=== PATIENT | female | born 1950 | race Two or more races ===

== ENCOUNTER 2021-01-12 11:07 | Inpatient (IN) | payer OTHER ==
[~2021-01-12] VITALS: Ht 152.4 cm; Wt 74.9 kg
[~2021-01-12 11:07] MED LIST: ASPI-630 PO; CARV3.1210 PO; CLOP75TA PO; FLUO10CA15 PO; HYDR-2145 PO; HYDR-2761 PO; ICOS1CAP PO; LISI-130 PO; LISI1TAB37 PO; LISI20TA18 PO; METF-658 PO; NIFE30TA95 PO; OMEG-206 PO; ONDA4TAB7 PO; PANT20TA2 PO; PENT400T7 PO; PRAV20TA2 PO; PRAV40TA2 PO; Pantoprazole PO; SITA100T PO; SUCR1TAB PO; VITA1TAB19 PO; [UNRECOGNIZED DRUG - OTHER] PO
[2021-01-12] MEDS ORDERED: IOHEXOL 300 MG/ML 100ML VIAL. IV ONE (14:15)
[2021-01-12] MEDS ORDERED: CONTRAST GIVEN. MC PRN (14:15)
--- NOTE | 2021-01-12 14:34 | PDOC1 ---
History and Physical Date of Admission Date of Admission DATE: 01/12/21 TIME: 14:34 Identification/Chief Complaint Chief Complaint ABDOMINAL AND EPIGASTRIC DISCOMFORT X 48 HRS, bradycardia History of Present Illness History of Present Illness 70 Yr old cuban speaking female seen in ER with grandson who speeks maltese well c/o epigastric pain x [address] chest ascending thoracic aorta appears enlarged measuring 4.5 cm // measurement is limited by motion artifact and noncontrast exam. moderate to severe compression fracture of T9 post vertebroplasty ABDOMINAL PAIN, possible gastritis vs PUD Bradycardia, hold calcium channel blockers plan ADMIT CVC BED Cardiology consult iv protonix 40 mg q 24 hrs GI CONSULT npo hold calcium channel blockers Past Medical History Cardiovascular: HTN, Hyperlipidemia, Other CENTRAL NERVOUS SYSTEM: Periperal neuropathy GI: GERD, Peptic Ulcer disease, Other Psych: Anxiety, Depression Musculoskeletal: Osteoarthritis Rheumatologic: Other Endocrine: Diabetes Past Surgical History Past Surgical History: Appendectomy Family History Family History: Hypertension Social History Smoke: No ALCOHOL: none Drugs: None Current Medications Current Medications Current Medications Iohexol (Omnipaque 300 Mg/ml) 75 ml 1X ONCE IV ; Start 01/12/21 at 14:15; Stop 01/12/21 at 14:16; Status DC Info (CONTRAST GIVEN -- Rx MONITORING) 1 each PRN DAILY PRN MC SEE COMMENTS; Start 01/12/21 at 14:15; Stop 01/14/21 at 14:14 Active Scripts Active Zofran (Ondansetron Hcl) 4 Mg Tablet 4 Mg PO PRN TID PRN nausea/vomiting Nifedipine Er (Nifedipine) 30 Mg Tab.er.24 30 Mg PO DAILY 30 Days [Pantoprazole] 40 MG Tablet.dr 40 Mg PO DAILYAC 30 Days Lisinopril 40 Mg Tablet 20 Mg PO BID 30 Days Reported Aspirin 81 Mg Tab.chew 81 Mg PO DAILY Fluoxetine Hcl 10 Mg Capsule 1 Cap PO DAILY Anderson-3 Acid Ethyl Esters 1 Gm Capsule 1 Gm PO DAILY B Complex (Vitamin B Complex) 1 Each Tablet 1 Each PO DAILY Januvia (Sitagliptin Phosphate) 100 Mg Tablet 100 Mg PO DAILY Metformin Hcl Er (Metformin Hcl) 500 Mg Tab.er.24h 500 Mg PO DAILY Pentoxifylline 400 Mg Tablet.er 400 Mg PO DAILY Hydrochlorothiazide Tablet (Hydrochlorothiazide) 25 Mg Tablet 25 Mg PO DAILY Pravastatin Sodium 20 Mg Tablet 20 Mg PO HS Clopidogrel (Clopidogrel Bisulfate) 75 Mg Tablet 75 Mg PO DAILY Vascepa (Icosapent Ethyl) 1 Gm Capsule 1 Gm PO DAILY Allergies Allergies: Coded Allergies: No Known Drug Allergies (Unverified , 12/28/17) ROS General: YES: Fatigue, Appetite PSYCHOLOGICAL ROS: No: Anxiety, Behavioral Disorder, Concentration difficultie, Decreased libido, Depression, Disorientation, Hallucinations, Hostility, Irritablity, Memory difficulties, Mood Swings, Obsessive thoughts, Physical abuse, Sexual abuse, Sleep disturbances, Suicidal ideation, Other Eyes: No Blurry vision, No Decreased vision, No Double vision, No Dry eyes, No Excessive tearing, No Eye Pain, No Itchy Eyes, No Loss of vision, No P hotophobia, No Scotomata, No Uses contacts, No Uses glasses, No Other HEENT: No: Heacaches, Visual Changes, Hearing change, Nasal congestion, Nasal discharge, Oral lesions, Sinus pain, Sore Throat, Epistaxis, Sneezing, Snoring, Tinnitus, Vertigo, Vocal changes, Other ALLERGY AND IMMUNOLOGY: No: Hives, Insect Bite Sensitivity, Itchy/Watery Eyes, Nasal Congestion, Post Nasal Drip, Seasonal Allergies, Other Hematological and Lymphatic: No: Bleeding Problems, Blood Clots, Blood Transfusions, Brusing, Night Sweats, Pallor, Swollen Lymph Nodes, Other ENDOCRINE: No: Breast Changes, Galactorrhea, Hair Pattern Changes, Hot Flashes, Malaise/lethargy, Mood Swings, Palpitations, Polydipsia/polyuria, Skin Changes, Temperature Intolerance, Unexpected Weight Changes, Other Breast: No New/Changing Breast Lumps, No Nipple changes, No Nipple discharge, No Other Respiratory: No: Cough, Hemoptysis, Orthopnea, Pleuritic Pain, Shortness of breath, SOB with excertion, Sputum Changes, Stridor, Tachypnea, Wheezing, Other Cardiovascular: No Chest Pain, No Palpitations, No Orthopnea, No Paroxysmal Noc. Dyspnea, No Edema, No Lt Headedness, No Other Gastrointestinal: Yes Nausea, Yes Abdominal Pain; No Vomiting, No Diarrhea, No Constipation, No Melena, No Hematochezia, No Other Genitourinary: No Dysuria, No Frequency, No Incontinence, No Hematuria, No Retention, No Discharge, No Urgency, No Pain, No Flank Pain, No Other, No , No , No , No , No , No , No Musculoskeletal: Yes Joint Stiffness; No Gait Disturbance, No Joint Pain, No Joint Swelling, No Muscle Pain, No Muscular Weakness, No Pain In:, No Swelling In:, No Other Neurological: No Behavorial Changes, No Bowel/Bladder ControlChng, No Confusion, No Dizziness, No Gait Disturbance, No Headaches, No Impaired Coord/balance, No Memory Loss, No Numbness/Tingling, No Seizures, No Speech Problems, No Tremors, No Visual Changes, No Weakness, No Other Skin: Yes Dry Skin; No Eczema, No Hair Changes, No Lumps, No Mole Changes, No Mottling, No Nail Changes, No Pruritus, No Rash, No Skin Lesion Changes, No Other, No Acne Physical Exam General: Alert, Oriented X3, Cooperative, No acute distress, mild distress HEENT: Atraumatic, PERRLA, EOMI, Mucous membr. moist/pink Lungs: Clear to auscultation, Normal air movement Heart: S1S2, RRR, no thrills, no rubs Breasts: Not examined Abdomen: Soft, Other (MILD TENDERNESS) Rectal Exam: not examined PELVIC: Examination not indicated Extremities: No cyanosis, No edema Skin: No rashes Neuro: Normal speech, Strength at 5/5 X4 ext, Cranial nerves 3-12 NL Psych/Mental Status: Mental status NL, Mood NL Images Images WHAT MUST I INCLUDE IN MY ADVANCE DIRECTIVE? The name and contact information of your healthcare agent/proxy. Answers to specific questions about your preferences for care if you become unable to speak for yourself. The forms and questions asked vary a bit from state to state. A sample question: Do you want to receive artificially provided nutrition or hydration when you are close to and/or permanently unconscious? Names and signatures of individuals who witness your signing your advance directive, if required. Not all states require witness signatures. The signature and seal of a director public, if required by your state. Not all states require advance directives to be notarized. [facility] has a list of all advance directive/living will requirements by state. WHAT ELSE WOULD BE GOOD TO INCLUDE IN MY ADVANCE DIRECTIVE? Detailed information about what procedures or types of care you would like to receive and what you wish to avoid at all costs that are not covered by the questions on the form. Would you want to take advantage of all life-support technologies if it would only postpone ? Would you want to use them if you were permanently unconscious? Would you want them if you were going through an advanced progressive illness? More general statements about your values regarding end-of-life care. What does a good mean and look like to you? For that matter, what defines a life worth living? Do you define life by the intake of breath and nutrients? Is it defined by consciousness? At what point do you want to prolong it and at what point do you want to preserve resources for other people? Personal desires for body disposition in essence, what you want to happen to your body when you and plans for any memorial service(s) A list of people who cannot make healthcare decisions for you. Leave no room for ambiguity, which could lead to tensions between loved ones about your care as you are dying. HOW SHOULD I GO ABOUT IDENTIFYING MY HEALTHCARE AGENT/PROXY? An ideal person for the job is someone who: Knows you well. A spouse/partner, a family member, a close friend: all are good candidates. Excels at making difficult decisions under pressure. Is diplomatic and empathetic critical traits for balancing the needs, wants, and unpredictable emotions of a patients loved ones. Isnt afraid to ask tough questions, which invariably arise when discussing a dying individuals end-of-life care. Is easily reachable by email, phone, and/or text. Is or can easily be within physical proximity of where youre likely to receive care. Once Court identified this person, how do I talk to them about what care I want and dont want at the end of life? Have multiple conversations with your healthcare agent about your wishes. Take them out to tea, have them over for dinner, go to a bar or library. Talk about what you want, and make sure you are heard and understood. WHAT IF MY HEALTHCARE AGENT/PROXY IS UNAVAILABLE TO EXECUTE THEIR DUTIES WHEN I AM DYING? It is important to appoint an alternative agent/proxy for exactly this reason. Identify and inform that person as you did your main agent/proxy, and list them as an alternate on your advance directive form. In most states, witnesses cannot be: Your healthcare agent or proxy; Any of your care providers; Related to you by blood, adoption, or marriage; Entitled to any portion of your estate upon your . dpoa 18 min to portal HISTORY The patient is a 67 year-old female with a history of : diabetes mellitus with treatment, peripheral vascular disease, hypertension. INDICATION The indication(s) include : non-STEMI . CASE TECHNIQUE The patient was brought electively into the cardiac catheterization lab. A timeout was performed confirming the patient's name, date of , procedure, and site of procedure. All necessary parties were wearing the appropriate personal protective equipment and radiation monitoring devices. After explaining the risks and benefits of the procedure, informed consent was obtained.(See nursing notes for medications administered). The right groin was sterilely prepped and draped. The right femoral groin was infiltrated with 2% Lidocaine subcutaneous anesthesia. During this case, Fluoroscopy and low osmolar contrast were used for imaging. A sheath was inserted into the right femoral artery without difficulty. Coronary angiography was performed using coronary diagnostic catheters. The left coronary system was accessed and visualized with a Diagnostic catheter. The right coronary system was accessed and visualized with a Diagnostic catheter. The left ventricle was accessed and visualized with a Diagnostic catheter. Left ventricular/Aortic Valve gradient assessed on pullback. Left ventriculogram was performed in MORAN projection. An aortogram of the ascending aorta was performed. Pre-demployment femoral angiogram was performed . Closure device was deployed with a Angioseal without any complications. The patient tolerated the procedure well and there were no complications associated with the procedure. Coronary Angiography The patient's coronary anatomy is left dominant. The left main coronary artery is a large size vessel free of disease. The left main bifurcates to the left anterior descending and circumflex. The left anterior descending artery is a medium size vessel free of disease. The first diagonal branch is a small size vessel free of disease. The second d iagonal branch is a small size vessel free of disease. The third diagonal branch is a small size vessel free of disease. The circumflex artery is a large size vessel free of disease. The first obtuse marginal branch is a mediummedium size vessel free of disease. The second obtuse marginal branch is a medium size vessel free of disease. The third obtuse marginal branch is a small size vessel free of disease. The left posterior descending artery is a medium size vessel free of disease. The right coronary artery is a small size vessel free of disease. Left Ventriculography The left ventricle is normal in size with normal contractility. The left ventricular ejection fraction is estimated to be 50%. The left ventricular end diastolic pressure is 14 mmHg. There was no gradient across the aortic valve upon pullback. Aorta The ascending aorta and the aortic arch are dilated. No evidence of a dissection was seen. Mild aortic insufficiency was noted. Conclusion This patient has normal coronaries, a low normal left ventricular ejection fraction of 50% and a dilated aorta with mild aortic insufficiency present. I would recommend medical treatment for this patient. There is no evidence of an apparent OR. The patient will need a CTA of the aorta to follow the size changes in the aorta. She was bradycardic throughout the procedure and we will need to follow this to make sure that she is not having significant bradycardia in the [employer] she was running in the 40s before the start of the heart catheter. Signed by : Luis Salazar MD Electronically Approved : 12/26/2017 17:56:23 DICTATED and SIGNED BY: LUIS SALAZAR MD DATE: 12/26/17 1756 PATIENT: SANTOSH PIPERACCOUNT: [id number] : 1950 LOCATION: ER AGE: 70 SEX: F EXAM STATUS: REG ER ORD. PHYSICIAN: ELIDA ESPINAL DO REASON: Epigastric pain/questionable aneurysm PROCEDURE: CT CHEST WO CONTRAST EXAM: CT CHEST WITHOUT CONTRAST HISTORY: Epigastric pain, questionable aneurysm COMPARISON: None TECHNIQUE: Helical CT of the chest performed without contrast. Coronal and sagittal reformats were obtained. One or more of the following individualized dose reduction techniques were util ized for this examination: 1. Automated exposure control 2. Adjustment of the mA and/or kV according to patient size 3. Use of iterative reconstruction technique. FINDINGS: Thyroid gland and thoracic inlet: There is a calcification in the left thyroid lobe. Thoracic inlet is normal. Heart and great vessels: The ascending thoracic aorta appears enlarged measuring 4.5 cm although the measurement is limited by motion artifact and noncontrast exam. The heart is normal in size. There are coronary calcifications. No pericardial effusion. Mild calcifications in the aortic arch and descending aorta. Mediastinum and lb: No lymphadenopathy. Lungs and pleura: There is a 1.3 cm linear nodule in the anterior left upper lobe. Calcified granuloma in the right middle lobe. Mild linear atelectasis in the lung bases. No pleural effusion. Chest wall and axillae: Normal. Upper abdomen: There are parapelvic cysts in the left kidney. Upper abdomen is otherwise unremarkable. Bones: There is a moderate to severe compression fracture of T9 post vertebroplasty. No acute osseous abnormality. There are multiple old right rib fractures. IMPRESSION: 1. The ascending thoracic aorta appears enlarged measuring approximately 4.5 cm. Measurements are limited by motion artifact and noncontrast exam. 2. 1.3 cm linear nodule in the left apex. Recommend 3 month follow-up CT to ensure stability. 3. T9 compression fracture post vertebroplasty. Electronically signed by: Flori Villafana MD (01/12/2021 4:26 PM) [id number] DICTATED and SIGNED BY: FLORI VILLAFANA MD DATE: 01/12/21 [id number] PATIENT: SANTOSH PIPERACCOUNT: [id number] : 1950 LOCATION: ER AGE: 70 SEX: F EXAM STATUS: REG ER ORD. PHYSICIAN: NON,STAFF REASON: ABDOMINAL PAIN PROCEDURE: CT ABD PELV W/ IV CONTRST ONLY EXAM: Abdomen and pelvis CT with intravenous contrast. HISTORY: Pain. TECHNIQUE: Computed tomographic images of the abdomen and pelvis were obtained following the administration of intravenous contrast. Multiplanar reformatting was performed. *One or more of the following individualized dose reduction techniques were utilized for this examination: 1. Automated exposure control. 2. Adjustment of the mA and/or kV according to patient size. 3. Use of iterative reconstruction technique. COMPARISON: None. FINDINGS: Evaluation of the lower thorax demonstrates bilateral mid and lower lung atelectasis and pleural-parenchymal scarring. There is no consolidation, pleural effusion or pneumothorax. There is cardiomegaly. There is a suspected ectatic or dilated ascending aorta, partially included on the [id number]. There is a tortuous descending thoracic aorta. There is no suspicious hepatic lesion. The gallbladder, pancreas, spleen, stomach and adrenal glands are unremarkable. There are multiple bilateral renal parapelvic cysts and small cortical cysts. There is scarring within the lateral mid zone of the right kidney. There is no hydronephrosis. The bladder is unremarkable. The appendix is absent. There is colonic diverticulosis. There is no diverticulitis. The uterus and adnexal regions are unremarkable. The abdominal aorta is normal in caliber. There is aortic and aortic branch vessel atherosclerosis. There is no lymphadenopathy. There is a tiny fat-containing left periumbilical hernia. There is degenerative change involving both hips and the lumbar spine. There is grade 1 anterolisthesis at the lower lumbar levels. There is a chronic severe compression fracture with vertebroplasty changes at T9. IMPRESSION: 1. Colonic diverticulosis. There is no evidence of diverticulitis. 2. 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 Follow-up is not routinely performed for simple cysts. 3. Ectatic or mildly aneurysmal ascending aorta, partially included on the [id number]. 4. Cardiomegaly. Electronically signed by: Minoo Brennan MD (01/12/2021 2:52 PM) [id number] VTE Prophylaxis Ordered VTE Prophylaxis Devices: Yes VTE Pharmacological Prophylaxi: Yes Assessment/Plan Assessment/Plan IMPRESSION ABDOMINAL PAIN, possible gastritis vs PUD Bradycardia, hold calcium channel blockers obesity ascending thoracic aorta appears enlarged measuring 4.5 cm // measurement is limited by motion artifact and noncontrast exam. moderate to severe compression fracture of T9 post vertebroplasty plan ADMIT CVC BED Cardiology consult iv protonix GI CONSULT npo hold calcium channel blockers iv fluid support SCD'S D/W ER DR Justifications for Admission Other Justification BARRY OROZCO MD January 12, 2021 14:34
--- NOTE | 2021-01-12 14:54 | RAD ---
EXAM: Abdomen and pelvis CT with intravenous contrast. HISTORY: Pain. TECHNIQUE: Computed tomographic images of the abdomen and pelvis were obtained following the administ ration of intravenous contrast. Multiplanar reformatting was performed. *One or more of the following individualized dose reduction techniques were utilized for this examina tion: 1. Automated exposure control. 2. Adjustment of the mA and/or kV according to patient size. 3. Use of iterative reconstruction technique. COMPARISON: None. FINDINGS: Evaluation of the lower thorax demonstrates bilateral mid and lower lung atelectasis and pl eural-parenchymal scarring. There is no consolidation, pleural effusion or pneumothorax. There is car diomegaly. There is a suspected ectatic or dilated ascending aorta, partially included on the field-o f-view. There is a tortuous descending thoracic aorta. There is no suspicious hepatic lesion. The gal lbladder, pancreas, spleen, stomach and adrenal glands are unremarkable. There are multiple bilateral renal parapelvic cysts and small cortical cysts. There is scarring withi n the lateral mid zone of the right kidney. There is no hydronephrosis. The bladder is unremarkable. The appendix is absent. There is colonic diverticulosis. There is no diverticulitis. The uterus and a dnexal regions are unremarkable. The abdominal aorta is normal in caliber. There is aortic and aortic branch vessel atherosclerosis. There is no lymphadenopathy. There is a tin y fat-containing left periumbilical hernia. There is degenerative change involving both hips and the lumbar spine. There is grade 1 anterolisthesis at the lower lumbar levels. There is a chronic severe compression fracture with vertebroplasty changes at T9. IMPRESSION: 1. Colonic diverticulosis. There is no evidence of diverticulitis. 2. 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 Follow-up is not routinely performed for simpl e cysts. 3. Ectatic or mildly aneurysmal ascending aorta, partially included on the [id number]. 4. Cardiomegaly. Electronically signed by: Minoo Brennan MD (01/12/2021 2:52 PM) [id number]
[2021-01-12 15:03] LABS: BASO % 0 % (0-3); EOS # 0.1 x10^3/uL (0.0-0.7); EOS % 2 % (0-3); HEMATOCRIT 37.8 % (36.0-47.0); HEMOGLOBIN 12.9 g/dL (12.0-15.5); LYMPH # 1.3 x10^3/uL (1.0-4.8); LYMPH % 16 % (24-48); MEAN CORPUSCULAR HEMOGLOBIN 33 pg (25-35); MEAN CORPUSCULAR HGB CONC 34 g/dL (31-37); MEAN CORPUSCULAR VOLUME 96 fL (79-100); MONO # 0.5 x10^3/uL (0.0-1.1); MONO % 6 % (0-9); NEUT % 76 % (31-73); PLATELET COUNT 151 x10^3/uL (140-400); RED BLOOD COUNT 3.95 x10^6/uL (3.50-5.40); WHITE BLOOD COUNT 7.9 x10^3/uL (4.0-11.0)
[2021-01-12 15:06] LABS: BILIRUBIN,URINE SMALL (NEG); CLARITY,URINE CLEAR; COLOR,URINE YELLOW; NITRITE,URINE NEGATIVE (NEG); PROTEIN,URINE 30 mg/dL (NEG-TRACE)
[2021-01-12 15:07] LABS: BACTERIA,URINE FEW /HPF (0-FEW); RBC,URINE OCC /HPF (0-2)
--- NOTE | 2021-01-12 15:09 | RAD ---
EXAM: CHEST ONE VIEW. HISTORY: Cystoscopy. COMPARISON: None. FINDINGS: A frontal view of the chest is obtained. There are no confluent infiltrates. There is mild atelectasis or scarring in the right base. There is no pneumothorax or pleural effusion. The heart is moderately enlarged. There are atherosclerotic ch[place] cifications of the aorta. There are chronic right rib fractures. IMPRESSION: 1. Moderate cardiomegaly. Electronically signed by: Sathya Fleming MD (01/12/2021 3:07 PM) [facility]
[2021-01-12] MEDS ORDERED: ONDANSETRON PF 4 MG/2 ML VIAL. IV PRN (15:45)
--- NOTE | 2021-01-12 16:28 | RAD ---
EXAM: CT CHEST WITHOUT CONTRAST HISTORY: Epigastric pain, questionable aneurysm COMPARISON: None TECHNIQUE: Helical CT of the chest performed without contrast. Coronal and sagittal reformats were o btained. One or more of the following individualized dose reduction techniques were utilized for this examinat ion: 1. Automated exposure control 2. Adjustment of the mA and/or kV according to patient size 3. Use of iterative reconstruction technique. FINDINGS: Thyroid gland and thoracic inlet: There is a calcification in the left thyroid lobe. Thoracic inlet i s normal. Heart and great vessels: The ascending thoracic aorta appears enlarged measuring 4.5 cm although the measurement is limited by motion artifact and noncontrast exam. The heart is normal in size. There ar e coronary calcifications. No pericardial effusion. Mild calcifications in the aortic arch and descen ding aorta. Mediastinum and lb: No lymphadenopathy. Lungs and pleura: There is a 1.3 cm linear nodule in the anterior left upper lobe. Calcified granulom a in the right middle lobe. Mild linear atelectasis in the lung bases. No pleural effusion. Chest wall and axillae: Normal. Upper abdomen: There are parapelvic cysts in the left kidney. Upper abdomen is otherwise unremarkable . Bones: There is a moderate to severe compression fracture of T9 post vertebroplasty. No acute osseous abnormality. There are multiple old right rib fractures. IMPRESSION: 1. The ascending thoracic aorta appears enlarged measuring approximately 4.5 cm. Measurements are li mited by motion artifact and noncontrast exam. 2. 1.3 cm linear nodule in the left apex. Recommend 3 month follow-up CT to ensure stability. 3. T9 compression fracture post vertebroplasty. Electronically signed by: Flori Villafana MD (01/12/2021 4:26 PM) [id number]
[2021-01-12 16:45] LABS: CREATININE 0.8 mg/dL (0.6-1.0); GFR 70.5
[2021-01-12 16:46] LABS: ALBUMIN 3.8 g/dL (3.4-5.0); ALBUMIN/GLOBULIN RATIO 1.2 (1.0-1.7); CALCIUM 8.7 mg/dL (8.5-10.1); POTASSIUM 3.7 mmol/L (3.5-5.1); TOTAL BILIRUBIN 0.8 mg/dL (0.2-1.0)
[2021-01-12] MEDS ORDERED: 0.9 % SODIUM CHLORIDE 10 ML DISP.SYRIN. IV PRN (17:00)
[2021-01-12] MEDS ORDERED: LORazepam 0.5 MG TABLET PO PRN (17:00)
[2021-01-12] MEDS ORDERED: DOCUSATE SODIUM 100 MG CAPSULE. PO PRN (17:00)
[2021-01-12] MEDS ORDERED: SODIUM PHOSPHATES 19/7GM 133 ML ENEMA. PR PRN (17:00)
[2021-01-12] MEDS ORDERED: MAG HYDROX/ALUMINUM HYD/SIMETH 30 ML ORAL.SUSP PO PRN (17:00)
[2021-01-12] MEDS ORDERED: PANTOPRAZOLE IV PUSH 40 MG VIAL. IVP ONE (17:00)
[2021-01-12] MEDS ORDERED: IV DEXTROSE 5 %-0.45 % NACL 1,000 ML IV SCH (17:00)
[2021-01-12] MEDS ORDERED: guaiFENesin ORAL 200 MG/10 ML LIQUID. PO PRN (17:00)
[2021-01-12] MEDS ORDERED: ALBUTEROL SULFATE 2.5 MG/3 ML NEBU. NEB PRN (17:00)
[2021-01-12] MEDS: IV NORMAL SALINE 1000ML BAG 1,000 ML IV SCH (17:39)
[2021-01-12] MEDS: ATORVASTATIN CALCIUM 10 MG TABLET. PO SCH (20:57)
[2021-01-12] MEDS: ENOXAPARIN 40 MG/0.4 ML SYRINGE. SQ SCH (20:57)
[2021-01-12] MEDS: hydrALAZINE 20 MG/ML VIAL. IVP PRN (20:58)
[2021-01-12 23:00] VITALS: BP 152/66
[2021-01-12] MEDS: ONDANSETRON PF 4 MG/2 ML VIAL. IV PRN (23:32)
[2021-01-13 03:00] VITALS: BP 140/60
[2021-01-13] MEDS: IV NORMAL SALINE 1000ML BAG 1,000 ML IV SCH ×3 (03:00→18:21)
[2021-01-13] MEDS ORDERED: LOSA1TAB22 PO (07:02)
[2021-01-13] MEDS ORDERED: LATA2.5D2 OU (07:02)
[2021-01-13 07:29] VITALS: BP 138/52
[2021-01-13] MEDS ORDERED: hydroCHLOROthiazide 25 MG TABLET PO SCH (09:00)
--- NOTE | 2021-01-13 09:09 | PDOC ---
PROGRESS NOTES Date of Service: DATE: 01/13/21 TIME: 09:08 Chief Complaint Chief Complaint VTE Prophylaxis Ordered VTE Prophylaxis Devices: Yes VTE Pharmacological Prophylaxi: Yes Assessment/Plan Assessment/Plan IMPRESSION ABDOMINAL PAIN, possible gastritis vs PUD Bradycardia, hold calcium channel blockers obesity ascending thoracic aorta appears enlarged measuring 4.5 cm // measurement is limited by motion artifact and noncontrast exam. moderate to severe compression fracture of T9 post vertebroplasty FEVER, POS blood cult, repeat plan ADMIT CVC BED Cardiology consult iv protonix GI CONSULT npo hold calcium channel blockers iv fluid support SCD'S ID CONSULT IV ZOSYN 3.75 GM Q 6 HRS IV DAPTOMYCIN ID CONSULT echo EGD w/ Dr. Estevez in 12/2017 for dyspepsia showed mild esophagitis, gastric atrophy, and normal duodenum. Gastric biopsy + H. pylori, was given treatment. No previous colonoscopy (per previous encounter - daughter helped w/ translation. D/W ER 40 min cc time Justifications for Admission Justifications for Admission Other Justification History of Present Illness History of Present Illness Identification/Chief Complaint Chief Complaint ABDOMINAL AND EPIGASTRIC DISCOMFORT X 48 HRS, bradycardia History of Present Illness History of Present Illness 70 Yr old [place] citizen speaking female seen in ER with grandson who speeks omani well c/o epigastric pain x [address] chest ascending thoracic aorta appears enlarged measuring 4.5 cm // measurement is limited by motion artifact and noncontrast exam. moderate to severe compression fracture of T9 post vertebroplasty ABDOMINAL PAIN, possible gastritis vs PUD Bradycardia, hold calcium channel blockers plan ADMIT CVC BED Cardiology consult iv protonix 40 mg q 24 hrs GI CONSULT npo hold calcium channel blockers now temp noted blood cult pos Past Medical History Cardiovascular: HTN, Hyperlipidemia, Other CENTRAL NERVOUS SYSTEM: Periperal neuropathy GI: GERD, Peptic Ulcer disease, Other Psych: Anxiety, Depression Musculoskeletal: Osteoarthritis Rheumatologic: Other Endocrine: Diabetes Past Surgical History Past Surgical History: Appendectomy Family History Family History: Hypertension Social History Smoke: No ALCOHOL: none Drugs: None Current Medications Current Medications Current Medications Iohexol (Omnipaque 300 Mg/ml) 75 ml 1X ONCE IV ; Start 01/12/21 at 14:15; Stop 01/12/21 at 14:16; Status DC Info (CONTRAST GIVEN -- Rx MONITORING) 1 each PRN DAILY PRN MC SEE COMMENTS; Start 01/12/21 at 14:15; Stop 01/14/21 at 14:14 Active Scripts Active Zofran (Ondansetron Hcl) 4 Mg Tablet 4 Mg PO PRN TID PRN nausea/vomiting Nifedipine Er (Nifedipine) 30 Mg Tab.er.24 30 Mg PO DAILY 30 Days [Pantoprazole] 40 MG Tablet.dr 40 Mg PO DAILYAC 30 Days Lisinopril 40 Mg Tablet 20 Mg PO BID 30 Days Reported Aspirin 81 Mg Tab.chew 81 Mg PO DAILY Fluoxetine Hcl 10 Mg Capsule 1 Cap PO DAILY [place]-3 Acid Ethyl Esters 1 Gm Capsule 1 Gm PO DAILY B Complex (Vitamin B Complex) 1 Each Tablet 1 Each PO DAILY Januvia (Sitagliptin Phosphate) 100 Mg Tablet 100 Mg PO DAILY Metformin Hcl Er (Metformin Hcl) 500 Mg Tab.er.24h 500 Mg PO DAILY Pentoxifylline 400 Mg Tablet.er 400 Mg PO DAILY Hydrochlorothiazide Tablet (Hydrochlorothiazide) 25 Mg Tablet 25 Mg PO DAILY Pravastatin Sodium 20 Mg Tablet 20 Mg PO HS Clopidogrel (Clopidogrel Bisulfate) 75 Mg Tablet 75 Mg PO DAILY Vascepa (Icosapent Ethyl) 1 Gm Capsule 1 Gm PO DAILY Allergies Allergies: Coded Allergies: No Known Drug Allergies (Unverified , 12/28/17) ROS General: YES: Fatigue, Appetite PSYCHOLOGICAL ROS: No: Anxiety, Behavioral Disorder, Concentration difficultie, Decreased libido, Depression, Disorientation, Hallucinations, Hostility, Irritablity, Memory difficulties, Mood Swings, Obsessive thoughts, Physical abuse, Sexual abuse, Sleep disturbances, Suicidal ideation, Other Eyes: No Blurry vision, No Decreased vision, No Double vision, No Dry eyes, No Excessive tearing, No Eye Pain, No Itchy Eyes, No Loss of vision, No Photophobia, No Scotomata, No Uses contacts, No Uses glasses, No Other HEENT: No: Heacaches, Visual Changes, Hearing change, Nasal congestion, Nasal discharge, Oral lesions, Sinus pain, Sore Throat, Epistaxis, Sneezing, Snoring, Tinnitus, Vertigo, Vocal changes, Other ALLERGY AND IMMUNOLOGY: No: Hives, Insect Bite Sensitivity, Itchy/Watery Eyes, Nasal Congestion, Post Nasal Drip, Seasonal Allergies, Other Hematological and Lymphatic: No: Bleeding Problems, Blood Clots, Blood Transfusions, Brusing, Night Sweats, Pallor, Swollen Lymph Nodes, Other ENDOCRINE: No: Breast Changes, Galactorrhea, Hair Pattern Changes, Hot Flashes, Malaise/lethargy, Mood Swings, Palpitations, Polydipsia/polyuria, Skin Changes, Temperature Intolerance, Unexpected Weight Changes, Other Breast: No New/Changing Breast Lumps, No Nipple changes, No Nipple discharge, No Other Respiratory: No: Cough, Hemoptysis, Orthopnea, Pleuritic Pain, Shortness of breath, SOB with excertion, Sputum Changes, Stridor, Tachypnea, Wheezing, Other Cardiovascular: No Chest Pain, No Palpitations, No Orthopnea, No Paroxysmal Noc. Dyspnea, No Edema, No Lt Headedness, No Other Gastrointestinal: Yes Nausea, Yes Abdominal Pain; No Vomiting, No Diarrhea, No Constipation, No Melena, No Hematochezia, No Other Genitourinary: No Dysuria, No Frequency, No Incontinence, No Hematuria, No Retention, No Discharge, No Urgency, No Pain, No Flank Pain, No Other, No , No , No , No , No , No , No Musculoskeletal: Yes Joint Stiffness; No Gait Disturbance, No Joint Pain, No Joint Swelling, No Muscle Pain, No Muscular Weakness, No Pain In:, No Swelling In:, No Other Neurological: No Behavorial Changes, No Bowel/Bladder ControlChng, No Confusion, No Dizziness, No Gait Disturbance, No Headaches, No Impaired Coord/balance, No Memory Loss, No Numbness/Tingling, No Seizures, No Speech Problems, No Tremors, No Visual Changes, No Weakness, No Other Skin: Yes Dry Skin; No Eczema, No Hair Changes, No Lumps, No Mole Changes, No Mottling, No Nail Changes, No Pruritus, No Rash, No Skin Lesion Changes, No Other, No Acne Vitals Vitals Vital Signs Date Time Temp Pulse Resp B/P (MAP) Pulse Ox O2 Delivery O2 Flow Rate FiO2 01/13/21 07:29 103.0 66 18 138/52 (80) 92 Room Air 103.0 Physical Exam Physical Exam Physical Exam General: Alert, Oriented X3, Cooperative, No acute distress, mild distress HEENT: Atraumatic, PERRLA, EOMI, Mucous membr. moist/pink Lungs: Clear to auscultation, Normal air movement Heart: S1S2, RRR, no thrills, no rubs Breasts: Not examined Abdomen: Soft, Other (MILD TENDERNESS) Rectal Exam: not examined PELVIC: Examination not indicated Extremities: No cyanosis, No edema Skin: No rashes Neuro: Normal speech, Strength at 5/5 X4 ext, Cranial nerves 3-12 NL Psych/Mental Status: Mental status NL, Mood NL General: Alert, Oriented X3, Cooperative, No acute distress, mild distress Lungs: Clear Abdomen: Normal bowel sounds, Soft, No tenderness, Other (MILD TENDERNESS) Extremities: No cyanosis, No edema Skin: No rashes Labs LABS JALEN JOLLEY MD,KATHARINE Bobo MD ORDERED: BCULT Procedure Result -------- ---- BLOOD CULTURE Final GRAM POSITIVE COCCI IN PAIRS AND SHORT CHAINS SEEN IN 1 OF 4 BOTTLES, 2 SETS COLLECTED. CALLED TO [facility]ARD AT 0852 01/13/21 BY DES. CULTURES SENT TO [facility] FOR FURTHER WORKUP. Laboratory Tests Test 01/12/21 12:15 01/13/21 08:21 White Blood Count 7.9 x10^3/uL (4.0-11.0) Red Blood Count 3.95 x10^6/uL (3.50-5.40) Hemoglobin 12.9 g/dL (12.0-15.5) Hematocrit 37.8 % (36.0-47.0) Mean Corpuscular Volume 96 fL (79-100) Mean Corpuscular Hemoglobin 33 pg (25-35) Mean Corpuscular Hemoglobin Concent 34 g/dL (31-37) Red Cell Distribution Width 13.0 % (11.5-14.5) Platelet Count 151 x10^3/uL (140-400) Neutrophils (%) (Auto) 76 % (31-73) Lymphocytes (%) (Auto) 16 % (24-48) Monocytes (%) (Auto) 6 % (0-9) Eosinophils (%) (Auto) 2 % (0-3) Basophils (%) (Auto) 0 % (0-3) Neutrophils # (Auto) 6.0 x10^3/uL (1.8-7.7) Lymphocytes # (Auto) 1.3 x10^3/uL (1.0-4.8) Monocytes # (Auto) 0.5 x10^3/uL (0.0-1.1) Eosinophils # (Auto) 0.1 x10^3/uL (0.0-0.7) Basophils # (Auto) 0.0 x10^3/uL (0.0-0.2) Urine Collection Type Unknown Urine Color Yellow Urine Clarity Clear Urine pH 6.0 (<5.0-8.0) Urine Specific [place] 1.025 (1.000-1.030) Urine Protein 30 mg/dL (NEG-TRACE) Urine Glucose (UA) Negative mg/dL (NEG) Urine Ketones (Stick) Negative mg/dL (NEG) Urine Blood Negative (NEG) Urine Nitrite Negative (NEG) Urine Bilirubin Small (NEG) Urine Urobilinogen Dipstick 1.0 mg/dL (0.2 mg/dL) Urine Leukocyte Esterase Negative (NEG) Urine RBC Occ /HPF (0-2) Urine WBC 1-4 /HPF (0-4) Urine Squamous Epithelial Cells Many /LPF Urine Bacteria Few /HPF (0-FEW) Urine Mucus Marked /LPF Sodium Level 143 mmol/L (136-145) Potassium Level 3.7 mmol/L (3.5-5.1) Chloride Level 105 mmol/L (98-107) Carbon Dioxide Level 31 mmol/L (21-32) Anion Gap 7 (6-14) Blood Urea Nitrogen 18 mg/dL (7-20) Creatinine 0.8 mg/dL (0.6-1.0) Estimated GFR (Cockcroft-Gault) 70.5 BUN/Creatinine Ratio 23 (6-20) Glucose Level 143 mg/dL (70-99) Calcium Level 8.7 mg/dL (8.5-10.1) Total Bilirubin 0.8 mg/dL (0.2-1.0) Aspartate Amino Transf (AST/SGOT) 34 U/L (15-37) Alanine Aminotransferase (ALT/SGPT) 32 U/L (14-59) Alkaline Phosphatase 79 U/L (46-116) Troponin I Quantitative 0.030 ng/mL (0.000-0.055) Total Protein 7.0 g/dL (6.4-8.2) Albumin 3.8 g/dL (3.4-5.0) Albumin/Globulin Ratio 1.2 (1.0-1.7) Amylase Level 112 U/L (25-115) Lipase 259 U/L (73-393) Glucose (Fingerstick) 109 mg/dL (70-99) Assessment and Plan Assessmemt and Plan Problems Medical Problems: (1) Bradycardia on ECG Status: Acute Comment Review of Relevant I have reviewed the following items homero (where applicable) has been applied. Labs Laboratory Tests Test 01/12/21 12:15 01/13/21 08:21 White Blood Count 7.9 x10^3/uL (4.0-11.0) Red Blood Count 3.95 x10^6/uL (3.50-5.40) Hemoglobin 12.9 g/dL (12.0-15.5) Hematocrit 37.8 % (36.0-47.0) Mean Corpuscular Volume 96 fL (79-100) Mean Corpuscular Hemoglobin 33 pg (25-35) Mean Corpuscular Hemoglobin Concent 34 g/dL (31-37) Red Cell Distribution Width 13.0 % (11.5-14.5) Platelet Count 151 x10^3/uL (140-400) Neutrophils (%) (Auto) 76 % (31-73) Lymphocytes (%) (Auto) 16 % (24-48) Monocytes (%) (Auto) 6 % (0-9) Eosinophils (%) (Auto) 2 % (0-3) Basophils (%) (Auto) 0 % (0-3) Neutrophils # (Auto) 6.0 x10^3/uL (1.8-7.7) Lymphocytes # (Auto) 1.3 x10^3/uL (1.0-4.8) Monocytes # (Auto) 0.5 x10^3/uL (0.0-1.1) Eosinophils # (Auto) 0.1 x10^3/uL (0.0-0.7) Basophils # (Auto) 0.0 x10^3/uL (0.0-0.2) Urine Collection Type Unknown Urine Color Yellow Urine Clarity Clear Urine pH 6.0 (<5.0-8.0) Urine Specific [place] 1.025 (1.000-1.030) Urine Protein 30 mg/dL (NEG-TRACE) Urine Glucose (UA) Negative mg/dL (NEG) Urine Ketones (Stick) Negative mg/dL (NEG) Urine Blood Negative (NEG) Urine Nitrite Negative (NEG) Urine Bilirubin Small (NEG) Urine Urobilinogen Dipstick 1.0 mg/dL (0.2 mg/dL) Urine Leukocyte Esterase Negative (NEG) Urine RBC Occ /HPF (0-2) Urine WBC 1-4 /HPF (0-4) Urine Squamous Epithelial Cells Many /LPF Urine Bacteria Few /HPF (0-FEW) Urine Mucus Marked /LPF Sodium Level 143 mmol/L (136-145) Potassium Level 3.7 mmol/L (3.5-5.1) Chloride Level 105 mmol/L (98-107) Carbon Dioxide Level 31 mmol/L (21-32) Anion Gap 7 (6-14) Blood Urea Nitrogen 18 mg/dL (7-20) Creatinine 0.8 mg/dL (0.6-1.0) Estimated GFR (Cockcroft-Gault) 70.5 BUN/Creatinine Ratio 23 (6-20) Glucose Level 143 mg/dL (70-99) Calcium Level 8.7 mg/dL (8.5-10.1) Total Bilirubin 0.8 mg/dL (0.2-1.0) Aspartate Amino Transf (AST/SGOT) 34 U/L (15-37) Alanine Aminotransferase (ALT/SGPT) 32 U/L (14-59) Alkaline Phosphatase 79 U/L (46-116) Troponin I Quantitative 0.030 ng/mL (0.000-0.055) Total Protein 7.0 g/dL (6.4-8.2) Albumin 3.8 g/dL (3.4-5.0) Albumin/Globulin Ratio 1.2 (1.0-1.7) Amylase Level 112 U/L (25-115) Lipase 259 U/L (73-393) Glucose (Fingerstick) 109 mg/dL (70-99) Laboratory Tests Test 01/12/21 12:15 01/13/21 08:21 White Blood Count 7.9 x10^3/uL (4.0-11.0) Red Blood Count 3.95 x10^6/uL (3.50-5.40) Hemoglobin 12.9 g/dL (12.0-15.5) Hematocrit 37.8 % (36.0-47.0) Mean Corpuscular Volume 96 fL (79-100) Mean Corpuscular Hemoglobin 33 pg (25-35) Mean Corpuscular Hemoglobin Concent 34 g/dL (31-37) Red Cell Distribution Width 13.0 % (11.5-14.5) Platelet Count 151 x10^3/uL (140-400) Neutrophils (%) (Auto) 76 % (31-73) Lymphocytes (%) (Auto) 16 % (24-48) Monocytes (%) (Auto) 6 % (0-9) Eosinophils (%) (Auto) 2 % (0-3) Basophils (%) (Auto) 0 % (0-3) Neutrophils # (Auto) 6.0 x10^3/uL (1.8-7.7) Lymphocytes # (Auto) 1.3 x10^3/uL (1.0-4.8) Monocytes # (Auto) 0.5 x10^3/uL (0.0-1.1) Eosinophils # (Auto) 0.1 x10^3/uL (0.0-0.7) Basophils # (Auto) 0.0 x10^3/uL (0.0-0.2) Urine Collection Type Unknown Urine Color Yellow Urine Clarity Clear Urine pH 6.0 (<5.0-8.0) Urine Specific [place] 1.025 (1.000-1.030) Urine Protein 30 mg/dL (NEG-TRACE) Urine Glucose (UA) Negative mg/dL (NEG) Urine Ketones (Stick) Negative mg/dL (NEG) Urine Blood Negative (NEG) Urine Nitrite Negative (NEG) Urine Bilirubin Small (NEG) Urine Urobilinogen Dipstick 1.0 mg/dL (0.2 mg/dL) Urine Leukocyte Esterase Negative (NEG) Urine RBC Occ /HPF (0-2) Urine WBC 1-4 /HPF (0-4) Urine Squamous Epithelial Cells Many /LPF Urine Bacteria Few /HPF (0-FEW) Urine Mucus Marked /LPF Sodium Level 143 mmol/L (136-145) Potassium Level 3.7 mmol/L (3.5-5.1) Chloride Level 105 mmol/L (98-107) Carbon Dioxide Level 31 mmol/L (21-32) Anion Gap 7 (6-14) Blood Urea Nitrogen 18 mg/dL (7-20) Creatinine 0.8 mg/dL (0.6-1.0) Estimated GFR (Cockcroft-Gault) 70.5 BUN/Creatinine Ratio 23 (6-20) Glucose Level 143 mg/dL (70-99) Calcium Level 8.7 mg/dL (8.5-10.1) Total Bilirubin 0.8 mg/dL (0.2-1.0) Aspartate Amino Transf (AST/SGOT) 34 U/L (15-37) Alanine Aminotransferase (ALT/SGPT) 32 U/L (14-59) Alkaline Phosphatase 79 U/L (46-116) Troponin I Quantitative 0.030 ng/mL (0.000-0.055) Total Protein 7.0 g/dL (6.4-8.2) Albumin 3.8 g/dL (3.4-5.0) Albumin/Globulin Ratio 1.2 (1.0-1.7) Amylase Level 112 U/L (25-115) Lipase 259 U/L (73-393) Glucose (Fingerstick) 109 mg/dL (70-99) Microbiology 01/12/21 Blood Culture - Final, Complete Medications Current Medications Iohexol (Omnipaque 300 Mg/ml) 75 ml 1X ONCE IV Last administered on 01/12/21at 14:38; Start 01/12/21 at 14:15; Stop 01/12/21 at 14:16; Status DC Info (CONTRAST GIVEN -- Rx MONITORING) 1 each PRN DAILY PRN MC SEE COMMENTS; Start 01/12/21 at 14:15; Stop 01/14/21 at 14:14 Ondansetron HCl (Zofran) 4 mg PRN Q8HRS PRN IV NAUSEA/VOMITING; Start 01/12/21 at 15:45; Stop 01/12/21 at 16:51; Status DC Pantoprazole Sodium (PROTONIX VIAL for IV PUSH) 40 mg DAILY08 ONCE IVP Last administered on 01/12/21at 17:40; Start 01/12/21 at 17:00; Stop 01/12/21 at 17 :01; Status DC Sodium Chloride (Normal Saline Flush) 3 ml QSHIFT PRN IV AFTER MEDS AND BLOOD DRAWS; Start 01/12/21 at 17:00 Sodium Chloride 1,000 ml @ 100 mls/hr Q10H IV Last administered on 01/13/21at 03:00; Start 01/12/21 at 17:00 Dextrose/Sodium Chloride 1,000 ml @ 80 mls/hr [id number] IV ; Start 01/12/21 at 17:00; Status UNV Ondansetron HCl (Zofran) 4 mg PRN Q4HRS PRN IV NAUSEA/VOMITING Last administered on 01/12/21at 23:32; Start 01/12/21 at 17:00 Acetaminophen (Tylenol) 650 mg PRN Q4HRS PRN PO TEMP OVER 100.4F OR MILD PAIN; Start 01/12/21 at 17:00 Al Hydroxide/Mg Hydroxide (Mylanta Plus Xs) 30 ml PRN DAILY PRN PO HEARTBURN / GAS; Start 01/12/21 at 17:00 Sodium Monofluorophosphate (Fleet Adult) 133 ml PRN DAILY PRN ME CONSTIPATION; Start 01/12/21 at 17:00 Docusate Sodium (Colace) 100 mg PRN BID PRN PO HARD STOOLS; Start 01/12/21 at 17:00 Albuterol Sulfate (Ventolin Neb Soln) 2.5 mg PRN Q4HRS PRN NEB SHORTNESS OF BREATH; Start 01/12/21 at 17:00 Guaifenesin (Robitussin) 200 mg PRN Q4HRS PRN PO COUGH; Start 01/12/21 at 17:00 Lorazepam (Ativan) 0.5 mg PRN Q4HRS PRN PO ANXIETY / AGITATION; Start 01/12/21 at 17:00 Enoxaparin Sodium (Lovenox 40mg Syringe) 40 mg Q24H SQ Last administered on 01/12/21at 20:57; Start 01/12/21 at 21:00 Aspirin (Aspirin Chewable) 81 mg DAILY PO ; Start 01/13/21 at 09:00 Clopidogrel Bisulfate (Plavix) 75 mg DAILY PO ; Start 01/13/21 at 09:00 Fluoxetine HCl (PROzac) 10 mg DAILY PO ; Start 01/13/21 at 09:00 Hydrochlorothiazide (Hydrodiuril) 25 mg DAILY PO ; Start 01/13/21 at 09:00 Pentoxifylline (TRENtal) 400 mg DAILY PO ; Start 01/13/21 at 09:00 Vitamin B Complex (Hang B) 1 tab DAILY PO ; Start 01/13/21 at 09:00 Fish Oil (Fish Oil) 1,000 mg DAILY PO ; Start 01/13/21 at 09:00 Ondansetron HCl (Zofran Odt) 4 mg PRN Q8HRS PRN PO NAUSEA/VOMITING; Start 01/12/21 at 17:00 Atorvastatin Calcium (Lipitor) 5 mg QHS PO Last administered on 01/12/21at 20:57; Start 01/12/21 at 21:00 Hydralazine HCl (Apresoline Inj) 10 mg PRN Q4HRS PRN IVP ELEVATED BP, SEE COMMENTS Last administered on 01/12/21at 20:58; Start 01/12/21 at 20:30 Active Scripts Active Nifedipine Er (Nifedipine) 30 Mg Tab.er.24 30 Mg PO DAILY 30 Days Reported Xalatan (Latanoprost) 2.5 Ml Drops 1 Drop OU QHS Losartan-Hctz 100-25 Mg Tab (Losartan/Hydrochlorothiazide) 1 Each Tablet 1 Each PO DAILY Januvia (Sitagliptin Phosphate) 100 Mg Tablet 100 Mg PO DAILY Pentoxifylline 400 Mg Tablet.er 400 Mg PO DAILY Pravastatin Sodium 20 Mg Tablet 20 Mg PO HS Vitals/I & O Vital Sign - Last 24 Hours 01/12/21 01/12/21 01/12/21 01/12/21 15:30 16:00 16:30 17:00 Pulse 54 54 56 55 Resp 27 16 17 22 B/P (MAP) 161/70 (100) 154/68 (96) 150/67 (94) 152/72 (98) Pulse Ox 95 94 95 96 O2 Delivery Room Air Room Air Room Air Room Air 01/12/21 01/12/21 01/12/21 01/12/21 17:30 18:08 20:30 20:58 Temp 98.7 98.7 Pulse 52 56 Resp 20 20 B/P (MAP) 148/75 (99) 145/74 (97) 202/75 Pulse Ox 96 96 O2 Delivery Room Air Room Air Room Air 01/12/21 01/13/21 01/13/21 23:00 03:00 07:29 Temp 99.1 97.9 103.0 99.1 97.9 103.0 Pulse 87 60 66 Resp 16 18 18 B/P (MAP) 152/66 (94) 140/60 (86) 138/52 (80) Pulse Ox 91 92 92 O2 Delivery Room Air Room Air Room Air Intake and Output 01/12/21 01/12/21 01/13/21 15:00 23:00 07:00 Intake Total 50 ml Balance 50 ml Justicifation of Admission Dx: Justifications for Admission: Justification of Admission Dx: Yes Sepsis: Bacteremia BARRY OROZCO MD January 13, 2021 09:09
[2021-01-13] MEDS ORDERED: PIPERACILLIN/TAZOBACTAM 2.25 GM in IV NORMAL SALINE 50ML 50 ML IV ONE (09:15)
[2021-01-13 09:21] LABS: PROTHROMBIN TIME PATIENT 14.1 SEC (11.7-14.0)
[2021-01-13 09:28] LABS: CALCIUM 8.4 mg/dL (8.5-10.1); CREATININE 0.7 mg/dL (0.6-1.0); GFR 82.3; MAGNESIUM 1.7 mg/dL (1.8-2.4); PHOSPHORUS 4.1 mg/dL (2.6-4.7); POTASSIUM 3.9 mmol/L (3.5-5.1)
--- NOTE | 2021-01-13 09:53 | PDOC2 ---
GI CONSULT Date of Service: DATE: 01/13/21 TIME: 09:53 Reason For Consult: abd pain HPI: HPI: 70 y/o female who we have seen in the past. 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 No current GI concerns per nurse. Cardiology consult pending for bradycardia. Had fever 103 and +blood culture, COVID swab collected. Indicates diffuse abdominal pain began yesterday w/ some nausea and bloating. Avoided eating. No diarrhea, constipation, or bleeding. Pain is better today. Very hungry now. EGD w/ Dr. Estevez in 12/2017 for dyspepsia showed mild esophagitis, gastric atrophy, and normal duodenum. Gastric biopsy + H. pylori, was given treatment. No previous colonoscopy (per previous encounter - daughter helped w/ translation then). Diverticulosis on past imaging. ?cholecystectomy vs appendectomy @ [facility] in 2017. No GI-type meds on summary list. Getting Plavix and ASA here. PMH: PMH: HTN, HLD, DM, DJD, peripheral neuropathy, ?cholecystectomy, ? FH: Family History: Cancer (no GI cancers as discussed in previous encounter) Social History: Smoke: No ALCOHOL: none Drugs: None ROS: GEN: +fever GI: Per HPI Vitals: Vitals: Vital Signs Date Time Temp Pulse Resp B/P (MAP) Pulse Ox O2 Delivery O2 Flow Rate FiO2 01/13/21 08:00 Room Air 01/13/21 07:29 103.0 66 18 138/52 (80) 92 103.0 Labs: Labs: Laboratory Tests Test 01/12/21 12:15 01/13/21 08:21 01/13/21 08:23 01/13/21 08:35 White Blood Count 7.9 x10^3/uL (4.0-11.0) Red Blood Count 3.95 x10^6/uL (3.50-5.40) Hemoglobin 12.9 g/dL (12.0-15.5) Hematocrit 37.8 % (36.0-47.0) Mean Corpuscular Volume 96 fL (79-100) Mean Corpuscular Hemoglobin 33 pg (25-35) Mean Corpuscular Hemoglobin Concent 34 g/dL (31-37) Red Cell Distribution Width 13.0 % (11.5-14.5) Platelet Count 151 x10^3/uL (140-400) Neutrophils (%) (Auto) 76 % (31-73) Lymphocytes (%) (Auto) 16 % (24-48) Monocytes (%) (Auto) 6 % (0-9) Eosinophils (%) (Auto) 2 % (0-3) Basophils (%) (Auto) 0 % (0-3) Neutrophils # (Auto) 6.0 x10^3/uL (1.8-7.7) Lymphocytes # (Auto) 1.3 x10^3/uL (1.0-4.8) Monocytes # (Auto) 0.5 x10^3/uL (0.0-1.1) Eosinophils # (Auto) 0.1 x10^3/uL (0.0-0.7) Basophils # (Auto) 0.0 x10^3/uL (0.0-0.2) Urine Collection Type Unknown Urine Color Yellow Urine Clarity Clear Urine pH 6.0 (<5.0-8.0) Urine Specific [place] 1.025 (1.000-1.030) Urine Protein 30 mg/dL (NEG-TRACE) Urine Glucose (UA) Negative mg/dL (NEG) Urine Ketones (Stick) Negative mg/dL (NEG) Urine Blood Negative (NEG) Urine Nitrite Negative (NEG) Urine Bilirubin Small (NEG) Urine Urobilinogen Dipstick 1.0 mg/dL (0.2 mg/dL) Urine Leukocyte Esterase Negative (NEG) Urine RBC Occ /HPF (0-2) Urine WBC 1-4 /HPF (0-4) Urine Squamous Epithelial Cells Many /LPF Urine Bacteria Few /HPF (0-FEW) Urine Mucus Marked /LPF Sodium Level 143 mmol/L (136-145) 143 mmol/L (136-145) Potassium Level 3.7 mmol/L (3.5-5.1) 3.9 mmol/L (3.5-5.1) Chloride Level 105 mmol/L (98-107) 103 mmol/L (98-107) Carbon Dioxide Level 31 mmol/L (21-32) 31 mmol/L (21-32) Anion Gap 7 (6-14) 9 (6-14) Blood Urea Nitrogen 18 mg/dL (7-20) 12 mg/dL (7-20) Creatinine 0.8 mg/dL (0.6-1.0) 0.7 mg/dL (0.6-1.0) Estimated GFR (Cockcroft-Gault) 70.5 82.3 BUN/Creatinine Ratio 23 (6-20) Glucose Level 143 mg/dL (70-99) 108 mg/dL (70-99) Calcium Level 8.7 mg/dL (8.5-10.1) 8.4 mg/dL (8.5-10.1) Total Bilirubin 0.8 mg/dL (0.2-1.0) Aspartate Amino Transf (AST/SGOT) 34 U/L (15-37) Alanine Aminotransferase (ALT/SGPT) 32 U/L (14-59) Alkaline Phosphatase 79 U/L (46-116) Troponin I Quantitative 0.030 ng/mL (0.000-0.055) 0.030 ng/mL (0.000-0.055) Total Protein 7.0 g/dL (6.4-8.2) Albumin 3.8 g/dL (3.4-5.0) Albumin/Globulin Ratio 1.2 (1.0-1.7) Amylase Level 112 U/L (25-115) Lipase 259 U/L (73-393) Glucose (Fingerstick) 109 mg/dL (70-99) SARS-CoV-2 Antigen (Rapid) Negative (NEGATIVE) Phosphorus Level 4.1 mg/dL (2.6-4.7) Magnesium Level 1.7 mg/dL (1.8-2.4) Test 01/13/21 08:40 Prothrombin Time 14.1 SEC (11.7-14.0) Prothromb Time International Ratio 1.1 (0.8-1.1) BLOOD CULTURE Final GRAM POSITIVE COCCI IN PAIRS AND SHORT CHAINS SEEN IN 1 OF 4 BOTTLES, 2 SETS COLLECTED. Allergies: Coded Allergies: No Known Drug Allergies (Unverified , 12/28/17) Medications: Current Medications Medications (Trade) Dose Ordered Sig/Jacklyn Route PRN Reason Start Time Stop Time Status Last Admin Dose Admin Iohexol (Omnipaque 300 Mg/ml) 75 ml 1X ONCE IV 01/12/21 14:15 01/12/21 14:16 DC 01/12/21 14:38 Pantoprazole Sodium (PROTONIX VIAL for IV PUSH) 40 mg DAILY08 ONCE IVP 01/12/21 17:00 01/12/21 17:01 DC 01/12/21 17:40 Sodium Chloride 1,000 ml @ 100 mls/hr Q10H IV 01/12/21 17:00 01/13/21 03:00 Ondansetron HCl (Zofran) 4 mg PRN Q4HRS PRN IV NAUSEA/VOMITING 01/12/21 17:00 01/12/21 23:32 Enoxaparin Sodium (Lovenox 40mg Syringe) 40 mg Q24H SQ 01/12/21 21:00 01/12/21 20:57 Atorvastatin Calcium (Lipitor) 5 mg QHS PO 01/12/21 21:00 01/12/21 20:57 Hydralazine HCl (Apresoline Inj) 10 mg PRN Q4HRS PRN IVP ELEVATED BP, SEE COMMENTS 01/12/21 20:30 01/12/21 20:58 Imaging: Imaging: CT A/P IMPRESSION: 1. Colonic diverticulosis. There is no evidence of diverticulitis. 2. 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 Follow-up is not routinely performed for simple cysts. 3. Ectatic or mildly aneurysmal ascending aorta, partially included on the [id number]. 4. Cardiomegaly. CXR IMPRESSION: 1. Moderate cardiomegaly. Chest CT IMPRESSION: 1. The ascending thoracic aorta appears enlarged measuring approximately 4.5 cm. Measurements are limited by motion artifact and noncontrast exam. 2. 1.3 cm linear nodule in the left apex. Recommend 3 month follow-up CT to ensure stability. 3. T9 compression fracture post vertebroplasty. PE: GEN: NAD HEENT: Atraumatic, PERRL LUNGS: CTAB HEART: RRR ABD: NABS, S/ND/NT EXTREMITY: No edema SKIN: No rashes, no jaundice NEURO/PSYCH: A & O 3 - Russian speaking A/P: A/P: Abd pain, nausea, bloating - improved Bradycardia, GPC bacteremia, fever H/o GERD, H. pylori CRC screen - none Diverticulosis ?s/p cholecystectomy - daughter reported in previous encounter - chart suggests appendectomy and CT report mentions normal GB COVID negative -- GI symptoms improved - exam benign. Okay to try clear liquid diet per GI - d/w nurse. Add PPI. Will review GB question w/ Dr. Estevez. HAMLET JASON January 13, 2021 09:53
[2021-01-13] MEDS: PIPERACILLIN/TAZOBACTAM 3.375 GM in IV NORMAL SALINE 50ML 50 ML IV SCH ×3 (10:09→23:30)
[2021-01-13 10:12] VITALS: BP 152/61
[2021-01-13] MEDS ORDERED: MAGNESIUM SULFATE 2GM 50 ML IV ONE (11:00)
--- NOTE | 2021-01-13 11:52 | PDOC2 ---
JARED NICKERSON [employer] DEVELOPMENT 01/13/21 1152: CARDIAC CONSULT DATE OF CONSULT Date of Consult DATE: 01/13/21 TIME: 11:38 REASON FOR CONSULT Reason for Consult: bradycardia REFERRING PHYSICIAN Referring Physician: Dr. Ruby SOURCE Source: Chart review, Patient HISTORY OF PRESENT ILLNESS HISTORY OF PRESENT ILLNESS This is a 70 yo female who initially presented to [facility] secondary to abdominal/epigastric pain. Patient reports bloated feeling for the last couple of years. Yesterday, developed pain in her abdomen and epigastric. Pain was very intense so she went to the ED for further evaluation and treatment. CT chest w/o contrast with ascending thoracic aortic aneurysm measuring 4.5 cm. Was noted to be mildly bradycardia, which prompted this consult. Recently, she reports felling more tired and c/o shortness of breath with exertion. No dizziness, diaphoresis, chest pain, or palpitation. Reports he has been getting cramps in her legs at night, but this seems to resolved when she gets up and moves. No LE wounds. Per review of records, patient has a known history of mild bradycardia. No significant bradycardia or pauses overnight. Mean HR 65. PAST MEDICAL HISTORY Cardiovascular: HTN, Hyperlipidemia, Other (PAD) CENTRAL NERVOUS SYSTEM: Periperal neuropathy Psych: Depression Musculoskeletal: Osteoarthritis Endocrine: Diabetes PAST SURGICAL HISTORY Past Surgical History: Appendectomy FAMILY HISTORY Family History: Diabetes, Heart Disease, Hypertension, Stroke SOCIAL HISTORY Smoke: No ALCOHOL: none Drugs: None Lives: with Family CURRENT MEDICATIONS CURRENT MEDICATIONS Current Medications Medications (Trade) Dose Ordered Sig/Jacklyn Route PRN Reason Start Time Stop Time Status Last Admin Dose Admin Iohexol (Omnipaque 300 Mg/ml) 75 ml 1X ONCE IV 01/12/21 14:15 01/12/21 14:16 DC 01/12/21 14:38 Pantoprazole Sodium (PROTONIX VIAL for IV PUSH) 40 mg DAILY08 ONCE IVP 01/12/21 17:00 01/12/21 17:01 DC 01/12/21 17:40 Sodium Chloride 1,000 ml @ 100 mls/hr Q10H IV 01/12/21 17:00 01/13/21 03:00 Ondansetron HCl (Zofran) 4 mg PRN Q4HRS PRN IV NAUSEA/VOMITING 01/12/21 17:00 01/12/21 23:32 Enoxaparin Sodium (Lovenox 40mg Syringe) 40 mg Q24H SQ 01/12/21 21:00 01/12/21 20:57 Atorvastatin Calcium (Lipitor) 5 mg QHS PO 01/12/21 21:00 01/12/21 20:57 Hydralazine HCl (Apresoline Inj) 10 mg PRN Q4HRS PRN IVP ELEVATED BP, SEE COMMENTS 01/12/21 20:30 01/12/21 20:58 Piperacillin Sod/ Tazobactam Sod 3.375 gm/Sodium Chloride 50 ml @ 100 mls/hr Q6HRS IV 01/13/21 10:00 01/13/21 10:09 Magnesium Sulfate 50 ml @ 25 mls/hr 1X ONCE IV 01/13/21 11:00 01/13/21 12:59 01/13/21 11:21 ALLERGIES ALLERGIES: Coded Allergies: No Known Drug Allergies (Unverified , 12/28/17) ROS Review of System 14 point ROS conducted with pertinent positives noted above in HPI PHYSICAL EXAM General: Alert, Oriented X3, Cooperative, No acute distress HEENT: Atraumatic Lungs: Clear to auscultation Heart: Regular rate Abdomen: Soft Extremities: No edema, Normal pulses Skin: No breakdown, No significant lesion Neuro: Normal speech, Sensation intact Psych/Mental Status: Mental status NL, Mood NL MUSCULOSKELETAL: Osteoarthritic changes both hands VITALS/I&O VITALS/I&O: Vital Signs Date Time Temp Pulse Resp B/P (MAP) Pulse Ox O2 Delivery O2 Flow Rate FiO2 01/13/21 10:12 99.0 60 20 152/61 (91) 95 Room Air 99.0 I & O 01/12/21 01/12/21 01/13/21 15:00 23:00 07:00 Intake Total 50 ml Balance 50 ml LABS Lab: Laboratory Tests Test 01/12/21 12:15 01/13/21 08:21 01/13/21 08:23 01/13/21 08:35 White Blood Count 7.9 x10^3/uL (4.0-11.0) Red Blood Count 3.95 x10^6/uL (3.50-5.40) Hemoglobin 12.9 g/dL (12.0-15.5) Hematocrit 37.8 % (36.0-47.0) Mean Corpuscular Volume 96 fL (79-100) Mean Corpuscular Hemoglobin 33 pg (25-35) Mean Corpuscular Hemoglobin Concent 34 g/dL (31-37) Red Cell Distribution Width 13.0 % (11.5-14.5) Platelet Count 151 x10^3/uL (140-400) Neutrophils (%) (Auto) 76 % (31-73) H Lymphocytes (%) (Auto) 16 % (24-48) L Monocytes (%) (Auto) 6 % (0-9) Eosinophils (%) (Auto) 2 % (0-3) Basophils (%) (Auto) 0 % (0-3) Neutrophils # (Auto) 6.0 x10^3/uL (1.8-7.7) Lymphocytes # (Auto) 1.3 x10^3/uL (1.0-4.8) Monocytes # (Auto) 0.5 x10^3/uL (0.0-1.1) Eosinophils # (Auto) 0.1 x10^3/uL (0.0-0.7) Basophils # (Auto) 0.0 x10^3/uL (0.0-0.2) Urine Collection Type Unknown Urine Color Yellow Urine Clarity Clear Urine pH 6.0 (<5.0-8.0) Urine Specific [place] 1.025 (1.000-1.030) Urine Protein 30 mg/dL (NEG-TRACE) Urine Glucose (UA) Negative mg/dL (NEG) Urine Ketones (Stick) Negative mg/dL (NEG) Urine Blood Negative (NEG) Urine Nitrite Negative (NEG) Urine Bilirubin Small (NEG) Urine Urobilinogen Dipstick 1.0 mg/dL (0.2 mg/dL) Urine Leukocyte Esterase Negative (NEG) Urine RBC Occ /HPF (0-2) Urine WBC 1-4 /HPF (0-4) Urine Squamous Epithelial Cells Many /LPF Urine Bacteria Few /HPF (0-FEW) Urine Mucus Marked /LPF Sodium Level 143 mmol/L (136-145) 143 mmol/L (136-145) Potassium Level 3.7 mmol/L (3.5-5.1) 3.9 mmol/L (3.5-5.1) Chloride Level 105 mmol/L (98-107) 103 mmol/L (98-107) Carbon Dioxide Level 31 mmol/L (21-32) 31 mmol/L (21-32) Anion Gap 7 (6-14) 9 (6-14) Blood Urea Nitrogen 18 mg/dL (7-20) 12 mg/dL (7-20) Creatinine 0.8 mg/dL (0.6-1.0) 0.7 mg/dL (0.6-1.0) Estimated GFR (Cockcroft-Gault) 70.5 82.3 BUN/Creatinine Ratio 23 (6-20) H Glucose Level 143 mg/dL (70-99) H 108 mg/dL (70-99) H Calcium Level 8.7 mg/dL (8.5-10.1) 8.4 mg/dL (8.5-10.1) L Total Bilirubin 0.8 mg/dL (0.2-1.0) Aspartate Amino Transferase (AST) 34 U/L (15-37) Alanine Aminotransferase (ALT) 32 U/L (14-59) Alkaline Phosphatase 79 U/L (46-116) Troponin I Quantitative 0.030 ng/mL (0.000-0.055) 0.030 ng/mL (0.000-0.055) Total Protein 7.0 g/dL (6.4-8.2) Albumin 3.8 g/dL (3.4-5.0) Albumin/Globulin Ratio 1.2 (1.0-1.7) Amylase Level 112 U/L (25-115) Lipase 259 U/L (73-393) Glucose (Fingerstick) 109 mg/dL (70-99) H SARS-CoV-2 Antigen (Rapid) Negative (NEGATIVE) Phosphorus Level 4.1 mg/dL (2.6-4.7) Magnesium Level 1.7 mg/dL (1.8-2.4) L Thyroid Stimulating Hormone (TSH) 1.051 uIU/mL (0.358-3.74) Test 01/13/21 08:40 Prothrombin Time 14.1 SEC (11.7-14.0) H Prothrombin Time INR 1.1 (0.8-1.1) C-Reactive Protein, Quantitative 30.4 mg/L (0-3.3) H Procalcitonin 0.33 ng/mL (0.00-0.10) H Laboratory Tests 01/12/21 12:15 Laboratory Tests 01/12/21 12:15 01/13/21 08:35 ECHOCARDIOGRAM ECHOCARDIOGRAM <Conclusion> The left ventricle is normal size. The left ventricular systolic function is normal. The ejection fraction is 55-60%. There is borderline concentric left ventricular hypertrophy. There is no significant aortic valvular stenosis. Doppler and Color Flow revealed mild aortic regurgitation. Doppler and Color-flow revealed trace mitral regurgitation. Doppler and Color Flow revealed trace tricuspid regurgitation. DATE: 12/25/17 1232 HEART CATH HEART CATH Coronary Angiography The patient's coronary anatomy is left dominant. The left main coronary artery is a large size vessel free of disease. The left main bifurcates to the left anterior descending and circumflex. The left anterior descending artery is a medium size vessel free of disease. The first diagonal branch is a small size vessel free of disease. The second diagonal branch is a small size vessel free of disease. The third diagonal branch is a small size vessel free of disease. The circumflex artery is a large size vessel free of disease. The first obtuse marginal branch is a mediummedium size vessel free of disease. The second obtuse marginal branch is a medium size vessel free of disease. The third obtuse marginal branch is a small size vessel free of disease. The left posterior descending artery is a medium size vessel free of disease. The right coronary artery is a small size vessel free of disease. Left Ventriculography The left ventricle is normal in size with normal contractility. The left ventricular ejection fraction is estimated to be 50%. The left ventricular end diastolic pressure is 14 mmHg. There was no gradient across the aortic valve upon pullback. Aorta The ascending aorta and the aortic arch are dilated. No evidence of a dissection was seen. Mild aortic insufficiency was noted. Conclusion This patient has normal coronaries, a low normal left ventricular ejection fraction of 50% and a dilated aorta with mild aortic insufficiency present. I would recommend medical treatment for this patient. There is no evidence of an apparent [place]. The patient will need a CTA of the aorta to follow the size changes in the aorta. She was bradycardic throughout the procedure and we will need to follow this to make sure that she is not having significant bradycardia in the Mixer And Scaler she was running in the 40s before the start of the heart catheter. DATE: 12/26/17 1756 ASSESSMENT/PLAN ASSESSMENT/PLAN 1 Abdominal, epigastric pain, bloating. As per GI 2. Hypertension; mildly elevated 3. Hyperlipidemia; statin 4. Diabetes, II 5. Bradycardia; sinus. baseline per review of records. No significant b radycardia or pauses overnight. Mean HR 65. CCB held 6. Thoracic aortic aneurysm; 4.5cm per CT w/o contrast 7. PAD; reports tingling in LE as HS. no wounds 8. Hypomagnesemia; replaced 9. Fevers, bacteremia; BC with GPC 2/4 bottles 10. S/p Pfizer vaccine 2 days ago Recommendations Echo ordered Avoid AV dianne blocking agents Resume losartan for BP control Monitor tele Obtain LE duplex given h/o PAD and rest symptoms Follow ID and GI recs. Supportive care JALEN JOLLEY MD 01/13/21 1807: CARDIAC CONSULT ASSESSMENT/PLAN ASSESSMENT/PLAN Patient seen and evaluated. I agree with our nurse practitioners assessment and plan. Abdominal, epigastric pain, bloating. As per GI Hypertension; mildly elevated Hyperlipidemia; statin Diabetes, II Bradycardia; sinus. baseline per review of records. No significant bradycardia or pauses overnight. Mean HR 65. CCB held. No beta-blockers. Thoracic aortic aneurysm; 4.5cm per CT w/o contrast PAD; reports tingling in LE as HS. no wounds. Checking lower extremity duplex exam. Fevers, bacteremia; BC with GPC 2/4 bottles S/p Pfizer vaccine 2 days ago. JARED NICKERSON APRN January 13, 2021 11:52 JALEN JOLLEY MD January 13, 2021 18:07
[2021-01-13] MEDS: VITAMIN B COMPLEX TABLET. PO SCH (11:56)
[2021-01-13] MEDS: FLUoxetine HCL 10 MG CAPSULE PO SCH (11:56)
[2021-01-13] MEDS: PENTOXIFYLLINE ER 400 MG TABLET.ER. PO SCH (11:57)
[2021-01-13] MEDS: ASPIRIN CHEWABLE 81 MG TABLET. PO SCH (11:57)
[2021-01-13] MEDS: OMEGA-3 FATTY ACIDS/FISH OIL 1,000 MG CAPSULE. PO SCH (11:57)
[2021-01-13] MEDS: ACETAMINOPHEN 325 MG TABLET. PO PRN ×2 (11:58→20:31)
[2021-01-13] MEDS: PANTOPRAZOLE 40 MG TABLET.DR. PO SCH (11:58)
[2021-01-13] MEDS: CLOPIDOGREL BISULFATE 75 MG TABLET PO SCH (11:58)
[2021-01-13] MEDS: ONDANSETRON PF 4 MG/2 ML VIAL. IV PRN ×2 (13:57→20:35)
[2021-01-13] MEDS: DAPTOmycin (GENERIC) IVPB 350 MG in IV NORMAL SALINE 50ML 50 ML IV SCH (13:58)
[2021-01-13 14:53] VITALS: BP 161/56
--- NOTE | 2021-01-13 15:36 | NUR ---
SS following for discharge planning. SS reviewed pt chart and discussed with pt RN. Pt is from home with family and is currently on room air. Pt on IV Daptomycin and IV Zosyn. PT/OT Ordered. Pt Chilean speaking only. SS will continue to follow for discharge planning.
--- NOTE | 2021-01-13 17:51 | CONS ---
DATE OF CONSULTATION: 01/13/2021 REFERRING PHYSICIAN: Dr. Jones. REASON FOR CONSULTATION: Bacteremia. HISTORY OF PRESENT ILLNESS: The patient is a 70-year-old Croatian-speaking female who presented to the ER on 01/12/2021 with complaints of abdominal pain, nausea, which started 2 days prior to admission. CT abdomen and pelvis showed colonic diverticulosis. There is no evidence of diverticulitis, multiple renal parapelvic cyst and cortical cyst, ectatic and mildly aneurysmal ascending aorta partially included on the current view. The patient had a chest x-ray which showed moderate cardiomegaly. CT chest showed ascending aorta of 4.5 cm, 1.3 cm linear nodule in the left apex, T9 compression fracture, status post vertebroplasty. The patient had bradycardia, was admitted to CVC bed on IV Protonix. GI and Cardiology has been consulted. The patient was febrile at 103 this morning. Blood culture on admission 08/23 bottles is positive for gram-positive cocci in pairs and short chains. ID consultation has been requested for antibiotic management. History is limited, history obtained from one of the caregivers. The patient still has some headache, nausea, abdominal pain continues mainly in the epigastric area, but then says it is all over. No blood in stool. She has undergone EGD recently, after which the above symptoms have started. She has some shortness of breath. No cough. Denies any symptoms. No rash. PAST MEDICAL HISTORY: Hypertension, hyperlipidemia, peripheral neuropathy, GERD, peptic ulcer disease, anxiety, depression, osteoarthritis, diabetes. PAST SURGICAL HISTORY: Appendectomy. FAMILY HISTORY: As per HPI. SOCIAL HISTORY: No smoking, alcohol or drug use. Lives at home with family. CURRENT MEDICATIONS: Zosyn. Other medications reviewed in medication list. ALLERGIES: No known drug allergies. REVIEW OF SYSTEMS: Feels tired, decreased appetite. Otherwise, as above, though limited. The patient also has chronic back pain. PHYSICAL EXAMINATION: VITAL SIGNS: Temperature 99, T-max 103, pulse 60, respiratory rate 20, blood pressure 152/61, oxygen saturation 95% on room air. GENERAL: Alert, awake, pleasant female, lying in bed comfortably, in no acute distress. HEENT: Normocephalic, atraumatic. Anicteric. Oral mucosa moist. No O2. NECK: Supple. No JVD. LUNGS: Clear bilaterally. No wheezing. HEART: S1, S2. ABDOMEN: Soft. Mild tenderness present diffusely, more over the epigastric area. No rebound or guarding. EXTREMITIES: No edema, no cyanosis. DERMATOLOGIC: Warm, dry, no generalized rash. NEUROLOGIC: Alert, oriented x 3, grossly nonfocal. PSYCHIATRIC: Calm and cooperative. LABORATORY DATA: WBC 7.9, hemoglobin 12.9, hematocrit 37.8, platelets 151. Sodium 143, potassium 3.9, chloride 103, bicarbonate 31, BUN 12, creatinine 0.7, glucose 108. C-reactive protein 13.4. Troponin normal. TSH normal. SARS COVID rapid negative. UA negative. MICROBIOLOGY: Blood culture 1/4 bottles on 01/12/2021, positive for gram-positive cocci in pairs and short chains. IMAGING: Abdominal and pelvic CT as above. Chest x-ray as above. CT chest as above. IMPRESSION: 1. Fever. 2. Sepsis from Gram-positive bacteremia. 3. Gram-positive bacteremia, 1/4 bottles present on admission, source appears GI. 4. Abdominal pain. 5. Nausea. 6. CT showing 4.5 cm ascending thoracic aortic aneurysm. 7. Chronic back pain with compression fracture on CT. 8. Colonic diverticulosis on CT. 9. 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 10. Cardiomegaly. 12. Diabetes. 13. Anxiety and depression. RECOMMENDATIONS: 1. Continue Zosyn. 2. Start daptomycin. 3. Repeat blood cultures in a.m. 4. Follow up GPC in blood cultures. 5. GI and Cardiology is consulted. 6. Continue supportive care. Thank you, Dr. Jones, for consulting Infectious Disease to participate in this patient's care. If you have any questions, do not hesitate to contact me. CCU TIME: 35 minutes. CLINT GARCIA: Fariba TID: [id number] [facility] HEALTHNatasha
[2021-01-13] MEDS: LOSARTAN POTASSIUM 50 MG TABLET. PO SCH (18:18)
--- NOTE | 2021-01-13 18:26 | RAD ---
MR#: [id number] Date of Study: 01/13/2021 Ordering Physician: JARED NICKERSON, Referring Physician: JARED NICKERSON, Tech: Courtney Herbert APPROVED REPORT Patient Location: IN-PATIENT Indications PAD VELOCITY AND DOPPLER WAVEFORM ANALYSIS RIGHT cm/secWaveformSeverity LEFT cm/secWaveform Severity pCFA 135.0TriphasicpCFA 119.0Biphasic Prof Fem Art. 60.0BiphasicProf Fem Art. 82.0Biphasic Fem Art Prox. 104.0BiphasicFem Art Prox. 128.0Triphasic Fem Art Mid. 85.0BiphasicFem Art Mid. 101.0Biphasic Fem Art Dist. 83.0TriphasicFem Art Dist. 57.0Triphasic Pop Art(Fossa) 81.0BiphasicPop Art([place]) 54.0Biphasic PATENT PROSECUTION PARALEGAL Prox. 59.0BiphasicPTA Prox. 45.0Biphasic PATENT PROSECUTION PARALEGAL Dist. 75.0BiphasicPTA Dist. 29.0Biphasic Per Art Dist.41.0BiphasicPer Art Dist.56.0Biphasic LEVI Prox. 128.0BiphasicATA Prox. 112.0Biphasic DPA 92TriphasicDPA 82Biphasic Findings Grayscale images of the bilateral lower extremity arterial vessels demonstrate mild diffuse irregular ities and intimal hyperplasia. Spectral waveforms and color Doppler are within normal limits with mostly triphasic and biphasic wave forms throughout the bilateral lower extremity arterial course with three-vessel runoff. Elevated le ft anterior tibial artery velocities suggestive of approximately 50% stenosis. Probable 50% stenosis in the left posterior tibial artery as well. Again there is elevated velocities in the right anteri or tibial artery suggestive of 50% stenosis. Critical Notification Critical Value: No <Conclusion> 1. No significant bilateral lower extremity arterial disease above the knee. 2. Bilateral three-vessel runoff with likely mild to moderate less than 50% stenosis involving the b ilateral anterior tibial arteries and left posterior tibial artery Signed by : Terry Landaverde, Electronically Approved : 01/13/2021 18:25:16
[2021-01-13 19:00] VITALS: BP 183/110
[2021-01-13] MEDS: LACTOBACILLUS RHAMNOSUS GG 1 CAPSULE. PO SCH (20:32)
[2021-01-13] MEDS: ENOXAPARIN 40 MG/0.4 ML SYRINGE. SQ SCH (20:32)
[2021-01-13] MEDS: ATORVASTATIN CALCIUM 10 MG TABLET. PO SCH (20:32)
[2021-01-13] MEDS: hydrALAZINE 20 MG/ML VIAL. IVP PRN (20:33)
[2021-01-13 22:06] VITALS: BP 175/74
[2021-01-14 02:08] VITALS: BP 182/74
[2021-01-14] MEDS: hydrALAZINE 20 MG/ML VIAL. IVP PRN (02:22)
[2021-01-14] MEDS: PIPERACILLIN/TAZOBACTAM 3.375 GM in IV NORMAL SALINE 50ML 50 ML IV SCH ×4 (05:40→23:36)
[2021-01-14 07:24] VITALS: BP 168/70
--- NOTE | 2021-01-14 07:34 | PDOC ---
[employer] PROGRESS NOTE Date of Service DOS: DATE: 01/14/21 TIME: 07:32 Chief Complaint Chief Complaint A/P: ABDOMINAL PAIN, possible gastritis vs PUD Bradycardia, hold calcium channel blockers obesity ascending thoracic aorta appears enlarged measuring 4.5 cm // measurement is limited by motion artifact and noncontrast exam. moderate to severe compression fracture of T9 post vertebroplasty Sepsis from Gram-positive bacteremia. Gram-positive bacteremia - ID consulted Nausea. Chronic back pain with compression fracture on CT. Colonic diverticulosis on CT. 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 Cardiomegaly. Diabetes. Anxiety and depression. plan ADMIT CVC BED Cardiology consult iv protonix GI CONSULT npo hold calcium channel blockers iv fluid support SCD'S ID CONSULT IV ZOSYN 3.75 GM Q 6 HRS IV DAPTOMYCIN ID CONSULT echo EGD w/ Dr. Estevez in 12/2017 for dyspepsia showed mild esophagitis, gastric atrophy, and normal duodenum. Gastric biopsy + H. pylori, was given treatment. No previous colonoscopy (per previous encounter - daughter helped w/ translation. History of Present Illness History of Present Illness Ms Luo is a 70 Yr old bulgarian speaking female w/ PMHx HTN, HLD, GERD, PUD, anxiety with depression, DM2 who comes to ED with grandson c/o epigastric pain x [address] chest ascending thoracic aorta appears enlarged measuring 4.5 cm // measurement is limited by motion artifact and noncontrast exam. moderate to severe compression fracture of T9 post vertebroplasty ABDOMINAL PAIN, possible gastritis vs PUD Bradycardia, hold calcium channel blockers plan ADMIT CVC BED Cardiology consult iv protonix 40 mg q 24 hrs GI CONSULT npo hold calcium channel blockers now temp noted blood cult pos - ID consulted Vomited x1 overnight. Febrile to 101.7 F overnight. Nasal congestion and right ear and bilateral maxillary sinus pain today. K 2.9. Still with abdominal cramping and nausea. Vitals/I&O Vitals/I&O: Vital Signs Date Time Temp Pulse Resp B/P (MAP) Pulse Ox O2 Delivery O2 Flow Rate FiO2 01/14/21 07:24 101.7 66 18 168/70 (102) 97 Room Air 101.7 I & O 01/13/21 01/13/21 01/14/21 15:00 23:00 07:00 Intake Total 240 ml 640 ml 150 ml Output Total 200 ml 900 ml 850 ml Balance 40 ml -260 ml -700 ml Physical Exam Physical Exam: Physical Exam General: Alert, Oriented X3, Cooperative, No acute distress, mild distress HEENT: Atraumatic, PERRLA, EOMI, Mucous membr. moist/pink Lungs: Clear to auscultation, Normal air movement Heart: S1S2, RRR, no thrills, no rubs Breasts: Not examined Abdomen: Soft, Other (MILD TENDERNESS) Rectal Exam: not examined PELVIC: Examination not indicated Extremities: No cyanosis, No edema Skin: No rashes Neuro: Normal speech, Strength at 5/5 X4 ext, Cranial nerves 3-12 NL Psych/Mental Status: Mental status NL, Mood NL General: Alert, Oriented X3, Cooperative, No acute distress Heart: Regular rate Lungs: Clear Abdomen: Soft Extremities: No edema, Normal pulses Skin: No breakdown, No significant lesion Labs Labs: Laboratory Tests Test 01/13/21 08:21 01/13/21 08:23 01/13/21 08:35 01/13/21 08:40 Glucose (Fingerstick) 109 mg/dL (70-99) Coronavirus (COVID-19)(PCR) Negative (NEGATIVE) SARS-CoV-2 Antigen (Rapid) Negative (NEGATIVE) Sodium Level 143 mmol/L (136-145) Potassium Level 3.9 mmol/L (3.5-5.1) Chloride Level 103 mmol/L (98-107) Carbon Dioxide Level 31 mmol/L (21-32) Anion Gap 9 (6-14) Blood Urea Nitrogen 12 mg/dL (7-20) Creatinine 0.7 mg/dL (0.6-1.0) Estimated GFR (Cockcroft-Gault) 82.3 Glucose Level 108 mg/dL (70-99) Calcium Level 8.4 mg/dL (8.5-10.1) Phosphorus Level 4.1 mg/dL (2.6-4.7) Magnesium Level 1.7 mg/dL (1.8-2.4) Troponin I Quantitative 0.030 ng/mL (0.000-0.055) Thyroid Stimulating Hormone (TSH) 1.051 uIU/mL (0.358-3.74) Prothrombin Time 14.1 SEC (11.7-14.0) Prothromb Time International Ratio 1.1 (0.8-1.1) Creatine Kinase 54 U/L (26-192) C-Reactive Protein, Quantitative 30.4 mg/L (0-3.3) Procalcitonin 0.33 ng/mL (0.00-0.10) Test 01/13/21 11:40 01/13/21 16:51 01/13/21 20:23 Glucose (Fingerstick) 116 mg/dL (70-99) 126 mg/dL (70-99) 119 mg/dL (70-99) Assessment and Plan Assessmemt and Plan Problems Medical Problems: (1) Bradycardia on ECG Status: Acute Comment Review of Relevant I have reviewed the following items homero (where applicable) has been applied. Medications: Current Medications Medications (Trade) Dose Ordered Sig/Jacklyn Route PRN Reason Start Time Stop Time Status Last Admin Dose Admin Aspirin (Aspirin Chewable) 81 mg DAILY PO 01/13/21 09:00 01/13/21 11:57 Clopidogrel Bisulfate (Plavix) 75 mg DAILY PO 01/13/21 09:00 01/13/21 11:58 Fluoxetine HCl (PROzac) 10 mg DAILY PO 01/13/21 09:00 01/13/21 11:56 Hydrochlorothiazide (Hydrodiuril) 25 mg DAILY PO 01/13/21 09:00 01/13/21 11:56 Pentoxifylline (TRENtal) 400 mg DAILY PO 01/13/21 09:00 01/13/21 11:57 Vitamin B Complex (Hang B) 1 tab DAILY PO 01/13/21 09:00 01/13/21 11:56 Fish Oil (Fish Oil) 1,000 mg DAILY PO 01/13/21 09:00 01/13/21 11:57 Piperacillin Sod/ Tazobactam Sod 3.375 gm/Sodium Chloride 50 ml @ 100 mls/hr Q6HRS IV 01/13/21 10:00 01/14/21 05:40 Magnesium Sulfate 50 ml @ 25 mls/hr 1X ONCE IV 01/13/21 11:00 01/13/21 12:59 DC 01/13/21 11:21 Pantoprazole Sodium (Protonix) 40 mg DAILYAC PO 01/13/21 12:30 01/13/21 11:58 Daptomycin 350 mg/ Sodium Chloride 50 ml @ 100 mls/hr Q24H IV 01/13/21 14:00 01/13/21 13:58 Lactobacillus Rhamnosus (Culturelle) 1 cap BID PO 01/13/21 21:00 01/13/21 20:32 Losartan Potassium (Cozaar) 100 mg DAILY PO 01/13/21 17:00 01/13/21 18:18 Justifications for Admission Other Justification ABDOMINAL PAIN XU MAHAJAN MD January 14, 2021 07:34
[2021-01-14 07:43] LABS: BASO % 0 % (0-3); EOS % 0 % (0-3); HEMOGLOBIN 12.4 g/dL (12.0-15.5); LYMPH # 0.5 x10^3/uL (1.0-4.8); LYMPH % 12 % (24-48); MEAN CORPUSCULAR HEMOGLOBIN 33 pg (25-35); MEAN CORPUSCULAR HGB CONC 34 g/dL (31-37); MEAN CORPUSCULAR VOLUME 96 fL (79-100); MONO # 0.2 x10^3/uL (0.0-1.1); MONO % 6 % (0-9); NEUT # 3.1 x10^3/uL (1.8-7.7); NEUT % 81 % (31-73); PLATELET COUNT 134 x10^3/uL (140-400); RED BLOOD COUNT 3.76 x10^6/uL (3.50-5.40); RED CELL DISTRIBUTION WIDTH 13.1 % (11.5-14.5); WHITE BLOOD COUNT 3.9 x10^3/uL (4.0-11.0)
[2021-01-14 08:00] LABS: ALBUMIN 3.3 g/dL (3.4-5.0); ALBUMIN/GLOBULIN RATIO 0.9 (1.0-1.7); CALCIUM 8.1 mg/dL (8.5-10.1); CREATININE 0.7 mg/dL (0.6-1.0); GFR 82.3; TOTAL BILIRUBIN 1.7 mg/dL (0.2-1.0)
[2021-01-14 08:06] LABS: POTASSIUM 2.9 mmol/L (3.5-5.1)
[2021-01-14] MEDS ORDERED: POTASSIUM BICARB 20 MEQ EFFERVESCENT TABLET. PO ONE (08:15)
[2021-01-14] MEDS ORDERED: MAGNESIUM SULFATE 2GM 50 ML IV ONE (08:15)
--- NOTE | 2021-01-14 08:45 | PDOC ---
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 Anicteric. Oral mucosa moist. No O2. NECK: Supple. No JVD. LUNGS: Clear bilaterally. No wheezing. HEART: S1, S2. ABDOMEN: Soft. Mild tenderness present diffusely, more over the epigastric area. No rebound or guarding. EXTREMITIES: No edema, no cyanosis. Left upper extremity injection site without evidence of fluctuance or erythema DERMATOLOGIC: Warm, dry, no generalized rash. NEUROLOGIC: Alert, oriented x 3, grossly nonfocal. PSYCHIATRIC: Calm and cooperative. Medications: Inpatient Meds: Medications reviewed. Labs: Lab Laboratory Tests Test 01/13/21 11:40 01/13/21 16:51 01/13/21 20:23 01/14/21 07:00 Glucose (Fingerstick) 116 mg/dL (70-99) 126 mg/dL (70-99) 119 mg/dL (70-99) White Blood Count 3.9 x10^3/uL (4.0-11.0) Red Blood Count 3.76 x10^6/uL (3.50-5.40) Hemoglobin 12.4 g/dL (12.0-15.5) Hematocrit 36.0 % (36.0-47.0) Mean Corpuscular Volume 96 fL (79-100) Mean Corpuscular Hemoglobin 33 pg (25-35) Mean Corpuscular Hemoglobin Concent 34 g/dL (31-37) Red Cell Distribution Width 13.1 % (11.5-14.5) Platelet Count 134 x10^3/uL (140-400) Neutrophils (%) (Auto) 81 % (31-73) Lymphocytes (%) (Auto) 12 % (24-48) Monocytes (%) (Auto) 6 % (0-9) Eosinophils (%) (Auto) 0 % (0-3) Basophils (%) (Auto) 0 % (0-3) Neutrophils # (Auto) 3.1 x10^3/uL (1.8-7.7) Lymphocytes # (Auto) 0.5 x10^3/uL (1.0-4.8) Monocytes # (Auto) 0.2 x10^3/uL (0.0-1.1) Eosinophils # (Auto) 0.0 x10^3/uL (0.0-0.7) Basophils # (Auto) 0.0 x10^3/uL (0.0-0.2) Sodium Level 139 mmol/L (136-145) Potassium Level 2.9 mmol/L (3.5-5.1) Chloride Level 101 mmol/L (98-107) Carbon Dioxide Level 28 mmol/L (21-32) Anion Gap 10 (6-14) Blood Urea Nitrogen 8 mg/dL (7-20) Creatinine 0.7 mg/dL (0.6-1.0) Estimated GFR (Cockcroft-Gault) 82.3 BUN/Creatinine Ratio 11 (6-20) Glucose Level 129 mg/dL (70-99) Calcium Level 8.1 mg/dL (8.5-10.1) Total Bilirubin 1.7 mg/dL (0.2-1.0) Aspartate Amino Transf (AST/SGOT) 116 U/L (15-37) Alanine Aminotransferase (ALT/SGPT) 244 U/L (14-59) Alkaline Phosphatase 115 U/L (46-116) Total Protein 7.0 g/dL (6.4-8.2) Albumin 3.3 g/dL (3.4-5.0) Albumin/Globulin Ratio 0.9 (1.0-1.7) Test 01/14/21 07:30 Glucose (Fingerstick) 141 mg/dL (70-99) Objective: Assessment: Headache 1. Fever. 2. Sepsis from Gram-positive bacteremia. 3. Gram-positive bacteremia,2/4 bottles present on admission, source appears GI. 4. Abdominal pain. 5. Nausea. 6. CT showing 4.5 cm ascending thoracic aortic aneurysm. 7. Chronic back pain with compression fracture on CT. 8. Colonic diverticulosis on CT. 9. 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 10. Cardiomegaly. 12. Diabetes. 13. Anxiety and depression. 14. Poorly controlled Hypertension 15. Hyperlipidemia; statin 16. Bradycardia 17. PAD; reports tingling in LE as HS. no wounds 18. S/P COVID Vaccine last Sunday Plan: Plan of Care Continue daptomycin and Zosyn Follow-up GPC in blood culture present on admission Headache management per primary Follow-up labs and cultures Continue aspiration precaution Continue supportive care PAULETTE MCGRAW MD January 14, 2021 08:45
--- NOTE | 2021-01-14 08:50 | NUR ---
Not feeling to great this am. C/o headache and has fever temp of 101.7. Gave Tylenol with morning am meds. Cont. monitor.
[2021-01-14] MEDS: PENTOXIFYLLINE ER 400 MG TABLET.ER. PO SCH (08:53)
[2021-01-14] MEDS: ASPIRIN CHEWABLE 81 MG TABLET. PO SCH (08:53)
[2021-01-14] MEDS: LACTOBACILLUS RHAMNOSUS GG 1 CAPSULE. PO SCH ×2 (08:53→20:39)
[2021-01-14] MEDS: CLOPIDOGREL BISULFATE 75 MG TABLET PO SCH (08:54)
[2021-01-14] MEDS: PANTOPRAZOLE 40 MG TABLET.DR. PO SCH (08:54)
[2021-01-14] MEDS: LOSARTAN POTASSIUM 50 MG TABLET. PO SCH (08:54)
[2021-01-14] MEDS: VITAMIN B COMPLEX TABLET. PO SCH (08:54)
[2021-01-14] MEDS: FLUoxetine HCL 10 MG CAPSULE PO SCH (08:55)
[2021-01-14] MEDS: OMEGA-3 FATTY ACIDS/FISH OIL 1,000 MG CAPSULE. PO SCH (08:55)
[2021-01-14] MEDS: ACETAMINOPHEN 325 MG TABLET. PO PRN (08:55)
[2021-01-14] MEDS ORDERED: POTASSIUM CL 40MEQ D5-0.45NACL 1,000 ML IV ONE (09:00)
--- NOTE | 2021-01-14 11:01 | PDOC ---
Date of Service: DATE: 01/14/21 TIME: 10:50 Subjective: Subjective: I saw her earlier this morning. Biggest complaint in headache (forehead and back of neck), right ear pain, and nasal congestion. Also report some lower and right-sided abd pain. Says vomited once. Objective: Objective: D/w nurse - fever, hypertensive, went for echo. Vital Signs: Vital Signs Date Time Temp Pulse Resp B/P (MAP) Pulse Ox O2 Delivery O2 Flow Rate FiO2 01/14/21 08:54 66 168/70 01/14/21 08:15 Room Air 01/14/21 07:24 101.7 18 97 101.7 Labs: Laboratory Tests Test 01/13/21 11:40 01/13/21 16:51 01/13/21 20:23 01/14/21 07:30 Glucose (Fingerstick) 116 mg/dL (70-99) 126 mg/dL (70-99) 119 mg/dL (70-99) 141 mg/dL (70-99) Imaging: Echo 01/14 pending PE: GEN: NAD - has emesis basin w/ paper towels and tea bag LUNGS: CTAB HEART: RRR ABD: quiet BS, soft, some vague right mid/lower abd discomfort toward RUQ/epigastrium NEURO/PSYCH: A & O 3 A/P: Headache, HTN, fever GPC bacteremia, hypokalemia, elevated LFTs (new) H/o GERD, H. pylori (?took treatment) COVID negative -- Will check GB US for completeness. If tolerating clears (not sure if still vomiting?), consider advancing diet. Continue PPI. Justicifation of Admission Dx: Justifications for Admission: Justification of Admission Dx: Yes HAMLET JASON January 14, 2021 11:01
--- NOTE | 2021-01-14 11:04 | NUR ---
Up in chair. Headache much better. Poor appetite. Discussed about family bringing in food. Cont. monitor.
[2021-01-14 11:30] VITALS: BP 147/65
[2021-01-14] MEDS ORDERED: SODIUM CHL/ALOE VERA NASAL GEL 14.1GM TUBE. NS PRN ×2 (12:00)
[2021-01-14] MEDS ORDERED: FLUTICASONE 50MCG/NASAL SPRAY 16GM BOTTLE. NS SCH (12:00)
--- NOTE | 2021-01-14 12:51 | CARD ---
MR#: [id number] Date of Study: 01/14/2021 Ordering Physician: JARED NICKERSON, Referring Physician: JARED NICKERSON, Tech: Susannah Sheppard [facility] APPROVED REPORT EXAM: Two-dimensional and M-mode echocardiogram with Doppler and color Doppler. Other Information Quality : Technically LimitedHR: 64bpm Rhythm : NSR INDICATION Arrhythmia RISK FACTORS Hypertension Obesity 2D DIMENSIONS RVDd2.9 (2.9-3.5cm)Left Atrium(2D)4.4 (1.6-4.0cm) IVSd1.3 (0.7-1.1cm)Aortic Root(2D)4.0 (2.0-3.7cm) LVDd3.9 (3.9-5.9cm)LVOT Diameter2.7 (1.8-2.4cm) PWd1.3 (0.7-1.1cm)LVDs2.3 (2.5-4.0cm) FS (%) 39.2 %SV45.0 ml LVEF(%)70.3 (>50%) Aortic Valve AoV Peak Silas.184.3cm/sAoV VTI39.9cm AO Peak GR.13.6mmHgLVOT Peak Silas.141.3cm/s AO Mean GR.7mmHgAVA (VMAX)4.53cm2 AI P 1/2 [id number] Mitral Valve MV E Xdgmyrci55.7cm/sMV DECEL [id number] MV A Bwfmebdc572.5cm/sE/A Ratio0.9 Tricuspid Valve TR P. [id number]/sTR Peak Gr.51mmHg LEFT VENTRICLE The left ventricle is normal size. There is borderline to mild concentric left ventricular hypertroph y. The left ventricular systolic function is normal and the ejection fraction is within normal range. Estimated ejection fraction 55%. There is normal LV segmental wall motion. Transmitral Doppler flow pattern is Grade I-abnormal relaxation pattern. RIGHT VENTRICLE The right ventricle is normal size. There is normal right ventricular wall thickness. The right ventr icular systolic function is normal. ATRIA The left atrium size is normal. The right atrium size is normal. The interatrial septum is intact wit h no evidence for an atrial septal defect or patent foramen ovale as noted on 2-D or Doppler imaging. AORTIC VALVE The aortic valve is normal in structure and function. Doppler and Color Flow revealed moderate aortic regurgitation. There is no significant aortic valvular stenosis. MITRAL VALVE The mitral valve is normal in structure and function. There is no evidence of mitral valve prolapse. There is no mitral valve stenosis. Doppler and Color Flow revealed no mitral valve regurgitation note d. TRICUSPID VALVE The tricuspid valve is normal in structure and function. Doppler and Color Flow revealed mild tricusp id regurgitation. Estimated PAP 55 mmHg. There is no tricuspid valve stenosis. PULMONIC VALVE The pulmonary valve is normal in structure and function. Doppler and Color Flow revealed no pulmonic valvular regurgitation. There is no pulmonic valvular stenosis. GREAT VESSELS The aortic root is mildly enlarged. The ascending aorta is mildly dilated at 3.8 cm. The IVC is berenice l in size and collapses >50% with inspiration. PERICARDIAL EFFUSION There is no evidence of significant pericardial effusion. Critical Notification Critical Value: No <Conclusion> The left ventricular systolic function is normal and the ejection fraction is within normal range. E stimated ejection fraction 55%. There is normal LV segmental wall motion. Doppler and Color Flow revealed moderate aortic regurgitation. Doppler and Color Flow revealed mild tricuspid regurgitation. Estimated PAP 55 mmHg. The ascending aorta is mildly dilated at 3.8 cm. Signed by : Terry Landaverde, Electronically Approved : 01/14/2021 12:50:44
--- NOTE | 2021-01-14 13:07 | NUR ---
SS following up with discharge planning. SS reviewed pt chart and discussed with pt RN. Pt is currently on room air. Pt on IV Zosyn and IV Daptomycin. PT/OT recommended home. SS will continue to follow for discharge planning.
[2021-01-14] MEDS: FLUTICASONE 50MCG/NASAL SPRAY 16GM BOTTLE. NS SCH (13:59)
[2021-01-14] MEDS: DAPTOmycin (GENERIC) IVPB 350 MG in IV NORMAL SALINE 50ML 50 ML IV SCH (14:09)
--- NOTE | 2021-01-14 16:17 | RAD ---
EXAM: Abdomen sonogram. HISTORY: Elevated liver function laboratory values. TECHNIQUE: Sonographic imaging of the abdomen was performed. COMPARISON: CT dated 01/12/2021. FINDINGS: The liver is normal in size. There is suspected hepatic steatosis. No focal hepatic lesion is seen. There is borderline gallbladder wall thickening, measuring 4 mm. The common bile duct is nor mal in caliber. The pancreas is obscured bowel gas. The inferior cava is patent. The right kidney is normal in size. There is no hydronephrosis. IMPRESSION: 1. Suspected hepatic steatosis. 2. Borderline gallbladder wall thickening. This may be due to intrinsic liver disease. There are no s econdary findings to suggest cholecystitis. 3. Obscured pancreas due to bowel gas. Electronically signed by: Minoo Brennan MD (01/14/2021 4:14 PM) [id number]
--- NOTE | 2021-01-14 16:44 | PDOC ---
PROGRESS NOTES Date of Service DATE: 01/14/21 TIME: 16:41 Subjective Subjective Patient seen and examined Objective Objective Vital Signs Date Time Temp Pulse Resp B/P (MAP) Pulse Ox O2 Delivery O2 Flow Rate FiO2 01/14/21 11:30 99.8 64 18 147/65 (92) 96 Room Air 99.8 Intake and Output 01/14/21 07:00 Intake Total 1030 ml Output Total 1950 ml Balance -920 ml Intake Oral 1030 ml Output Urine Total 1950 ml # Voids 2 Physical Exam Abdomen: Normal bowel sounds Heart: Regular rate General: mild distress Lungs: Clear to auscultation Assessment Assessment Problems Medical Problems: (1) Bradycardia on ECG Status: Acute ASSESSMENT/PLAN Abdominal, epigastric pain, bloating. Mildly improved. As per GI Hypertension; improved on losartan. Hyperlipidemia; statin Diabetes, II Bradycardia; sinus. baseline per review of records. No significant bradycardia or pauses overnight. Mean HR 65. CCB held. Echo with normal LV systolic function, moderate AI and mild TR with a PAP of 55 mmHg. Thoracic aortic aneurysm; 4.5cm per CT w/o contrast PAD; reports tingling in LE as HS. no wounds Fevers, bacteremia; BC with GPC 2/4 bottles S/p Pfizer vaccine 2 days ago Comment Review of Relevant I have reviewed the following items homero (where applicable) has been applied. Labs Laboratory Tests Test 01/13/21 08:21 01/13/21 08:23 01/13/21 08:35 01/13/21 08:40 Glucose (Fingerstick) 109 mg/dL (70-99) Coronavirus (COVID-19)(PCR) Negative (NEGATIVE) SARS-CoV-2 Antigen (Rapid) Negative (NEGATIVE) Sodium Level 143 mmol/L (136-145) Potassium Level 3.9 mmol/L (3.5-5.1) Chloride Level 103 mmol/L (98-107) Carbon Dioxide Level 31 mmol/L (21-32) Anion Gap 9 (6-14) Blood Urea Nitrogen 12 mg/dL (7-20) Creatinine 0.7 mg/dL (0.6-1.0) Estimated GFR (Cockcroft-Gault) 82.3 Glucose Level 108 mg/dL (70-99) Calcium Level 8.4 mg/dL (8.5-10.1) Phosphorus Level 4.1 mg/dL (2.6-4.7) Magnesium Level 1.7 mg/dL (1.8-2.4) Troponin I Quantitative 0.030 ng/mL (0.000-0.055) Thyroid Stimulating Hormone (TSH) 1.051 uIU/mL (0.358-3.74) Prothrombin Time 14.1 SEC (11.7-14.0) Prothromb Time International Ratio 1.1 (0.8-1.1) Creatine Kinase 54 U/L (26-192) C-Reactive Protein, Quantitative 30.4 mg/L (0-3.3) Procalcitonin 0.33 ng/mL (0.00-0.10) Test 01/13/21 11:40 01/13/21 16:51 01/13/21 20:23 01/14/21 07:00 Glucose (Fingerstick) 116 mg/dL (70-99) 126 mg/dL (70-99) 119 mg/dL (70-99) White Blood Count 3.9 x10^3/uL (4.0-11.0) Red Blood Count 3.76 x10^6/uL (3.50-5.40) Hemoglobin 12.4 g/dL (12.0-15.5) Hematocrit 36.0 % (36.0-47.0) Mean Corpuscular Volume 96 fL (79-100) Mean Corpuscular Hemoglobin 33 pg (25-35) Mean Corpuscular Hemoglobin Concent 34 g/dL (31-37) Red Cell Distribution Width 13.1 % (11.5-14.5) Platelet Count 134 x10^3/uL (140-400) Neutrophils (%) (Auto) 81 % (31-73) Lymphocytes (%) (Auto) 12 % (24-48) Monocytes (%) (Auto) 6 % (0-9) Eosinophils (%) (Auto) 0 % (0-3) Basophils (%) (Auto) 0 % (0-3) Neutrophils # (Auto) 3.1 x10^3/uL (1.8-7.7) Lymphocytes # (Auto) 0.5 x10^3/uL (1.0-4.8) Monocytes # (Auto) 0.2 x10^3/uL (0.0-1.1) Eosinophils # (Auto) 0.0 x10^3/uL (0.0-0.7) Basophils # (Auto) 0.0 x10^3/uL (0.0-0.2) Sodium Level 139 mmol/L (136-145) Potassium Level 2.9 mmol/L (3.5-5.1) Chloride Level 101 mmol/L (98-107) Carbon Dioxide Level 28 mmol/L (21-32) Anion Gap 10 (6-14) Blood Urea Nitrogen 8 mg/dL (7-20) Creatinine 0.7 mg/dL (0.6-1.0) Estimated GFR (Cockcroft-Gault) 82.3 BUN/Creatinine Ratio 11 (6-20) Glucose Level 129 mg/dL (70-99) Calcium Level 8.1 mg/dL (8.5-10.1) Total Bilirubin 1.7 mg/dL (0.2-1.0) Aspartate Amino Transf (AST/SGOT) 116 U/L (15-37) Alanine Aminotransferase (ALT/SGPT) 244 U/L (14-59) Alkaline Phosphatase 115 U/L (46-116) Total Protein 7.0 g/dL (6.4-8.2) Albumin 3.3 g/dL (3.4-5.0) Albumin/Globulin Ratio 0.9 (1.0-1.7) Test 01/14/21 07:30 01/14/21 11:34 01/14/21 16:32 Glucose (Fingerstick) 141 mg/dL (70-99) 139 mg/dL (70-99) 163 mg/dL (70-99) Laboratory Tests Test 01/13/21 16:51 01/13/21 20:23 01/14/21 07:00 01/14/21 07:30 Glucose (Fingerstick) 126 mg/dL (70-99) 119 mg/dL (70-99) 141 mg/dL (70-99) White Blood Count 3.9 x10^3/uL (4.0-11.0) Red Blood Count 3.76 x10^6/uL (3.50-5.40) Hemoglobin 12.4 g/dL (12.0-15.5) Hematocrit 36.0 % (36.0-47.0) Mean Corpuscular Volume 96 fL (79-100) Mean Corpuscular Hemoglobin 33 pg (25-35) Mean Corpuscular Hemoglobin Concent 34 g/dL (31-37) Red Cell Distribution Width 13.1 % (11.5-14.5) Platelet Count 134 x10^3/uL (140-400) Neutrophils (%) (Auto) 81 % (31-73) Lymphocytes (%) (Auto) 12 % (24-48) Monocytes (%) (Auto) 6 % (0-9) Eosinophils (%) (Auto) 0 % (0-3) Basophils (%) (Auto) 0 % (0-3) Neutrophils # (Auto) 3.1 x10^3/uL (1.8-7.7) Lymphocytes # (Auto) 0.5 x10^3/uL (1.0-4.8) Monocytes # (Auto) 0.2 x10^3/uL (0.0-1.1) Eosinophils # (Auto) 0.0 x10^3/uL (0.0-0.7) Basophils # (Auto) 0.0 x10^3/uL (0.0-0.2) Sodium Level 139 mmol/L (136-145) Potassium Level 2.9 mmol/L (3.5-5.1) Chloride Level 101 mmol/L (98-107) Carbon Dioxide Level 28 mmol/L (21-32) Anion Gap 10 (6-14) Blood Urea Nitrogen 8 mg/dL (7-20) Creatinine 0.7 mg/dL (0.6-1.0) Estimated GFR (Cockcroft-Gault) 82.3 BUN/Creatinine Ratio 11 (6-20) Glucose Level 129 mg/dL (70-99) Calcium Level 8.1 mg/dL (8.5-10.1) Total Bilirubin 1.7 mg/dL (0.2-1.0) Aspartate Amino Transf (AST/SGOT) 116 U/L (15-37) Alanine Aminotransferase (ALT/SGPT) 244 U/L (14-59) Alkaline Phosphatase 115 U/L (46-116) Total Protein 7.0 g/dL (6.4-8.2) Albumin 3.3 g/dL (3.4-5.0) Albumin/Globulin Ratio 0.9 (1.0-1.7) Test 01/14/21 11:34 01/14/21 16:32 Glucose (Fingerstick) 139 mg/dL (70-99) 163 mg/dL (70-99) Microbiology 01/13/21 Blood Culture - Preliminary, Resulted NO GROWTH AFTER 1 DAY Medications Current Medications Iohexol (Omnipaque 300 Mg/ml) 75 ml 1X ONCE IV Last administered on 01/12/21at 14:38; Start 01/12/21 at 14:15; Stop 01/12/21 at 14:16; Status DC Info (CONTRAST GIVEN -- Rx MONITORING) 1 each PRN DAILY PRN MC SEE COMMENTS; Start 01/12/21 at 14:15; Stop 01/14/21 at 14:14; Status DC Ondansetron HCl (Zofran) 4 mg PRN Q8HRS PRN IV NAUSEA/VOMITING; Start 01/12/21 at 15:45; Stop 01/12/21 at 16:51; Status DC Pantoprazole Sodium (PROTONIX VIAL for IV PUSH) 40 mg DAILY08 ONCE IVP Last administered on 01/12/21at 17:40; Start 01/12/21 at 17:00; Stop 01/12/21 at 17:01; Status DC Sodium Chloride (Normal Saline Flush) 3 ml QSHIFT PRN IV AFTER MEDS AND BLOOD DRAWS; Start 01/12/21 at 17:00 Sodium Chloride 1,000 ml @ 100 mls/hr Q10H IV Last administered on 01/13/21at 18:21; Start 01/12/21 at 17:00; Stop 01/14/21 at 08:20; Status DC Dextrose/Sodium Chloride 1,000 ml @ 80 mls/hr [id number] IV ; Start 01/12/21 at 17:00; Status UNV Ondansetron HCl (Zofran) 4 mg PRN Q4HRS PRN IV NAUSEA/VOMITING Last administered on 01/13/21at 20:35; Start 01/12/21 at 17:00 Acetaminophen (Tylenol) 650 mg PRN Q4HRS PRN PO TEMP OVER 100.4F OR MILD PAIN Last administered on 01/14/21at 08:55; Start 01/12/21 at 17:00 Al Hydroxide/Mg Hydroxide (Mylanta Plus Xs) 30 ml PRN DAILY PRN PO HEARTBURN / GAS; Start 01/12/21 at 17:00 Sodium Monofluorophosphate (Fleet Adult) 133 ml PRN DAILY PRN CO CONSTIPATION; Start 01/12/21 at 17:00 Docusate Sodium (Colace) 100 mg PRN BID PRN PO HARD STOOLS; Start 01/12/21 at 17:00 Albuterol Sulfate (Ventolin Neb Soln) 2.5 mg PRN Q4HRS PRN NEB SHORTNESS OF BREATH; Start 01/12/21 at 17:00 Guaifenesin (Robitussin) 200 mg PRN Q4HRS PRN PO COUGH; Start 01/12/21 at 17:00 Lorazepam (Ativan) 0.5 mg PRN Q4HRS PRN PO ANXIETY / AGITATION; Start 01/12/21 at 17:00 Enoxaparin Sodium (Lovenox 40mg Syringe) 40 mg Q24H SQ Last administered on 01/13/21at 20:32; Start 01/12/21 at 21:00 Aspirin (Aspirin Chewable) 81 mg DAILY PO Last administered on 01/14/21at 08:53; Start 01/13/21 at 09:00 Clopidogrel Bisulfate (Plavix) 75 mg DAILY PO Last administered on 01/14/21at 08:54; Start 01/13/21 at 09:00 Fluoxetine HCl (PROzac) 10 mg DAILY PO Last administered on 01/14/21at 08:55; Start 01/13/21 at 09:00 Hydrochlorothiazide (Hydrodiuril) 25 mg DAILY PO Last administered on 01/13/21at 11:56; Start 01/13/21 at 09:00; Stop 01/14/21 at 08:20; Status DC Pentoxifylline (TRENtal) 400 mg DAILY PO Last administered on 01/14/21at 08:53; Start 01/13/21 at 09:00 Vitamin B Complex (Hang B) 1 tab DAILY PO Last administered on 01/14/21at 08:54; Start 01/13/21 at 09:00 Fish Oil (Fish Oil) 1,000 mg DAILY PO Last administered on 01/14/21at 08:55; Start 01/13/21 at 09:00 Ondansetron HCl (Zofran Odt) 4 mg PRN Q8HRS PRN PO NAUSEA/VOMITING; Start 01/12/21 at 17:00 Atorvastatin Calcium (Lipitor) 5 mg QHS PO Last administered on 01/13/21at 20:32; Start 01/12/21 at 21:00 Hydralazine HCl (Apresoline Inj) 10 mg PRN Q4HRS PRN IVP ELEVATED BP, SEE COMMENTS Last administered on 01/14/21at 02:22; Start 01/12/21 at 20:30 Piperacillin Sod/ Tazobactam Sod 2.25 gm/Sodium Chloride 50 ml @ 100 mls/hr 1X ONCE IV ; Start 01/13/21 at 09:15; Stop 01/13/21 at 09:44; Status UNV Piperacillin Sod/ Tazobactam Sod 3.375 gm/Sodium Chloride 50 ml @ 100 mls/hr Q6HRS IV Last administered on 01/14/21at 11:56; Start 01/13/21 at 10:00 Magnesium Sulfate 50 ml @ 25 mls/hr 1X ONCE IV Last administered on 01/13/21at 11:21; Start 01/13/21 at 11:00; Stop 01/13/21 at 12:59; Status DC Pantoprazole Sodium (Protonix) 40 mg DAILYAC PO Last administered on 01/14/21at 08:54; Start 01/13/21 at 12:30 Daptomycin 350 mg/ Sodium Chloride 50 ml @ 100 mls/hr Q24H IV Last administered on 01/14/21at 14:09; Start 01/13/21 at 14:00 Lactobacillus Rhamnosus (Culturelle) 1 cap BID PO Last administered on 01/14/21at 08:53; Start 01/13/21 at 21:00 Losartan Potassium (Cozaar) 100 mg DAILY PO Last administered on 01/14/21 08:54; Start 01/13/21 at 17:00 Potassium Chloride/Dextrose/ Sod Cl 1,000 ml @ 80 mls/hr [id number] ONCE IV Last administered on 01/14/21at 09:58; Start 01/14/21 at 09:00; Stop 01/14/21 at 21:29 Potassium Bicarbonate (Potassium Effervescent Tablet) 40 meq 1X ONCE PO Last administered on 01/14/21at 09:04; Start 01/14/21 at 08:15; Stop 01/14/21 at 08:28; Status DC Magnesium Sulfate 50 ml @ 25 mls/hr 1X ONCE IV Last administered on 01/14/21at 09:57; Start 01/14/21 at 08:15; Stop 01/14/21 at 10:14; Status DC Sodium Chloride ([place] Saline Nasal) 1 wagner PRN DAILY PRN NS NASAL CONGESTION; Start 01/14/21 at 12:00 Fluticasone Propionate (Flonase) 2 spray DAILY NS Last administered on 01/14/21at 13:59; Start 01/14/21 at 13:00 Fluticasone Propionate (Flonase) 2 spray DAILY NS ; Start 01/14/21 at 12:00; Status UNV Sodium Chloride ([place] Saline Nasal) 1 wagner PRN DAILY PRN NS NASAL CONGESTION; Start 01/14/21 at 12:00; Status UNV Active Scripts Active Nifedipine Er (Nifedipine) 30 Mg Tab.er.24 30 Mg PO DAILY 30 Days Reported Xalatan (Latanoprost) 2.5 Ml Drops 1 Drop OU QHS Losartan-Hctz 100-25 Mg Tab (Losartan/Hydrochlorothiazide) 1 Each Tablet 1 Each PO DAILY Januvia (Sitagliptin Phosphate) 100 Mg Tablet 100 Mg PO DAILY Pentoxifylline 400 Mg Tablet.er 400 Mg PO DAILY Pravastatin Sodium 20 Mg Tablet 20 Mg PO HS Vitals/I & O Vital Sign - Last 24 Hours 01/13/21 01/13/21 01/13/21 01/13/21 18:18 19:00 19:45 20:33 Temp 98.7 98.7 Pulse 56 59 57 Resp 21 B/P (MAP) 161/56 183/110 (134) 183/110 Pulse Ox 95 O2 Delivery Room Air Room Air 01/13/21 01/14/21 01/14/21 01/14/21 22:06 02:08 02:22 07:24 Temp 98.5 98.5 101.7 98.5 98.5 101.7 Pulse 63 69 61 66 Resp 18 18 18 B/P (MAP) 175/74 (107) 182/74 (110) 181/74 168/70 (102) Pulse Ox 97 97 97 O2 Delivery Room Air Room Air Room Air 01/14/21 01/14/21 01/14/21 08:15 08:54 11:30 Temp 99.8 99.8 Pulse 66 64 Resp 18 B/P (MAP) 168/70 147/65 (92) Pulse Ox 96 O2 Delivery Room Air Room Air Intake and Output 01/13/21 01/13/21 01/14/21 15:00 23:00 07:00 Intake Total 240 ml 640 ml 150 ml Output Total 200 ml 900 ml 850 ml Balance 40 ml -260 ml -700 ml Justifications for Admission Other Justification ABDOMINAL PAIN JALEN JOLLEY MD January 14, 2021 16:44
[2021-01-14 19:25] VITALS: BP 174/74
[2021-01-14] MEDS: ENOXAPARIN 40 MG/0.4 ML SYRINGE. SQ SCH (20:38)
[2021-01-14] MEDS: ATORVASTATIN CALCIUM 10 MG TABLET. PO SCH (20:39)
[2021-01-14 22:40] VITALS: BP 161/70
[2021-01-15 02:45] VITALS: BP 158/67
[2021-01-15] MEDS: PIPERACILLIN/TAZOBACTAM 3.375 GM in IV NORMAL SALINE 50ML 50 ML IV SCH ×4 (06:04→23:47)
[2021-01-15 07:00] VITALS: BP 171/73
--- NOTE | 2021-01-15 08:03 | PDOC ---
Infectious Disease Note Subjective: Subjective Used Google translation Patient continues to have headache Complains of abdominal pain and bloating Fever pattern has improved On room air Denies fever, chills, vomiting symptoms, diarrhea Vital Signs: Vital Signs Vital Signs Date Time Temp Pulse Resp B/P (MAP) Pulse Ox O2 Delivery O2 Flow Rate FiO2 01/15/21 02:45 98.7 57 20 158/67 (97) 93 Room Air 98.7 Physical Exam: PHYSICAL EXAM GENERAL: Alert, awake, pleasant female, lying in bed comfortably, in no acute distress.on ra HEENT: Normocephalic, atraumatic. Anicteric. Oral mucosa moist. No O2. NECK: Supple. No JVD. LUNGS: Clear bilaterally. No wheezing. HEART: S1, S2. ABDOMEN: Soft. Mild tenderness present diffusely, more over the epigastric area. No rebound or guarding. EXTREMITIES: No edema, no cyanosis. Left upper extremity injection site without evidence of fluctuance or erythema DERMATOLOGIC: Warm, dry, no generalized rash. NEUROLOGIC: Alert, oriented x 3, grossly nonfocal. PSYCHIATRIC: Calm and cooperative. Medications: Inpatient Meds: Medications reviewed. Labs: Lab Laboratory Tests Test 01/14/21 11:34 01/14/21 16:32 01/14/21 20:58 01/15/21 07:13 Glucose (Fingerstick) 139 mg/dL (70-99) 163 mg/dL (70-99) 162 mg/dL (70-99) 114 mg/dL (70-99) Micro ECHO The left ventricular systolic function is normal and the ejection fraction is within normal range. Estimated ejection fraction 55%. There is normal LV segmental wall motion. Doppler and Color Flow revealed moderate aortic regurgitation. Doppler and Color Flow revealed mild tricuspid regurgitation. Estimated PAP 55 mmHg. The ascending aorta is mildly dilated at 3.[address] abdomen and pelvis IMPRESSION: 1. Colonic diverticulosis. There is no evidence of diverticulitis. 2. 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 Follow-up is not routinely performed for simple cysts. 3. Ectatic or mildly aneurysmal ascending aorta, partially included on the [id number]. 4. Cardiomegaly. BC POA 2/4 bottles streptococcal bovis Objective: Assessment: 1. Fever. 2. Sepsis from Gram-positive bacteremia. 3. Streptococcus bovis bacteremia,2/4 bottles present on admission, source GI. 4. Abdominal pain. 5. Nausea. 6. CT showing 4.5 cm ascending thoracic aortic aneurysm. 7. Chronic back pain with compression fracture on CT. 8. Colonic diverticulosis on CT. 9. 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 10. Cardiomegaly. 12. Diabetes. 13. Anxiety and depression. 14. Poorly controlled Hypertension 15. Hyperlipidemia; statin 16. Bradycardia 17. PAD; reports tingling in LE as HS. no wounds 18. S/P COVID Vaccine last Sunday 19. Leukopenia Plan: Plan of Care Continue Zosyn DC daptomycin Follow-up hepatobiliary scan Last CPK 54 on 01/13 Follow-up final blood culture Follow-up repeat blood culture results negative so far GI team is following Follow-up labs and cultures Continue aspiration precaution Continue supportive care PAULETTE MCGRAW MD January 15, 2021 08:03
[2021-01-15 08:15] LABS: DIRECT BILIRUBIN 0.3 mg/dL (0.0-0.2); TOTAL BILIRUBIN 0.8 mg/dL (0.2-1.0); TOTAL PROTEIN 6.5 g/dL (6.4-8.2)
[2021-01-15] MEDS: FLUoxetine HCL 10 MG CAPSULE PO SCH (08:22)
[2021-01-15] MEDS: LACTOBACILLUS RHAMNOSUS GG 1 CAPSULE. PO SCH ×2 (08:22→20:46)
[2021-01-15] MEDS: PANTOPRAZOLE 40 MG TABLET.DR. PO SCH (08:22)
[2021-01-15] MEDS: ASPIRIN CHEWABLE 81 MG TABLET. PO SCH (08:22)
[2021-01-15] MEDS: LOSARTAN POTASSIUM 50 MG TABLET. PO SCH (08:22)
[2021-01-15] MEDS: VITAMIN B COMPLEX TABLET. PO SCH (08:22)
[2021-01-15] MEDS: CLOPIDOGREL BISULFATE 75 MG TABLET PO SCH (08:23)
[2021-01-15] MEDS: OMEGA-3 FATTY ACIDS/FISH OIL 1,000 MG CAPSULE. PO SCH (08:23)
[2021-01-15] MEDS: PENTOXIFYLLINE ER 400 MG TABLET.ER. PO SCH (08:23)
[2021-01-15] MEDS: ACETAMINOPHEN 325 MG TABLET. PO PRN ×2 (08:25→20:46)
[2021-01-15 08:45] LABS: CALCIUM 8.1 mg/dL (8.5-10.1); CREATININE 0.7 mg/dL (0.6-1.0); GFR 82.3; POTASSIUM 3.8 mmol/L (3.5-5.1)
[2021-01-15] MEDS: FLUTICASONE 50MCG/NASAL SPRAY 16GM BOTTLE. NS SCH (09:00)
[2021-01-15] MEDS: ONDANSETRON ODT 4 MG TAB.RAPDIS. PO PRN (10:11)
--- NOTE | 2021-01-15 12:33 | RAD ---
HEPATOBILIARY SCAN Clinical indications: Abdominal pain. Acalculous cholecystitis? COMPARISON: January 14, 2021 abdomen ultrasound study. TECHNIQUE: After IV infusion of 5.5 mCi of technetium 99m Choletec, anterior planar images of the upp er abdomen were performed in sequential fashion. FINDINGS: Homogeneous uptake is seen throughout the liver. Radiotracer activity is seen within the ga llbladder by 15 minutes. Radiotracer activity is seen within the duodenum by 20 minutes. IMPRESSION: Normal hepatobiliary scan. Electronically signed by: Fausto Gaspar MD (01/15/2021 12:30 PM) [id number]
--- NOTE | 2021-01-15 14:47 | PDOC ---
[facility] PROGRESS NOTE Date of Service DOS: DATE: 01/15/21 TIME: 14:42 Chief Complaint Chief Complaint A/P: ABDOMINAL PAIN, possible gastritis vs PUD Bradycardia, hold calcium channel blockers obesity ascending thoracic aorta appears enlarged measuring 4.5 cm // measurement is limited by motion artifact and noncontrast exam. moderate to severe compression fracture of T9 post vertebroplasty Sepsis from Gram-positive bacteremia. Gram-positive bacteremia - ID consulted - Streptococcus bovis bacteremia,2/4 bottles present on admission, source likely GI. Nausea. Chronic back pain with compression fracture on CT. Colonic diverticulosis on CT. 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 Cardiomegaly. Diabetes. Anxiety and depression. plan ADMIT CVC BED Cardiology consult iv protonix GI CONSULT npo hold calcium channel blockers iv fluid support SCD'S ID CONSULT IV ZOSYN 3.75 GM Q 6 HRS IV DAPTOMYCIN ID CONSULT echo EGD w/ Dr. Estevez in 12/2017 for dyspepsia showed mild esophagitis, gastric atrophy, and normal duodenum. Gastric biopsy + H. pylori, was given treatment. No previous colonoscopy (per previous encounter - daughter helped w/ translation. History of Present Illness History of Present Illness Ms Luo is a 70 Yr old arabic speaking female w/ PMHx HTN, HLD, GERD, PUD, anxiety with depression, DM2 who comes to ED with grandson c/o epigastric pain x [address] chest ascending thoracic aorta appears enlarged measuring 4.5 cm // measurement is limited by motion artifact and noncontrast exam. moderate to severe compression fracture of T9 post vertebroplasty ABDOMINAL PAIN, possible gastritis vs PUD Bradycardia, hold calcium channel blockers plan ADMIT CVC BED Cardiology consult iv protonix 40 mg q 24 hrs GI CONSULT npo hold calcium channel blockers now temp noted blood cult pos - ID consulted Vomited x1 overnight. Febrile to 101.7 F overnight. Nasal congestion and right ear and bilateral maxillary sinus pain today. K 2.9. Still with abdominal cramping and nausea. Afebrile overnight. Strep bovis on blood cultures. Daptomycin DC'd and changed to Zosyn per ID. Still complaining of some sinus pressure today but ear pain improved. Abdominal pain improved and she is tolerating p.o. well. Asking when she can be discharged. No chest pain or shortness of breath. Awaiting final sensitivities. HIDA scan negative source is unlikely to be gallbladder possibly per perforated diverticulitis Vitals/I&O Vitals/I&O: Vital Signs Date Time Temp Pulse Resp B/P (MAP) Pulse Ox O2 Delivery O2 Flow Rate FiO2 01/15/21 08:22 56 171/73 01/15/21 08:00 Room Air 01/15/21 07:00 98.5 20 91 98.5 I & O 01/14/21 01/14/21 01/15/21 15:00 23:00 07:00 Intake Total 300 ml Output Total 100 ml Balance 300 ml -100 ml Physical Exam Physical Exam: GENERAL: Alert, awake, pleasant female, lying in bed comfortably, in no acute distress.on ra HEENT: Normocephalic, atraumatic. Anicteric. Oral mucosa moist. No O2. NECK: Supple. No JVD. LUNGS: Clear bilaterally. No wheezing. HEART: S1, S2. ABDOMEN: Soft. Mild tenderness present diffusely, more over the epigastric area. No rebound or guarding. EXTREMITIES: No edema, no cyanosis. Left upper extremity injection site without evidence of fluctuance or erythema DERMATOLOGIC: Warm, dry, no generalized rash. NEUROLOGIC: Alert, oriented x 3, grossly nonfocal. PSYCHIATRIC: Calm and cooperative. General: mild distress Heart: Regular rate Lungs: Clear Abdomen: Normal bowel sounds Extremities: No edema, Normal pulses Skin: No breakdown, No significant lesion Labs Labs: Laboratory Tests Test 01/14/21 16:32 01/14/21 20:58 01/15/21 07:00 01/15/21 07:13 Glucose (Fingerstick) 163 mg/dL (70-99) 162 mg/dL (70-99) 114 mg/dL (70-99) Sodium Level 142 mmol/L (136-145) Potassium Level 3.8 mmol/L (3.5-5.1) Chloride Level 105 mmol/L (98-107) Carbon Dioxide Level 32 mmol/L (21-32) Anion Gap 5 (6-14) Blood Urea Nitrogen 9 mg/dL (7-20) Creatinine 0.7 mg/dL (0.6-1.0) Estimated GFR (Cockcroft-Gault) 82.3 Glucose Level 107 mg/dL (70-99) Calcium Level 8.1 mg/dL (8.5-10.1) Total Bilirubin 0.8 mg/dL (0.2-1.0) Direct Bilirubin 0.3 mg/dL (0.0-0.2) Aspartate Amino Transf (AST/SGOT) 69 U/L (15-37) Alanine Aminotransferase (ALT/SGPT) 177 U/L (14-59) Alkaline Phosphatase 115 U/L (46-116) Total Protein 6.5 g/dL (6.4-8.2) Albumin 3.0 g/dL (3.4-5.0) Test 01/15/21 12:03 Glucose (Fingerstick) 128 mg/dL (70-99) Assessment and Plan Assessmemt and Plan Problems Medical Problems: (1) Bradycardia on ECG Status: Acute Comment Review of Relevant I have reviewed the following items homero (where applicable) has been applied. Justifications for Admission Other Justification ABDOMINAL PAIN XU MAHAJAN MD January 15, 2021 14:47
[2021-01-15 15:00] VITALS: BP 171/74
[2021-01-15 19:37] VITALS: BP 195/86
[2021-01-15] MEDS: hydrALAZINE 20 MG/ML VIAL. IVP PRN (20:06)
[2021-01-15] MEDS: ATORVASTATIN CALCIUM 10 MG TABLET. PO SCH (20:46)
[2021-01-15] MEDS: ENOXAPARIN 40 MG/0.4 ML SYRINGE. SQ SCH (20:47)
[2021-01-15 23:03] VITALS: BP 179/79
[2021-01-16] MEDS: hydrALAZINE 20 MG/ML VIAL. IVP PRN (02:28)
[2021-01-16 03:25] VITALS: BP 194/85
[2021-01-16] MEDS: ONDANSETRON ODT 4 MG TAB.RAPDIS. PO PRN (04:16)
[2021-01-16] MEDS: PIPERACILLIN/TAZOBACTAM 3.375 GM in IV NORMAL SALINE 50ML 50 ML IV SCH (05:52)
[2021-01-16 07:00] VITALS: BP 164/75
[2021-01-16] MEDS: PENTOXIFYLLINE ER 400 MG TABLET.ER. PO SCH (08:08)
[2021-01-16] MEDS: ASPIRIN CHEWABLE 81 MG TABLET. PO SCH (08:08)
[2021-01-16] MEDS: LINAGLIPTIN 5 MG TABLET PO SCH (08:08)
[2021-01-16] MEDS: OMEGA-3 FATTY ACIDS/FISH OIL 1,000 MG CAPSULE. PO SCH (08:08)
[2021-01-16] MEDS: LACTOBACILLUS RHAMNOSUS GG 1 CAPSULE. PO SCH ×2 (08:09→20:31)
[2021-01-16] MEDS: LOSARTAN POTASSIUM 50 MG TABLET. PO SCH (08:09)
[2021-01-16] MEDS: CLOPIDOGREL BISULFATE 75 MG TABLET PO SCH (08:09)
[2021-01-16] MEDS: VITAMIN B COMPLEX TABLET. PO SCH (08:09)
[2021-01-16] MEDS: PANTOPRAZOLE 40 MG TABLET.DR. PO SCH (08:09)
[2021-01-16] MEDS: FLUoxetine HCL 10 MG CAPSULE PO SCH (08:09)
[2021-01-16] MEDS: FLUTICASONE 50MCG/NASAL SPRAY 16GM BOTTLE. NS SCH (08:10)
--- NOTE | 2021-01-16 08:23 | PDOC ---
Infectious Disease Note Subjective: Subjective Patient alert awake lying comfortably in bed trying to eat breakfast Discussed with nursing staff Patient continues to have headache though somewhat improved Complains of nausea and vomiting Has loose bowel movements x3 Continues to have abdominal pain and bloating Denies fever, cough or shortness of breath On room air Vital Signs: Vital Signs Vital Signs Date Time Temp Pulse Resp B/P (MAP) Pulse Ox O2 Delivery O2 Flow Rate FiO2 01/16/21 08:09 66 164/75 01/16/21 07:00 98.2 20 94 Room Air 98.2 Physical Exam: PHYSICAL EXAM GENERAL: Alert, awake, pleasant female, lying in bed comfortably, in no acute distress.on ra HEENT: Normocephalic, atraumatic. Anicteric. Oral mucosa moist. No O2. NECK: Supple. No JVD. LUNGS: Clear bilaterally. No wheezing. HEART: S1, S2. ABDOMEN: Soft. Mild tenderness present diffusely, more over the epigastric area. No rebound or guarding. EXTREMITIES: No edema, no cyanosis. Left upper extremity injection site without evidence of fluctuance or erythema DERMATOLOGIC: Warm, dry, no generalized rash. NEUROLOGIC: Alert, oriented x 3, grossly nonfocal. PSYCHIATRIC: Calm and cooperative. Medications: Inpatient Meds: Medications reviewed. Labs: Lab Laboratory Tests Test 01/15/21 12:03 01/15/21 16:43 01/15/21 20:58 01/16/21 06:58 Glucose (Fingerstick) 128 mg/dL (70-99) 119 mg/dL (70-99) 137 mg/dL (70-99) 132 mg/dL (70-99) Micro ECHO The left ventricular systolic function is normal and the ejection fraction is within normal range. Estimated ejection fraction 55%. There is normal LV segmental wall motion. Doppler and Color Flow revealed moderate aortic regurgitation. Doppler and Color Flow revealed mild tricuspid regurgitation. Estimated PAP 55 mmHg. The ascending aorta is mildly dilated at 3.[address] abdomen and pelvis IMPRESSION: 1. Colonic diverticulosis. There is no evidence of diverticulitis. 2. 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 Follow-up is not routinely performed for simple cysts. 3. Ectatic or mildly aneurysmal ascending aorta, partially included on the [id number]. 4. Cardiomegaly. BC POA 09/23 bottles streptococcal bovis RUN DATE: 01/14/21 [facility] LAB *LIVE* PAGE 1 RUN TIME: 1429 Specimen Inquiry PATIENT: SANTOSH PIPER ACCT: [id number] LOC: [address] [place] [address] U: [id number] AGE/SX: 70/F ROOM: 246 RE01/12/[address]: BARRY OROZCO MD : 1950 BED: 1 DIS: STATUS: ADM IN TLOC: SPEC #: [id number] JOSE: 01/12/21 STATUS: COMP REQ #: [id number] RECD: 01/12/[address]: BARRY OROZCO MD SOURCE: BLOOD ENTR: 01/13/21-[address] [facility] [address]: ELIDA ESPINAL DO SPDESC: FÁTIMA GALEANO MD, DONALD J MD THOMPSON,KATHARINE Bobo MD ORDERED: TRAMAINED CULT - LC Procedure Result BLOOD CULTURE LC Final Final GRAM POSITIVE COCCI FINAL ID= [STREP (BOVIS) GALLOLYTICUS] Growth of organism in only one of multiple sets; isolation does not necessarily indicate infection. Contact Microbiology Lab if further testing is clinically warranted. STREP (BOVIS) GALLOLYTICUS Unless otherwise specified, Testing Performed by: [address] [address] For Inquires, the Physician may contact the Microbiology department at [phone] Objective: Assessment: 1. Fever. pattern improved 2. Sepsis from Gram-positive bacteremia. January 12, January 14 3. Streptococcus gallolyticus bacteremia,2/4 bottles present on admission, source GI. 4. Abdominal pain. 5. Nausea and vomiting. Diarrhea 6. CT showing 4.5 cm ascending thoracic aortic aneurysm. 7. Chronic back pain with compression fracture on CT. 8. Colonic diverticulosis on CT. 9. 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 10. Cardiomegaly. 12. Diabetes. 13. Anxiety and depression. 14. Poorly controlled Hypertension 15. Hyperlipidemia; statin 16. Bradycardia 17. PAD; reports tingling in LE as HS. no wounds 18. S/P COVID Vaccine last Sunday 19. Leukopenia Plan: Plan of Care DC Zosyn Restart Daptomycin Start Ceftriaxone Enteric panel and C. difficile PCR Last CPK 54 on 01/13 Repeat BC on 01/14 positive again Repeat BC on 01/18 Will obtain CLEMENTE GI team is following.Pt will need endoscopy if not done recently, Headache management per primary Follow-up labs and cultures Continue aspiration precaution Continue supportive care Discussed with nursing staff PAULETTE MCGRAW MD January 16, 2021 08:23
[2021-01-16] MEDS: DAPTOmycin (GENERIC) IVPB 350 MG in IV NORMAL SALINE 50ML 50 ML IV SCH (09:03)
[2021-01-16] MEDS: cefTRIAXone IV Push 2 GM VIAL. IVP SCH (09:03)
[2021-01-16] MEDS ORDERED: PROCHLORPERAZINE 10 MG/2 ML VIAL. IV PRN (10:45)
--- NOTE | 2021-01-16 10:54 | PDOC ---
[facility] PROGRESS NOTE Date of Service DOS: DATE: 01/16/21 TIME: 10:53 Chief Complaint Chief Complaint A/P: ABDOMINAL PAIN, possible gastritis vs PUD Bradycardia, held calcium channel blockers , however, did not improve with this given she is on dihydropyridine, will attempt restarting given her HTN obesity ascending thoracic aorta appears enlarged measuring 4.5 cm // measurement is limited by motion artifact and noncontrast exam. moderate to severe compression fracture of T9 post vertebroplasty Sepsis from Gram-positive bacteremia. Gram-positive bacteremia - ID consulted - Streptococcus bovis bacteremia,2/4 bottles present on admission, source likely GI. Nausea. Chronic back pain with compression fracture on CT. Colonic diverticulosis on CT. 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 Cardiomegaly. Diabetes. Anxiety and depression. FEN - Cardiac diet PPX - iv protonix CODE - FULL Dispo - inpatient History of Present Illness History of Present Illness Ms Luo is a 70 Yr old salvadorean speaking female w/ PMHx HTN, HLD, GERD, PUD, anxiety with depression, DM2 who comes to ED with grandson c/o epigastric pain x [address] chest ascending thoracic aorta appears enlarged measuring 4.5 cm // measurement is limited by motion artifact and noncontrast exam. moderate to severe compression fracture of T9 post vertebroplasty ABDOMINAL PAIN, possible gastritis vs PUD Bradycardia, hold calcium channel blockers plan ADMIT CVC BED Cardiology consult iv protonix 40 mg q 24 hrs GI CONSULT npo hold calcium channel blockers now temp noted blood cult pos - ID consulted 01/14: Vomited x1 overnight. Febrile to 101.7 F overnight. Nasal congestion and right ear and bilateral maxillary sinus pain today. K 2.9. Still with abdominal cramping and nausea. 01/15: Afebrile overnight. Strep bovis on blood cultures. Daptomycin DC'd and changed to Zosyn per ID. Still complaining of some sinus pressure today but ear pain improved. Abdominal pain improved and she is tolerating p.o. well. Asking when she can be discharged. No chest pain or shortness of breath. Awaiting final sensitivities. HIDA scan negative source is unlikely to be gallbladder possibly per perforated diverticulitis Afebrile overnight. Repeat blood cultures from 01/14/2021 + for gram-positive cocci. Still with headache today. Discussed with ID given persisting gram- positive bacteremia CLEMENTE is indicated in the near future to r/o vegetation. Vitals/I&O Vitals/I&O: Vital Signs Date Time Temp Pulse Resp B/P (MAP) Pulse Ox O2 Delivery O2 Flow Rate FiO2 01/16/21 08:09 66 164/75 01/16/21 08:00 Room Air 01/16/21 07:00 98.2 20 94 98.2 I & O 01/15/21 01/15/21 01/16/21 14:52 22:52 06:52 Intake Total 50 ml 200 ml 200 ml Output Total 100 ml 150 ml 10 ml Balance -50 ml 50 ml 190 ml Physical Exam Physical Exam: GENERAL: Alert, awake, pleasant female, lying in bed comfortably, in no acute distress.on ra HEENT: Normocephalic, atraumatic. Anicteric. Oral mucosa moist. No O2. NECK: Supple. No JVD. LUNGS: Clear bilaterally. No wheezing. HEART: S1, S2. ABDOMEN: Soft. Mild tenderness present diffusely, more over the epigastric area. No rebound or guarding. EXTREMITIES: No edema, no cyanosis. Left upper extremity injection site without evidence of fluctuance or erythema DERMATOLOGIC: Warm, dry, no generalized rash. NEUROLOGIC: Alert, oriented x 3, grossly nonfocal. PSYCHIATRIC: Calm and cooperative. General: mild distress Heart: Regular rate Lungs: Clear Abdomen: Normal bowel sounds Extremities: No edema, Normal pulses Skin: No breakdown, No significant lesion Labs Labs: Laboratory Tests Test 01/15/21 12:03 01/15/21 16:43 01/15/21 20:58 01/16/21 06:58 Glucose (Fingerstick) 128 mg/dL (70-99) 119 mg/dL (70-99) 137 mg/dL (70-99) 132 mg/dL (70-99) Assessment and Plan Assessmemt and Plan Problems Medical Problems: (1) Bradycardia on ECG Status: Acute Comment Review of Relevant I have reviewed the following items homero (where applicable) has been applied. Medications: Current Medications Medications (Trade) Dose Ordered Sig/Jacklyn Route PRN Reason Start Time Stop Time Status Last Admin Dose Admin Linagliptin (Tradjenta) 5 mg DAILY PO 01/16/21 09:00 01/16/21 08:08 Amlodipine Besylate (Norvasc) 5 mg DAILY PO 01/16/21 09:00 01/16/21 08:08 Ceftriaxone Sodium (Rocephin) 2 gm Q24H IVP 01/16/21 09:00 01/16/21 09:03 Daptomycin 350 mg/ Sodium Chloride 50 ml @ 100 mls/hr Q24H IV 01/16/21 10:00 01/16/21 09:03 Justifications for Admission Other Justification ABDOMINAL PAIN XU MAHAJAN MD January 16, 2021 10:54
[2021-01-16 11:00] VITALS: BP 171/73
[2021-01-16] MEDS: ACETAMINOPHEN 325 MG TABLET. PO PRN (11:22)
[2021-01-16 12:33] LABS: BASO % 0 % (0-3); EOS % 0 % (0-3); HEMATOCRIT 35.6 % (36.0-47.0); HEMOGLOBIN 12.2 g/dL (12.0-15.5); LYMPH # 0.8 x10^3/uL (1.0-4.8); LYMPH % 17 % (24-48); MEAN CORPUSCULAR HEMOGLOBIN 33 pg (25-35); MEAN CORPUSCULAR HGB CONC 34 g/dL (31-37); MEAN CORPUSCULAR VOLUME 96 fL (79-100); MONO # 0.4 x10^3/uL (0.0-1.1); MONO % 8 % (0-9); NEUT # 3.3 x10^3/uL (1.8-7.7); NEUT % 74 % (31-73); PLATELET COUNT 172 x10^3/uL (140-400); RED BLOOD COUNT 3.72 x10^6/uL (3.50-5.40); WHITE BLOOD COUNT 4.4 x10^3/uL (4.0-11.0)
[2021-01-16 12:41] LABS: ALBUMIN 3.2 g/dL (3.4-5.0); ALBUMIN/GLOBULIN RATIO 0.8 (1.0-1.7); CREATININE 0.7 mg/dL (0.6-1.0); GFR 82.3; POTASSIUM 3.4 mmol/L (3.5-5.1); TOTAL BILIRUBIN 0.6 mg/dL (0.2-1.0); TOTAL PROTEIN 7.2 g/dL (6.4-8.2)
[2021-01-16 15:00] VITALS: BP 178/81
[2021-01-16 19:17] VITALS: BP 152/70
[2021-01-16] MEDS: LATANOPROST 0.005% OPHTH SOLUTION 2.5ML BOTTLE. OU SCH (20:30)
[2021-01-16] MEDS: ATORVASTATIN CALCIUM 10 MG TABLET. PO SCH (20:31)
[2021-01-16] MEDS: ENOXAPARIN 40 MG/0.4 ML SYRINGE. SQ SCH (20:31)
[2021-01-16 22:42] VITALS: BP 162/74
[2021-01-17] MEDS: hydrALAZINE 20 MG/ML VIAL. IVP PRN ×3 (03:31→20:43)
[2021-01-17 03:51] VITALS: BP 165/76
[2021-01-17 07:00] VITALS: BP 189/83
--- NOTE | 2021-01-17 08:28 | PDOC ---
Infectious Disease Note Subjective: Subjective Patient alert awake lying comfortably in bed Says feels better Headache nausea vomiting diarrhea improving Denies fever, cough or shortness of breath On room air Vital Signs: Vital Signs Vital Signs Date Time Temp Pulse Resp B/P (MAP) Pulse Ox O2 Delivery O2 Flow Rate FiO2 01/17/21 07:00 98.8 78 18 189/83 (118) 93 Room Air 98.8 Physical Exam: PHYSICAL EXAM GENERAL: Alert, awake, pleasant female, lying in bed comfortably, in no acute distress.on ra HEENT: Normocephalic, atraumatic. Anicteric. Oral mucosa moist. No O2. NECK: Supple. No JVD. LUNGS: Clear bilaterally. No wheezing. HEART: S1, S2. ABDOMEN: Soft. Mild tenderness present diffusely, more over the epigastric area. No rebound or guarding. EXTREMITIES: No edema, no cyanosis. Left upper extremity injection site without evidence of fluctuance or erythema DERMATOLOGIC: Warm, dry, no generalized rash. NEUROLOGIC: Alert, oriented x 3, grossly nonfocal. PSYCHIATRIC: Calm and cooperative. Medications: Inpatient Meds: Medications reviewed. Labs: Lab Laboratory Tests Test 01/16/21 11:55 01/16/21 11:59 01/16/21 17:04 01/16/21 20:28 White Blood Count 4.4 x10^3/uL (4.0-11.0) Red Blood Count 3.72 x10^6/uL (3.50-5.40) Hemoglobin 12.2 g/dL (12.0-15.5) Hematocrit 35.6 % (36.0-47.0) Mean Corpuscular Volume 96 fL (79-100) Mean Corpuscular Hemoglobin 33 pg (25-35) Mean Corpuscular Hemoglobin Concent 34 g/dL (31-37) Red Cell Distribution Width 13.0 % (11.5-14.5) Platelet Count 172 x10^3/uL (140-400) Neutrophils (%) (Auto) 74 % (31-73) Lymphocytes (%) (Auto) 17 % (24-48) Monocytes (%) (Auto) 8 % (0-9) Eosinophils (%) (Auto) 0 % (0-3) Basophils (%) (Auto) 0 % (0-3) Neutrophils # (Auto) 3.3 x10^3/uL (1.8-7.7) Lymphocytes # (Auto) 0.8 x10^3/uL (1.0-4.8) Monocytes # (Auto) 0.4 x10^3/uL (0.0-1.1) Eosinophils # (Auto) 0.0 x10^3/uL (0.0-0.7) Basophils # (Auto) 0.0 x10^3/uL (0.0-0.2) Sodium Level 138 mmol/L (136-145) Potassium Level 3.4 mmol/L (3.5-5.1) Chloride Level 100 mmol/L (98-107) Carbon Dioxide Level 29 mmol/L (21-32) Anion Gap 9 (6-14) Blood Urea Nitrogen 9 mg/dL (7-20) Creatinine 0.7 mg/dL (0.6-1.0) Estimated GFR (Cockcroft-Gault) 82.3 BUN/Creatinine Ratio 13 (6-20) Glucose Level 127 mg/dL (70-99) Calcium Level 9.0 mg/dL (8.5-10.1) Total Bilirubin 0.6 mg/dL (0.2-1.0) Aspartate Amino Transf (AST/SGOT) 38 U/L (15-37) Alanine Aminotransferase (ALT/SGPT) 133 U/L (14-59) Alkaline Phosphatase 114 U/L (46-116) Total Protein 7.2 g/dL (6.4-8.2) Albumin 3.2 g/dL (3.4-5.0) Albumin/Globulin Ratio 0.8 (1.0-1.7) Glucose (Fingerstick) 136 mg/dL (70-99) 129 mg/dL (70-99) 149 mg/dL (70-99) Test 01/17/21 07:12 Glucose (Fingerstick) 126 mg/dL (70-99) Micro ECHO The left ventricular systolic function is normal and the ejection fraction is within normal range. Estimated ejection fraction 55%. There is normal LV segmental wall motion. Doppler and Color Flow revealed moderate aortic regurgitation. Doppler and Color Flow revealed mild tricuspid regurgitation. Estimated PAP 55 mmHg. The ascending aorta is mildly dilated at 3.[address] abdomen and pelvis IMPRESSION: 1. Colonic diverticulosis. There is no evidence of diverticulitis. 2. 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 Follow-up is not routinely performed for simple cysts. 3. Ectatic or mildly aneurysmal ascending aorta, partially included on the [id number]. 4. Cardiomegaly. POA 09/23 bottles streptococcal bovis RUN DATE: 01/14/21 [facility] [employer] [facility] *LIVE* PAGE 1 RUN TIME: 1426 Specimen Inquiry PATIENT: SANTOSH PIPER ACCT: [id number] LOC: [address] [place] [address] U: [id number] AGE/SX: 70/F ROOM: 246 RE01/12/[address]: BARRY OROZCO MD : 1950 BED: 1 DIS: STATUS: ADM IN TLOC: - SPEC #: [id number] JOSE: 01/12/21 STATUS: COMP REQ #: [id number] RECD: 01/12/[address]: BARRY OROZCO MD SOURCE: BLOOD ENTR: 01/13/[address] [facility] [address]: ELIDA ESPINAL DO [facility]: FÁTIMA GALEANO MD,JALEN SCHAEFER,KATHARINE Bobo MD ORDERED: BLD CULT - LC Procedure Result -- BLOOD CULTURE LC Final Final GRAM POSITIVE COCCI FINAL ID= [STREP (BOVIS) GALLOLYTICUS] Growth of organism in only one of multiple sets; isolation does not necessarily indicate infection. Contact Microbiology Lab if further testing is clinically warranted. STREP (BOVIS) GALLOLYTICUS Unless otherwise specified, Testing Performed by: [address] [address] For Inquires, the Physician may contact the Microbiology department at [phone] Objective: Assessment: 1. Fever. pattern improved 2. Sepsis from Gram-positive bacteremia. January 12, 3. Streptococcus gallolyticus bacteremia January 12,2/4 bottles present on admission, source GI. Micrococcus luteus bacteremia January 14 3 out of 4 bottles 4. Abdominal pain. 5. Nausea and vomiting. Diarrhea 6. CT showing 4.5 cm ascending thoracic aortic aneurysm. 7. Chronic back pain with compression fracture on CT. 8. Colonic diverticulosis on CT. 9. 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 10. Cardiomegaly. 12. Diabetes. 13. Anxiety and depression. 14. Poorly controlled Hypertension 15. Hyperlipidemia; statin 16. Bradycardia 17. PAD; reports tingling in LE as HS. no wounds 18. S/P COVID Vaccine last Sunday 19. Leukopenia Plan: Plan of Care Continue daptomycin and ceftriaxone Enteric panel and C. difficile PCR Last CPK 54 on 01/13 Repeat BC on 01/14 positive Repeat BC on 01/18 CLEMENTE, cardiology following GI team is following.Pt will need endoscopy if not done recently, CT chest and abdomen reviewed Follow-up labs and cultures Continue aspiration precaution Continue supportive care Discussed with nursing staff PAULETTE MCGRAW MD January 17, 2021 08:28
[2021-01-17] MEDS: LOSARTAN POTASSIUM 50 MG TABLET. PO SCH (08:51)
[2021-01-17] MEDS: CLOPIDOGREL BISULFATE 75 MG TABLET PO SCH (08:51)
[2021-01-17] MEDS: ASPIRIN CHEWABLE 81 MG TABLET. PO SCH (08:51)
[2021-01-17] MEDS: PENTOXIFYLLINE ER 400 MG TABLET.ER. PO SCH (08:51)
[2021-01-17] MEDS: OMEGA-3 FATTY ACIDS/FISH OIL 1,000 MG CAPSULE. PO SCH (08:51)
[2021-01-17] MEDS: LINAGLIPTIN 5 MG TABLET PO SCH (08:51)
[2021-01-17] MEDS: LACTOBACILLUS RHAMNOSUS GG 1 CAPSULE. PO SCH ×2 (08:51→20:42)
[2021-01-17] MEDS: PANTOPRAZOLE 40 MG TABLET.DR. PO SCH (08:51)
[2021-01-17] MEDS: VITAMIN B COMPLEX TABLET. PO SCH (08:51)
[2021-01-17] MEDS: FLUTICASONE 50MCG/NASAL SPRAY 16GM BOTTLE. NS SCH (08:52)
[2021-01-17] MEDS: FLUoxetine HCL 10 MG CAPSULE PO SCH (08:52)
[2021-01-17] MEDS: cefTRIAXone IV Push 2 GM VIAL. IVP SCH (08:52)
--- NOTE | 2021-01-17 09:31 | PDOC ---
PROGRESS NOTES Date of Service: DATE: 01/17/21 TIME: 09:29 Chief Complaint Chief Complaint A/P: ABDOMINAL PAIN, possible gastritis vs PUD Bradycardia, held calcium channel blockers , however, did not improve with this given she is on dihydropyridine, will attempt restarting given her HTN obesity ascending thoracic aorta appears enlarged measuring 4.5 cm // measurement is limited by motion artifact and noncontrast exam. moderate to severe compression fracture of T9 post vertebroplasty Sepsis from Gram-positive bacteremia. Gram-positive bacteremia - ID consulted - Streptococcus bovis bacteremia,2/4 bottles present on admission, source likely GI. Nausea. Chronic back pain with compression fracture on CT. Colonic diverticulosis on CT. 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 Cardiomegaly. Diabetes. Anxiety and depression. FEN - Cardiac diet PPX - iv protonix CODE - FULL Dispo - inpatient History of Present Illness History of Present Illness Ms Luo is a 70 Yr old kyrgyz speaking female w/ PMHx HTN, HLD, GERD, PUD, anxiety with depression, DM2 who comes to ED with grandson c/o epigastric pain x [address] chest ascending thoracic aorta appears enlarged measuring 4.5 cm // measurement is limited by motion artifact and noncontrast exam. moderate to severe compression fracture of T9 post vertebroplasty ABDOMINAL PAIN, possible gastritis vs PUD Bradycardia, hold calcium channel blockers plan ADMIT CVC BED Cardiology consult iv protonix 40 mg q 24 hrs GI CONSULT npo hold calcium channel blockers now temp noted blood cult pos - ID consulted 01/14: Vomited x1 overnight. Febrile to 101.7 F overnight. Nasal congestion and right ear and bilateral maxillary sinus pain today. K 2.9. Still with abdominal cramping and nausea. 01/17 : Afebrile overnight. Strep bovis on blood cultures. iv Zosyn per ID., IV DAPTOMYCIN ear pain improved. Abdominal pain improved and she is tolerating p.o. well. No chest pain or shortness of breath. Awaiting final sensitivities. HIDA scan negative source is unlikely to be gallbladder possibly per perforated diverticulitis Repeat blood cultures from 01/14/2021 + for gram-positive cocci given persisting gram-positive bacteremia CLEMENTE is indicated in the near future to r/o vegetation. Sepsis from Gram-positive bacteremia. January 12, Streptococcus gallolyticus bacteremia January 12,2/4 bottles present on admission, source GI. Micrococcus luteus bacteremia January 14 3 out of 4 bottles Procedure Result BLOOD CULTURE LC Preliminary Preliminary FINAL ID= [MICROCOCCUS LUTEUS] MICROCOCCUS LUTEUS Unless otherwise specified, Testing Performed by: [address] [address] For Inquires, the Physician may contact the Microbiology department at [phone] 37 MIN pt exam, chart review, > 50% of time spent with exam, chart review, pt c are coordination Vitals Vitals Vital Signs Date Time Temp Pulse Resp B/P (MAP) Pulse Ox O2 Delivery O2 Flow Rate FiO2 01/17/21 08:52 78 189/83 01/17/21 07:00 98.8 18 93 Room Air 98.8 Physical Exam Physical Exam GENERAL: Alert, awake, pleasant female, lying in bed comfortably, in no acute distress.on ra HEENT: Normocephalic, atraumatic. Anicteric. Oral mucosa moist. No O2. NECK: Supple. No JVD. LUNGS: Clear bilaterally. No wheezing. HEART: S1, S2. ABDOMEN: Soft. Mild tenderness present diffusely, more over the epigastric area. No rebound or guarding. EXTREMITIES: No edema, no cyanosis. Left upper extremity injection site withou t evidence of fluctuance or erythema DERMATOLOGIC: Warm, dry, no generalized rash. NEUROLOGIC: Alert, oriented x 3, grossly nonfocal. PSYCHIATRIC: Calm and cooperative. General: mild distress Heart: Regular rate Lungs: Clear Abdomen: Normal bowel sounds Extremities: No edema, Normal pulses Skin: No breakdown, No significant lesion Labs LABS RECD: 01/13/[address]: BARRY OROZCO MD SOURCE: BLOOD ENTR: 01/13/[address]: PAULETTE MCGRAW MD [facility]: FÁTIMA GALEANO MD,JALEN SCHAEFER,KATHARINE Bobo MD ORDERED: BLD CULT - LC Procedure Result BLOOD CULTURE LC Final Final GRAM POSITIVE COCCI FINAL ID= [STREP (BOVIS) GALLOLYTICUS] Growth of organism in only one of multiple sets; isolation does not necessarily indicate infection. Contact Microbiology Lab if further testing is clinically warranted. STREP (BOVIS) GALLOLYTICUS Unless otherwise specified, Testing Performed by: [address] [address] For Inquires, the Physician may contact the Microbiology department at [phone] KATHARINE SCHAEFER MD ORDERED: BCULT Procedure Result BLOOD CULTURE Final AMENDED REPORT: GRAM POSITIVE COCCI IN CLUSTERS NOW IN 3 OF 4 BOTTLES. CALLED TO MACKENZIE OWENS ON 2S 01/16/21 AT 1149 BY [facility]. GRAM POSITIVE COCCI IN CLUSTERS IN 2 OF 4 BOTTLES OF 2 SETS COLLECTED ON 01/14/21. CALLED TO BASSAM MORRELL 2S 01/16/21 AT 0725 BY [facility]. SPECIMENS HAVE BEEN SENT TO [facility] FOR FURTHER IDENTIFICATION. * This is an amended report * A prior result that was reported as final has been changed. [facility]: FÁTIMA GALEANO MD,JALEN SCHAEFER,KATHARINE Bobo MD ORDERED: BCULT Procedure Result BLOOD CULTURE Final GRAM POSITIVE COCCI IN CLUSTERS IN 2 OF 4 BOTTLES OF 2 SETS COLLECTED ON 01/14/21. CALLED TO BASSMA MORRELL 2S 01/16/21 AT 0725 BY [facility]. SPECIMENS HAVE BEEN SENT TO [facility] FOR FURTHER IDENTIFICATION. PATIENT: SANTOSH PIPERACCOUNT: [id number] : 1950 LOCATION: ER AGE: 70 SEX: F EXAM STATUS: REG ER ORD. PHYSICIAN: ESPINAL,ELIDA J DO REASON: Epigastric pain/questionable aneurysm PROCEDURE: CT CHEST WO CONTRAST EXAM: CT CHEST WITHOUT CONTRAST HISTORY: Epigastric pain, questionable aneurysm COMPARISON: None TECHNIQUE: Helical CT of the chest performed without contrast. Coronal and sagittal reformats were obtained. One or more of the following individualized dose reduction techniques were utilized for this examination: 1. Automated exposure control 2. Adjustment of the mA and/or kV according to patient size 3. Use of iterative reconstruction technique. FINDINGS: Thyroid gland and thoracic inlet: There is a calcification in the left thyroid lobe. Thoracic inlet is normal. Heart and great vessels: The ascending thoracic aorta appears enlarged measuring 4.5 cm although the measurement is limited by motion artifact and noncontrast exam. The heart is normal in size. There are coronary calcifications. No p ericardial effusion. Mild calcifications in the aortic arch and descending aorta. Mediastinum and lb: No lymphadenopathy. Lungs and pleura: There is a 1.3 cm linear nodule in the anterior left upper lobe. Calcified granuloma in the right middle lobe. Mild linear atelectasis in the lung bases. No pleural effusion. Chest wall and axillae: Normal. Upper abdomen: There are parapelvic cysts in the left kidney. Upper abdomen is otherwise unremarkable. Bones: There is a moderate to severe compression fracture of T9 post vertebroplasty. No acute osseous abnormality. There are multiple old right rib fractures. IMPRESSION: 1. The ascending thoracic aorta appears enlarged measuring approximately 4.5 cm. Measurements are limited by motion artifact and noncontrast exam. 2. 1.3 cm linear nodule in the left apex. Recommend 3 month follow-up CT to ensure stability. 3. T9 compression fracture post vertebroplasty. Electronically signed by: Flori Villafana MD (01/12/2021 4:26 PM) [id number] PATIENT: SANTOSH PIPERACCOUNT: [id number] : 1950 LOCATION: ER AGE: 70 SEX: F EXAM STATUS: REG ER ORD. PHYSICIAN: NON,STAFF REASON: ABDOMINAL PAIN PROCEDURE: CT ABD PELV W/ IV CONTRST ONLY EXAM: Abdomen and pelvis CT with intravenous contrast. HISTORY: Pain. TECHNIQUE: Computed tomographic images of the abdomen and pelvis were obtained following the administration of intravenous contrast. Multiplanar reformatting was performed. *One or more of the following individualized dose reduction techniques were utilized for this examination: 1. Automated exposure control. 2. Adjustment of the mA and/or kV according to patient size. 3. Use of iterative reconstruction technique. COMPARISON: None. FINDINGS: Evaluation of the lower thorax demonstrates bilateral mid and lower lung atelectasis and pleural-parenchymal scarring. There is no consolidation, pleural effusion or pneumothorax. There is cardiomegaly. There is a suspected ectatic or dilated ascending aorta, partially included on the [id number]. There is a tortuous descending thoracic aorta. There is no suspicious hepatic lesion. The gallbladder, pancreas, spleen, stomach and adrenal glands are unremarkable. There are multiple bilateral renal parapelvic cysts and small cortical cysts. There is scarring within the lateral mid zone of the right kidney. There is no hydronephrosis. The bladder is unremarkable. The appendix is absent. There is colonic diverticulosis. There is no diverticulitis. The uterus and adnexal regions are unremarkable. The abdominal aorta is normal in caliber. There is aortic and aortic branch vessel atherosclerosis. There is no lymphadenopathy. There is a tiny fat-containing left periumbilical hernia. There is degenerative change involving both hips and the lumbar spine. There is grade 1 anterolisthesis at the lower lumbar levels. There is a chronic severe compression fracture with vertebroplasty changes at T9. IMPRESSION: 1. Colonic diverticulosis. There is no evidence of diverticulitis. 2. 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 Follow-up is not routinely performed for simple cysts. 3. Ectatic or mildly aneurysmal ascending aorta, partially included on the [id number]. 4. Cardiomegaly. Electronically signed by: Minoo Lombardo MD (01/12/2021 2:52 PM) [id number] DICTATED and SIGNED BY: MINOO LOMBARDO MD,JALEN SCHAEFER,KATHARINE Bobo MD ORDERED: MICHELINE DOE - Procedure Result BLOOD CULTURE LC Preliminary Preliminary FINAL ID= [MICROCOCCUS LUTEUS] MICROCOCCUS LUTEUS Unless otherwise specified, Testing Performed by: [address] [address] For Inquires, the Physician may contact the Microbiology department at [phone] Laboratory Tests Test 01/16/21 11:55 01/16/21 11:59 01/16/21 17:04 01/16/21 20:28 White Blood Count 4.4 x10^3/uL (4.0-11.0) Red Blood Count 3.72 x10^6/uL (3.50-5.40) Hemoglobin 12.2 g/dL (12.0-15.5) Hematocrit 35.6 % (36.0-47.0) Mean Corpuscular Volume 96 fL (79-100) Mean Corpuscular Hemoglobin 33 pg (25-35) Mean Corpuscular Hemoglobin Concent 34 g/dL (31-37) Red Cell Distribution Width 13.0 % (11.5-14.5) Platelet Count 172 x10^3/uL (140-400) Neutrophils (%) (Auto) 74 % (31-73) Lymphocytes (%) (Auto) 17 % (24-48) Monocytes (%) (Auto) 8 % (0-9) Eosinophils (%) (Auto) 0 % (0-3) Basophils (%) (Auto) 0 % (0-3) Neutrophils # (Auto) 3.3 x10^3/uL (1.8-7.7) Lymphocytes # (Auto) 0.8 x10^3/uL (1.0-4.8) Monocytes # (Auto) 0.4 x10^3/uL (0.0-1.1) Eosinophils # (Auto) 0.0 x10^3/uL (0.0-0.7) Basophils # (Auto) 0.0 x10^3/uL (0.0-0.2) Sodium Level 138 mmol/L (136-145) Potassium Level 3.4 mmol/L (3.5-5.1) Chloride Level 100 mmol/L (98-107) Carbon Dioxide Level 29 mmol/L (21-32) Anion Gap 9 (6-14) Blood Urea Nitrogen 9 mg/dL (7-20) Creatinine 0.7 mg/dL (0.6-1.0) Estimated GFR (Cockcroft-Gault) 82.3 BUN/Creatinine Ratio 13 (6-20) Glucose Level 127 mg/dL (70-99) Calcium Level 9.0 mg/dL (8.5-10.1) Total Bilirubin 0.6 mg/dL (0.2-1.0) Aspartate Amino Transf (AST/SGOT) 38 U/L (15-37) Alanine Aminotransferase (ALT/SGPT) 133 U/L (14-59) Alkaline Phosphatase 114 U/L (46-116) Total Protein 7.2 g/dL (6.4-8.2) Albumin 3.2 g/dL (3.4-5.0) Albumin/Globulin Ratio 0.8 (1.0-1.7) Glucose (Fingerstick) 136 mg/dL (70-99) 129 mg/dL (70-99) 149 mg/dL (70-99) Test 01/17/21 07:12 Glucose (Fingerstick) 126 mg/dL (70-99) Assessment and Plan Assessmemt and Plan Problems Medical Problems: (1) Bradycardia on ECG Status: Acute Comment Review of Relevant I have reviewed the following items homero (where applicable) has been applied. Labs Laboratory Tests Test 01/15/21 12:03 01/15/21 16:43 01/15/21 20:58 01/16/21 06:58 Glucose (Fingerstick) 128 mg/dL (70-99) 119 mg/dL (70-99) 137 mg/dL (70-99) 132 mg/dL (70-99) Test 01/16/21 11:55 01/16/21 11:59 01/16/21 17:04 01/16/21 20:28 White Blood Count 4.4 x10^3/uL (4.0-11.0) Red Blood Count 3.72 x10^6/uL (3.50-5.40) Hemoglobin 12.2 g/dL (12.0-15.5) Hematocrit 35.6 % (36.0-47.0) Mean Corpuscular Volume 96 fL (79-100) Mean Corpuscular Hemoglobin 33 pg (25-35) Mean Corpuscular Hemoglobin Concent 34 g/dL (31-37) Red Cell Distribution Width 13.0 % (11.5-14.5) Platelet Count 172 x10^3/uL (140-400) Neutrophils (%) (Auto) 74 % (31-73) Lymphocytes (%) (Auto) 17 % (24-48) Monocytes (%) (Auto) 8 % (0-9) Eosinophils (%) (Auto) 0 % (0-3) Basophils (%) (Auto) 0 % (0-3) Neutrophils # (Auto) 3.3 x10^3/uL (1.8-7.7) Lymphocytes # (Auto) 0.8 x10^3/uL (1.0-4.8) Monocytes # (Auto) 0.4 x10^3/uL (0.0-1.1) Eosinophils # (Auto) 0.0 x10^3/uL (0.0-0.7) Basophils # (Auto) 0.0 x10^3/uL (0.0-0.2) Sodium Level 138 mmol/L (136-145) Potassium Level 3.4 mmol/L (3.5-5.1) Chloride Level 100 mmol/L (98-107) Carbon Dioxide Level 29 mmol/L (21-32) Anion Gap 9 (6-14) Blood Urea Nitrogen 9 mg/dL (7-20) Creatinine 0.7 mg/dL (0.6-1.0) Estimated GFR (Cockcroft-Gault) 82.3 BUN/Creatinine Ratio 13 (6-20) Glucose Level 127 mg/dL (70-99) Calcium Level 9.0 mg/dL (8.5-10.1) Total Bilirubin 0.6 mg/dL (0.2-1.0) Aspartate Amino Transf (AST/SGOT) 38 U/L (15-37) Alanine Aminotransferase (ALT/SGPT) 133 U/L (14-59) Alkaline Phosphatase 114 U/L (46-116) Total Protein 7.2 g/dL (6.4-8.2) Albumin 3.2 g/dL (3.4-5.0) Albumin/Globulin Ratio 0.8 (1.0-1.7) Glucose (Fingerstick) 136 mg/dL (70-99) 129 mg/dL (70-99) 149 mg/dL (70-99) Test 01/17/21 07:12 Glucose (Fingerstick) 126 mg/dL (70-99) Laboratory Tests Test 01/16/21 11:55 01/16/21 11:59 01/16/21 17:04 01/16/21 20:28 White Blood Count 4.4 x10^3/uL (4.0-11.0) Red Blood Count 3.72 x10^6/uL (3.50-5.40) Hemoglobin 12.2 g/dL (12.0-15.5) Hematocrit 35.6 % (36.0-47.0) Mean Corpuscular Volume 96 fL (79-100) Mean Corpuscular Hemoglobin 33 pg (25-35) Mean Corpuscular Hemoglobin Concent 34 g/dL (31-37) Red Cell Distribution Width 13.0 % (11.5-14.5) Platelet Count 172 x10^3/uL (140-400) Neutrophils (%) (Auto) 74 % (31-73) Lymphocytes (%) (Auto) 17 % (24-48) Monocytes (%) (Auto) 8 % (0-9) Eosinophils (%) (Auto) 0 % (0-3) Basophils (%) (Auto) 0 % (0-3) Neutrophils # (Auto) 3.3 x10^3/uL (1.8-7.7) Lymphocytes # (Auto) 0.8 x10^3/uL (1.0-4.8) Monocytes # (Auto) 0.4 x10^3/uL (0.0-1.1) Eosinophils # (Auto) 0.0 x10^3/uL (0.0-0.7) Basophils # (Auto) 0.0 x10^3/uL (0.0-0.2) Sodium Level 138 mmol/L (136-145) Potassium Level 3.4 mmol/L (3.5-5.1) Chloride Level 100 mmol/L (98-107) Carbon Dioxide Level 29 mmol/L (21-32) Anion Gap 9 (6-14) Blood Urea Nitrogen 9 mg/dL (7-20) Creatinine 0.7 mg/dL (0.6-1.0) Estimated GFR (Cockcroft-Gault) 82.3 BUN/Creatinine Ratio 13 (6-20) Glucose Level 127 mg/dL (70-99) Calcium Level 9.0 mg/dL (8.5-10.1) Total Bilirubin 0.6 mg/dL (0.2-1.0) Aspartate Amino Transf (AST/SGOT) 38 U/L (15-37) Alanine Aminotransferase (ALT/SGPT) 133 U/L (14-59) Alkaline Phosphatase 114 U/L (46-116) Total Protein 7.2 g/dL (6.4-8.2) Albumin 3.2 g/dL (3.4-5.0) Albumin/Globulin Ratio 0.8 (1.0-1.7) Glucose (Fingerstick) 136 mg/dL (70-99) 129 mg/dL (70-99) 149 mg/dL (70-99) Test 01/17/21 07:12 Glucose (Fingerstick) 126 mg/dL (70-99) Microbiology 01/14/21 Blood Culture - Preliminary, Resulted Medications Current Medications Iohexol (Omnipaque 300 Mg/ml) 75 ml 1X ONCE IV Last administered on 01/12/21at 14:38; Start 01/12/21 at 14:15; Stop 01/12/21 at 14:16; Status DC Info (CONTRAST GIVEN -- Rx MONITORING) 1 each PRN DAILY PRN MC SEE COMMENTS; Start 01/12/21 at 14:15; Stop 01/14/21 at 14:14; Status DC Ondansetron HCl (Zofran) 4 mg PRN Q8HRS PRN IV NAUSEA/VOMITING; Start 01/12/21 at 15:45; Stop 01/12/21 at 16:51; Status DC Pantoprazole Sodium (PROTONIX VIAL for IV PUSH) 40 mg DAILY08 ONCE IVP Last administered on 01/12/21at 17:40; Start 01/12/21 at 17:00; Stop 01/12/21 at 17:01; Status DC Sodium Chloride (Normal Saline Flush) 3 ml QSHIFT PRN IV AFTER MEDS AND BLOOD DRAWS; Start 01/12/21 at 17:00 Sodium Chloride 1,000 ml @ 100 mls/hr Q10H IV Last administered on 01/13/21at 18:21; Start 01/12/21 at 17:00; Stop 01/14/21 at 08:20; Status DC Dextrose/Sodium Chloride 1,000 ml @ 80 mls/hr [id number] IV ; Start 01/12/21 at 17:00; Status UNV Ondansetron HCl (Zofran) 4 mg PRN Q4HRS PRN IV NAUSEA/VOMITING Last administered on 01/13/21at 20:35; Start 01/12/21 at 17:00 Acetaminophen (Tylenol) 650 mg PRN Q4HRS PRN PO TEMP OVER 100.4F OR MILD PAIN Last administered on 01/16/21at 11:22; Start 01/12/21 at 17:00 Al Hydroxide/Mg Hydroxide (Mylanta Plus Xs) 30 ml PRN DAILY PRN PO HEARTBURN / GAS; Start 01/12/21 at 17:00 Sodium Monofluorophosphate (Fleet Adult) 133 ml PRN DAILY PRN HI CONSTIPATION; Start 01/12/21 at 17:00; Stop 01/15/21 at 14:48; Status DC Docusate Sodium (Colace) 100 mg PRN BID PRN PO HARD STOOLS; Start 01/12/21 at 17:00 Albuterol Sulfate (Ventolin Neb Soln) 2.5 mg PRN Q4HRS PRN NEB SHORTNESS OF BREATH; Start 01/12/21 at 17:00 Guaifenesin (Robitussin) 200 mg PRN Q4HRS PRN PO COUGH; Start 01/12/21 at 17:00 Lorazepam (Ativan) 0.5 mg PRN Q4HRS PRN PO ANXIETY / AGITATION; Start 01/12/21 at 17:00 Enoxaparin Sodium (Lovenox 40mg Syringe) 40 mg Q24H SQ Last administered on 01/16/21 20:31; Start 01/12/21 at 21:00 Aspirin (Aspirin Chewable) 81 mg DAILY PO Last administered on 01/17/21 08:51; Start 01/13/21 at 09:00 Clopidogrel Bisulfate (Plavix) 75 mg DAILY PO Last administered on 01/17/21 08:51; Start 01/13/21 at 09:00 Fluoxetine HCl (PROzac) 10 mg DAILY PO Last administered on 01/17/21 08:52; S tart 01/13/21 at 09:00 Hydrochlorothiazide (Hydrodiuril) 25 mg DAILY PO Last administered on 01/13/21 11:56; Start 01/13/21 at 09:00; Stop 01/14/21 at 08:20; Status DC Pentoxifylline (TRENtal) 400 mg DAILY PO Last administered on 01/17/21 08:51; Start 01/13/21 at 09:00 Vitamin B Complex (Hang B) 1 tab DAILY PO Last administered on 01/17/21 08:51; Start 01/13/21 at 09:00 Fish Oil (Fish Oil) 1,000 mg DAILY PO Last administered on 01/17/21 08:51; Start 01/13/21 at 09:00 Ondansetron HCl (Zofran Odt) 4 mg PRN Q8HRS PRN PO NAUSEA/VOMITING Last administered on 01/16/21 04:16; Start 01/12/21 at 17:00 Atorvastatin Calcium (Lipitor) 5 mg QHS PO Last administered on 01/16/21 20:31; Start 01/12/21 at 21:00 Hydralazine HCl (Apresoline Inj) 10 mg PRN Q4HRS PRN IVP ELEVATED BP, SEE COMMENTS Last administered on 01/17/21 03:31; Start 01/12/21 at 20:30 Piperacillin Sod/ Tazobactam Sod 2.25 gm/Sodium Chloride 50 ml @ 100 mls/hr 1X ONCE IV ; Start 01/13/21 at 09:15; Stop 01/13/21 at 09:44; Status UNV Piperacillin Sod/ Tazobactam Sod 3.375 gm/Sodium Chloride 50 ml @ 100 mls/hr Q6HRS IV Last administered on 01/16/21at 05:52; Start 01/13/21 at 10:00; Stop 01/16/21 at 08:21; Status DC Magnesium Sulfate 50 ml @ 25 mls/hr 1X ONCE IV Last administered on 01/13/21at 11:21; Start 01/13/21 at 11:00; Stop 01/13/21 at 12:59; Status DC Pantoprazole Sodium (Protonix) 40 mg DAILYAC PO Last administered on 01/17/21at 08:51; Start 01/13/21 at 12:30 Daptomycin 350 mg/ Sodium Chloride 50 ml @ 100 mls/hr Q24H IV Last administe red on 01/14/21at 14:09; Start 01/13/21 at 14:00; Stop 01/15/21 at 09:31; Status DC Lactobacillus Rhamnosus (Culturelle) 1 cap BID PO Last administered on 01/17/21at 08:51; Start 01/13/21 at 21:00 Losartan Potassium (Cozaar) 100 mg DAILY PO Last administered on 01/17/21at 08:51; Start 01/13/21 at 17:00 Potassium Chloride/Dextrose/ Sod Cl 1,000 ml @ 80 mls/hr [id number] ONCE IV Last administered on 01/14/21at 09:58; Start 01/14/21 at 09:00; Stop 01/14/21 at 21:29; Status DC Potassium Bicarbonate (Potassium Effervescent Tablet) 40 meq 1X ONCE PO Last administered on 01/14/21at 09:04; Start 01/14/21 at 08:15; Stop 01/14/21 at 08:28; Status DC Magnesium Sulfate 50 ml @ 25 mls/hr 1X ONCE IV Last administered on 01/14/21at 09:57; Start 01/14/21 at 08:15; Stop 01/14/21 at 10:14; Status DC Sodium Chloride ([place] Saline Nasal) 1 wagner PRN DAILY PRN NS NASAL CONGESTION; Start 01/14/21 at 12:00 Fluticasone Propionate (Flonase) 2 spray DAILY NS Last administered on 01/17/21at 08:52; Start 01/14/21 at 13:00 Fluticasone Propionate (Flonase) 2 spray DAILY NS ; Start 01/14/21 at 12:00; Status UNV Sodium Chloride ([place] Saline Nasal) 1 wagner PRN DAILY PRN NS NASAL CONGESTION; Start 01/14/21 at 12:00; Status UNV Latanoprost (Xalatan) 1 drop QHS OU Last administered on 01/16/21at 20:30; Start 01/16/21 at 21:00 Linagliptin (Tradjenta) 5 mg DAILY PO Last administered on 01/17/21 08:51; Start 01/16/21 at 09:00 Amlodipine Besylate (Norvasc) 5 mg DAILY PO Last administered on 01/16/21at 08:08; Start 01/16/21 at 09:00; Stop 01/16/21 at 10:51; Status DC Ceftriaxone Sodium (Rocephin) 2 gm Q24H IVP Last administered on 01/17/21at 08:52; Start 01/16/21 at 09:00 Daptomycin 350 mg/ Sodium Chloride 50 ml @ 100 mls/hr Q24H IV Last administered on 01/16/21at 09:03; Start 01/16/21 at 10:00 Prochlorperazine Edisylate (Compazine) 10 mg PRN Q6HRS PRN IV Headache/NAUSEA/VOMITING Last administered on 01/16/21at 11:22; Start 01/16/21 at 10:45 Nifedipine (Procardia Xl) 30 mg DAILY PO Last administered on 01/17/21at 08:52; Start 01/17/21 at 09:00 Active Scripts Active Nifedipine Er (Nifedipine) 30 Mg Tab.er.24 30 Mg PO DAILY 30 Days Reported Xalatan (Latanoprost) 2.5 Ml Drops 1 Drop OU QHS Losartan-Hctz 100-25 Mg Tab (Losartan/Hydrochlorothiazide) 1 Each Tablet 1 Each PO DAILY Januvia (Sitagliptin Phosphate) 100 Mg Tablet 100 Mg PO DAILY Pentoxifylline 400 Mg Tablet.er 400 Mg PO DAILY Pravastatin Sodium 20 Mg Tablet 20 Mg PO HS Vitals/I & O Vital Sign - Last 24 Hours 01/16/21 01/16/21 01/16/21 01/16/21 11:00 15:00 19:17 19:31 Temp 98.3 98.2 99.4 98.3 98.2 99.4 Pulse 63 70 68 Resp 20 20 16 B/P (MAP) 171/73 (105) 178/81 (113) 152/70 (97) Pulse Ox 93 94 92 O2 Delivery Room Air Room Air Room Air Room Air 01/16/21 01/17/21 01/17/21 01/17/21 22:42 03:15 03:31 03:51 Temp 99.9 99.4 99.9 99.4 Pulse 63 68 70 76 Resp 18 18 B/P (MAP) 162/74 (103) 195/85 165/76 (105) Pulse Ox 91 92 O2 Delivery Room Air Room Air 01/17/21 01/17/21 01/17/21 07:00 08:51 08:52 Temp 98.8 98.8 Pulse 78 78 78 Resp 18 B/P (MAP) 189/83 (118) 189/83 189/83 Pulse Ox 93 O2 Delivery Room Air Intake and Output 01/16/21 01/16/21 01/17/21 15:00 23:00 07:00 Intake Total 50 ml 200 ml Output Total 300 ml Balance -300 ml 50 ml 200 ml Justicifation of Admission Dx: Justifications for Admission: Justification of Admission Dx: Yes Sepsis: Bacteremia BARRY OROZCO MD January 17, 2021 09:31
[2021-01-17 10:13] LABS: BASO % 1 % (0-3); EOS % 0 % (0-3); HEMATOCRIT 36.9 % (36.0-47.0); HEMOGLOBIN 12.6 g/dL (12.0-15.5); LYMPH % 18 % (24-48); MEAN CORPUSCULAR HEMOGLOBIN 33 pg (25-35); MEAN CORPUSCULAR HGB CONC 34 g/dL (31-37); MEAN CORPUSCULAR VOLUME 96 fL (79-100); MONO # 0.6 x10^3/uL (0.0-1.1); MONO % 11 % (0-9); NEUT # 3.9 x10^3/uL (1.8-7.7); NEUT % 71 % (31-73); PLATELET COUNT 200 x10^3/uL (140-400); RED BLOOD COUNT 3.85 x10^6/uL (3.50-5.40); RED CELL DISTRIBUTION WIDTH 13.2 % (11.5-14.5); WHITE BLOOD COUNT 5.5 x10^3/uL (4.0-11.0)
[2021-01-17 10:41] LABS: ALBUMIN 3.5 g/dL (3.4-5.0); ALBUMIN/GLOBULIN RATIO 0.9 (1.0-1.7); CALCIUM 9.1 mg/dL (8.5-10.1); CREATININE 0.6 mg/dL (0.6-1.0); GFR 98.3; POTASSIUM 3.1 mmol/L (3.5-5.1); TOTAL BILIRUBIN 0.8 mg/dL (0.2-1.0); TOTAL PROTEIN 7.4 g/dL (6.4-8.2)
[2021-01-17 11:00] VITALS: BP 196/88
[2021-01-17] MEDS: DAPTOmycin (GENERIC) IVPB 350 MG in IV NORMAL SALINE 50ML 50 ML IV SCH (11:02)
[2021-01-17] MEDS ORDERED: POTASSIUM CHLORIDE 20 MEQ TABLET.ER. PO ONE (14:30)
[2021-01-17 15:00] VITALS: BP 155/74
[2021-01-17 19:42] VITALS: BP 181/87
[2021-01-17] MEDS: LATANOPROST 0.005% OPHTH SOLUTION 2.5ML BOTTLE. OU SCH (20:42)
[2021-01-17] MEDS: ENOXAPARIN 40 MG/0.4 ML SYRINGE. SQ SCH (20:43)
[2021-01-17] MEDS: ACETAMINOPHEN 325 MG TABLET. PO PRN (20:43)
[2021-01-17] MEDS: ATORVASTATIN CALCIUM 10 MG TABLET. PO SCH (21:00)
[2021-01-17 22:52] VITALS: BP 178/78
[2021-01-18] MEDS: hydrALAZINE 20 MG/ML VIAL. IVP PRN (02:19)
[2021-01-18 03:21] VITALS: BP 182/79
[2021-01-18 07:34] LABS: CREATININE 0.7 mg/dL (0.6-1.0); GFR 82.3; POTASSIUM 3.7 mmol/L (3.5-5.1)
[2021-01-18 07:55] VITALS: BP 152/70
[2021-01-18] MEDS: LACTOBACILLUS RHAMNOSUS GG 1 CAPSULE. PO SCH ×2 (09:00→21:44)
[2021-01-18] MEDS: OMEGA-3 FATTY ACIDS/FISH OIL 1,000 MG CAPSULE. PO SCH (09:00)
[2021-01-18] MEDS: VITAMIN B COMPLEX TABLET. PO SCH (09:00)
--- NOTE | 2021-01-18 09:15 | PDOC ---
Infectious Disease Note Subjective: Subjective Patient alert awake sitting upright in chair Says feels a little better Headache nausea vomiting diarrhea improving Has upset stomach and abdominal bloating Denies fever, cough or shortness of breath On room air Vital Signs: Vital Signs Vital Signs Date Time Temp Pulse Resp B/P (MAP) Pulse Ox O2 Delivery O2 Flow Rate FiO2 01/18/21 07:55 98.2 70 18 152/70 (97) 95 Room Air 98.2 Physical Exam: PHYSICAL EXAM GENERAL: Alert, awake, pleasant female, lying in bed comfortably, in no acute distress.on ra HEENT: Normocephalic, atraumatic. Anicteric. Oral mucosa moist. No O2. NECK: Supple. No JVD. LUNGS: Clear bilaterally. No wheezing. HEART: S1, S2. ABDOMEN: Soft. Mild tenderness present diffusely, more over the epigastric area. No rebound or guarding. EXTREMITIES: No edema, no cyanosis. Left upper extremity injection site without evidence of fluctuance or erythema DERMATOLOGIC: Warm, dry, no generalized rash. NEUROLOGIC: Alert, oriented x 3, grossly nonfocal. PSYCHIATRIC: Calm and cooperative. Medications: Inpatient Meds: Medications reviewed. Labs: Lab Laboratory Tests Test 01/17/21 11:44 01/17/21 16:38 01/17/21 20:58 01/18/21 06:25 Glucose (Fingerstick) 118 mg/dL (70-99) 166 mg/dL (70-99) 117 mg/dL (70-99) Sodium Level 141 mmol/L (136-145) Potassium Level 3.7 mmol/L (3.5-5.1) Chloride Level 104 mmol/L (98-107) Carbon Dioxide Level 29 mmol/L (21-32) Anion Gap 8 (6-14) Blood Urea Nitrogen 10 mg/dL (7-20) Creatinine 0.7 mg/dL (0.6-1.0) Estimated GFR (Cockcroft-Gault) 82.3 Glucose Level 119 mg/dL (70-99) Calcium Level 9.0 mg/dL (8.5-10.1) Procalcitonin < 0.10 ng/mL (0.00-0.10) Test 01/18/21 08:10 Glucose (Fingerstick) 133 mg/dL (70-99) Micro ECHO The left ventricular systolic function is normal and the ejection fraction is within normal range. Estimated ejection fraction 55%. There is normal LV segmental wall motion. Doppler and Color Flow revealed moderate aortic regurgitation. Doppler and Color Flow revealed mild tricuspid regurgitation. Estimated PAP 55 mmHg. The ascending aorta is mildly dilated at 3.[address] abdomen and pelvis IMPRESSION: 1. Colonic diverticulosis. There is no evidence of diverticulitis. 2. 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 Follow-up is not routinely performed for simple cysts. 3. Ectatic or mildly aneurysmal ascending aorta, partially included on the [id number]. 4. Cardiomegaly. [facility] 09/23 bottles streptococcal bovis RUN DATE: 01/14/21 Topic LAB *LIVE* PAGE 1 RUN TIME: 1427 Specimen Inquiry PATIENT: SANTOSH PIPER ACCT: [id number] LOC: [address] [place] [address] U: [id number] AGE/SX: 70/F ROOM: 246 RE01/12/[address]: BARRY OROZCO MD : 1950 BED: 1 DIS: STATUS: ADM IN TLOC: SPEC #: [id number] JOSE: 01/12/21 STATUS: MONE RAMOS #: [id number] RECD: 01/12/[address] [facility] [address]: BARRY OROZCO MD SOURCE: BLOOD ENTR: 01/13/21-[address] [facility] [address]: ELIDA ESPINAL DO [facility]: FÁTIMA GALEANO MD,JALEN SCHAEFER,KATHARINE Bobo MD ORDERED: BLD CULT - LC Procedure Result BLOOD CULTURE LC Final Final GRAM POSITIVE COCCI FINAL ID= [STREP (BOVIS) GALLOLYTICUS] Growth of organism in only one of multiple sets; isolation does not necessarily indicate infection. Contact Microbiology Lab if further testing is clinically warranted. STREP (BOVIS) GALLOLYTICUS Unless otherwise specified, Testing Performed by: [address] [address] For Inquires, the Physician may contact the Microbiology department at [phone] Objective: Assessment: Patient with polymicrobial bacteremia, source appears GI, portal of entry could be from esophagus 1. Fever. pattern improved 2. Sepsis from Gram-positive bacteremia. January 12, 3. Streptococcus gallolyticus bacteremia January 12,2/4 bottles present on admission, source GI. Micrococcus luteus bacteremia January 14 3 out of 4 bottles 4. Abdominal pain. 5. Nausea and vomiting. Diarrhea 6. CT showing 4.5 cm ascending thoracic aortic aneurysm. 7. Chronic back pain with compression fracture on CT. 8. Colonic diverticulosis on CT. 9. 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 10. Cardiomegaly. 12. Diabetes. 13. Anxiety and depression. 14. Poorly controlled Hypertension 15. Hyperlipidemia; statin 16. Bradycardia 17. PAD; reports tingling in LE as HS. no wounds 18. S/P COVID Vaccine last Sunday 19. Leukopenia improved Plan: Plan of Care Patient may need further esophageal evaluation? Esophagogram to rule out intermittent esophageal leak Patient has polymicrobial bacteremia GI team following Continue daptomycin and ceftriaxone Discussed with micro to send susceptibilities for Streptococcus and micrococcus f/u Enteric panel and C. difficile PCR Last CPK 54 on 01/13 Repeat BC on 01/14 positive Repeat BC on 01/18 CLEMENTE today, cardiology following GI team is following.Pt will need endoscopy if not done recently, CT chest and abdomen reviewed Follow-up labs and cultures Continue aspiration precaution Continue supportive care Discussed with nursing staff PAULETTE MCGRAW MD Jan 18, 2021 09:15
[2021-01-18] MEDS: FLUTICASONE 50MCG/NASAL SPRAY 16GM BOTTLE. NS SCH (09:43)
[2021-01-18] MEDS: cefTRIAXone IV Push 2 GM VIAL. IVP SCH (09:43)
[2021-01-18] MEDS: DAPTOmycin (GENERIC) IVPB 350 MG in IV NORMAL SALINE 50ML 50 ML IV SCH (10:13)
[2021-01-18] MEDS: ASPIRIN CHEWABLE 81 MG TABLET. PO SCH (10:20)
[2021-01-18] MEDS: LOSARTAN POTASSIUM 50 MG TABLET. PO SCH (10:21)
--- NOTE | 2021-01-18 10:53 | PDOC ---
PROGRESS NOTES Date of Service: DATE: 01/18/21 TIME: 10:53 Chief Complaint Chief Complaint A/P: ABDOMINAL PAIN, possible gastritis vs PUD Bradycardia, held calcium channel blockers , however, did not improve with this given she is on dihydropyridine, will attempt restarting given her HTN obesity ascending thoracic aorta appears enlarged measuring 4.5 cm // measurement is limited by motion artifact and noncontrast exam. moderate to severe compression fracture of T9 post vertebroplasty Sepsis from Gram-positive bacteremia. Gram-positive bacteremia - ID consulted - Streptococcus bovis bacteremia,2/4 bottles present on admission, source likely GI. Nausea. Chronic back pain with compression fracture on CT. Colonic diverticulosis on CT. 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 Cardiomegaly. Diabetes. Anxiety and depression. FEN - Cardiac diet PPX - iv protonix CODE - FULL Dispo - inpatient History of Present Illness History of Present Illness Ms Luo is a 70 Yr old kosovan speaking female w/ PMHx HTN, HLD, GERD, PUD, anxiety with depression, DM2 who comes to ED with grandson c/o epigastric pain x [address] chest ascending thoracic aorta appears enlarged measuring 4.5 cm // measurement is limited by motion artifact and noncontrast exam. moderate to severe compression fracture of T9 post vertebroplasty ABDOMINAL PAIN, possible gastritis vs PUD Bradycardia, hold calcium channel blockers plan ADMIT CVC BED Cardiology consult iv protonix 40 mg q 24 hrs GI CONSULT npo hold calcium channel blockers now temp noted blood cult pos - ID consulted 01/14: Vomited x1 overnight. Febrile to 101.7 F overnight. Nasal congestion and right ear and bilateral maxillary sinus pain today. K 2.9. Still with abdominal cramping and nausea. 01/17 : Afebrile overnight. Strep bovis on blood cultures. iv Zosyn per ID., IV DAPTOMYCIN ear pain improved. Abdominal pain improved and she is tolerating p.o. well. No chest pain or shortness of breath. Awaiting final sensitivities. HIDA scan negative source is unlikely to be gallbladder possibly per perforated diverticulitis Repeat blood cultures from 01/14/2021 + for gram-positive cocci given persisting gram-positive bacteremia CLEMENTE is indicated in the near future to r/o vegetation. Sepsis from Gram-positive bacteremia. January 12, Streptococcus gallolyticus bacteremia January 12,2/4 bottles present on admission, source GI. Micrococcus luteus bacteremia January 14 3 out of 4 bottles Procedure Result BLOOD CULTURE LC Preliminary Preliminary FINAL ID= [MICROCOCCUS LUTEUS] MICROCOCCUS LUTEUS Unless otherwise specified, Testing Performed by: [address] [address] For Inquires, the Physician may contact the Microbiology department at [phone] 37 MIN pt exam, chart review, > 50% of time spent with exam, chart review, pt ca re coordination 01-18 : CLEMENTE - Afebrile overnight. Strep bovis on blood cultures. iv Zosyn per ID., IV DAPTOMYCIN ear pain improved. Abdominal pain improved and she is tolerating p.o. well. No chest pain or shortness of breath. Awaiting final sensitivities. HIDA scan negative source is unlikely to be gallbladder possibly per perforated diverticulitis Repeat blood cultures from 01/14/2021 + for gram-positive cocci given persisting gram-positive bacteremia CLEMENTE is indicated in the near future to r/o vegetation. Sepsis from Gram-positive bacteremia. January 12, Streptococcus gallolyticus bacteremia January 12,2/4 bottles present on admission, source GI. Micrococcus luteus bacteremia January 14 3 out of 4 bottles Procedure Result BLOOD CULTURE LC Preliminary Preliminary FINAL ID= [MICROCOCCUS LUTEUS] MICROCOCCUS LUTEUS Unless otherwise specified, Testing Performed by: [address] [address] For Inquires, the Physician may contact the Microbiology department at [phone] 36 MIN pt exam, chart review, > 50% of time spent with exam, chart review, pt care coordination Vitals Vitals Vital Signs Date Time Temp Pulse Resp B/P (MAP) Pulse Ox O2 Delivery O2 Flow Rate FiO2 01/18/21 10:21 70 152/70 01/18/21 07:55 98.2 18 95 Room Air 98.2 Physical Exam Physical Exam GENERAL: Alert, awake, pleasant female, lying in bed comfortably, in no acute distress.on ra HEENT: Normocephalic, atraumatic. Anicteric. Oral mucosa moist. No O2. NECK: Supple. No JVD. LUNGS: Clear bilaterally. No wheezing. HEART: S1, S2. ABDOMEN: Soft. Mild tenderness present diffusely, more over the epigastric area. No rebound or guarding. EXTREMITIES: No edema, no cyanosis. Left upper extremity injection site without evidence of fluctuance or erythema DERMATOLOGIC: Warm, dry, no generalized rash. NEUROLOGIC: Alert, oriented x 3, grossly nonfocal. PSYCHIATRIC: Calm and cooperative. General: Alert, Oriented X3, Cooperative, mild distress Heart: Regular rate Lungs: Clear Abdomen: Normal bowel sounds Extremities: No edema, Normal pulses Skin: No breakdown, No significant lesion Labs LABS Mitral Valve MV E Velocity 93.7cm/s MV DECEL TIME 287ms MV A Velocity 106.5cm/s E/A Ratio 0.9 Tricuspid Valve TR P. Velocity 357cm/s TR Peak Gr. 51mmHg LEFT VENTRICLE The left ventricle is normal size. There is borderline to mild concentric left ventricular hypertrophy. The left ventricular systolic function is normal and the ejection fraction is within normal range. Estimated ejection fraction 55%. There is normal LV segmental wall motion. Transmitral Doppler flow pattern is Grade I-abnormal relaxation pattern. RIGHT VENTRICLE The right ventricle is normal size. There is normal right ventricular wall thickness. The right ventricular systolic function is normal. ATRIA The left atrium size is normal. The right atrium size is normal. The interatrial septum is intact with no evidence for an atrial septal defect or patent foramen ovale as noted on 2-D or Doppler imaging. AORTIC VALVE The aortic valve is normal in structure and function. Doppler and Color Flow revealed moderate aortic regurgitation. There is no significant aortic valvular stenosis. MITRAL VALVE The mitral valve is normal in structure and function. There is no evidence of mitral valve prolapse. There is no mitral valve stenosis. Doppler and Color Flow revealed no mitral valve regurgitation noted. TRICUSPID VALVE The tricuspid valve is normal in structure and function. Doppler and Color Flow revealed mild tricuspid regurgitation. Estimated PAP 55 mmHg. There is no tricuspid valve stenosis. PULMONIC VALVE The pulmonary valve is normal in structure and function. Doppler and Color Flow revealed no pulmonic valvular regurgitation. There is no pulmonic valvular stenosis. GREAT VESSELS The aortic root is mildly enlarged. The ascending aorta is mildly dilated at 3.8 cm. The IVC is normal in size and collapses >50% with inspiration. PERICARDIAL EFFUSION There is no evidence of significant pericardial effusion. Critical Notification Critical Value: No <Conclusion> The left ventricular systolic function is normal and the ejection fraction is within normal range. Estimated ejection fraction 55%. There is normal LV segmental wall motion. Doppler and Color Flow revealed moderate aortic regurgitation. Doppler and Color Flow revealed mild tricuspid regurgitation. Estimated PAP 55 mmHg. The ascending aorta is mildly dilated at 3.8 cm. Signed by : Terry Landaverde, Electronically Approved : 01/14/2021 12:50:44 WHAT MUST I INCLUDE IN MY ADVANCE DIRECTIVE? The name and contact information of your healthcare agent/proxy. Answers to specific questions about your preferences for care if you become unable to speak for yourself. The forms and questions asked vary a bit from state to state. A sample question: Do you want to receive artificially provided nutrition or hydration when you are close to and/or permanently unconscious? Names and signatures of individuals who witness your signing your advance directive, if required. Not all states require witness signatures. The signature and seal of a public accountant, if required by your state. Not all states require advance directives to be notarized. [facility] has a list of all advance directive/living will requirements by state. WHAT ELSE WOULD BE GOOD TO INCLUDE IN MY ADVANCE DIRECTIVE? Detailed information about what procedures or types of care you would like to receive and what you wish to avoid at all costs that are not covered by the questions on the form. Would you want to take advantage of all life-support technologies if it would only postpone ? Would you want to use them if you were permanently unconscious? Would you want them if you were going through an advanced progressive illness? More general statements about your values regarding end-of-life care. What does a good mean and look like to you? For that matter, what defines a life worth living? Do you define life by the intake of breath and nutrients? Is it defined by consciousness? At what point do you want to prolong it and at what point do you want to preserve resources for other people? Personal desires for body disposition in essence, what you want to happen to your body when you and plans for any memorial service(s) A list of people who cannot make healthcare decisions for you. Leave no room for ambiguity, which could lead to tensions between loved ones about your care as you are dying. HOW SHOULD I GO ABOUT IDENTIFYING MY HEALTHCARE AGENT/PROXY? An ideal person for the job is someone who: Knows you well. A spouse/partner, a family member, a close friend: all are good candidates. Excels at making difficult decisions under pressure. Is diplomatic and empathetic critical traits for balancing the needs, wants, and unpredictable emotions of a patients loved ones. Isnt afraid to ask tough questions, which invariably arise when discussing a dying individuals end-of-life care. Is easily reachable by email, phone, and/or text. Is or can easily be within physical proximity of where youre likely to receive care. Once Court identified this person, how do I talk to them about what care I want and dont want at the end of life? Have multiple conversations with your healthcare agent about your wishes. Take them out to tea, have them over for dinner, go to a bar or library. Talk about what you want, and make sure you are heard and understood. WHAT IF MY HEALTHCARE AGENT/PROXY IS UNAVAILABLE TO EXECUTE THEIR DUTIES WHEN I AM DYING? It is important to appoint an alternative agent/proxy for exactly this reason. Identify and inform that person as you did your main agent/proxy, and list them as an alternate on your advance directive form. In most states, witnesses cannot be: Your healthcare agent or proxy; Any of your care providers; Related to you by blood, adoption, or marriage; Entitled to any portion of your estate upon your . dpoa 19 min to portal / discussion and topics, chart review Laboratory Tests Test 01/17/21 11:44 01/17/21 16:38 01/17/21 20:58 01/18/21 06:25 Glucose (Fingerstick) 118 mg/dL (70-99) 166 mg/dL (70-99) 117 mg/dL (70-99) Sodium Level 141 mmol/L (136-145) Potassium Level 3.7 mmol/L (3.5-5.1) Chloride Level 104 mmol/L (98-107) Carbon Dioxide Level 29 mmol/L (21-32) Anion Gap 8 (6-14) Blood Urea Nitrogen 10 mg/dL (7-20) Creatinine 0.7 mg/dL (0.6-1.0) Estimated GFR (Cockcroft-Gault) 82.3 Glucose Level 119 mg/dL (70-99) Calcium Level 9.0 mg/dL (8.5-10.1) Procalcitonin < 0.10 ng/mL (0.00-0.10) Test 01/18/21 08:10 Glucose (Fingerstick) 133 mg/dL (70-99) Assessment and Plan Assessmemt and Plan Problems Medical Problems: (1) Bradycardia on ECG Status: Acute Comment Review of Relevant I have reviewed the following items homero (where applicable) has been applied. Labs Laboratory Tests Test 01/16/21 11:55 01/16/21 11:59 01/16/21 17:04 01/16/21 20:28 White Blood Count 4.4 x10^3/uL (4.0-11.0) Red Blood Count 3.72 x10^6/uL (3.50-5.40) Hemoglobin 12.2 g/dL (12.0-15.5) Hematocrit 35.6 % (36.0-47.0) Mean Corpuscular Volume 96 fL (79-100) Mean Corpuscular Hemoglobin 33 pg (25-35) Mean Corpuscular Hemoglobin Concent 34 g/dL (31-37) Red Cell Distribution Width 13.0 % (11.5-14.5) Platelet Count 172 x10^3/uL (140-400) Neutrophils (%) (Auto) 74 % (31-73) Lymphocytes (%) (Auto) 17 % (24-48) Monocytes (%) (Auto) 8 % (0-9) Eosinophils (%) (Auto) 0 % (0-3) Basophils (%) (Auto) 0 % (0-3) Neutrophils # (Auto) 3.3 x10^3/uL (1.8-7.7) Lymphocytes # (Auto) 0.8 x10^3/uL (1.0-4.8) Monocytes # (Auto) 0.4 x10^3/uL (0.0-1.1) Eosinophils # (Auto) 0.0 x10^3/uL (0.0-0.7) Basophils # (Auto) 0.0 x10^3/uL (0.0-0.2) Sodium Level 138 mmol/L (136-145) Potassium Level 3.4 mmol/L (3.5-5.1) Chloride Level 100 mmol/L (98-107) Carbon Dioxide Level 29 mmol/L (21-32) Anion Gap 9 (6-14) Blood Urea Nitrogen 9 mg/dL (7-20) Creatinine 0.7 mg/dL (0.6-1.0) Estimated GFR (Cockcroft-Gault) 82.3 BUN/Creatinine Ratio 13 (6-20) Glucose Level 127 mg/dL (70-99) Calcium Level 9.0 mg/dL (8.5-10.1) Total Bilirubin 0.6 mg/dL (0.2-1.0) Aspartate Amino Transf (AST/SGOT) 38 U/L (15-37) Alanine Aminotransferase (ALT/SGPT) 133 U/L (14-59) Alkaline Phosphatase 114 U/L (46-116) Total Protein 7.2 g/dL (6.4-8.2) Albumin 3.2 g/dL (3.4-5.0) Albumin/Globulin Ratio 0.8 (1.0-1.7) Glucose (Fingerstick) 136 mg/dL (70-99) 129 mg/dL (70-99) 149 mg/dL (70-99) Test 01/17/21 07:12 01/17/21 07:15 01/17/21 11:44 01/17/21 16:38 Glucose (Fingerstick) 126 mg/dL (70-99) 118 mg/dL (70-99) 166 mg/dL (70-99) White Blood Count 5.5 x10^3/uL (4.0-11.0) Red Blood Count 3.85 x10^6/uL (3.50-5.40) Hemoglobin 12.6 g/dL (12.0-15.5) Hematocrit 36.9 % (36.0-47.0) Mean Corpuscular Volume 96 fL (79-100) Mean Corpuscular Hemoglobin 33 pg (25-35) Mean Corpuscular Hemoglobin Concent 34 g/dL (31-37) Red Cell Distribution Width 13.2 % (11.5-14.5) Platelet Count 200 x10^3/uL (140-400) Neutrophils (%) (Auto) 71 % (31-73) Lymphocytes (%) (Auto) 18 % (24-48) Monocytes (%) (Auto) 11 % (0-9) Eosinophils (%) (Auto) 0 % (0-3) Basophils (%) (Auto) 1 % (0-3) Neutrophils # (Auto) 3.9 x10^3/uL (1.8-7.7) Lymphocytes # (Auto) 1.0 x10^3/uL (1.0-4.8) Monocytes # (Auto) 0.6 x10^3/uL (0.0-1.1) Eosinophils # (Auto) 0.0 x10^3/uL (0.0-0.7) Basophils # (Auto) 0.0 x10^3/uL (0.0-0.2) Sodium Level 140 mmol/L (136-145) Potassium Level 3.1 mmol/L (3.5-5.1) Chloride Level 101 mmol/L (98-107) Carbon Dioxide Level 28 mmol/L (21-32) Anion Gap 11 (6-14) Blood Urea Nitrogen 8 mg/dL (7-20) Creatinine 0.6 mg/dL (0.6-1.0) Estimated GFR (Cockcroft-Gault) 98.3 BUN/Creatinine Ratio 13 (6-20) Glucose Level 124 mg/dL (70-99) Calcium Level 9.1 mg/dL (8.5-10.1) Total Bilirubin 0.8 mg/dL (0.2-1.0) Aspartate Amino Transf (AST/SGOT) 52 U/L (15-37) Alanine Aminotransferase (ALT/SGPT) 133 U/L (14-59) Alkaline Phosphatase 116 U/L (46-116) Total Protein 7.4 g/dL (6.4-8.2) Albumin 3.5 g/dL (3.4-5.0) Albumin/Globulin Ratio 0.9 (1.0-1.7) Test 01/17/21 20:58 01/18/21 06:25 01/18/21 08:10 Glucose (Fingerstick) 117 mg/dL (70-99) 133 mg/dL (70-99) Sodium Level 141 mmol/L (136-145) Potassium Level 3.7 mmol/L (3.5-5.1) Chloride Level 104 mmol/L (98-107) Carbon Dioxide Level 29 mmol/L (21-32) Anion Gap 8 (6-14) Blood Urea Nitrogen 10 mg/dL (7-20) Creatinine 0.7 mg/dL (0.6-1.0) Estimated GFR (Cockcroft-Gault) 82.3 Glucose Level 119 mg/dL (70-99) Calcium Level 9.0 mg/dL (8.5-10.1) Procalcitonin < 0.10 ng/mL (0.00-0.10) Laboratory Tests Test 01/17/21 11:44 01/17/21 16:38 01/17/21 20:58 01/18/21 06:25 Glucose (Fingerstick) 118 mg/dL (70-99) 166 mg/dL (70-99) 117 mg/dL (70-99) Sodium Level 141 mmol/L (136-145) Potassium Level 3.7 mmol/L (3.5-5.1) Chloride Level 104 mmol/L (98-107) Carbon Dioxide Level 29 mmol/L (21-32) Anion Gap 8 (6-14) Blood Urea Nitrogen 10 mg/dL (7-20) Creatinine 0.7 mg/dL (0.6-1.0) Estimated GFR (Cockcroft-Gault) 82.3 Glucose Level 119 mg/dL (70-99) Calcium Level 9.0 mg/dL (8.5-10.1) Procalcitonin < 0.10 ng/mL (0.00-0.10) Test 01/18/21 08:10 Glucose (Fingerstick) 133 mg/dL (70-99) Microbiology 01/17/21 Blood Culture - Preliminary, Resulted NO GROWTH AFTER 1 DAY Medications Current Medications Iohexol (Omnipaque 300 Mg/ml) 75 ml 1X ONCE IV Last administered on 01/12/21at 14:38; Start 01/12/21 at 14:15; Stop 01/12/21 at 14:16; Status DC Info (CONTRAST GIVEN -- Rx MONITORING) 1 each PRN DAILY PRN MC SEE COMMENTS; Start 01/12/21 at 14:15; Stop 01/14/21 at 14:14; Status DC Ondansetron HCl (Zofran) 4 mg PRN Q8HRS PRN IV NAUSEA/VOMITING; Start 01/12/21 at 15:45; Stop 01/12/21 at 16:51; Status DC Pantoprazole Sodium (PROTONIX VIAL for IV PUSH) 40 mg DAILY08 ONCE IVP Last administered on 01/12/21at 17:40; Start 01/12/21 at 17:00; Stop 01/12/21 at 17:01; Status DC Sodium Chloride (Normal Saline Flush) 3 ml QSHIFT PRN IV AFTER MEDS AND BLOOD DRAWS; Start 01/12/21 at 17:00 Sodium Chloride 1,000 ml @ 100 mls/hr Q10H IV Last administered on 01/13/21at 18:21; Start 01/12/21 at 17:00; Stop 01/14/21 at 08:20; Status DC Dextrose/Sodium Chloride 1,000 ml @ 80 mls/hr [id number] IV ; Start 01/12/21 at 17:00; Status UNV Ondansetron HCl (Zofran) 4 mg PRN Q4HRS PRN IV NAUSEA/VOMITING Last administered on 01/13/21at 20:35; Start 01/12/21 at 17:00 Acetaminophen (Tylenol) 650 mg PRN Q4HRS PRN PO TEMP OVER 100.4F OR MILD PAIN Last administered on 01/17/21at 20:43; Start 01/12/21 at 17:00 Al Hydroxide/Mg Hydroxide (Mylanta Plus Xs) 30 ml PRN DAILY PRN PO HEARTBURN / GAS; Start 01/12/21 at 17:00 Sodium Monofluorophosphate (Fleet Adult) 133 ml PRN DAILY PRN OK CONSTIPATION; Start 01/12/21 at 17:00; Stop 01/15/21 at 14:48; Status DC Docusate Sodium (Colace) 100 mg PRN BID PRN PO HARD STOOLS; Start 01/12/21 at 17:00 Albuterol Sulfate (Ventolin Neb Soln) 2.5 mg PRN Q4HRS PRN NEB SHORTNESS OF BREATH; Start 01/12/21 at 17:00 Guaifenesin (Robitussin) 200 mg PRN Q4HRS PRN PO COUGH; Start 01/12/21 at 17:00 Lorazepam (Ativan) 0.5 mg PRN Q4HRS PRN PO ANXIETY / AGITATION; Start 01/12/21 at 17:00 Enoxaparin Sodium (Lovenox 40mg Syringe) 40 mg Q24H SQ Last administered on 01/17/21 20:43; Start 01/12/21 at 21:00 Aspirin (Aspirin Chewable) 81 mg DAILY PO Last administered on 01/18/21at 10:20; Start 01/13/21 at 09:00 Clopidogrel Bisulfate (Plavix) 75 mg DAILY PO Last administered on 01/17/21 08:51; Start 01/13/21 at 09:00 Fluoxetine HCl (PROzac) 10 mg DAILY PO Last administered on 01/17/21 08:52; Start 01/13/21 at 09:00 Hydrochlorothiazide (Hydrodiuril) 25 mg DAILY PO Last administered on 01/13/21 11:56; Start 01/13/21 at 09:00; Stop 01/14/21 at 08:20; Status DC Pentoxifylline (TRENtal) 400 mg DAILY PO Last administered on 01/17/21 08:51; Start 01/13/21 at 09:00 Vitamin B Complex (Hang B) 1 tab DAILY PO Last administered on 01/17/21 08:51; Start 01/13/21 at 09:00 Fish Oil (Fish Oil) 1,000 mg DAILY PO Last administered on 01/17/21 08:51; Start 01/13/21 at 09:00 Ondansetron HCl (Zofran Odt) 4 mg PRN Q8HRS PRN PO NAUSEA/VOMITING Last administered on 01/16/21 04:16; Start 01/12/21 at 17:00 Atorvastatin Calcium (Lipitor) 5 mg QHS PO Last administered on 01/17/21at 21:00; Start 01/12/21 at 21:00 Hydralazine HCl (Apresoline Inj) 10 mg PRN Q4HRS PRN IVP ELEVATED BP, SEE COMMENTS Last administered on 01/18/21at 02:19; Start 01/12/21 at 20:30 Piperacillin Sod/ Tazobactam Sod 2.25 gm/Sodium Chloride 50 ml @ 100 mls/hr 1X ONCE IV ; Start 01/13/21 at 09:15; Stop 01/13/21 at 09:44; Status UNV Piperacillin Sod/ Tazobactam Sod 3.375 gm/Sodium Chloride 50 ml @ 100 mls/hr Q6HRS IV Last administered on 01/16/21at 05:52; Start 01/13/21 at 10:00; Stop 01/16/21 at 08:21; Status DC Magnesium Sulfate 50 ml @ 25 mls/hr 1X ONCE IV Last administered on 01/13/21at 11:21; Start 01/13/21 at 11:00; Stop 01/13/21 at 12:59; Status DC Pantoprazole Sodium (Protonix) 40 mg DAILYAC PO Last administered on 01/17/21at 08:51; Start 01/13/21 at 12:30 Daptomycin 350 mg/ Sodium Chloride 50 ml @ 100 mls/hr Q24H IV Last administered on 01/14/21at 14:09; Start 01/13/21 at 14:00; Stop 01/15/21 at 09:31; Status DC Lactobacillus Rhamnosus (Culturelle) 1 cap BID PO Last administered on 01/17/21at 20:42; Start 01/13/21 at 21:00 Losartan Potassium (Cozaar) 100 mg DAILY PO Last administered on 01/18/21at 10:21; Start 01/13/21 at 17:00 Potassium Chloride/Dextrose/ Sod Cl 1,000 ml @ 80 mls/hr [id number] ONCE IV Last administered on 01/14/21at 09:58; Start 01/14/21 at 09:00; Stop 01/14/21 at 21:29; Status DC Potassium Bicarbonate (Potassium Effervescent Tablet) 40 meq 1X ONCE PO Last administered on 01/14/21at 09:04; Start 01/14/21 at 08:15; Stop 01/14/21 at 08:28; Status DC Magnesium Sulfate 50 ml @ 25 mls/hr 1X ONCE IV Last administered on 01/14/21at 09:57; Start 01/14/21 at 08:15; Stop 01/14/21 at 10:14; Status DC Sodium Chloride ([place] Saline Nasal) 1 wagner PRN DAILY PRN NS NASAL CONGESTION; Start 01/14/21 at 12:00 Fluticasone Propionate (Flonase) 2 spray DAILY NS Last administered on 01/18/21at 09:43; Start 01/14/21 at 13:00 Fluticasone Propionate (Flonase) 2 spray DAILY NS ; Start 01/14/21 at 12:00; Status UNV Sodium Chloride ([place] Saline Nasal) 1 wagner PRN DAILY PRN NS NASAL CONGESTION; Start 01/14/21 at 12:00; Status UNV Latanoprost (Xalatan) 1 drop QHS OU Last administered on 01/17/21at 20:42; Start 01/16/21 at 21:00 Linagliptin (Tradjenta) 5 mg DAILY PO Last administered on 01/17/21at 08:51; Start 01/16/21 at 09:00 Amlodipine Besylate (Norvasc) 5 mg DAILY PO Last administered on 01/16/21at 08:08; Start 01/16/21 at 09:00; Stop 01/16/21 at 10:51; Status DC Ceftriaxone Sodium (Rocephin) 2 gm Q24H IVP Last administered on 01/18/21at 09:43; Start 01/16/21 at 09:00 Daptomycin 350 mg/ Sodium Chloride 50 ml @ 100 mls/hr Q24H IV Last administered on 01/18/21at 10:13; Start 01/16/21 at 10:00 Prochlorperazine Edisylate (Compazine) 10 mg PRN Q6HRS PRN IV Headache/NAUSEA/VOMITING Last administered on 01/16/21at 11:22; Start 01/16/21 at 10:45 Nifedipine (Procardia Xl) 30 mg DAILY PO Last administered on 01/18/21at 10:21; Start 01/17/21 at 09:00 Potassium Chloride (Klor-Con) 40 meq 1X ONCE PO Last administered on 01/17/21at 14:21; Start 01/17/21 at 14:30; Stop 01/17/21 at 14:31; Status DC Potassium Chloride (Klor-Con) 20 meq DAILYWBKFT PO ; Start 01/18/21 at 08:00 Active Scripts Active Nifedipine Er (Nifedipine) 30 Mg Tab.er.24 30 Mg PO DAILY 30 Days Reported Xalatan (Latanoprost) 2.5 Ml Drops 1 Drop OU QHS Losartan-Hctz 100-25 Mg Tab (Losartan/Hydrochlorothiazide) 1 Each Tablet 1 Each PO DAILY Januvia (Sitagliptin Phosphate) 100 Mg Tablet 100 Mg PO DAILY Pentoxifylline 400 Mg Tablet.er 400 Mg PO DAILY Pravastatin Sodium 20 Mg Tablet 20 Mg PO HS Vitals/I & O Vital Sign - Last 24 Hours 01/17/21 01/17/21 01/17/21 01/17/21 11:00 12:03 15:00 19:23 Temp 98.5 99.2 98.5 99.2 Pulse 71 71 76 Resp 18 18 B/P (MAP) 196/88 (124) 196/88 155/74 (101) Pulse Ox 93 94 O2 Delivery Room Air Room Air Room Air 01/17/21 01/17/21 01/17/21 01/18/21 19:42 20:43 22:52 02:19 Temp 98.5 98.9 98.5 98.9 Pulse 76 76 87 68 Resp 20 18 B/P (MAP) 181/87 (118) 181/87 178/78 (111) 182/74 Pulse Ox 93 94 O2 Delivery Room Air Room Air 01/18/21 01/18/21 01/18/21 01/18/21 03:21 07:42 07:55 10:21 Temp 98.4 98.2 98.4 98.2 Pulse 74 70 70 Resp 18 18 B/P (MAP) 182/79 (113) 152/70 (97) 152/70 Pulse Ox 96 95 O2 Delivery Room Air Room Air Room Air 01/18/21 10:21 Pulse 70 B/P (MAP) 152/70 Intake and Output 01/17/21 01/17/21 01/18/21 15:00 23:00 07:00 Intake Total 500 ml 60 ml Output Total 400 ml 100 ml Balance 100 ml -40 ml Justicifation of Admission Dx: Justifications for Admission: Justification of Admission Dx: Yes Sepsis: Bacteremia BARRY OROZCO MD Jan 18, 2021 10:53
[2021-01-18 10:56] VITALS: BP 173/78
--- NOTE | 2021-01-18 12:30 | PDOC ---
Date of Service: DATE: 01/18/21 TIME: 12:24 Subjective: Subjective: Headache - really no other complaints for me. Says she's hungry. Denies diarrhea. Objective: Objective: D/w nurse - spits/coughs a lot, has loose stools, no dysphagia, eats okay. D/w ID - concern for esophageal leak? w/ bacteremia (below). Vital Signs: Vital Signs Date Time Temp Pulse Resp B/P (MAP) Pulse Ox O2 Delivery O2 Flow Rate FiO2 01/18/21 10:56 98.5 74 18 173/78 (109) 95 Room Air 98.5 Labs: Laboratory Tests Test 01/17/21 16:38 01/17/21 20:58 01/18/21 06:25 01/18/21 08:10 Glucose (Fingerstick) 166 mg/dL 117 mg/dL 133 mg/dL Sodium Level 141 mmol/L Potassium Level 3.7 mmol/L Chloride Level 104 mmol/L Carbon Dioxide Level 29 mmol/L Anion Gap 8 Blood Urea Nitrogen 10 mg/dL Creatinine 0.7 mg/dL Estimated GFR (Cockcroft-Gault) 82.3 Glucose Level 119 mg/dL Calcium Level 9.0 mg/dL Procalcitonin < 0.10 ng/mL Test 01/18/21 11:47 Glucose (Fingerstick) 120 mg/dL BLOOD CULTURE LC Final FINAL ID= [MICROCOCCUS LUTEUS] FINAL ID= [STAPHYLOCOCCUS WARNERI] FINAL ID= [STREP (BOVIS) GALLOLYTICUS] Imaging: Abd US IMPRESSION: 1. Suspected hepatic steatosis. 2. Borderline gallbladder wall thickening. This may be due to intrinsic liver disease. There are no secondary findings to suggest cholecystitis. 3. Obscured pancreas due to bowel gas. HIDA IMPRESSION: Normal hepatobiliary scan. Echocardiogram <Conclusion> The left ventricular systolic function is normal and the ejection fraction is within normal range. Estimated ejection fraction 55%. There is normal LV segmental wall motion. Doppler and Color Flow revealed moderate aortic regurgitation. Doppler and Color Flow revealed mild tricuspid regurgitation. Estimated PAP 55 mmHg. The ascending aorta is mildly dilated at 3.8 cm. PE: GEN: NAD - walking to chair from restroom w/ therapy, using walker ABD: non-tender NEURO/PSYCH: A & O, speaks Yi A/P: Bacteremia - as above Elevated AST and ALT (better/stable) -- D/w ID - will review w/ Dr. Estevez. Justicifation of Admission Dx: Justifications for Admission: Justification of Admission Dx: Yes Sepsis: Bacteremia HAMLET JASON Jan 18, 2021 12:30
--- NOTE | 2021-01-18 13:09 | NUR ---
SS following up with discharge planning. SS reviewed pt chart and discussed with pt RN. Pt is currently on room air. Pt on IV Daptomycin and IV Rocephin. CLEMENTE today. PT/OT recommended home. SS will continue to follow for discharge planning.
[2021-01-18 14:29] VITALS: BP 147/70
[2021-01-18] MEDS: PANTOPRAZOLE 40 MG TABLET.DR. PO SCH (14:29)
[2021-01-18] MEDS: LINAGLIPTIN 5 MG TABLET PO SCH (14:30)
[2021-01-18] MEDS: POTASSIUM CHLORIDE 20 MEQ TABLET.ER. PO SCH (14:30)
[2021-01-18] MEDS: FLUoxetine HCL 10 MG CAPSULE PO SCH (14:30)
[2021-01-18] MEDS: PENTOXIFYLLINE ER 400 MG TABLET.ER. PO SCH (14:30)
[2021-01-18] MEDS: CLOPIDOGREL BISULFATE 75 MG TABLET PO SCH (14:30)
--- NOTE | 2021-01-18 17:09 | PDOC ---
CARDIO Progress Notes Date and Time Date of Service 01/18/21 Time of Evaluation 1245 Subjective Subjective: No Chest Pain, No shortness of breath Vitals Vitals Vital Signs Date Time Temp Pulse Resp B/P (MAP) Pulse Ox O2 Delivery O2 Flow Rate FiO2 01/18/21 14:29 98.5 90 18 147/70 (95) 96 Room Air 98.5 Weight Weight [ ] Input and Output Intake and Output Intake and Output 01/18/21 07:00 Intake Total 560 ml Output Total 500 ml Balance 60 ml Intake Oral 560 ml Output Urine Total 500 ml # Voids 2 # Bowel Movements 1 Laboratory Labs Laboratory Tests Test 01/17/21 20:58 01/18/21 06:25 01/18/21 08:10 01/18/21 11:47 Glucose (Fingerstick) 117 mg/dL (70-99) 133 mg/dL (70-99) 120 mg/dL (70-99) Sodium Level 141 mmol/L (136-145) Potassium Level 3.7 mmol/L (3.5-5.1) Chloride Level 104 mmol/L (98-107) Carbon Dioxide Level 29 mmol/L (21-32) Anion Gap 8 (6-14) Blood Urea Nitrogen 10 mg/dL (7-20) Creatinine 0.7 mg/dL (0.6-1.0) Estimated GFR (Cockcroft-Gault) 82.3 Glucose Level 119 mg/dL (70-99) Calcium Level 9.0 mg/dL (8.5-10.1) Procalcitonin < 0.10 ng/mL (0.00-0.10) Test 01/18/21 16:58 Glucose (Fingerstick) 140 mg/dL (70-99) Microbiology Micro Microbiology 01/17/21 Blood Culture - Preliminary, Resulted NO GROWTH AFTER 1 DAY Physical Exam HEENT: Neck Supple W Full Motion Chest: Symmetric LUNGS: Clear to Auscultation Heart: S1S2, RRR Abdomen: Soft N/T Extremities: No Edema Neurology: alert, oriented, follow commands Assessment Assessment 1 Abdominal, epigastric pain, bloating. As per GI 2. Hypertension; mildly elevated 3. Hyperlipidemia; statin 4. Diabetes, II 5. Bradycardia; sinus. baseline per review of records. No significant bradycardia or pauses overnight. Mean HR 65. CCB held 6. Ascending aortic aneurysm; 3.8 cm per echo 7. PAD; arterial duplex without evidence of significant LE disease bilaterally 8. Hypomagnesemia; replaced 9. Fevers, bacteremia; BC 01/12 with Streptococcus gallolyticus and BC 01/14 wiht Micrococcus luteus Recommendations CLEMENTE to r/o endocarditis. R/b/a discussed with patient and granddaughter and they are agreeable proceed. Avoid AV dianne blocking agents Ongoing antibiotic therapy as per ID Supportive care NPO P MN Will plan for CLEMENTE tomorrow. Justicifation of Admission Dx: Justifications for Admission: Justification of Admission Dx: Yes Sepsis: Bacteremia JARED NICKERSON APRN Jan 18, 2021 17:09
[2021-01-18] MEDS ORDERED: 0.9 % SODIUM CHLORIDE 10 ML DISP.SYRIN. IV PRN (17:15)
[2021-01-18] MEDS ORDERED: LIDOCAINE 2% TOPICAL JELLY 5GM TUBE. TP ONE (17:15)
[2021-01-18] MEDS ORDERED: BENZOCAINE ONE 20% MUCOSAL SPRAY. MM (17:15)
[2021-01-18] MEDS ORDERED: LIDOCAINE 2% VISCOUS 15 ML SOLUTION. MM ONE (17:15)
[2021-01-18 19:00] VITALS: BP 151/68
[2021-01-18] MEDS: ATORVASTATIN CALCIUM 10 MG TABLET. PO SCH (21:43)
[2021-01-18] MEDS: ENOXAPARIN 40 MG/0.4 ML SYRINGE. SQ SCH (21:44)
[2021-01-18] MEDS: LATANOPROST 0.005% OPHTH SOLUTION 2.5ML BOTTLE. OU SCH (21:44)
[2021-01-18 22:45] VITALS: BP 169/89
[2021-01-18] MEDS: ACETAMINOPHEN 325 MG TABLET. PO PRN (22:49)
[2021-01-19] VITALS (13 sets, daily range): BP systolic 133–182; BP diastolic 63–84
[2021-01-19] MEDS ORDERED: IV RINGERS,LACTATED 1000ML 1,000 ML IV SCH (07:00)
[2021-01-19 07:12] LABS: BASO % 1 % (0-3); EOS # 0.1 x10^3/uL (0.0-0.7); EOS % 2 % (0-3); HEMATOCRIT 36.8 % (36.0-47.0); HEMOGLOBIN 12.4 g/dL (12.0-15.5); LYMPH # 1.1 x10^3/uL (1.0-4.8); LYMPH % 26 % (24-48); MEAN CORPUSCULAR HEMOGLOBIN 33 pg (25-35); MEAN CORPUSCULAR HGB CONC 34 g/dL (31-37); MEAN CORPUSCULAR VOLUME 97 fL (79-100); MONO # 0.5 x10^3/uL (0.0-1.1); MONO % 11 % (0-9); NEUT # 2.7 x10^3/uL (1.8-7.7); NEUT % 61 % (31-73); PLATELET COUNT 222 x10^3/uL (140-400); RED CELL DISTRIBUTION WIDTH 13.6 % (11.5-14.5); WHITE BLOOD COUNT 4.4 x10^3/uL (4.0-11.0)
[2021-01-19 07:57] LABS: ALBUMIN 3.4 g/dL (3.4-5.0); ALBUMIN/GLOBULIN RATIO 0.9 (1.0-1.7); CALCIUM 8.9 mg/dL (8.5-10.1); CREATININE 0.8 mg/dL (0.6-1.0); GFR 70.5; POTASSIUM 3.6 mmol/L (3.5-5.1); TOTAL PROTEIN 7.1 g/dL (6.4-8.2)
[2021-01-19] MEDS: POTASSIUM CHLORIDE 20 MEQ TABLET.ER. PO SCH ×2 (08:00→08:57)
[2021-01-19] MEDS ORDERED: BENZOCAINE ONE 20% MUCOSAL SPRAY. MM (08:30)
[2021-01-19] MEDS ORDERED: LIDOCAINE 2% TOPICAL JELLY 30GM TUBE. TP ONE ×2 (08:30→10:54)
[2021-01-19] MEDS ORDERED: LIDOCAINE 2% VISCOUS 15 ML SOLUTION. SWSW ONE (08:30)
--- NOTE | 2021-01-19 08:31 | PDOC ---
Infectious Disease Note Subjective: Subjective Patient states continues to feel the same Awaiting CLEMENTE On room air Vital Signs: Vital Signs Vital Signs Date Time Temp Pulse Resp B/P (MAP) Pulse Ox O2 Delivery O2 Flow Rate FiO2 01/19/21 02:14 98.7 60 18 136/63 (87) 96 Room Air 98.7 Physical Exam: PHYSICAL EXAM GENERAL: Alert, awake, pleasant female, lying in bed comfortably, in no acute distress.on ra HEENT: Normocephalic, atraumatic. Anicteric. Oral mucosa moist. No O2. NECK: Supple. No JVD. LUNGS: Clear bilaterally. No wheezing. HEART: S1, S2. ABDOMEN: Soft. Mild tenderness present diffusely, more over the epigastric area. No rebound or guarding. EXTREMITIES: No edema, no cyanosis. Left upper extremity injection site without evidence of fluctuance or erythema DERMATOLOGIC: Warm, dry, no generalized rash. NEUROLOGIC: Alert, oriented x 3, grossly nonfocal. PSYCHIATRIC: Calm and cooperative. Medications: Inpatient Meds: Medications reviewed. Labs: Lab Laboratory Tests Test 01/18/21 11:47 01/18/21 16:58 01/18/21 20:33 01/19/21 06:55 Glucose (Fingerstick) 120 mg/dL (70-99) 140 mg/dL (70-99) 132 mg/dL (70-99) White Blood Count 4.4 x10^3/uL (4.0-11.0) Red Blood Count 3.80 x10^6/uL (3.50-5.40) Hemoglobin 12.4 g/dL (12.0-15.5) Hematocrit 36.8 % (36.0-47.0) Mean Corpuscular Volume 97 fL (79-100) Mean Corpuscular Hemoglobin 33 pg (25-35) Mean Corpuscular Hemoglobin Concent 34 g/dL (31-37) Red Cell Distribution Width 13.6 % (11.5-14.5) Platelet Count 222 x10^3/uL (140-400) Neutrophils (%) (Auto) 61 % (31-73) Lymphocytes (%) (Auto) 26 % (24-48) Monocytes (%) (Auto) 11 % (0-9) Eosinophils (%) (Auto) 2 % (0-3) Basophils (%) (Auto) 1 % (0-3) Neutrophils # (Auto) 2.7 x10^3/uL (1.8-7.7) Lymphocytes # (Auto) 1.1 x10^3/uL (1.0-4.8) Monocytes # (Auto) 0.5 x10^3/uL (0.0-1.1) Eosinophils # (Auto) 0.1 x10^3/uL (0.0-0.7) Basophils # (Auto) 0.0 x10^3/uL (0.0-0.2) Sodium Level 141 mmol/L (136-145) Potassium Level 3.6 mmol/L (3.5-5.1) Chloride Level 103 mmol/L (98-107) Carbon Dioxide Level 27 mmol/L (21-32) Anion Gap 11 (6-14) Blood Urea Nitrogen 13 mg/dL (7-20) Creatinine 0.8 mg/dL (0.6-1.0) Estimated GFR (Cockcroft-Gault) 70.5 BUN/Creatinine Ratio 16 (6-20) Glucose Level 117 mg/dL (70-99) Calcium Level 8.9 mg/dL (8.5-10.1) Total Bilirubin 1.0 mg/dL (0.2-1.0) Aspartate Amino Transf (AST/SGOT) 25 U/L (15-37) Alanine Aminotransferase (ALT/SGPT) 84 U/L (14-59) Alkaline Phosphatase 95 U/L (46-116) C-Reactive Protein, Quantitative 4.0 mg/L (0-3.3) Total Protein 7.1 g/dL (6.4-8.2) Albumin 3.4 g/dL (3.4-5.0) Albumin/Globulin Ratio 0.9 (1.0-1.7) Test 01/19/21 07:21 Glucose (Fingerstick) 127 mg/dL (70-99) Micro ECHO The left ventricular systolic function is normal and the ejection fraction is within normal range. Estimated ejection fraction 55%. There is normal LV segmental wall motion. Doppler and Color Flow revealed moderate aortic regurgitation. Doppler and Color Flow revealed mild tricuspid regurgitation. Estimated PAP 55 mmHg. The ascending aorta is mildly dilated at 3.[address] abdomen and pelvis IMPRESSION: 1. Colonic diverticulosis. There is no evidence of diverticulitis. 2. 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 Follow-up is not routinely performed for simple cysts. 3. Ectatic or mildly aneurysmal ascending aorta, partially included on the [id number]. 4. Cardiomegaly. POA 09/23 bottles streptococcal bovis RUN DATE: 01/14/21 [facility] *LIVE* PAGE 1 RUN TIME: 1426 Specimen Inquiry PATIENT: SANTOSH PIPRE ACCT: [id number] LOC: [address] [place] [address] U: [id number] AGE/SX: 70/F ROOM: 246 RE01/12/[address]: BARRY OROZCO MD : 1950 BED: 1 DIS: STATUS: ADM IN TLOC: SPEC #: [id number] JOSE: 01/12/21 STATUS: COMP REQ #: [id number] RECD: 01/12/[address]: BARRY OROZCO MD SOURCE: BLOOD ENTR: 01/13/21 [facility] [address]: ELIDA ESPINAL DO [facility]: FÁTIMA GALEANO MD,JALEN SCHAEFER,KATHARINE Bobo MD ORDERED: MICHELINE CULT - LC Procedure Result BLOOD CULTURE LC Final Final GRAM POSITIVE COCCI FINAL ID= [STREP (BOVIS) GALLOLYTICUS] Growth of organism in only one of multiple sets; isolation does not necessarily indicate infection. Contact Microbiology Lab if further testing is clinically warranted. STREP (BOVIS) GALLOLYTICUS Unless otherwise specified, Testing Performed by: [address] [address] For Inquires, the Physician may contact the Microbiology department at [phone] RUN DATE: 01/18/21 [facility] *LIVE* PAGE 1 RUN TIME: 0825 Specimen Inquiry PATIENT: SANTOSH PIPER ACCT: [id number] LOC: [address] [place] [address] U: [id number] AGE/SX: 70/F ROOM: 246 RE01/12/[address]: BARRY OROZCO MD : 1950 BED: 1 DIS: STATUS: ADM IN TLOC: SPEC #: [id number] JOSE: 01/14/21-99 STATUS: COMP REQ #: [id number] RECD: 01/14/[address] [facility] [address]: PAULETTE MCGRAW MD SOURCE: BLOOD ENTR: 01/16/21 [facility] [address]: BARRY OROZCO MD [facility]ES[facility]: FÁTIMA GALEANO MD,JALEN SCHAEFER,KATHARINE Bobo MD ORDERED: MICHELINE CULT - LC Procedure Result BLOOD CULTURE LC Final Final GRAM POSITIVE COCCI FINAL ID= [MICROCOCCUS LUTEUS] NO FURTHER WORKUP MICROCOCCUS LUTEUS Unless otherwise specified, Testing Performed by: [address] [address] For Inquires, the Physician may contact the Microbiology department at [phone] RUN DATE: 01/18/21 [facility] *LIVE* PAGE 1 RUN TIME: 1130 Specimen Inquiry PATIENT: SANTOSH PIPER ACCT: [id number] LOC: [facility] U: [id number] AGE/SX: 70/F ROOM: 246 RE01/12/[address]: BARRY OROZCO MD : 1950 BED: 1 DIS: STATUS: ADM IN TLOC: SPEC #: [id number] JOSE: 01/14/21 STATUS: RES REQ #: [id number] RECD: 01/16/[address] [facility] [address]: BARRY OROZCO MD SOURCE: BLOOD ENTR: 01/16/[address] [facility] [address]: PAULETTE MCGRAW MD [facility]: FÁTIMA GALEANO MD, DONALD J MD THOMPSON,KATHARINE Bobo MD ORDERED: MICHELINE DOE - LC COMMENTS: SECOND OF SET Procedure Result BLOOD CULTURE LC Preliminary Preliminary GRAM POSITIVE COCCI FINAL ID= [STAPHYLOCOCCUS WARNERI] STAPHYLOCOCCUS WARNERI Unless otherwise specified, Testing Performed by: [address] [address] For Inquires, the Physician may contact the Microbiology department at [phone] Objective: Assessment: Patient with polymicrobial bacteremia, source appears GI, 1. Fever. pattern improved 2. Sepsis from Gram-positive bacteremia. January 12, 3. Streptococcus gallolyticus bacteremia January 12,2/4 bottles present on admission, source GI. Micrococcus luteus bacteremia and now staph warneri bacteremia reported January 14 total bc positive 3 out of 4 bottles 4. Abdominal pain. 5. Nausea and vomiting. Diarrhea 6. CT showing 4.5 cm ascending thoracic aortic aneurysm. 7. Chronic back pain with compression fracture on CT. 8. Colonic diverticulosis on CT. 9. 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 10. Cardiomegaly. 12. Diabetes. 13. Anxiety and depression. 14. Poorly controlled Hypertension 15. Hyperlipidemia; statin 16. Bradycardia 17. PAD; reports tingling in LE as HS. no wounds 18. S/P COVID Vaccine last Sunday 19. Leukopenia improved Plan: Plan of Care Continue Dapto and ceftriaxone CLEMENTE later today Will need colonoscopy CT chest and abdomen and pelvis reviewed GI input noted, no further evaluation planned, Plans noted for colonoscopy as strep gallolyticus bacteremia source could be GI malignancy Discussed with micro to send susceptibilities for Streptococcus bovis and micrococcus and staph warneri F/U Enteric panel and C. difficile PCR Last CPK 54 on 01/13 F/U Repeat BC on 01/18 Monitor Labs Discussed with nursing staff PAULETTE MCGRAW MD Jan 19, 2021 08:31
[2021-01-19] MEDS: FLUTICASONE 50MCG/NASAL SPRAY 16GM BOTTLE. NS SCH (08:56)
[2021-01-19] MEDS: cefTRIAXone IV Push 2 GM VIAL. IVP SCH (08:56)
[2021-01-19] MEDS: FLUoxetine HCL 10 MG CAPSULE PO SCH (08:57)
[2021-01-19] MEDS: PENTOXIFYLLINE ER 400 MG TABLET.ER. PO SCH (08:57)
[2021-01-19] MEDS: PANTOPRAZOLE 40 MG TABLET.DR. PO SCH (08:57)
[2021-01-19] MEDS: CLOPIDOGREL BISULFATE 75 MG TABLET PO SCH (08:57)
[2021-01-19] MEDS: LACTOBACILLUS RHAMNOSUS GG 1 CAPSULE. PO SCH ×2 (08:58→20:42)
[2021-01-19] MEDS: VITAMIN B COMPLEX TABLET. PO SCH (08:58)
[2021-01-19] MEDS: LINAGLIPTIN 5 MG TABLET PO SCH (08:59)
[2021-01-19] MEDS: LOSARTAN POTASSIUM 50 MG TABLET. PO SCH (08:59)
[2021-01-19] MEDS: OMEGA-3 FATTY ACIDS/FISH OIL 1,000 MG CAPSULE. PO SCH ×2 (08:59→09:00)
[2021-01-19] MEDS: ASPIRIN CHEWABLE 81 MG TABLET. PO SCH (08:59)
--- NOTE | 2021-01-19 10:14 | PDOC ---
Date of Service: DATE: 01/19/21 TIME: 10:10 Subjective: Subjective: "A little" abd pain, "a little" diarrhea, "a little" headache, and also feels "a little" better. Objective: Objective: D/w nurse - c/o abd pain overnight. D/w Yulisa/cardiology - okay for CLEMENTE per GI. Vital Signs: Vital Signs Date Time Temp Pulse Resp B/P (MAP) Pulse Ox O2 Delivery O2 Flow Rate FiO2 01/19/21 08:59 64 182/78 01/19/21 08:00 Room Air 01/19/21 07:00 98.1 18 93 98.1 Labs: Laboratory Tests Test 01/18/21 11:47 01/18/21 16:58 01/18/21 20:33 01/19/21 06:55 Glucose (Fingerstick) 120 mg/dL 140 mg/dL 132 mg/dL White Blood Count 4.4 x10^3/uL Red Blood Count 3.80 x10^6/uL Hemoglobin 12.4 g/dL Hematocrit 36.8 % Mean Corpuscular Volume 97 fL Mean Corpuscular Hemoglobin 33 pg Mean Corpuscular Hemoglobin Concent 34 g/dL Red Cell Distribution Width 13.6 % Platelet Count 222 x10^3/uL Neutrophils (%) (Auto) 61 % Lymphocytes (%) (Auto) 26 % Monocytes (%) (Auto) 11 % Eosinophils (%) (Auto) 2 % Basophils (%) (Auto) 1 % Neutrophils # (Auto) 2.7 x10^3/uL Lymphocytes # (Auto) 1.1 x10^3/uL Monocytes # (Auto) 0.5 x10^3/uL Eosinophils # (Auto) 0.1 x10^3/uL Basophils # (Auto) 0.0 x10^3/uL Sodium Level 141 mmol/L Potassium Level 3.6 mmol/L Chloride Level 103 mmol/L Carbon Dioxide Level 27 mmol/L Anion Gap 11 Blood Urea Nitrogen 13 mg/dL Creatinine 0.8 mg/dL Estimated GFR (Cockcroft-Gault) 70.5 BUN/Creatinine Ratio 16 Glucose Level 117 mg/dL Calcium Level 8.9 mg/dL Total Bilirubin 1.0 mg/dL Aspartate Amino Transf (AST/SGOT) 25 U/L Alanine Aminotransferase (ALT/SGPT) 84 U/L Alkaline Phosphatase 95 U/L C-Reactive Protein, Quantitative 4.0 mg/L Total Protein 7.1 g/dL Albumin 3.4 g/dL Albumin/Globulin Ratio 0.9 Test 01/19/21 07:21 Glucose (Fingerstick) 127 mg/dL BLOOD CULTURE Preliminary NO GROWTH AFTER 2 DAYS PE: GEN: NAD LUNGS: CTAB HEART: RRR ABD: soft, non-tender NEURO/PSYCH: A & O, speaks Mongolian A/P: Bacteremia Elevated AST and ALT - improving CRC screen - none -- CLEMENTE today. Needs colonoscopy at some point - discussion re: timing ongoing. Justicifation of Admission Dx: Justifications for Admission: Justification of Admission Dx: Yes Sepsis: Bacteremia HAMLET JASON Jan 19, 2021 10:14
[2021-01-19] MEDS: DAPTOmycin (GENERIC) IVPB 350 MG in IV NORMAL SALINE 50ML 50 ML IV SCH (10:50)
[2021-01-19] MEDS: hydrALAZINE 20 MG/ML VIAL. IVP PRN (10:59)
--- NOTE | 2021-01-19 10:59 | PDOC ---
[employer] PROGRESS NOTE Date of Service DOS: DATE: 01/19/21 TIME: 10:58 Chief Complaint Chief Complaint A/P: ABDOMINAL PAIN, possible gastritis vs PUD Bradycardia, held calcium channel blockers , however, did not improve with this given she is on dihydropyridine, will attempt restarting given her HTN obesity ascending thoracic aorta appears enlarged measuring 4.5 cm // measurement is limited by motion artifact and noncontrast exam. moderate to severe compression fracture of T9 post vertebroplasty Sepsis from Gram-positive bacteremia. Gram-positive bacteremia - ID consulted - Streptococcus bovis bacteremia,2/4 bottles present on admission, source likely GI. Nausea. Chronic back pain with compression fracture on CT. Colonic diverticulosis on CT. 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 Cardiomegaly. Diabetes. Anxiety and depression. FEN - Cardiac diet PPX - iv protonix CODE - FULL Dispo - inpatient History of Present Illness History of Present Illness Ms Luo is a 70 Yr old telugu speaking female w/ PMHx HTN, HLD, GERD, PUD, anxiety with depression, DM2 who comes to ED with grandson c/o epigastric pain x [address] chest ascending thoracic aorta appears enlarged measuring 4.5 cm // measurement is limited by motion artifact and noncontrast exam. moderate to severe compression fracture of T9 post vertebroplasty ABDOMINAL PAIN, possible gastritis vs PUD Bradycardia, hold calcium channel blockers plan ADMIT CVC BED Cardiology consult iv protonix 40 mg q 24 hrs GI CONSULT npo hold calcium channel blockers now temp noted blood cult pos - ID consulted 01/14: Vomited x1 overnight. Febrile to 101.7 F overnight. Nasal congestion and right ear and bilateral maxillary sinus pain today. K 2.9. Still with abdominal cramping and nausea. 01/17 : Afebrile overnight. Strep bovis on blood cultures. iv Zosyn per ID., IV DAPTOMYCIN ear pain improved. Abdominal pain improved and she is tolerating p.o. well. No chest pain or shortness of breath. Awaiting final sensitivities. HIDA scan negative source is unlikely to be gallbladder possibly per perforated diverticulitis Repeat blood cultures from 01/14/2021 + for gram-positive cocci given persisting gram-positive bacteremia CLEMENTE is indicated in the near future to r/o vegetation. Sepsis from Gram-positive bacteremia. January 12, Streptococcus gallolyticus bacteremia January 12,2/4 bottles present on admission, source GI. Micrococcus luteus bacteremia January 14 3 out of 4 bottles Procedure Result BLOOD CULTURE LC Preliminary Preliminary FINAL ID= [MICROCOCCUS LUTEUS] MICROCOCCUS LUTEUS Unless otherwise specified, Testing Performed by: [address] [address] For Inquires, the Physician may contact the Microbiology department at [phone] 37 MIN pt exam, chart review, > 50% of time spent with exam, chart review, pt care coordination 01-18 : CLEMENTE 6- Afebrile overnight. Strep bovis on blood cultures. iv Zosyn per ID., IV DAPTOMYCIN ear pain improved. Abdominal pain improved and she is tolerating p.o. well. No chest pain or shortness of breath. Awaiting final sensitivities. HIDA scan negative source is unlikely to be gallbladder possibly per perforated diverticulitis Repeat blood cultures from 01/14/2021 + for gram-positive cocci given persisting gram-positive bacteremia CLEMENTE is indicated in the near future to r/o vegetation. Sepsis from Gram-positive bacteremia. January 12, Streptococcus gallolyticus bacteremia January 12,2/4 bottles present on admission, source GI. Micrococcus luteus bacteremia January 14 3 out of 4 bottles Procedure Result BLOOD CULTURE LC Preliminary Preliminary FINAL ID= [MICROCOCCUS LUTEUS] MICROCOCCUS LUTEUS Unless otherwise specified, Testing Performed by: [address] [address] For Inquires, the Physician may contact the Microbiology department at [phone] 01/19/2021 No acute events overnight. Patient seen and examined next recliner. Complains of reflux symptoms some headaches. Currently n.p.o. for CLEMENTE today. Patient's chart, labs, images were reviewed and discussed with JERRY Vitals/I&O Vitals/I&O: Vital Signs Date Time Temp Pulse Resp B/P (MAP) Pulse Ox O2 Delivery O2 Flow Rate FiO2 01/19/21 08:59 64 182/78 01/19/21 08:00 Room Air 01/19/21 07:00 98.1 18 93 98.1 I & O 01/18/21 01/18/21 01/19/21 15:00 23:00 07:00 Intake Total 700 ml 200 ml Output Total 500 ml Balance 700 ml -300 ml Physical Exam Physical Exam: GENERAL: Alert, awake, pleasant female, lying in bed comfortably, in no acute distress.on ra HEENT: Normocephalic, atraumatic. Anicteric. Oral mucosa moist. No O2. NECK: Supple. No JVD. LUNGS: Clear bilaterally. No wheezing. HEART: S1, S2. ABDOMEN: Soft. Mild tenderness present diffusely, more over the epigastric area. No rebound or guarding. EXTREMITIES: No edema, no cyanosis. Left upper extremity injection site without evidence of fluctuance or erythema DERMATOLOGIC: Warm, dry, no generalized rash. NEUROLOGIC: Alert, oriented x 3, grossly nonfocal. PSYCHIATRIC: Calm and cooperative. General: Alert, Oriented X3, Cooperative, mild distress Heart: Regular rate Lungs: Clear Abdomen: Normal bowel sounds Extremities: No edema, Normal pulses Skin: No breakdown, No significant lesion Labs Labs: Laboratory Tests Test 01/18/21 11:47 01/18/21 16:58 01/18/21 20:33 01/19/21 06:55 Glucose (Fingerstick) 120 mg/dL (70-99) 140 mg/dL (70-99) 132 mg/dL (70-99) White Blood Count 4.4 x10^3/uL (4.0-11.0) Red Blood Count 3.80 x10^6/uL (3.50-5.40) Hemoglobin 12.4 g/dL (12.0-15.5) Hematocrit 36.8 % (36.0-47.0) Mean Corpuscular Volume 97 fL (79-100) Mean Corpuscular Hemoglobin 33 pg (25-35) Mean Corpuscular Hemoglobin Concent 34 g/dL (31-37) Red Cell Distribution Width 13.6 % (11.5-14.5) Platelet Count 222 x10^3/uL (140-400) Neutrophils (%) (Auto) 61 % (31-73) Lymphocytes (%) (Auto) 26 % (24-48) Monocytes (%) (Auto) 11 % (0-9) Eosinophils (%) (Auto) 2 % (0-3) Basophils (%) (Auto) 1 % (0-3) Neutrophils # (Auto) 2.7 x10^3/uL (1.8-7.7) Lymphocytes # (Auto) 1.1 x10^3/uL (1.0-4.8) Monocytes # (Auto) 0.5 x10^3/uL (0.0-1.1) Eosinophils # (Auto) 0.1 x10^3/uL (0.0-0.7) Basophils # (Auto) 0.0 x10^3/uL (0.0-0.2) Sodium Level 141 mmol/L (136-145) Potassium Level 3.6 mmol/L (3.5-5.1) Chloride Level 103 mmol/L (98-107) Carbon Dioxide Level 27 mmol/L (21-32) Anion Gap 11 (6-14) Blood Urea Nitrogen 13 mg/dL (7-20) Creatinine 0.8 mg/dL (0.6-1.0) Estimated GFR (Cockcroft-Gault) 70.5 BUN/Creatinine Ratio 16 (6-20) Glucose Level 117 mg/dL (70-99) Calcium Level 8.9 mg/dL (8.5-10.1) Total Bilirubin 1.0 mg/dL (0.2-1.0) Aspartate Amino Transf (AST/SGOT) 25 U/L (15-37) Alanine Aminotransferase (ALT/SGPT) 84 U/L (14-59) Alkaline Phosphatase 95 U/L (46-116) C-Reactive Protein, Quantitative 4.0 mg/L (0-3.3) Total Protein 7.1 g/dL (6.4-8.2) Albumin 3.4 g/dL (3.4-5.0) Albumin/Globulin Ratio 0.9 (1.0-1.7) Test 01/19/21 07:21 Glucose (Fingerstick) 127 mg/dL (70-99) Assessment and Plan Assessmemt and Plan Problems Medical Problems: (1) Bradycardia on ECG Status: Acute Comment Review of Relevant I have reviewed the following items homero (where applicable) has been applied. Justifications for Admission Other Justification ABDOMINAL PAIN SANDEEP CALLAWAY MD Jan 19, 2021 10:59
[2021-01-19] MEDS ORDERED: KETAMINE HCL IN NACL, ISO-OSM 50 MG/5 ML SYRINGE ONE (11:14)
[2021-01-19] MEDS ORDERED: PROPOFOL 10 MG/ML (20ML) VIAL. IV ONE (11:14)
[2021-01-19] MEDS ORDERED: LIDOCAINE 2% PF 5 ML VIAL. ONE (11:14)
[2021-01-19] MEDS ORDERED: IV NORMAL SALINE 1000ML BAG 1,000 ML IV SCH (12:00)
--- NOTE | 2021-01-19 12:38 | NUR ---
SS following up with discharge planning. SS reviewed pt chart and discussed with pt RN. Pt is currently on room air. COVID19 negative. Pt on IV Daptomycin and IV Rocephin. PT/OT recommended home. SS will continue to follow for discharge planning.
--- NOTE | 2021-01-19 18:34 | NUR ---
Patient stated to INTERACTIVE MEDIA MARKETING DIRECTOR to she had concerns about her cares this shift. Patient stated that public relations writer did not update patients daughter about cares. Welfare Visitor spoke with patients daughter at nurse station, updated patients daughter in regards to the results of her CLEMENTE. Upon using the relief master phone, patient did not voice any concerns with me in regards to her cares. Patient was upset that she did not speak Hungarian and has as hard time understanding what's going on with her health. Patient stated that the doctors are not using the relief master phone to communicate with her. Welfare Visitor will update refinery operator helper crude unit in regards. Upon finishing conversation with patient on relief master phone, patient did not voice any concerns or any other needs.
[2021-01-19] MEDS: ACETAMINOPHEN 325 MG TABLET. PO PRN (19:21)
[2021-01-19] MEDS: LATANOPROST 0.005% OPHTH SOLUTION 2.5ML BOTTLE. OU SCH (20:41)
[2021-01-19] MEDS: ATORVASTATIN CALCIUM 10 MG TABLET. PO SCH (20:43)
[2021-01-19] MEDS: ENOXAPARIN 40 MG/0.4 ML SYRINGE. SQ SCH (20:44)
--- NOTE | 2021-01-19 23:03 | NUR ---
Patient has been pleasant and cooperative. c/o headache earlier and Tylenol given. Denies diarrhea today. Denies pain currently.
[2021-01-20] MEDS: ACETAMINOPHEN 325 MG TABLET. PO PRN (00:50)
[2021-01-20 02:05] VITALS: BP 165/83
[2021-01-20 07:00] VITALS: BP 164/77
--- NOTE | 2021-01-20 08:33 | PDOC ---
Infectious Disease Note Subjective: Subjective Patient seen with nurse as asl interpreter Continues to have heartburn whenever she takes pills Continues to have abdominal discomfort, bloating, constipation off and on Headache has improved On room air No fever, vomiting or diarrhea, shortness of breath or chest pain Vital Signs: Vital Signs Vital Signs Date Time Temp Pulse Resp B/P (MAP) Pulse Ox O2 Delivery O2 Flow Rate FiO2 01/20/21 07:00 98.2 61 18 164/77 (106) 96 Room Air 98.2 01/19/21 12:45 2 Physical Exam: PHYSICAL EXAM GENERAL: Alert, awake, pleasant female, lying in bed comfortably, in no acute distress.on ra HEENT: Normocephalic, atraumatic. Anicteric. Oral mucosa moist. No O2. NECK: Supple. No JVD. LUNGS: Clear bilaterally. No wheezing. HEART: S1, S2. ABDOMEN: Soft. Mild tenderness present diffusely, more over the epigastric area. No rebound or guarding. EXTREMITIES: No edema, no cyanosis. Left upper extremity injection site without evidence of fluctuance or erythema DERMATOLOGIC: Warm, dry, no generalized rash. NEUROLOGIC: Alert, oriented x 3, grossly nonfocal. PSYCHIATRIC: Calm and cooperative. Medications: Inpatient Meds: Medications reviewed. Labs: Lab Laboratory Tests Test 01/19/21 11:25 01/19/21 17:24 01/19/21 20:11 01/20/21 07:21 Glucose (Fingerstick) 120 mg/dL (70-99) 142 mg/dL (70-99) 135 mg/dL (70-99) 106 mg/dL (70-99) Micro ECHO The left ventricular systolic function is normal and the ejection fraction is within normal range. Estimated ejection fraction 55%. There is normal LV segmental wall motion. Doppler and Color Flow revealed moderate aortic regurgitation. Doppler and Color Flow revealed mild tricuspid regurgitation. Estimated PAP 55 mmHg. The ascending aorta is mildly dilated at 3.[address] abdomen and pelvis IMPRESSION: 1. Colonic diverticulosis. There is no evidence of diverticulitis. 2. 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 Follow-up is not routinely performed for simple cysts. 3. Ectatic or mildly aneurysmal ascending aorta, partially included on the [id number]. 4. Cardiomegaly. POA 09/23 bottles streptococcal bovis RUN DATE: 01/14/21 [facility] LAB *LIVE* PAGE 1 RUN TIME: 1427 Specimen Inquiry PATIENT: SANTOSH PIPER ACCT: [id number] LOC: [address] [place] [address] U: [id number] AGE/SX: 70/F ROOM: 246 RE01/12/[address]: BARRY OROZCO MD : 1950 BED: 1 DIS: STATUS: ADM IN TLOC: SPEC #: [id number] JOSE: 01/12/21 STATUS: COMP REQ #: [id number] RECD: 01/12/[address]: BARRY OROZCO MD SOURCE: BLOOD ENTR: 01/13/21-0853 [facility] [address]: ELIDA ESPINAL DO [facility]: FÁTIMA GALEANO MD, DONALD J MD THOMPSON,KATHARINE Bobo MD ORDERED: MICHELINE DOE - LC Procedure Result BLOOD CULTURE LC Final Final GRAM POSITIVE COCCI FINAL ID= [STREP (BOVIS) GALLOLYTICUS] Growth of organism in only one of multiple sets; isolation does not necessarily indicate infection. Contact Microbiology Lab if further testing is clinically warranted. STREP (BOVIS) GALLOLYTICUS Unless otherwise specified, Testing Performed by: [address] [id number] For Inquires, the Physician may contact the Microbiology department at [phone] RUN DATE: 01/18/21 [facility] LAB *LIVE* PAGE 1 RUN TIME: 824 Specimen Inquiry PATIENT: SANTOSH PIPER ACCT: [id number] LOC: [address] [place] [address] U: [id number] AGE/SX: 70/F ROOM: 246 RE01/12/[address]: BARRY OROZCO MD : 1950 BED: 1 DIS: STATUS: ADM IN TLOC: SPEC #: [id number] JOSE: 01/14/21 STATUS: COMP REQ #: [id number] RECD: 01/14/[address] [facility] [address]: PAULETTE MCGRAW MD SOURCE: BLOOD ENTR: 01/16/21 [facility] DR: BARRY OROZCO MD SPDESC: FÁTIMA GALEANO MD,JALEN SCHAEFER,KATHARINE Bboo MD ORDERED: BLD CULT - LC Procedure Result BLOOD CULTURE LC Final Final GRAM POSITIVE COCCI FINAL ID= [MICROCOCCUS LUTEUS] NO FURTHER WORKUP MICROCOCCUS LUTEUS Unless otherwise specified, Testing Performed by: [address] [id number] For Inquires, the Physician may contact the Microbiology department at [phone] RUN DATE: 01/18/21 [facility] LAB *LIVE* PAGE 1 RUN TIME: 1130 Specimen Inquiry PATIENT: SANTOSH PIPER ACCT: [id number] LOC: [address] [place] [address] U: [id number] AGE/SX: 70/F ROOM: 246 RE01/12/[address]: BARRY OROZCO MD : 1950 BED: 1 DIS: STATUS: ADM IN TLOC: SPEC #: [id number] JOSE: 01/14/21 STATUS: RES REQ #: [id number] RECD: 01/16/[address] [facility] [address]: BARRY OROZCO MD SOURCE: BLOOD ENTR: 01/16/21 [facility] [address]: PAULETTE MCGRAW [facility] F[facility]TIMA GALEANO MD,JALEN SCHAEFER,KATHARINE Bobo MD ORDERED: MICHELINE CULT - LC COMMENTS: SECOND OF SET Procedure Result BLOOD CULTURE LC Preliminary Preliminary GRAM POSITIVE COCCI FINAL ID= [STAPHYLOCOCCUS WARNERI] STAPHYLOCOCCUS WARNERI Unless otherwise specified, Testing Performed by: [address] [address] For Inquires, the Physician may contact the Microbiology department at [phone] Objective: Assessment: Patient with polymicrobial bacteremia, source appears GI, 1. Fever. pattern improved 2. Sepsis from Gram-positive bacteremia. January 12, 3. Streptococcus gallolyticus bacteremia January 12,2/4 bottles present on admission, source GI. Micrococcus luteus bacteremia and now staph warneri bacteremia reported January 14 total bc positive 3 out of 4 bottles Source unclear CLEMENTE January 19, 2021 4. Abdominal pain. 5. Nausea and vomiting. Diarrhea 6. CT showing 4.5 cm ascending thoracic aortic aneurysm. 7. Chronic back pain with compression fracture on CT. 8. Colonic diverticulosis on CT. 9. 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 10. Cardiomegaly. 12. Diabetes. 13. Anxiety and depression. 14. Poorly controlled Hypertension 15. Hyperlipidemia; statin 16. Bradycardia 17. PAD; reports tingling in LE as HS. no wounds 18. S/P COVID Vaccine last Sunday 19. Leukopenia improved Plan: Plan of Care Continue Dapto and ceftriaxone Follow-up CLEMENTE results from 01/19/2021 will need colonoscopy as strep gallolyticus bacteremia source could be GI malignancy,can be done as outpt Discussed with micro to send susceptibilities for Streptococcus bovis ,micrococcus luteus and staph warneri. Latter could be contaminant Enteric panel and C. difficile PCR reported negative Last CPK 54 on 01/13 F/U Repeat BC on 01/17 negative so far Monitor Labs will need PICC line Discussed with nursing staff PAULETTE MCGRAW MD Jan 20, 2021 08:33
[2021-01-20] MEDS: FLUTICASONE 50MCG/NASAL SPRAY 16GM BOTTLE. NS SCH (09:06)
[2021-01-20] MEDS: POTASSIUM CHLORIDE 20 MEQ TABLET.ER. PO SCH (09:07)
[2021-01-20] MEDS: PANTOPRAZOLE 40 MG TABLET.DR. PO SCH (09:07)
[2021-01-20] MEDS: cefTRIAXone IV Push 2 GM VIAL. IVP SCH (09:07)
[2021-01-20] MEDS: FLUoxetine HCL 10 MG CAPSULE PO SCH (09:07)
[2021-01-20] MEDS: LINAGLIPTIN 5 MG TABLET PO SCH (09:08)
[2021-01-20] MEDS: PENTOXIFYLLINE ER 400 MG TABLET.ER. PO SCH (09:08)
[2021-01-20] MEDS: ASPIRIN CHEWABLE 81 MG TABLET. PO SCH (09:08)
[2021-01-20] MEDS: OMEGA-3 FATTY ACIDS/FISH OIL 1,000 MG CAPSULE. PO SCH (09:17)
[2021-01-20] MEDS: LACTOBACILLUS RHAMNOSUS GG 1 CAPSULE. PO SCH ×2 (09:18→20:19)
[2021-01-20] MEDS: CLOPIDOGREL BISULFATE 75 MG TABLET PO SCH (09:18)
[2021-01-20] MEDS: LOSARTAN POTASSIUM 50 MG TABLET. PO SCH (09:19)
[2021-01-20] MEDS: VITAMIN B COMPLEX TABLET. PO SCH (09:19)
[2021-01-20] MEDS: DAPTOmycin (GENERIC) IVPB 350 MG in IV NORMAL SALINE 50ML 50 ML IV SCH (10:00)
--- NOTE | 2021-01-20 10:44 | PDOC ---
PROGRESS NOTES Date of Service: DATE: 01/20/21 TIME: 10:44 Chief Complaint Chief Complaint A/P: ABDOMINAL PAIN, possible gastritis vs PUD Bradycardia, held calcium channel blockers , however, did not improve with this given she is on dihydropyridine, will attempt restarting given her HTN obesity ascending thoracic aorta appears enlarged measuring 4.5 cm // measurement is limited by motion artifact and noncontrast exam. moderate to severe compression fracture of T9 post vertebroplasty Sepsis from Gram-positive bacteremia. Gram-positive bacteremia - ID consulted - Streptococcus bovis bacteremia,2/4 bottles present on admission, source likely GI. Nausea. Chronic back pain with compression fracture on CT. Colonic diverticulosis on CT. 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 Cardiomegaly. Diabetes. Anxiety and depression. FEN - Cardiac diet PPX - iv protonix CODE - FULL Dispo - inpatient History of Present Illness History of Present Illness Ms Luo is a 70 Yr old [place] islander speaking female w/ PMHx HTN, HLD, GERD, PUD, anxiety with depression, DM2 who comes to ED with grandson c/o epigastric pain x [address] chest ascending thoracic aorta appears enlarged measuring 4.5 cm // measurement is limited by motion artifact and noncontrast exam. moderate to severe compression fracture of T9 post vertebroplasty ABDOMINAL PAIN, possible gastritis vs PUD Bradycardia, hold calcium channel blockers plan ADMIT CVC BED Cardiology consult iv protonix 40 mg q 24 hrs GI CONSULT npo hold calcium channel blockers now temp noted blood cult pos - ID consulted 01/14: Vomited x1 overnight. Febrile to 101.7 F overnight. Nasal congestion and right ear and bilateral maxillary sinus pain today. K 2.9. Still with abdominal cramping and nausea. 01/17 : Afebrile overnight. Strep bovis on blood cultures. iv Zosyn per ID., IV DAPTOMYCIN ear pain improved. Abdominal pain improved and she is tolerating p.o. well. No chest pain or shortness of breath. Awaiting final sensitivities. HIDA scan negative source is unlikely to be gallbladder possibly per perforated diverticulitis Repeat blood cultures from 01/14/2021 + for gram-positive cocci given persisting gram-positive bacteremia CLEMENTE is indicated in the near future to r/o vegetation. Sepsis from Gram-positive bacteremia. January 12, Streptococcus gallolyticus bacteremia January 12,2/4 bottles present on admission, source GI. Micrococcus luteus bacteremia January 14 3 out of 4 bottles Procedure Result BLOOD CULTURE LC Preliminary Preliminary FINAL ID= [MICROCOCCUS LUTEUS] MICROCOCCUS LUTEUS Unless otherwise specified, Testing Performed by: [address] [id number] For Inquires, the Physician may contact the Microbiology department at [phone] 37 MIN pt exam, chart review, > 50% of time spent with exam, chart review, pt ca re coordination 01-18 : CLEMENTE - Afebrile overnight. Strep bovis on blood cultures. iv Zosyn per ID., IV DAPTOMYCIN ear pain improved. Abdominal pain improved and she is tolerating p.o. well. No chest pain or shortness of breath. Awaiting final sensitivities. HIDA scan negative source is unlikely to be gallbladder possibly per perforated diverticulitis Repeat blood cultures from 01/14/2021 + for gram-positive cocci given persisting gram-positive bacteremia CLEMENTE is indicated in the near future to r/o vegetation. Sepsis from Gram-positive bacteremia. January 12, Streptococcus gallolyticus bacteremia January 12,2/4 bottles present on admission, source GI. Micrococcus luteus bacteremia January 14 3 out of 4 bottles Procedure Result BLOOD CULTURE LC Preliminary Preliminary FINAL ID= [MICROCOCCUS LUTEUS] MICROCOCCUS LUTEUS Unless otherwise specified, Testing Performed by: [address] [id number] For Inquires, the Physician may contact the Microbiology department at [phone] 01/19/2021 No acute events overnight. Patient seen and examined next recliner. Complains of reflux symptoms some headaches. Currently n.p.o. for CLEMENTE today. Patient's chart, labs, images were reviewed and discussed with RN 6 PICC placed for antibiotics at home. Afebrile overnight. Strep bovis on blood cultures. iv Zosyn per ID., IV DAPTOMYCIN ear pain improved. Abdominal pain improved and she is tolerating p.o. well. No chest pain or shortness of breath. Awaiting final sensitivities. HIDA scan negative source is unlikely to be gallbladder possibly per perforated diverticulitis Repeat blood cultures from 01/14/2021 + for gram-positive cocci given persisting gram-positive bacteremia CLEMENTE is indicated in the near future to r/o vegetation. Sepsis from Gram-positive bacteremia. January 12, Streptococcus gallolyticus bacteremia January 12,2/4 bottles present on admission, source GI. Micrococcus luteus bacteremia January 14 3 out of 4 bottles Procedure Result BLOOD CULTURE LC Preliminary Preliminary FINAL ID= [MICROCOCCUS LUTEUS] MICROCOCCUS LUTEUS Unless otherwise specified, Testing Performed by: [address] [address] For Inquires, the Physician may contact the Microbiology department at [phone] JALEN JOLLEY MD,KATHARINE Bobo MD ORDERED: MICHELINE DOE - LC - Procedure Result BLOOD CULTURE LC Final Final GRAM POSITIVE COCCI FINAL ID= [MICROCOCCUS LUTEUS] NO FURTHER WORKUP MICROCOCCUS LUTEUS Unless otherwise specified, Testing Performed by: [address] [id number] For Inquires, the Physician may contact the Microbiology department at [phone] colonoscopy as strep gallolyticus bacteremia source could be GI malignancy,can be done as outpt 38 min pt exam, chart review, > 50% of time spent with exam, chart review, pt care coordination Vitals Vitals Vital Signs Date Time Temp Pulse Resp B/P (MAP) Pulse Ox O2 Delivery O2 Flow Rate FiO2 01/20/21 09:19 61 164/77 01/20/21 07:00 98.2 18 96 Room Air 98.2 01/19/21 12:45 2 Physical Exam Physical Exam GENERAL: Alert, awake, pleasant female, lying in bed comfortably, in no acute distress.on ra HEENT: Normocephalic, atraumatic. Anicteric. Oral mucosa moist. No O2. NECK: Supple. No JVD. LUNGS: Clear bilaterally. No wheezing. HEART: S1, S2. ABDOMEN: Soft. Mild tenderness present diffusely, more over the epigastric area. No rebound or guarding. EXTREMITIES: No edema, no cyanosis. Left upper extremity injection site without evidence of fluctuance or erythema DERMATOLOGIC: Warm, dry, no generalized rash. NEUROLOGIC: Alert, oriented x 3, grossly nonfocal. PSYCHIATRIC: Calm and cooperative. General: Alert, Oriented X3, Cooperative, mild distress Heart: Regular rate Lungs: Clear Abdomen: Normal bowel sounds Extremities: No edema, Normal pulses Skin: No breakdown, No significant lesion Labs LABS JALEN JOLLEY MD,KATHARINE Bobo MD ORDERED: BLD CULT - LC Procedure Result BLOOD CULTURE LC Final Final GRAM POSITIVE COCCI FINAL ID= [MICROCOCCUS LUTEUS] NO FURTHER WORKUP MICROCOCCUS LUTEUS Unless otherwise specified, Testing Performed by: [address] [id number] For Inquires, the Physician may contact the Microbiology department at [phone] Laboratory Tests Test 01/19/21 11:25 01/19/21 17:24 01/19/21 20:11 01/20/21 07:21 Glucose (Fingerstick) 120 mg/dL (70-99) 142 mg/dL (70-99) 135 mg/dL (70-99) 106 mg/dL (70-99) Assessment and Plan Assessmemt and Plan Problems Medical Problems: (1) Bradycardia on ECG Status: Acute Comment Review of Relevant I have reviewed the following items homero (where applicable) has been applied. Labs Laboratory Tests Test 01/18/21 11:47 01/18/21 16:58 01/18/21 20:33 01/19/21 06:55 Glucose (Fingerstick) 120 mg/dL (70-99) 140 mg/dL (70-99) 132 mg/dL (70-99) White Blood Count 4.4 x10^3/uL (4.0-11.0) Red Blood Count 3.80 x10^6/uL (3.50-5.40) Hemoglobin 12.4 g/dL (12.0-15.5) Hematocrit 36.8 % (36.0-47.0) Mean Corpuscular Volume 97 fL (79-100) Mean Corpuscular Hemoglobin 33 pg (25-35) Mean Corpuscular Hemoglobin Concent 34 g/dL (31-37) Red Cell Distribution Width 13.6 % (11.5-14.5) Platelet Count 222 x10^3/uL (140-400) Neutrophils (%) (Auto) 61 % (31-73) Lymphocytes (%) (Auto) 26 % (24-48) Monocytes (%) (Auto) 11 % (0-9) Eosinophils (%) (Auto) 2 % (0-3) Basophils (%) (Auto) 1 % (0-3) Neutrophils # (Auto) 2.7 x10^3/uL (1.8-7.7) Lymphocytes # (Auto) 1.1 x10^3/uL (1.0-4.8) Monocytes # (Auto) 0.5 x10^3/uL (0.0-1.1) Eosinophils # (Auto) 0.1 x10^3/uL (0.0-0.7) Basophils # (Auto) 0.0 x10^3/uL (0.0-0.2) Sodium Level 141 mmol/L (136-145) Potassium Level 3.6 mmol/L (3.5-5.1) Chloride Level 103 mmol/L (98-107) Carbon Dioxide Level 27 mmol/L (21-32) Anion Gap 11 (6-14) Blood Urea Nitrogen 13 mg/dL (7-20) Creatinine 0.8 mg/dL (0.6-1.0) Estimated GFR (Cockcroft-Gault) 70.5 BUN/Creatinine Ratio 16 (6-20) Glucose Level 117 mg/dL (70-99) Calcium Level 8.9 mg/dL (8.5-10.1) Total Bilirubin 1.0 mg/dL (0.2-1.0) Aspartate Amino Transf (AST/SGOT) 25 U/L (15-37) Alanine Aminotransferase (ALT/SGPT) 84 U/L (14-59) Alkaline Phosphatase 95 U/L (46-116) C-Reactive Protein, Quantitative 4.0 mg/L (0-3.3) Total Protein 7.1 g/dL (6.4-8.2) Albumin 3.4 g/dL (3.4-5.0) Albumin/Globulin Ratio 0.9 (1.0-1.7) Test 01/19/21 07:21 01/19/21 11:25 01/19/21 17:24 01/19/21 20:11 Glucose (Fingerstick) 127 mg/dL (70-99) 120 mg/dL (70-99) 142 mg/dL (70-99) 135 mg/dL (70-99) Test 01/20/21 07:21 Glucose (Fingerstick) 106 mg/dL (70-99) Laboratory Tests Test 01/19/21 11:25 01/19/21 17:24 01/19/21 20:11 01/20/21 07:21 Glucose (Fingerstick) 120 mg/dL (70-99) 142 mg/dL (70-99) 135 mg/dL (70-99) 106 mg/dL (70-99) Microbiology 01/17/21 Blood Culture - Preliminary, Resulted NO GROWTH AFTER 3 DAYS Medications Current Medications Iohexol (Omnipaque 300 Mg/ml) 75 ml 1X ONCE IV Last administered on 01/12/21at 14:38; Start 01/12/21 at 14:15; Stop 01/12/21 at 14:16; Status DC Info (CONTRAST GIVEN -- Rx MONITORING) 1 each PRN DAILY PRN MC SEE COMMENTS; Start 01/12/21 at 14:15; Stop 01/14/21 at 14:14; Status DC Ondansetron HCl (Zofran) 4 mg PRN Q8HRS PRN IV NAUSEA/VOMITING; Start 01/12/21 at 15:45; Stop 01/12/21 at 16:51; Status DC Pantoprazole Sodium (PROTONIX VIAL for IV PUSH) 40 mg DAILY08 ONCE IVP Last administered on 01/12/21at 17:40; Start 01/12/21 at 17:00; Stop 01/12/21 at 17:01; Status DC Sodium Chloride (Normal Saline Flush) 3 ml QSHIFT PRN IV AFTER MEDS AND BLOOD DRAWS; Start 01/12/21 at 17:00 Sodium Chloride 1,000 ml @ 100 mls/hr Q10H IV Last administered on 01/13/21at 18:21; Start 01/12/21 at 17:00; Stop 01/14/21 at 08:20; Status DC Dextrose/Sodium Chloride 1,000 ml @ 80 mls/hr [id number] IV ; Start 01/12/21 at 17:00; Status UNV Ondansetron HCl (Zofran) 4 mg PRN Q4HRS PRN IV NAUSEA/VOMITING 1ST CHOICE Last administered on 01/13/21at 20:35; Start 01/12/21 at 17:00 Acetaminophen (Tylenol) 650 mg PRN Q4HRS PRN PO TEMP OVER 100.4F OR MILD PAIN Last administered on 01/20/21at 00:50; Start 01/12/21 at 17:00 Al Hydroxide/Mg Hydroxide (Mylanta Plus Xs) 30 ml PRN DAILY PRN PO HEARTBURN / GAS; Start 01/12/21 at 17:00 Sodium Monofluorophosphate (Fleet Adult) 133 ml PRN DAILY PRN MS CONSTIPATION; Start 01/12/21 at 17:00; Stop 01/15/21 at 14:48; Status DC Docusate Sodium (Colace) 100 mg PRN BID PRN PO HARD STOOLS; Start 01/12/21 at 17:00 Albuterol Sulfate (Ventolin Neb Soln) 2.5 mg PRN Q4HRS PRN NEB SHORTNESS OF BREATH; Start 01/12/21 at 17:00 Guaifenesin (Robitussin) 200 mg PRN Q4HRS PRN PO COUGH; Start 01/12/21 at 17:00 Lorazepam (Ativan) 0.5 mg PRN Q4HRS PRN PO ANXIETY / AGITATION; Start 01/12/21 at 17:00 Enoxaparin Sodium (Lovenox 40mg Syringe) 40 mg Q24H SQ Last administered on 01/19/21 20:44; Start 01/12/21 at 21:00 Aspirin (Aspirin Chewable) 81 mg DAILY PO Last administered on 01/20/21 09:08; Start 01/13/21 at 09:00 Clopidogrel Bisulfate (Plavix) 75 mg DAILY PO Last administered on 01/20/21 09:18; Start 01/13/21 at 09:00 Fluoxetine HCl (PROzac) 10 mg DAILY PO Last administered on 01/20/21 09:07; Start 01/13/21 at 09:00 Hydrochlorothiazide (Hydrodiuril) 25 mg DAILY PO Last administered on 01/13/21 11:56; Start 01/13/21 at 09:00; Stop 01/14/21 at 08:20; Status DC Pentoxifylline (TRENtal) 400 mg DAILY PO Last administered on 01/20/21 09:08; Start 01/13/21 at 09:00 Vitamin B Complex (Hang B) 1 tab DAILY PO Last administered on 01/20/21 09:19; Start 01/13/21 at 09:00 Fish Oil (Fish Oil) 1,000 mg DAILY PO Last administered on 01/20/21 09:17; Start 01/13/21 at 09:00 Ondansetron HCl (Zofran Odt) 4 mg PRN Q8HRS PRN PO NAUSEA/VOMITING Last administered on 01/16/21 04:16; Start 01/12/21 at 17:00 Atorvastatin Calcium (Lipitor) 5 mg QHS PO Last administered on 01/19/21 20:43; Start 01/12/21 at 21:00 Hydralazine HCl (Apresoline Inj) 10 mg PRN Q4HRS PRN IVP ELEVATED BP, SEE COMMENTS Last administered on 01/19/21at 10:59; Start 01/12/21 at 20:30 Piperacillin Sod/ Tazobactam Sod 2.25 gm/Sodium Chloride 50 ml @ 100 mls/hr 1X ONCE IV ; Start 01/13/21 at 09:15; Stop 01/13/21 at 09:44; Status UNV Piperacillin Sod/ Tazobactam Sod 3.375 gm/Sodium Chloride 50 ml @ 100 mls/hr Q6HRS IV Last administered on 01/16/21at 05:52; Start 01/13/21 at 10:00; Stop 01/16/21 at 08:21; Status DC Magnesium Sulfate 50 ml @ 25 mls/hr 1X ONCE IV Last administered on 01/13/21at 11:21; Start 01/13/21 at 11:00; Stop 01/13/21 at 12:59; Status DC Pantoprazole Sodium (Protonix) 40 mg DAILYAC PO Last administered on 01/20/21at 09:07; Start 01/13/21 at 12:30 Daptomycin 350 mg/ Sodium Chloride 50 ml @ 100 mls/hr Q24H IV Last administered on 01/14/21at 14:09; Start 01/13/21 at 14:00; Stop 01/15/21 at 09: 31; Status DC Lactobacillus Rhamnosus (Culturelle) 1 cap BID PO Last administered on 01/20/21at 09:18; Start 01/13/21 at 21:00 Losartan Potassium (Cozaar) 100 mg DAILY PO Last administered on 01/20/21at 09:19; Start 01/13/21 at 17:00 Potassium Chloride/Dextrose/ Sod Cl 1,000 ml @ 80 mls/hr [id number] ONCE IV Last administered on 01/14/21at 09:58; Start 01/14/21 at 09:00; Stop 01/14/21 at 21:29; Status DC Potassium Bicarbonate (Potassium Effervescent Tablet) 40 meq 1X ONCE PO Last administered on 01/14/21at 09:04; Start 01/14/21 at 08:15; Stop 01/14/21 at 08:28; Status DC Magnesium Sulfate 50 ml @ 25 mls/hr 1X ONCE IV Last administered on 01/14/21at 09:57; Start 01/14/21 at 08:15; Stop 01/14/21 at 10:14; Status DC Sodium Chloride ([place] Saline Nasal) 1 wagner PRN DAILY PRN NS NASAL CONGESTION; Start 01/14/21 at 12:00 Fluticasone Propionate (Flonase) 2 spray DAILY NS Last administered on 01/20/21at 09:06; Start 01/14/21 at 13:00 Fluticasone Propionate (Flonase) 2 spray DAILY NS ; Start 01/14/21 at 12:00; Status UNV Sodium Chloride ([place] Saline Nasal) 1 wagner PRN DAILY PRN NS NASAL CONGESTION; Start 01/14/21 at 12:00; Status UNV Latanoprost (Xalatan) 1 drop QHS OU Last administered on 01/19/21at 20:41; Start 01/16/21 at 21:00 Linagliptin (Tradjenta) 5 mg DAILY PO Last administered on 01/20/21at 09:08; Start 01/16/21 at 09:00 Amlodipine Besylate (Norvasc) 5 mg DAILY PO Last administered on 01/16/21at 08:08; Start 01/16/21 at 09:00; Stop 01/16/21 at 10:51; Status DC Ceftriaxone Sodium (Rocephin) 2 gm Q24H IVP Last administered on 01/20/21at 09:07; Start 01/16/21 at 09:00 Daptomycin 350 mg/ Sodium Chloride 50 ml @ 100 mls/hr Q24H IV Last adminis tered on 01/20/21at 10:00; Start 01/16/21 at 10:00 Prochlorperazine Edisylate (Compazine) 10 mg PRN Q6HRS PRN IV Headache/NAUSEA/ VOMITING-2nd Last administered on 01/16/21at 11:22; Start 01/16/21 at 10:45 Nifedipine (Procardia Xl) 30 mg DAILY PO Last administered on 01/20/21at 09:19; Start 01/17/21 at 09:00 Potassium Chloride (Klor-Con) 40 meq 1X ONCE PO Last administered on 01/17/21at 14:21; Start 01/17/21 at 14:30; Stop 01/17/21 at 14:31; Status DC Potassium Chloride (Klor-Con) 20 meq DAILYWBKFT PO Last administered on 01/20/21at 09:07; Start 01/18/21 at 08:00 Ringer's Solution 1,000 ml @ 50 mls/hr Q20H IV ; Start 01/19/21 at 07:00; Stop 01/19/21 at 18:59; Status DC Sodium Chloride (Normal Saline Flush) 10 ml QSHIFT PRN IV AFTER MEDS AND BLOOD DRAWS; Start 01/18/21 at 17:15 Lidocaine HCl (Xylocaine 2% Topical 5gm Tube) 1 wagner 1X ONCE TP ; Start 01/18/21 at 17:15; Stop 01/18/21 at 17:19; Status DC Lidocaine HCl (Viscous Lidocaine) 15 ml 1X ONCE MM ; Start 01/18/21 at 17:15; Stop 01/18/21 at 17:19; Status DC Benzocaine (Hurricaine One) 2 spray 1X ONCE MM ; Start 01/18/21 at 17:15; Stop 01/18/21 at 17:19; Status DC Lidocaine HCl (Viscous Lidocaine) 15 ml 1X ONCE SWSW Last administered on 01/19/21at 11:54; Start 01/19/21 at 08:30; Stop 01/19/21 at 08:47; Status DC Lidocaine HCl (Xylocaine 2% Topical 30gm Tube) 1 wagner 1X ONCE TP Last administered on 01/19/21at 11:53; Start 01/19/21 at 08:30; Stop 01/19/21 at 08:47; Status DC Benzocaine (Hurricaine One) 2 spray 1X ONCE MM Last administered on 01/19/21at 11:54; Start 01/19/21 at 08:30; Stop 01/19/21 at 08:47; Status DC Lidocaine HCl (Xylocaine 2% Topical 30gm Tube) 30 wagner STK-MED ONCE TP ; Start 01/19/21 at 10:54; Stop 01/19/21 at 10:54; Status DC Propofol (Diprivan) 200 mg STK-MED ONCE IV ; Start 01/19/21 at 11:14; Stop at 11:15; Status DC Lidocaine HCl (Lidocaine Pf 2% Vial) 5 ml STK-MED ONCE .ROUTE ; Start 01/19/21 at 11:14; Stop 01/19/21 at 11:15; Status DC Ketamine HCl (Ketamine) 50 mg STK-MED ONCE .ROUTE ; Start 01/19/21 at 11:14; Stop 01/19/21 at 11:15; Status DC Sodium Chloride 1,000 ml @ 0 mls/hr Q0M IV ; Start 01/19/21 at 12:00 Active Scripts Active Nifedipine Er (Nifedipine) 30 Mg Tab.er.24 30 Mg PO DAILY 30 Days Reported Xalatan (Latanoprost) 2.5 Ml Drops 1 Drop OU QHS Losartan-Hctz 100-25 Mg Tab (Losartan/Hydrochlorothiazide) 1 Each Tablet 1 Each PO DAILY Januvia (Sitagliptin Phosphate) 100 Mg Tablet 100 Mg PO DAILY Pentoxifylline 400 Mg Tablet.er 400 Mg PO DAILY Pravastatin Sodium 20 Mg Tablet 20 Mg PO HS Vitals/I & O Vital Sign - Last 24 Hours 01/19/21 01/19/21 01/19/21 01/19/21 10:59 11:00 11:32 12:09 Temp 97.9 98.9 97.9 98.9 Pulse 100 66 91 Resp 18 20 B/P (MAP) 175/80 175/80 (111) 148/72 Pulse Ox 94 98 O2 Delivery Room Air Nasal Cannula O2 Flow Rate 4 01/19/21 01/19/21 01/19/21 01/19/21 12:09 12:17 12:30 12:45 Temp 98.3 98.3 98.3 98.3 Pulse 76 72 72 Resp 22 20 20 B/P (MAP) 113/54 132/57 149/52 Pulse Ox 96 97 98 O2 Delivery Nasal Cannula Nasal Cannula Nasal Cannula Nasal Cannula O2 Flow Rate 4 4 2 2 01/19/21 01/19/21 01/19/21 01/19/21 12:50 13:06 13:21 13:36 Pulse 76 86 82 78 B/P (MAP) 159/79 (105) 168/84 (112) 167/84 (111) 144/72 (96) 01/19/21 01/19/21 01/19/21 01/19/21 14:06 14:36 15:00 15:06 Temp 98.2 98.2 Pulse 84 80 81 78 Resp 18 B/P (MAP) 135/66 (89) 133/67 (89) 135/73 (93) 133/66 (88) Pulse Ox 94 O2 Delivery Room Air 01/19/21 01/19/21 01/19/21 01/20/21 19:07 20:00 22:09 02:05 Temp 98.1 98.1 98.0 98.1 98.1 98.0 Pulse 79 65 65 Resp 18 18 18 B/P (MAP) 150/70 (96) 168/74 (105) 165/83 (110) Pulse Ox 95 95 96 O2 Delivery Room Air Room Air Room Air Room Air 01/20/21 01/20/21 01/20/21 07:00 09:19 09:19 Temp 98.2 98.2 Pulse 61 61 61 Resp 18 B/P (MAP) 164/77 (106) 164/77 164/77 Pulse Ox 96 O2 Delivery Room Air Intake and Output 01/19/21 01/19/21 01/20/21 15:00 23:00 07:00 Intake Total 550 ml 215 ml 100 ml Output Total 125 ml Balance 550 ml 90 ml 100 ml Justicifation of Admission Dx: Justifications for Admission: Justification of Admission Dx: Yes Sepsis: Bacteremia BARRY OROZCO MD Jan 20, 2021 10:44
[2021-01-20 11:07] LABS: ALBUMIN 3.4 g/dL (3.4-5.0); ALBUMIN/GLOBULIN RATIO 0.9 (1.0-1.7); CREATININE 0.8 mg/dL (0.6-1.0); GFR 70.5; POTASSIUM 3.7 mmol/L (3.5-5.1); TOTAL BILIRUBIN 0.5 mg/dL (0.2-1.0); TOTAL PROTEIN 7.4 g/dL (6.4-8.2)
[2021-01-20 11:15] VITALS: BP 141/64
--- NOTE | 2021-01-20 13:09 | CARD ---
MR#: [id number] Date of Study: 01/19/2021 Ordering Physician: PAULETTE MCGRAW, Referring Physician: PAULETTE MCGRAW, Tech: Aury Rodriguez, [facility] APPROVED REPORT EXAM: Transesophageal echocardiogram with color flow Doppler. INDICATION Bacteremia Reason For Test : Rule out Intracardiac Thrombus. PROCEDURE After obtaining informed consent, patient underwent transesophageal echo in the PACU. Type of Sedation : General Anesthesia Sedation was administered by Letty Lieberman CRNA. Sedation was achieved with Propofol 150mg intravenously. Sedation was achieved with Ketamine 10mg intravenously. Sedation was achieved with Lidocaine 100mg intravenously. Transesophageal probe was inserted and advanced into esophagus by Jonathan Silveira MD. The CLEMENTE was performed without complications. Throughout the procedure, the blood pressure, pulse oximetry, cardiac rhythm, and rate were monitored . The patient tolerated the procedure without adverse effects. Recovery from general anesthesia was une ventful and vital signs were stable. LEFT VENTRICLE The left ventricle is normal size. There is borderline concentric left ventricular hypertrophy. The l eft ventricular systolic function is normal and the ejection fraction is within normal range. The Eje ction Fraction is 50-55%. There is normal LV segmental wall motion. No left ventricle thrombus noted on this study. RIGHT VENTRICLE The right ventricle is normal size. There is normal right ventricular wall thickness. The right ventr icular systolic function is normal. ATRIA The left atrium size is normal. The right atrium size is normal. The interatrial septum is intact wit h no evidence for an atrial septal defect or patent foramen ovale as noted on 2-D or Doppler imaging. There is no thrombus noted in the left atrial appendage. AORTIC VALVE The aortic valve is normal in structure and function. Doppler and Color Flow revealed mild to moderat e aortic regurgitation. There is no aortic valvular stenosis. There is no aortic valvular vegetation. MITRAL VALVE The mitral valve is normal in structure and function. There is no evidence of mitral valve prolapse. There is no mitral valve stenosis. There is mild mitral valve regurgitation noted. TRICUSPID VALVE The tricuspid valve is normal in structure and function. Doppler and Color Flow revealed mild tricusp id regurgitation. PULMONIC VALVE The pulmonary valve is normal in structure and function. Doppler and Color Flow revealed no pulmonic valvular regurgitation. GREAT VESSELS The aortic root is mildly enlarged measuring 3.8 cm. PERICARDIAL EFFUSION There is no pleural effusion. Critical Notification Critical Value: No <Conclusion> The left ventricle is normal size. The left ventricular systolic function is normal and the ejection fraction is within normal range. The Ejection Fraction is 50-55%. There is borderline concentric left ventricular hypertrophy. Doppler and Color Flow revealed mild to moderate aortic regurgitation. There is no aortic valvular stenosis. There is no aortic valvular vegetation. The mitral valve is normal in structure and function. There is mild mitral valve regurgitation noted. Doppler and Color Flow revealed mild tricuspid regurgitation. The pulmonary valve is normal in structure and function. There is no evidence of vegetations on this study. Signed by : Jonathan Silveira MD Electronically Approved : 01/20/2021 13:08:59
--- NOTE | 2021-01-20 14:23 | NUR ---
SS following up with discharge planning. SS reviewed pt chart and discussed with pt RN. Pt is currently on room air. COVID19 negative. Pt on IV Daptomycin and IV Rocephin. PT/OT recommended home. Probable need for outpatient antibiotics. PICC line ordered. Currently awaiting further communication from ID. SS will continue to follow for discharge planning.
--- NOTE | 2021-01-20 14:38 | PDOC ---
G I PROGRESS NOTE Subjective Seems to indicate some abdominal issues. Can't specify. Objective Having PICC placed for antibiotics at home. Physical Exam Lungs clear. RRR Abdomen soft, not distended. Review of Relevant I have reviewed the following items homero (where applicable) has been applied. Labs Laboratory Tests Test 01/18/21 16:58 01/18/21 20:33 01/19/21 06:55 01/19/21 07:21 Glucose (Fingerstick) 140 mg/dL (70-99) 132 mg/dL (70-99) 127 mg/dL (70-99) White Blood Count 4.4 x10^3/uL (4.0-11.0) Red Blood Count 3.80 x10^6/uL (3.50-5.40) Hemoglobin 12.4 g/dL (12.0-15.5) Hematocrit 36.8 % (36.0-47.0) Mean Corpuscular Volume 97 fL (79-100) Mean Corpuscular Hemoglobin 33 pg (25-35) Mean Corpuscular Hemoglobin Concent 34 g/dL (31-37) Red Cell Distribution Width 13.6 % (11.5-14.5) Platelet Count 222 x10^3/uL (140-400) Neutrophils (%) (Auto) 61 % (31-73) Lymphocytes (%) (Auto) 26 % (24-48) Monocytes (%) (Auto) 11 % (0-9) Eosinophils (%) (Auto) 2 % (0-3) Basophils (%) (Auto) 1 % (0-3) Neutrophils # (Auto) 2.7 x10^3/uL (1.8-7.7) Lymphocytes # (Auto) 1.1 x10^3/uL (1.0-4.8) Monocytes # (Auto) 0.5 x10^3/uL (0.0-1.1) Eosinophils # (Auto) 0.1 x10^3/uL (0.0-0.7) Basophils # (Auto) 0.0 x10^3/uL (0.0-0.2) Sodium Level 141 mmol/L (136-145) Potassium Level 3.6 mmol/L (3.5-5.1) Chloride Level 103 mmol/L (98-107) Carbon Dioxide Level 27 mmol/L (21-32) Anion Gap 11 (6-14) Blood Urea Nitrogen 13 mg/dL (7-20) Creatinine 0.8 mg/dL (0.6-1.0) Estimated GFR (Cockcroft-Gault) 70.5 BUN/Creatinine Ratio 16 (6-20) Glucose Level 117 mg/dL (70-99) Calcium Level 8.9 mg/dL (8.5-10.1) Total Bilirubin 1.0 mg/dL (0.2-1.0) Aspartate Amino Transf (AST/SGOT) 25 U/L (15-37) Alanine Aminotransferase (ALT/SGPT) 84 U/L (14-59) Alkaline Phosphatase 95 U/L (46-116) C-Reactive Protein, Quantitative 4.0 mg/L (0-3.3) Total Protein 7.1 g/dL (6.4-8.2) Albumin 3.4 g/dL (3.4-5.0) Albumin/Globulin Ratio 0.9 (1.0-1.7) Test 01/19/21 11:25 01/19/21 17:24 01/19/21 20:11 01/20/21 07:21 Glucose (Fingerstick) 120 mg/dL (70-99) 142 mg/dL (70-99) 135 mg/dL (70-99) 106 mg/dL (70-99) Test 01/20/21 10:25 01/20/21 11:41 Sodium Level 142 mmol/L (136-145) Potassium Level 3.7 mmol/L (3.5-5.1) Chloride Level 104 mmol/L (98-107) Carbon Dioxide Level 28 mmol/L (21-32) Anion Gap 10 (6-14) Blood Urea Nitrogen 14 mg/dL (7-20) Creatinine 0.8 mg/dL (0.6-1.0) Estimated GFR (Cockcroft-Gault) 70.5 BUN/Creatinine Ratio 18 (6-20) Glucose Level 149 mg/dL (70-99) Calcium Level 9.0 mg/dL (8.5-10.1) Total Bilirubin 0.5 mg/dL (0.2-1.0) Aspartate Amino Transf (AST/SGOT) 18 U/L (15-37) Alanine Aminotransferase (ALT/SGPT) 63 U/L (14-59) Alkaline Phosphatase 92 U/L (46-116) Creatine Kinase 45 U/L (26-192) Total Protein 7.4 g/dL (6.4-8.2) Albumin 3.4 g/dL (3.4-5.0) Albumin/Globulin Ratio 0.9 (1.0-1.7) Glucose (Fingerstick) 123 mg/dL (70-99) Laboratory Tests Test 01/19/21 17:24 01/19/21 20:11 01/20/21 07:21 01/20/21 10:25 Glucose (Fingerstick) 142 mg/dL (70-99) 135 mg/dL (70-99) 106 mg/dL (70-99) Sodium Level 142 mmol/L (136-145) Potassium Level 3.7 mmol/L (3.5-5.1) Chloride Level 104 mmol/L (98-107) Carbon Dioxide Level 28 mmol/L (21-32) Anion Gap 10 (6-14) Blood Urea Nitrogen 14 mg/dL (7-20) Creatinine 0.8 mg/dL (0.6-1.0) Estimated GFR (Cockcroft-Gault) 70.5 BUN/Creatinine Ratio 18 (6-20) Glucose Level 149 mg/dL (70-99) Calcium Level 9.0 mg/dL (8.5-10.1) Total Bilirubin 0.5 mg/dL (0.2-1.0) Aspartate Amino Transf (AST/SGOT) 18 U/L (15-37) Alanine Aminotransferase (ALT/SGPT) 63 U/L (14-59) Alkaline Phosphatase 92 U/L (46-116) Creatine Kinase 45 U/L (26-192) Total Protein 7.4 g/dL (6.4-8.2) Albumin 3.4 g/dL (3.4-5.0) Albumin/Globulin Ratio 0.9 (1.0-1.7) Test 01/20/21 11:41 Glucose (Fingerstick) 123 mg/dL (70-99) Microbiology 01/17/21 Blood Culture - Preliminary, Resulted NO GROWTH AFTER 3 DAYS Vitals/I & O Vital Sign - Last 24 Hours 6/2/21 6/2/21 6/2/21 6/2/21 14:36 15:00 15:06 19:07 Temp 98.2 98.1 98.2 98.1 Pulse 80 81 78 79 Resp 18 18 B/P (MAP) 133/67 (89) 135/73 (93) 133/66 (88) 150/70 (96) Pulse Ox 94 95 O2 Delivery Room Air Room Air 01/19/21 01/19/21 01/20/21 01/20/21 20:00 22:09 02:05 07:00 Temp 98.1 98.0 98.2 98.1 98.0 98.2 Pulse 65 65 61 Resp 18 18 18 B/P (MAP) 168/74 (105) 165/83 (110) 164/77 (106) Pulse Ox 95 96 96 O2 Delivery Room Air Room Air Room Air Room Air 01/20/21 01/20/21 01/20/21 01/20/21 07:45 09:19 09:19 11:15 Temp 97.2 97.2 Pulse 61 61 61 Resp 18 B/P (MAP) 164/77 164/77 141/64 (89) Pulse Ox 95 O2 Delivery Room Air Room Air Intake and Output 01/19/21 01/19/21 01/20/21 15:00 23:00 07:00 Intake Total 550 ml 215 ml 100 ml Output Total 125 ml Balance 550 ml 90 ml 100 ml Problem List Problems Medical Problems: (1) Bradycardia on ECG Status: Acute Assessment S.bovis/micrococcus bacteremia--possibility of GI lesion. GERD Prior H.pylori--treated? Plan of Care Note Continue antibiotics. Merits colonoscopy, maybe repeat EGD; probably best done as outpatient. Justicifation of Admission Dx: Justifications for Admission: Justification of Admission Dx: Yes Sepsis: Bacteremia KATHARINE SCHAEFER MD Jan 20, 2021 14:38
[2021-01-20 15:00] VITALS: BP 142/80
--- NOTE | 2021-01-20 15:52 | NUR ---
Allergies: NKDA INR 1.1 BUN Cr 0.8 Platelets 222 Blood culture done Yes, negative as of 01/17/21 blood culture results Order Verified Yes Consent signed Yes Previous PICC placement Past Medical/Surgical history and current diagnosis reviewed Y Patient Medical /Surgical History Related to PICC line placement None Infectious Disease consult Septicemia/Bacteremia Special considerations for PICC line placement None Anticoagulation therapy PICC placement indication custodial antibiotic usage Chanell Cai RN name of PICC Nurse
--- NOTE | 2021-01-20 15:58 | NUR ---
Procedure: Following complete explanation of the PICC procedure including the indications, risks, and potential complications, informed consent was obtained. The possibility for infection was discussed along with signs, symptoms, and prevention. All the questions were answered. Written and verbal patient education was provided. Hand hygiene performed. Standardized central line checklist was utilized. The patient was placed in the supine position, the arm was prepped with chlorhexidine and patient draped with maximum sterile barrier. 4 mL 1% lidocaine was infiltrated into the skin to provide local anesthesia. A thorough assessment of upper extremity completed. Using real-time ultrasound guidance and standardized micro puncture set, the basilic vein was punctured and a peel away sheath was placed using the modified Seldinger technique. A tip location device was used to ensure adequate catheter placement. The catheter was secured using a securement device and an antimicrobial patch was applied directly on the insertion site followed by a transparent dressing. All ports withdraw blood and flush without resistance. Patient tolerated the procedure without apparent complication(s). Single Lumen Power PICC placement successful and uncomplicated. Placement verified by EKG tip confirmation system and/or chest x-ray. Tip located in the CAJ. Complications: None
[2021-01-20 19:00] VITALS: BP 152/72
[2021-01-20] MEDS: LATANOPROST 0.005% OPHTH SOLUTION 2.5ML BOTTLE. OU SCH (20:19)
[2021-01-20] MEDS: ATORVASTATIN CALCIUM 10 MG TABLET. PO SCH (20:19)
[2021-01-20] MEDS: ENOXAPARIN 40 MG/0.4 ML SYRINGE. SQ SCH (20:20)
[2021-01-20 23:04] VITALS: BP 159/73
[2021-01-21 03:00] VITALS: BP 154/74
[2021-01-21 07:00] VITALS: BP 155/80
--- NOTE | 2021-01-21 08:41 | PDOC ---
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 Anicteric. Oral mucosa moist. No O2. NECK: Supple. No JVD. LUNGS: Clear bilaterally. No wheezing. HEART: S1, S2. ABDOMEN: Soft. Mild tenderness present diffusely, more over the epigastric area. No rebound or guarding. EXTREMITIES: No edema, no cyanosis. Left upper extremity injection site without evidence of fluctuance or erythema DERMATOLOGIC: Warm, dry, no generalized rash. NEUROLOGIC: Alert, oriented x 3, grossly nonfocal. PSYCHIATRIC: Calm and cooperative. Medications: Inpatient Meds: Medications reviewed. Labs: Lab Laboratory Tests Test 01/20/21 10:25 01/20/21 11:41 01/20/21 17:23 01/20/21 20:30 Sodium Level 142 mmol/L (136-145) Potassium Level 3.7 mmol/L (3.5-5.1) Chloride Level 104 mmol/L (98-107) Carbon Dioxide Level 28 mmol/L (21-32) Anion Gap 10 (6-14) Blood Urea Nitrogen 14 mg/dL (7-20) Creatinine 0.8 mg/dL (0.6-1.0) Estimated GFR (Cockcroft-Gault) 70.5 BUN/Creatinine Ratio 18 (6-20) Glucose Level 149 mg/dL (70-99) Calcium Level 9.0 mg/dL (8.5-10.1) Total Bilirubin 0.5 mg/dL (0.2-1.0) Aspartate Amino Transf (AST/SGOT) 18 U/L (15-37) Alanine Aminotransferase (ALT/SGPT) 63 U/L (14-59) Alkaline Phosphatase 92 U/L (46-116) Creatine Kinase 45 U/L (26-192) Total Protein 7.4 g/dL (6.4-8.2) Albumin 3.4 g/dL (3.4-5.0) Albumin/Globulin Ratio 0.9 (1.0-1.7) Glucose (Fingerstick) 123 mg/dL (70-99) 144 mg/dL (70-99) 129 mg/dL (70-99) Test 01/21/21 07:39 Glucose (Fingerstick) 115 mg/dL (70-99) Micro ECHO The left ventricular systolic function is normal and the ejection fraction is within normal range. Estimated ejection fraction 55%. There is normal LV segmental wall motion. Doppler and Color Flow revealed moderate aortic regurgitation. Doppler and Color Flow revealed mild tricuspid regurgitation. Estimated PAP 55 mmHg. The ascending aorta is mildly dilated at 3.[address] abdomen and pelvis IMPRESSION: 1. Colonic diverticulosis. There is no evidence of diverticulitis. 2. 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 Follow-up is not routinely performed for simple cysts. 3. Ectatic or mildly aneurysmal ascending aorta, partially included on the [id number]. 4. Cardiomegaly. CLEMENTE 01/19 <Conclusion> The left ventricle is normal size. The left ventricular systolic function is normal and the ejection fraction is within normal range. The Ejection Fraction is 50-55%. There is borderline concentric left ventricular hypertrophy. Doppler and Color Flow revealed mild to moderate aortic regurgitation. There is no aortic valvular stenosis. There is no aortic valvular vegetation. The mitral valve is normal in structure and function. There is mild mitral valve regurgitation noted. Doppler and Color Flow revealed mild tricuspid regurgitation. The pulmonary valve is normal in structure and function. There is no evidence of vegetations on this study. BC POA 09/23 bottles streptococcal bovis RUN DATE: 01/20/21 [facility] LAB *LIVE* PAGE 1 RUN TIME: 935 Specimen Inquiry PATIENT: SANTOSH PIPER ACCT: [id number] LOC: [address] [place] [address] U: [id number] AGE/SX: 70/F ROOM: 246 RE01/12/[address]: BARRY OROZCO MD : 1950 BED: 1 DIS: STATUS: ADM IN TLOC: SPEC #: [id number] JOSE: 01/12/21 STATUS: COMP REQ #: [id number] RECD: 01/12/[address]: BARRY OROZCO MD SOURCE: BLOOD ENTR: 01/13/[address] [facility] [address]: ELIDA ESPINAL DO [facility]: FÁTIMA GALEANO MD, DONALD J MD THOMPSON,KATHARINE Bobo MD ORDERED: BLD CULT - LC Procedure Result BLOOD CULTURE LC Final Final GRAM POSITIVE COCCI FINAL ID= [STREP (BOVIS) GALLOLYTICUS] Growth of organism in only one of multiple sets; isolation does not necessarily indicate infection. Contact Microbiology Lab if further testing is clinically warranted. SENSITIVTY REQUESTED 01/18/21 STREP (BOVIS) GALLOLYTICUS * This is a corrected result. * A prior result that was reported as final has been changed. ANTIMICROBIAL SUSCEPTIBILITY Final Comment MICROSTREP PANEL 2 STREP (BOVIS) GALLOLYTICUS ANTIBIOTIC RESULT INTERPRETATION AMPICILLIN <=0.06 S AZITHROMYCIN 1 I CEFTRIAXONE <=0.25 S CEFOTAXIME <=0.25 S CLARITHROMYCIN 0.5 I CEFEPIME <=0.25 S ERYTHROMYCIN <=0.06 S LINEZOLID 1 S LEVOFLOXACIN <=0.25 S MEROPENEM <=0.06 S MOXIFLOXACIN <=0.25 S PENICILLIN 0.06 S TETRACYCLINE <=0.5 S VANCOMYCIN 0.5 S Unless otherwise specified, Testing Performed by: [address] [address] For Inquires, the Physician may contact the Microbiology department at [phone] --- ------- ----- RUN DATE: 01/18/21 [facility] LAB *LIVE* PAGE 1 RUN TIME: 40 Specimen Inquiry PATIENT: SANTOSH PIPER ACCT: [id number] LOC: [address] [place] [address] U: [id number] AGE/SX: 70/F ROOM: 246 RE01/12/[address]: BARRY OROZCO MD : 1950 BED: 1 DIS: STATUS: ADM IN TLOC: SPEC #: [id number] JOSE: 01/14/21 STATUS: COMP REQ #: [id number] RECD: 01/14/21 [facility] [address]: PAULETTE MCGRAW MD SOURCE: BLOOD ENTR: 01/16/21 [facility] [address]: BARRY OROZCO MD SPDESC: FÁTIMA GALEANO MD, DONALD J MD THOMPSON,KATHARINE Bobo MD ORDERED: MICHELINE CULT - LC Procedure Result BLOOD CULTURE LC Final Final GRAM POSITIVE COCCI FINAL ID= [MICROCOCCUS LUTEUS] NO FURTHER WORKUP MICROCOCCUS LUTEUS Unless otherwise specified, Testing Performed by: [address] [address] For Inquires, the Physician may contact the Microbiology department at [phone] --------- RUN DATE: 01/19/21 [facility] *LIVE* PAGE 1 RUN TIME: 1153 Specimen Inquiry PATIENT: SANTOSH PIPER ACCT: [id number] LOC: [facility] U: [id number] AGE/SX: 70/F ROOM: 246 RE01/12/[address]: BARRY OROZCO MD : 1950 BED: 1 DIS: STATUS: ADM IN TLOC: SPEC #: [id number] JOSE: 01/14/21 STATUS: COMP REQ #: [id number] RECD: 01/16/21 [facility] DR: BARRY OROZCO MD SOURCE: BLOOD ENTR: 01/16/[address]: PAULETTE MCGRAW MD SPDESC: FÁTIMA GALEANO MD, DONALD J MD THOMPSON,KATHARINE Bobo MD ORDERED: MICHELINE CULT - LC COMMENTS: SECOND OF SET Procedure Result BLOOD CULTURE LC Final Final GRAM POSITIVE COCCI FINAL ID= [STAPHYLOCOCCUS WARNERI] FINAL ID= [LATEX (COAG) NEG STAPH] Growth of organism in only one of multiple sets; isolation does not necessarily indicate infection. Contact Microbiology Lab if further testing is clinically warranted. STAPHYLOCOCCUS WARNERI LATEX (COAG) NEG STAPH Unless otherwise specified, Testing Performed by: [address] [address] For Inquires, the Physician may contact the Microbiology department at [phone] Objective: Assessment: Patient with polymicrobial bacteremia, source appears GI, 1. Fever. pattern improved 2. Sepsis from Gram-positive bacteremia. January 12, 3. Streptococcus gallolyticus bacteremia January 12,2/4 bottles present on admission, source GI. Micrococcus luteus bacteremia and now staph warneri bacteremia reported January 14 total bc positive 3 out of 4 bottles Source unclear CLEMENTE January 19, 2021 4. Abdominal pain. 5. Nausea and vomiting. Diarrhea 6. CT showing 4.5 cm ascending thoracic aortic aneurysm. 7. Chronic back pain with compression fracture on CT. 8. Colonic diverticulosis on CT. 9. 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 10. Cardiomegaly. 12. Diabetes. 13. Anxiety and depression. 14. Poorly controlled Hypertension 15. Hyperlipidemia; statin 16. Bradycardia 17. PAD; reports tingling in LE as HS. no wounds 18. S/P COVID Vaccine last Sunday 19. 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 difficile PCR reported negative Last CPK 45 on 01/20 F/U Repeat BC on 01/17 negative so far Monitor Labs Weekly labs while on antibiotics Patient can follow-up in ID clinic in 2 weeks OR Will evaluate patient in infusion clinic in 2 weeks February 04, 2021 Please call ID MD production miner Discussed with nursing staff PAULETTE MCGRAW MD Jan 21, 2021 08:41
[2021-01-21] MEDS: CLOPIDOGREL BISULFATE 75 MG TABLET PO SCH (09:03)
[2021-01-21] MEDS: FLUoxetine HCL 10 MG CAPSULE PO SCH (09:03)
[2021-01-21] MEDS: OMEGA-3 FATTY ACIDS/FISH OIL 1,000 MG CAPSULE. PO SCH (09:03)
[2021-01-21] MEDS: VITAMIN B COMPLEX TABLET. PO SCH (09:04)
[2021-01-21] MEDS: ASPIRIN CHEWABLE 81 MG TABLET. PO SCH (09:04)
[2021-01-21] MEDS: LOSARTAN POTASSIUM 50 MG TABLET. PO SCH (09:04)
[2021-01-21] MEDS: POTASSIUM CHLORIDE 20 MEQ TABLET.ER. PO SCH (09:04)
[2021-01-21] MEDS: cefTRIAXone IV Push 2 GM VIAL. IVP SCH (09:06)
[2021-01-21] MEDS: LINAGLIPTIN 5 MG TABLET PO SCH (09:06)
[2021-01-21] MEDS: LACTOBACILLUS RHAMNOSUS GG 1 CAPSULE. PO SCH ×2 (09:06→22:38)
[2021-01-21] MEDS: FLUTICASONE 50MCG/NASAL SPRAY 16GM BOTTLE. NS SCH (09:06)
[2021-01-21] MEDS: PENTOXIFYLLINE ER 400 MG TABLET.ER. PO SCH (09:06)
[2021-01-21] MEDS: PANTOPRAZOLE 40 MG TABLET.DR. PO SCH (09:06)
[2021-01-21] MEDS: DAPTOmycin (GENERIC) IVPB 350 MG in IV NORMAL SALINE 50ML 50 ML IV SCH (09:59)
[2021-01-21 11:00] VITALS: BP 133/62
--- NOTE | 2021-01-21 11:22 | NUR ---
SS following up with discharge planning. SS reviewed pt chart and discussed with pt RN. Pt is currently on room air. COVID19 negative. PICC line placed for IV antibiotics. Script received for outpatient IV antibiotics. Script and clinical phoned and faxed to [facility], [phone]; fax [phone]. SS left voicemail for pt's daughter, Sheila, , to discuss. PT/OT recommended home. SS will continue to follow for discharge planning. Addendum: 01/21/21 at 1544 by ROSETTE TIPTON SS Pt needing prior authorization for outpatient IV antibiotics. Prior authorization with insurance still pending at this time. Outpatient unable to schedule appointment time until prior authorization has been received. service delivery manager, Bhakti, working with insurance for prior authorization. SS will continue to follow for discharge planning.
--- NOTE | 2021-01-21 13:03 | PDOC ---
PROGRESS NOTES Date of Service: DATE: 01/21/21 TIME: 13:10 Chief Complaint Chief Complaint A/P: ABDOMINAL PAIN, possible gastritis vs PUD Bradycardia, held calcium channel blockers , however, did not improve with this given she is on dihydropyridine, will attempt restarting given her HTN obesity ascending thoracic aorta appears enlarged measuring 4.5 cm // measurement is limited by motion artifact and noncontrast exam. moderate to severe compression fracture of T9 post vertebroplasty Sepsis from Gram-positive bacteremia. Gram-positive bacteremia - ID consulted - Streptococcus bovis bacteremia,2/4 bottles present on admission, source likely GI. Nausea. Chronic back pain with compression fracture on CT. Colonic diverticulosis on CT. 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 Cardiomegaly. Diabetes. Anxiety and depression. FEN - Cardiac diet PPX - iv protonix CODE - FULL Dispo - inpatient History of Present Illness History of Present Illness Ms Luo is a 70 Yr old marshallese speaking female w/ PMHx HTN, HLD, GERD, PUD, anxiety with depression, DM2 who comes to ED with grandson c/o epigastric pain x [address] chest ascending thoracic aorta appears enlarged measuring 4.5 cm // measurement is limited by motion artifact and noncontrast exam. moderate to severe compression fracture of T9 post vertebroplasty ABDOMINAL PAIN, possible gastritis vs PUD Bradycardia, hold calcium channel blockers plan ADMIT CVC BED Cardiology consult iv protonix 40 mg q 24 hrs GI CONSULT npo hold calcium channel blockers now temp noted blood cult pos - ID consulted 01/14: Vomited x1 overnight. Febrile to 101.7 F overnight. Nasal congestion and right ear and bilateral maxillary sinus pain today. K 2.9. Still with abdominal cramping and nausea. 01/17 : Afebrile overnight. Strep bovis on blood cultures. iv Zosyn per ID., IV DAPTOMYCIN ear pain improved. Abdominal pain improved and she is tolerating p.o. well. No chest pain or shortness of breath. Awaiting final sensitivities. HIDA scan negative source is unlikely to be gallbladder possibly per perforated diverticulitis Repeat blood cultures from 01/14/2021 + for gram-positive cocci given persisting gram-positive bacteremia CLEMENTE is indicated in the near future to r/o vegetation. Sepsis from Gram-positive bacteremia. January 12, Streptococcus gallolyticus bacteremia January 12,2/4 bottles present on admission, source GI. Micrococcus luteus bacteremia January 14 3 out of 4 bottles Procedure Result BLOOD CULTURE LC Preliminary Preliminary FINAL ID= [MICROCOCCUS LUTEUS] MICROCOCCUS LUTEUS Unless otherwise specified, Testing Performed by: [address] [id number] For Inquires, the Physician may contact the Microbiology department at [phone] 37 MIN pt exam, chart review, > 50% of time spent with exam, chart review, pt care coordination 01-18 : CLEMENTE - Afebrile overnight. Strep bovis on blood cultures. iv Zosyn per ID., IV DAPTOMYCIN ear pain improved. Abdominal pain improved and she is tolerating p.o. well. No chest pain or shortness of breath. Awaiting final sensitivities. HIDA scan negative source is unlikely to be gallbladder possibly per perforated diverticulitis Repeat blood cultures from 01/14/2021 + for gram-positive cocci given persisting gram-positive bacteremia CLEMENTE is indicated in the near future to r/o vegetation. Sepsis from Gram-positive bacteremia. January 12, Streptococcus gallolyticus bacteremia January 12,2/4 bottles present on admission, source GI. Micrococcus luteus bacteremia January 14 3 out of 4 bottles Procedure Result BLOOD CULTURE LC Preliminary Preliminary FINAL ID= [MICROCOCCUS LUTEUS] MICROCOCCUS LUTEUS Unless otherwise specified, Testing Performed by: [address] [id number] For Inquires, the Physician may contact the Microbiology department at [phone] 01/19/2021 No acute events overnight. Patient seen and examined next recliner. Complains of reflux symptoms some headaches. Currently n.p.o. for CLEMENTE today. Patient's chart, labs, images were reviewed and discussed with RN 01-20 PICC placed for antibiotics at home. Afebrile overnight. Strep bovis on blood cultures. iv Zosyn per ID., IV DAPTOMYCIN ear pain improved. Abdominal pain improved and she is tolerating p.o. well. No chest pain or shortness of breath. Awaiting final sensitivities. HIDA scan negative source is unlikely to be gallbladder possibly per perforated diverticulitis Repeat blood cultures from 01/14/2021 + for gram-positive cocci given persisting gram-positive bacteremia CLEMENTE is indicated in the near future to r/o vegetation. Sepsis from Gram-positive bacteremia. January 12, Streptococcus gallolyticus bacteremia January 12,2/4 bottles present on admission, source GI. Micrococcus luteus bacteremia January 14 3 out of 4 bottles Procedure Result BLOOD CULTURE LC Preliminary Preliminary FINAL ID= [MICROCOCCUS LUTEUS] MICROCOCCUS LUTEUS Unless otherwise specified, Testing Performed by: [address] [id number] For Inquires, the Physician may contact the Microbiology department at [phone] JALEN JOLLEY MD, MICHAEL F MD ORDERED: MICHELINE DOE - LC Procedure Result BLOOD CULTURE LC Final Final GRAM POSITIVE COCCI FINAL ID= [MICROCOCCUS LUTEUS] NO FURTHER WORKUP MICROCOCCUS LUTEUS Unless otherwise specified, Testing Performed by: [address] [id number] For Inquires, the Physician may contact the Microbiology department at [phone] colonoscopy as strep gallolyticus bacteremia source could be GI malignancy,can be done as outpt 38 min pt exam, chart review, > 50% of time spent with exam, chart review, pt care coordination 6 PICC placed for antibiotics at home. Afebrile overnight. Strep bovis on blood cultures. iv Zosyn per ID., IV DAPTOMYCIN ear pain improved. Abdominal pain improved and she is tolerating p.o. well. No chest pain or shortness of breath. Awaiting final sensitivities. HIDA scan negative source is unlikely to be gallbladder possibly per perforated diverticulitis Repeat blood cultures from 01/14/2021 + for gram-positive cocci given persisting gram-positive bacteremia CLEMENTE is indicated in the near future to r/o vegetation. Sepsis from Gram-positive bacteremia. January 12, Streptococcus gallolyticus bacteremia January 12,2/4 bottles present on admission, source GI. Micrococcus luteus bacteremia January 14 3 out of 4 bottles Procedure Result BLOOD CULTURE LC Preliminary Preliminary FINAL ID= [MICROCOCCUS LUTEUS] MICROCOCCUS LUTEUS Unless otherwise specified, Testing Performed by: [address] [id number] For Inquires, the Physician may contact the Microbiology department at [phone] -- JALEN JOLLEY MD,KATHRAINE Bobo MD ORDERED: MICHELINE CULT - LC Procedure Result BLOOD CULTURE LC Final Final GRAM POSITIVE COCCI FINAL ID= [MICROCOCCUS LUTEUS] NO FURTHER WORKUP MICROCOCCUS LUTEUS Unless otherwise specified, Testing Performed by: [address] [id number] For Inquires, the Physician may contact the Microbiology department at [phone] colonoscopy as strep gallolyticus bacteremia source could be GI malignancy,can be done as outpt 38 min pt exam, chart review, > 50% of time spent with exam, chart review, pt care coordination 6 Susceptibilities for micrococcus 2/4 bottles is not available from [facility] per discussion with micro lab Susceptibilities for staph warneri is pending, 1/4 bottles could be a cont aminant 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 Afebrile overnight. Strep bovis on blood cultures. iv ROCEPHIN per ID., IV DAPTOMYCIN ear pain improved. Abdominal pain improved and she is tolerating p.o. well. No chest pain or shortness of breath. Awaiting final sensitivities. HIDA scan negative source is unlikely to be gallbladder possibly per perforated diverticulitis Repeat blood cultures from 01/14/2021 + for gram-positive cocci given persisting gram-positive bacteremia CLEMENTE is indicated in the near future to r/o vegetation. Sepsis from Gram-positive bacteremia. January 12, Streptococcus gallolyticus bacteremia January 12,2/4 bottles present on admission, source GI. Micrococcus luteus bacteremia January 14 3 out of 4 bottles Procedure Result BLOOD CULTURE LC Preliminary Preliminary FINAL ID= [MICROCOCCUS LUTEUS] MICROCOCCUS LUTEUS Unless otherwise specified, Testing Performed by: [address] [id number] For Inquires, the Physician may contact the Microbiology department at [phone] JALEN JOLLEY MD, MICHAEL F MD ORDERED: MICHELINE DOE - LC Procedure Result --- --------- BLOOD CULTURE LC Final Final GRAM POSITIVE COCCI FINAL ID= [MICROCOCCUS LUTEUS] NO FURTHER WORKUP MICROCOCCUS LUTEUS Unless otherwise specified, Testing Performed by: [address] [id number] For Inquires, the Physician may contact the Microbiology department at [phone] ----- ------- colonoscopy as strep gallolyticus bacteremia source could be GI malignancy,can be done as outpt 36 min pt exam, chart review, D/C PLANNING > 50% of time spent with exam, chart review, pt care coordination Vitals Vitals Vital Signs Date Time Temp Pulse Resp B/P (MAP) Pulse Ox O2 Delivery O2 Flow Rate FiO2 01/21/21 11:00 98.9 63 16 133/62 (85) 95 Room Air 98.9 Physical Exam Physical Exam GENERAL: Alert, awake, pleasant female, lying in bed comfortably, in no acute distress.on ra HEENT: Normocephalic, atraumatic. Anicteric. Oral mucosa moist. No O2. NECK: Supple. No JVD. LUNGS: Clear bilaterally. No wheezing. HEART: S1, S2. ABDOMEN: Soft. Mild tenderness present diffusely, more over the epigastric area. No rebound or guarding. EXTREMITIES: No edema, no cyanosis. Left upper extremity injection site without evidence of fluctuance or erythema DERMATOLOGIC: Warm, dry, no generalized rash. NEUROLOGIC: Alert, oriented x 3, grossly nonfocal. PSYCHIATRIC: Calm and cooperative. General: Alert, Oriented X3, Cooperative, No acute distress Heart: Regular rate, Normal S1, No murmurs Lungs: Clear Abdomen: Normal bowel sounds, Soft, No tenderness Extremities: No clubbing, No cyanosis, No edema, Normal pulses Skin: No breakdown, No significant lesion Labs LABS Laboratory Tests Test 01/20/21 17:23 01/20/21 20:30 01/21/21 07:39 01/21/21 11:47 Glucose (Fingerstick) 144 mg/dL (70-99) 129 mg/dL (70-99) 115 mg/dL (70-99) 106 mg/dL (70-99) Assessment and Plan Assessmemt and Plan Problems Medical Problems: (1) Bradycardia on ECG Status: Acute Comment Review of Relevant I have reviewed the following items homero (where applicable) has been applied. Labs Laboratory Tests Test 01/19/21 17:24 01/19/21 20:11 01/20/21 07:21 01/20/21 10:25 Glucose (Fingerstick) 142 mg/dL (70-99) 135 mg/dL (70-99) 106 mg/dL (70-99) Sodium Level 142 mmol/L (136-145) Potassium Level 3.7 mmol/L (3.5-5.1) Chloride Level 104 mmol/L (98-107) Carbon Dioxide Level 28 mmol/L (21-32) Anion Gap 10 (6-14) Blood Urea Nitrogen 14 mg/dL (7-20) Creatinine 0.8 mg/dL (0.6-1.0) Estimated GFR (Cockcroft-Gault) 70.5 BUN/Creatinine Ratio 18 (6-20) Glucose Level 149 mg/dL (70-99) Calcium Level 9.0 mg/dL (8.5-10.1) Total Bilirubin 0.5 mg/dL (0.2-1.0) Aspartate Amino Transf (AST/SGOT) 18 U/L (15-37) Alanine Aminotransferase (ALT/SGPT) 63 U/L (14-59) Alkaline Phosphatase 92 U/L (46-116) Creatine Kinase 45 U/L (26-192) Total Protein 7.4 g/dL (6.4-8.2) Albumin 3.4 g/dL (3.4-5.0) Albumin/Globulin Ratio 0.9 (1.0-1.7) Test 01/20/21 11:41 01/20/21 17:23 01/20/21 20:30 01/21/21 07:39 Glucose (Fingerstick) 123 mg/dL (70-99) 144 mg/dL (70-99) 129 mg/dL (70-99) 115 mg/dL (70-99) Test 01/21/21 11:47 Glucose (Fingerstick) 106 mg/dL (70-99) Laboratory Tests Test 01/20/21 17:23 01/20/21 20:30 01/21/21 07:39 01/21/21 11:47 Glucose (Fingerstick) 144 mg/dL (70-99) 129 mg/dL (70-99) 115 mg/dL (70-99) 106 mg/dL (70-99) Microbiology 01/17/21 Blood Culture - Preliminary, Resulted NO GROWTH AFTER 4 DAYS Medications Current Medications Iohexol (Omnipaque 300 Mg/ml) 75 ml 1X ONCE IV Last administered on 01/12/21at 14:38; Start 01/12/21 at 14:15; Stop 01/12/21 at 14:16; Status DC Info (CONTRAST GIVEN -- Rx MONITORING) 1 each PRN DAILY PRN MC SEE COMMENTS; Start 01/12/21 at 14:15; Stop 01/14/21 at 14:14; Status DC Ondansetron HCl (Zofran) 4 mg PRN Q8HRS PRN IV NAUSEA/VOMITING; Start 01/12/21 at 15:45; Stop 01/12/21 at 16:51; Status DC Pantoprazole Sodium (PROTONIX VIAL for IV PUSH) 40 mg DAILY08 ONCE IVP Last administered on 01/12/21at 17:40; Start 01/12/21 at 17:00; Stop 01/12/21 at 17:01; Status DC Sodium Chloride (Normal Saline Flush) 3 ml QSHIFT PRN IV AFTER MEDS AND BLOOD DRAWS; Start 01/12/21 at 17:00 Sodium Chloride 1,000 ml @ 100 mls/hr Q10H IV Last administered on 01/13/21at 18:21; Start 01/12/21 at 17:00; Stop 01/14/21 at 08:20; Status DC Dextrose/Sodium Chloride 1,000 ml @ 80 mls/hr [id number] IV ; Start 01/12/21 at 17:00; Status UNV Ondansetron HCl (Zofran) 4 mg PRN Q4HRS PRN IV NAUSEA/VOMITING 1ST CHOICE Last administered on 01/13/21at 20:35; Start 01/12/21 at 17:00 Acetaminophen (Tylenol) 650 mg PRN Q4HRS PRN PO TEMP OVER 100.4F OR MILD PAIN Last administered on 01/20/21at 00:50; Start 01/12/21 at 17:00 Al Hydroxide/Mg Hydroxide (Mylanta Plus Xs) 30 ml PRN DAILY PRN PO HEARTBURN / GAS; Start 01/12/21 at 17:00 Sodium Monofluorophosphate (Fleet Adult) 133 ml PRN DAILY PRN [place] CONSTIPATION; Start 01/12/21 at 17:00; Stop 01/15/21 at 14:48; Status DC Docusate Sodium (Colace) 100 mg PRN BID PRN PO HARD STOOLS; Start 01/12/21 at 17:00 Albuterol Sulfate (Ventolin Neb Soln) 2.5 mg PRN Q4HRS PRN NEB SHORTNESS OF BREATH; Start 01/12/21 at 17:00 Guaifenesin (Robitussin) 200 mg PRN Q4HRS PRN PO COUGH; Start 01/12/21 at 17:00 Lorazepam (Ativan) 0.5 mg PRN Q4HRS PRN PO ANXIETY / AGITATION; Start 01/12/21 at 17:00 Enoxaparin Sodium (Lovenox 40mg Syringe) 40 mg Q24H SQ Last administered on 01/20/21at 20:20; Start 01/12/21 at 21:00 Aspirin (Aspirin Chewable) 81 mg DAILY PO Last administered on 01/21/21 09:04; Start 01/13/21 at 09:00 Clopidogrel Bisulfate (Plavix) 75 mg DAILY PO Last administered on 01/21/21 09:03; Start 01/13/21 at 09:00 Fluoxetine HCl (PROzac) 10 mg DAILY PO Last administered on 01/21/21 09:03; Start 01/13/21 at 09:00 Hydrochlorothiazide (Hydrodiuril) 25 mg DAILY PO Last administered on 01/13/21 11:56; Start 01/13/21 at 09:00; Stop 01/14/21 at 08:20; Status DC Pentoxifylline (TRENtal) 400 mg DAILY PO Last administered on 01/21/21 09:06; Start 01/13/21 at 09:00 Vitamin B Complex (Hang B) 1 tab DAILY PO Last administered on 01/21/21 09:04; Start 01/13/21 at 09:00 Fish Oil (Fish Oil) 1,000 mg DAILY PO Last administered on 01/21/21 09:03; Start 01/13/21 at 09:00 Ondansetron HCl (Zofran Odt) 4 mg PRN Q8HRS PRN PO NAUSEA/VOMITING Last administered on 01/16/21 04:16; Start 01/12/21 at 17:00 Atorvastatin Calcium (Lipitor) 5 mg QHS PO Last administered on 01/20/21 20:19; Start 01/12/21 at 21:00 Hydralazine HCl (Apresoline Inj) 10 mg PRN Q4HRS PRN IVP ELEVATED BP, SEE COMMENTS Last administered on 01/19/21at 10:59; Start 01/12/21 at 20:30 Piperacillin Sod/ Tazobactam Sod 2.25 gm/Sodium Chloride 50 ml @ 100 mls/hr 1X ONCE IV ; Start 01/13/21 at 09:15; Stop 01/13/21 at 09:44; Status UNV Piperacillin Sod/ Tazobactam Sod 3.375 gm/Sodium Chloride 50 ml @ 100 mls/hr Q6HRS IV Last administered on 01/16/21at 05:52; Start 01/13/21 at 10:00; Stop 01/16/21 at 08:21; Status DC Magnesium Sulfate 50 ml @ 25 mls/hr 1X ONCE IV Last administered on 01/13/21at 11:21; Start 01/13/21 at 11:00; Stop 01/13/21 at 12:59; Status DC Pantoprazole Sodium (Protonix) 40 mg DAILYAC PO Last administered on 01/21/21 09:06; Start 01/13/21 at 12:30 Daptomycin 350 mg/ Sodium Chloride 50 ml @ 100 mls/hr Q24H IV Last administered on 01/14/21 14:09; Start 01/13/21 at 14:00; Stop 01/15/21 at 09:31; Status DC Lactobacillus Rhamnosus (Culturelle) 1 cap BID PO Last administered on 6/4/21at 09:06; Start 01/13/21 at 21:00 Losartan Potassium (Cozaar) 100 mg DAILY PO Last administered on 01/21/21 09:04; Start 01/13/21 at 17:00 Potassium Chloride/Dextrose/ Sod Cl 1,000 ml @ 80 mls/hr [id number] ONCE IV Last administered on 01/14/21at 09:58; Start 01/14/21 at 09:00; Stop 01/14/21 at 21:29; Status DC Potassium Bicarbonate (Potassium Effervescent Tablet) 40 meq 1X ONCE PO Last administered on 01/14/21at 09:04; Start 01/14/21 at 08:15; Stop 01/14/21 at 08:28; Status DC Magnesium Sulfate 50 ml @ 25 mls/hr 1X ONCE IV Last administered on 01/14/21at 09:57; Start 01/14/21 at 08:15; Stop 01/14/21 at 10:14; Status DC Sodium Chloride ([place] Saline Nasal) 1 wagner PRN DAILY PRN NS NASAL CONGESTION; Start 01/14/21 at 12:00 Fluticasone Propionate (Flonase) 2 spray DAILY NS Last administered on 01/21/21at 09:06; Start 01/14/21 at 13:00 Fluticasone Propionate (Flonase) 2 spray DAILY NS ; Start 01/14/21 at 12:00; Status UNV Sodium Chloride ([place] Saline Nasal) 1 wagner PRN DAILY PRN NS NASAL CONGESTION; Start 01/14/21 at 12:00; Status UNV Latanoprost (Xalatan) 1 drop QHS OU Last administered on 01/20/21at 20:19; Start 01/16/21 at 21:00 Linagliptin (Tradjenta) 5 mg DAILY PO Last administered on 01/21/21at 09:06; Start 01/16/21 at 09:00 Amlodipine Besylate (Norvasc) 5 mg DAILY PO Last administered on 01/16/21at 08:08; Start 01/16/21 at 09:00; Stop 01/16/21 at 10:51; Status DC Ceftriaxone Sodium (Rocephin) 2 gm Q24H IVP Last administered on 01/21/21at 09:06; Start 01/16/21 at 09:00 Daptomycin 350 mg/ Sodium Chloride 50 ml @ 100 mls/hr Q24H IV Last administered on 01/21/21at 09:59; Start 01/16/21 at 10:00 Prochlorperazine Edisylate (Compazine) 10 mg PRN Q6HRS PRN IV Headache/NAUSEA/VOMITING-2nd Last administered on 01/16/21at 11:22; Start 01/16/21 at 10:45 Nifedipine (Procardia Xl) 30 mg DAILY PO Last administered on 01/21/21at 09:06; Start 01/17/21 at 09:00 Potassium Chloride (Klor-Con) 40 meq 1X ONCE PO Last administered on 01/17/21at 14:21; Start 01/17/21 at 14:30; Stop 01/17/21 at 14:31; Status DC Potassium Chloride (Klor-Con) 20 meq DAILYWBKFT PO Last administered on 01/21/21at 09:04; Start 01/18/21 at 08:00 Ringer's Solution 1,000 ml @ 50 mls/hr Q20H IV ; Start 01/19/21 at 07:00; Stop 01/19/21 at 18:59; Status DC Sodium Chloride (Normal Saline Flush) 10 ml QSHIFT PRN IV AFTER MEDS AND BLOOD DRAWS; Start 01/18/21 at 17:15 Lidocaine HCl (Xylocaine 2% Topical 5gm Tube) 1 wagner 1X ONCE TP ; Start 01/18/21 at 17:15; Stop 01/18/21 at 17:19; Status DC Lidocaine HCl (Viscous Lidocaine) 15 ml 1X ONCE MM ; Start 01/18/21 at 17:15; Stop 01/18/21 at 17:19; Status DC Benzocaine (Hurricaine One) 2 spray 1X ONCE MM ; Start 01/18/21 at 17:15; Stop 01/18/21 at 17:19; Status DC Lidocaine HCl (Viscous Lidocaine) 15 ml 1X ONCE SWSW Last administered on 01/19/21at 11:54; Start 01/19/21 at 08:30; Stop 01/19/21 at 08:47; Status DC Lidocaine HCl (Xylocaine 2% Topical 30gm Tube) 1 wagner 1X ONCE TP Last admin istered on 01/19/21at 11:53; Start 01/19/21 at 08:30; Stop 01/19/21 at 08:47; Status DC Benzocaine (Hurricaine One) 2 spray 1X ONCE MM Last administered on 01/19/21at 11:54; Start 01/19/21 at 08:30; Stop 01/19/21 at 08:47; Status DC Lidocaine HCl (Xylocaine 2% Topical 30gm Tube) 30 wagner STK-MED ONCE TP ; Start 01/19/21 at 10:54; Stop 01/19/21 at 10:54; Status DC Propofol (Diprivan) 200 mg STK-MED ONCE IV ; Start 01/19/21 at 11:14; Stop 01/19/21 at 11:15; Status DC Lidocaine HCl (Lidocaine Pf 2% Vial) 5 ml STK-MED ONCE .ROUTE ; Start 01/19/21 at 11:14; Stop 01/19/21 at 11:15; Status DC Ketamine HCl (Ketamine) 50 mg STK-MED ONCE .ROUTE ; Start 01/19/21 at 11:14; Stop 01/19/21 at 11:15; Status DC Sodium Chloride 1,000 ml @ 0 mls/hr Q0M IV ; Start 01/19/21 at 12:00 Active Scripts Active Nifedipine Er (Nifedipine) 30 Mg Tab.er.24 30 Mg PO DAILY 30 Days Reported Xalatan (Latanoprost) 2.5 Ml Drops 1 Drop OU QHS Losartan-Hctz 100-25 Mg Tab (Losartan/Hydrochlorothiazide) 1 Each Tablet 1 Each PO DAILY Januvia (Sitagliptin Phosphate) 100 Mg Tablet 100 Mg PO DAILY Pentoxifylline 400 Mg Tablet.er 400 Mg PO DAILY Pravastatin Sodium 20 Mg Tablet 20 Mg PO HS Vitals/I & O Vital Sign - Last 24 Hours 01/20/21 01/20/21 01/20/21 01/20/21 15:00 19:00 19:38 23:04 Temp 98.9 99.0 99.0 98.9 99.0 99.0 Pulse 73 66 75 Resp 18 20 20 B/P (MAP) 142/80 (100) 152/72 (98) 159/73 (101) Pulse Ox 96 94 96 O2 Delivery Room Air Room Air Room Air Room Air 01/21/21 01/21/21 01/21/21 01/21/21 03:00 07:00 07:45 09:04 Temp 98.8 99.0 98.8 99.0 Pulse 59 75 75 Resp 16 16 B/P (MAP) 154/74 (100) 155/80 (105) 155/80 Pulse Ox 95 95 O2 Delivery Room Air Room Air Room Air 01/21/21 01/21/21 09:06 11:00 Temp 98.9 98.9 Pulse 75 63 Resp 16 B/P (MAP) 155/80 133/62 (85) Pulse Ox 95 O2 Delivery Room Air Intake and Output 01/20/21 01/20/21 01/21/21 14:52 22:52 06:52 Intake Total 515 ml 315 ml Balance 515 ml 315 ml Justicifation of Admission Dx: Justifications for Admission: Justification of Admission Dx: Yes Sepsis: Bacteremia BARRY OROZCO MD Jan 21, 2021 13:03
[2021-01-21 15:00] VITALS: BP 125/61
--- NOTE | 2021-01-21 15:20 | PDOC ---
G I PROGRESS NOTE Subjective Continued GI "grumbles". Eating OK. Objective Still maintains colonoscopy here but motions suggest her heart cath. Can't document other than my EGD. Physical Exam Lugns clear. RRR Abdomen soft, obese. Review of Relevant I have reviewed the following items homero (where applicable) has been applied. Labs Laboratory Tests Test 01/19/21 17:24 01/19/21 20:11 01/20/21 07:21 01/20/21 10:25 Glucose (Fingerstick) 142 mg/dL (70-99) 135 mg/dL (70-99) 106 mg/dL (70-99) Sodium Level 142 mmol/L (136-145) Potassium Level 3.7 mmol/L (3.5-5.1) Chloride Level 104 mmol/L (98-107) Carbon Dioxide Level 28 mmol/L (21-32) Anion Gap 10 (6-14) Blood Urea Nitrogen 14 mg/dL (7-20) Creatinine 0.8 mg/dL (0.6-1.0) Estimated GFR (Cockcroft-Gault) 70.5 BUN/Creatinine Ratio 18 (6-20) Glucose Level 149 mg/dL (70-99) Calcium Level 9.0 mg/dL (8.5-10.1) Total Bilirubin 0.5 mg/dL (0.2-1.0) Aspartate Amino Transf (AST/SGOT) 18 U/L (15-37) Alanine Aminotransferase (ALT/SGPT) 63 U/L (14-59) Alkaline Phosphatase 92 U/L (46-116) Creatine Kinase 45 U/L (26-192) Total Protein 7.4 g/dL (6.4-8.2) Albumin 3.4 g/dL (3.4-5.0) Albumin/Globulin Ratio 0.9 (1.0-1.7) Test 01/20/21 11:41 01/20/21 17:23 01/20/21 20:30 01/21/21 07:39 Glucose (Fingerstick) 123 mg/dL (70-99) 144 mg/dL (70-99) 129 mg/dL (70-99) 115 mg/dL (70-99) Test 01/21/21 11:47 Glucose (Fingerstick) 106 mg/dL (70-99) Laboratory Tests Test 01/20/21 17:23 01/20/21 20:30 01/21/21 07:39 01/21/21 11:47 Glucose (Fingerstick) 144 mg/dL (70-99) 129 mg/dL (70-99) 115 mg/dL (70-99) 106 mg/dL (70-99) Microbiology 01/17/21 Blood Culture - Preliminary, Resulted NO GROWTH AFTER 4 DAYS Vitals/I & O Vital Sign - Last 24 Hours 01/20/21 01/20/21 01/20/21 01/21/21 19:00 19:38 23:04 03:00 Temp 99.0 99.0 98.8 99.0 99.0 98.8 Pulse 66 75 59 Resp 20 20 16 B/P (MAP) 152/72 (98) 159/73 (101) 154/74 (100) Pulse Ox 94 96 95 O2 Delivery Room Air Room Air Room Air Room Air 01/21/21 01/21/21 01/21/21 01/21/21 07:00 07:45 09:04 09:06 Temp 99.0 99.0 Pulse 75 75 75 Resp 16 B/P (MAP) 155/80 (105) 155/80 155/80 Pulse Ox 95 O2 Delivery Room Air Room Air 01/21/21 11:00 Temp 98.9 98.9 Pulse 63 Resp 16 B/P (MAP) 133/62 (85) Pulse Ox 95 O2 Delivery Room Air Intake and Output 01/20/21 01/20/21 01/21/21 15:00 23:00 07:00 Intake Total 515 ml 315 ml Balance 515 ml 315 ml Problem List Problems Medical Problems: (1) Bradycardia on ECG Status: Acute Assessment Bacteremia; organisms of gut origin and occult malignancy of concern. Merits colonoscopy, probably with repeat EGD as outpatient. Note near discharge; will give facesheet to office to contact her. Plan of Care Note Continue as now. Home on PPI. Off the weekend. Coverage available if needed. Justicifation of Admission Dx: Justifications for Admission: Justification of Admission Dx: Yes Sepsis: Bacteremia KATHARINE SCHAEFER MD Jan 21, 2021 15:20
[2021-01-21 19:10] VITALS: BP 158/101
[2021-01-21] MEDS: LATANOPROST 0.005% OPHTH SOLUTION 2.5ML BOTTLE. OU SCH (22:39)
[2021-01-21] MEDS: ATORVASTATIN CALCIUM 10 MG TABLET. PO SCH (22:39)
[2021-01-21] MEDS: ENOXAPARIN 40 MG/0.4 ML SYRINGE. SQ SCH (22:43)
[2021-01-21 23:30] VITALS: BP 145/71
[2021-01-22 03:15] VITALS: BP 155/62
[2021-01-22 07:20] VITALS: BP 151/72
--- NOTE | 2021-01-22 07:56 | PDOC ---
Infectious Disease Note Subjective: Subjective Patient states she feels better today Abdominal pain comes and goes Tolerating p.o. intake well On room air No fever, vomiting or diarrhea, shortness of breath or chest pain Vital Signs: Vital Signs Vital Signs Date Time Temp Pulse Resp B/P (MAP) Pulse Ox O2 Delivery O2 Flow Rate FiO2 01/22/21 07:20 97.7 62 18 151/72 (98) 95 Room Air 97.7 Physical Exam: PHYSICAL EXAM GENERAL: Alert, awake, pleasant female, lying in bed comfortably, in no acute distress.on ra HEENT: Normocephalic, atraumatic. Anicteric. Oral mucosa moist. No O2. NECK: Supple. No JVD. LUNGS: Clear bilaterally. No wheezing. HEART: S1, S2. ABDOMEN: Soft. Mild tenderness present diffusely, more over the epigastric area. No rebound or guarding. EXTREMITIES: No edema, no cyanosis. Left upper extremity injection site without evidence of fluctuance or erythema DERMATOLOGIC: Warm, dry, no generalized rash. NEUROLOGIC: Alert, oriented x 3, grossly nonfocal. PSYCHIATRIC: Calm and cooperative. Medications: Inpatient Meds: Medications reviewed. Labs: Lab Laboratory Tests Test 01/21/21 11:47 01/21/21 17:05 01/21/21 20:35 01/22/21 07:23 Glucose (Fingerstick) 106 mg/dL (70-99) 122 mg/dL (70-99) 124 mg/dL (70-99) 111 mg/dL (70-99) Micro ECHO The left ventricular systolic function is normal and the ejection fraction is within normal range. Estimated ejection fraction 55%. There is normal LV segmental wall motion. Doppler and Color Flow revealed moderate aortic regurgitation. Doppler and Color Flow revealed mild tricuspid regurgitation. Estimated PAP 55 mmHg. The ascending aorta is mildly dilated at 3.[address] abdomen and pelvis IMPRESSION: 1. Colonic diverticulosis. There is no evidence of diverticulitis. 2. 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 Follow-up is not routinely performed for simple cysts. 3. Ectatic or mildly aneurysmal ascending aorta, partially included on the [id number]. 4. Cardiomegaly. CLEMENTE 01/19 <Conclusion> The left ventricle is normal size. The left ventricular systolic function is normal and the ejection fraction is within normal range. The Ejection Fraction is 50-55%. There is borderline concentric left ventricular hypertrophy. Doppler and Color Flow revealed mild to moderate aortic regurgitation. There is no aortic valvular stenosis. There is no aortic valvular vegetation. The mitral valve is normal in structure and function. There is mild mitral valve regurgitation noted. Doppler and Color Flow revealed mild tricuspid regurgitation. The pulmonary valve is normal in structure and function. There is no evidence of vegetations on this study. POA 09/23 bottles streptococcal bovis RUN DATE: 01/20/21 [facility] *LIVE* PAGE 1 RUN TIME: 935 Specimen Inquiry PATIENT: SANTOSH PIPER ACCT: [id number] LOC: [address] [place] [address] U: [id number] AGE/SX: 70/F ROOM: 246 RE01/12/[address]: BARRY OROZCO MD : 1950 BED: 1 DIS: STATUS: ADM IN TLOC: SPEC #: [id number] JOSE: 01/12/21 STATUS: COMP REQ #: [id number] RECD: 01/12/211828 [facility] DR: BARRY OROZCO MD SOURCE: BLOOD ENTR: 01/13/21-[address] [facility] [address]: ELIDA ESPINAL DO [facility]: FÁTIMA GALEANO MD,JALEN SCHAEFER,KATHARINE Bobo MD ORDERED: BLD CULT - LC Procedure Result BLOOD CULTURE LC Final Final GRAM POSITIVE COCCI FINAL ID= [STREP (BOVIS) GALLOLYTICUS] Growth of organism in only one of multiple sets; isolation does not necessarily indicate infection. Contact Microbiology Lab if further testing is clinically warranted. SENSITIVTY REQUESTED 01/18/21 STREP (BOVIS) GALLOLYTICUS * This is a corrected result. * A prior result that was reported as final has been changed. ANTIMICROBIAL SUSCEPTIBILITY Final Comment MICROSTREP PANEL 2 STREP (BOVIS) GALLOLYTICUS ANTIBIOTIC RESULT INTERPRETATION AMPICILLIN <=0.06 S AZITHROMYCIN 1 I CEFTRIAXONE <=0.25 S CEFOTAXIME <=0.25 S CLARITHROMYCIN 0.5 I CEFEPIME <=0.25 S ERYTHROMYCIN <=0.06 S LINEZOLID 1 S LEVOFLOXACIN <=0.25 S MEROPENEM <=0.06 S MOXIFLOXACIN <=0.25 S PENICILLIN 0.06 S TETRACYCLINE <=0.5 S VANCOMYCIN 0.5 S Unless otherwise specified, Testing Performed by: [address] [address] For Inquires, the Physician may contact the Microbiology department at [phone] --- RUN DATE: 01/18/21 [facility] *LIVE* PAGE 1 RUN TIME: 823 Specimen Inquiry ---- -------- PATIENT: SANTOSH PIPER ACCT: [id number] LOC: [address] [place] [address] U: [id number] AGE/SX: 70/F ROOM: 246 RE01/12/[address]: BARRY OROZCO MD : 1950 BED: 1 DIS: STATUS: ADM IN TLOC: SPEC #: [id number] JOSE: 01/14/21 STATUS: COMP REQ #: [id number] RECD: 01/14/[address] [facility] [address]: PAULETTE MCGRAW MD SOURCE: BLOOD ENTR: 01/16/[address] [facility] [address]: BARRY OROZCO MD [facility]: FÁTIMA GALEANO MD,JALEN SCHAEFER,KATHARINE Bobo MD ORDERED: MICHELINE CULT - LC Procedure Result BLOOD CULTURE LC Final Final GRAM POSITIVE COCCI FINAL ID= [MICROCOCCUS LUTEUS] NO FURTHER WORKUP MICROCOCCUS LUTEUS Unless otherwise specified, Testing Performed by: [address] [address] For Inquires, the Physician may contact the Microbiology department at [phone] --------- -- RUN DATE: 01/19/21 [facility] *LIVE* PAGE 1 RUN TIME: 1153 Specimen Inquiry PATIENT: SANTOSH PIPER ACCT: [id number] LOC: [address] [place] [address] U: [id number] AGE/SX: 70/F ROOM: 246 RE01/12/[address]: BARRY OROZCO MD : 1950 BED: 1 DIS: STATUS: ADM IN TLOC: SPEC #: [id number] JOSE: 01/14/21-0 STATUS: COMP REQ #: [id number] RECD: 01/16/21-[address] [facility] [address]: BARRY OROZCO MD SOURCE: BLOOD ENTR: 01/16/21-[address]: PAULETTE MCGRAW MD [facility]: FÁTIMA GALEANO MD, DONALD J MD THOMPSON,KATHARINE Bobo MD ORDERED: MICHELINE CULT - LC COMMENTS: SECOND OF SET Procedure Result BLOOD CULTURE LC Final Final GRAM POSITIVE COCCI FINAL ID= [STAPHYLOCOCCUS WARNERI] FINAL ID= [LATEX (COAG) NEG STAPH] Growth of organism in only one of multiple sets; isolation does not necessarily indicate infection. Contact Microbiology Lab if further testing is clinically warranted. STAPHYLOCOCCUS WARNERI LATEX (COAG) NEG STAPH Unless otherwise specified, Testing Performed by: [address] [address] For Inquires, the Physician may contact the Microbiology department at [phone] Objective: Assessment: Patient with polymicrobial bacteremia, source appears GI, 1. Fever. pattern improved 2. Sepsis from Gram-positive bacteremia. January 12, 3. Streptococcus gallolyticus bacteremia January 12,2/4 bottles present on admission, source GI. Micrococcus luteus bacteremia and now staph warneri bacteremia reported January 14 total bc positive 3 out of 4 bottles Source unclear CLEMENTE January 19, 2021 4. Abdominal pain. 5. Nausea and vomiting. Diarrhea C diff and enteric panel negative 6. CT showing 4.5 cm ascending thoracic aortic aneurysm. 7. Chronic back pain with compression fracture on CT. 8. Colonic diverticulosis on CT. 9. 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 10. Cardiomegaly. 12. Diabetes. 13. Anxiety and depression. 14. Poorly controlled Hypertension 15. Hyperlipidemia; statin 16. Bradycardia 17. PAD; reports tingling in LE as HS. no wounds 18. S/P COVID Vaccine 19. 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 difficile PCR reported negative Last CPK 45 on 01/20 F/U Repeat BC on 01/17 negative so far Monitor Labs Weekly labs while on antibiotics Patient can follow-up in ID clinic in 2 weeks OR Will evaluate patient in infusion clinic in 2 weeks February 04, 2021 Please call ID MD applications scientist Patient is awaiting insurance approval for discharge Discussed with nursing staff PAULETTE MCGRAW MD Jan 22, 2021 07:56
[2021-01-22] MEDS: LINAGLIPTIN 5 MG TABLET PO SCH (09:37)
[2021-01-22] MEDS: VITAMIN B COMPLEX TABLET. PO SCH (09:37)
[2021-01-22] MEDS: PENTOXIFYLLINE ER 400 MG TABLET.ER. PO SCH (09:37)
[2021-01-22] MEDS: PANTOPRAZOLE 40 MG TABLET.DR. PO SCH (09:37)
[2021-01-22] MEDS: OMEGA-3 FATTY ACIDS/FISH OIL 1,000 MG CAPSULE. PO SCH (09:38)
[2021-01-22] MEDS: ASPIRIN CHEWABLE 81 MG TABLET. PO SCH (09:38)
[2021-01-22] MEDS: POTASSIUM CHLORIDE 20 MEQ TABLET.ER. PO SCH (09:38)
[2021-01-22] MEDS: LACTOBACILLUS RHAMNOSUS GG 1 CAPSULE. PO SCH ×2 (09:38→22:00)
[2021-01-22] MEDS: LOSARTAN POTASSIUM 50 MG TABLET. PO SCH (09:39)
[2021-01-22] MEDS: CLOPIDOGREL BISULFATE 75 MG TABLET PO SCH (09:39)
[2021-01-22] MEDS: FLUoxetine HCL 10 MG CAPSULE PO SCH (09:39)
[2021-01-22] MEDS: cefTRIAXone IV Push 2 GM VIAL. IVP SCH (09:40)
[2021-01-22] MEDS: DAPTOmycin (GENERIC) IVPB 350 MG in IV NORMAL SALINE 50ML 50 ML IV SCH (09:43)
[2021-01-22] MEDS: FLUTICASONE 50MCG/NASAL SPRAY 16GM BOTTLE. NS SCH (09:44)
[2021-01-22 10:29] VITALS: BP 131/66
--- NOTE | 2021-01-22 12:09 | PDOC3 ---
Discharge Summary Date of Admission: January 12, 2021 Date of Discharge: Jan 22, 2021 Follow-Up: 1-2 days Admitting Diagnosis comment: Chief Complaint Chief Complaint A/P: ABDOMINAL PAIN, possible gastritis vs PUD Bradycardia, held calcium channel blockers , however, did not improve with this given she is on dihydropyridine, will attempt restarting given her HTN obesity ascending thoracic aorta appears enlarged measuring 4.5 cm // measurement is limited by motion artifact and noncontrast exam. moderate to severe compression fracture of T9 post vertebroplasty Sepsis from Gram-positive bacteremia. Gram-positive bacteremia - ID consulted - Streptococcus bovis bacteremia,2/4 bottles present on admission, source likely GI. Nausea. Chronic back pain with compression fracture on CT. Colonic diverticulosis on CT. 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 Cardiomegaly. Diabetes. Anxiety and depression. FEN - Cardiac diet PPX - iv protonix CODE - FULL Dispo - inpatient History of Present Illness History of Present Illness Ms Luo is a 70 Yr old lao speaking female w/ PMHx HTN, HLD, GERD, PUD, anxiety with depression, DM2 who comes to ED with grandson c/o epigastric pain x [address] chest ascending thoracic aorta appears enlarged measuring 4.5 cm // measurement is limited by motion artifact and noncontrast exam. moderate to severe compression fracture of T9 post vertebroplasty ABDOMINAL PAIN, possible gastritis vs PUD Bradycardia, hold calcium channel blockers plan ADMIT CVC BED Cardiology consult iv protonix 40 mg q 24 hrs GI CONSULT npo hold calcium channel blockers now temp noted blood cult pos - ID consulted 01/14: Vomited x1 overnight. Febrile to 101.7 F overnight. Nasal congestion and right ear and bilateral maxillary sinus pain today. K 2.9. Still with abdominal cramping and nausea. 01/17 : Afebrile overnight. Strep bovis on blood cultures. iv Zosyn per ID., IV DAPTOMYCIN ear pain improved. Abdominal pain improved and she is tolerating p.o. well. No chest pain or shortness of breath. Awaiting final sensitivities. HIDA scan negative source is unlikely to be gallbladder possibly per perforated diverticulitis Repeat blood cultures from 01/14/2021 + for gram-positive cocci given persisting gram-positive bacteremia CLEMENTE is indicated in the near future to r/o vegetation. Sepsis from Gram-positive bacteremia. May 26, Streptococcus gallolyticus bacteremia January 12,2/4 bottles present on admission, source GI. Micrococcus luteus bacteremia January 14 3 out of 4 bottles Procedure Result ------ ------ BLOOD CULTURE LC Preliminary Preliminary FINAL ID= [MICROCOCCUS LUTEUS] MICROCOCCUS LUTEUS Unless otherwise specified, Testing Performed by: [address] [id number] For Inquires, the Physician may contact the Microbiology department at [phone] 37 MIN pt exam, chart review, > 50% of time spent with exam, chart review, pt care coordination 01-18 : CLEMENTE 6-01 Afebrile overnight. Strep bovis on blood cultures. iv Zosyn per ID., IV DAPTOMYCIN ear pain improved. Abdominal pain improved and she is tolerating p.o. well. No chest pain or shortness of breath. Awaiting final sensitivities. HIDA scan negative source is unlikely to be gallbladder possibly per perforated diverticulitis Repeat blood cultures from 01/14/2021 + for gram-positive cocci given persisting gram-positive bacteremia CLEMENTE is indicated in the near future to r/o vegetation. Sepsis from Gram-positive bacteremia. January 12, Streptococcus gallolyticus bacteremia January 12,2/4 bottles present on admission, source GI. Micrococcus luteus bacteremia January 14 3 out of 4 bottles Procedure Result BLOOD CULTURE LC Preliminary Preliminary FINAL ID= [MICROCOCCUS LUTEUS] MICROCOCCUS LUTEUS Unless otherwise specified, Testing Performed by: [address] [id number] For Inquires, the Physician may contact the Microbiology department at [phone] 01/19/2021 No acute events overnight. Patient seen and examined next recliner. Complains of reflux symptoms some headaches. Currently n.p.o. for CLEMENTE today. Patient's chart, labs, images were reviewed and discussed with RN 01-20 PICC placed for antibiotics at home. Afebrile overnight. Strep bovis on blood cultures. iv Zosyn per ID., IV DAPTOMYCIN ear pain improved. Abdominal pain improved and she is tolerating p.o. well. No chest pain or shortness of breath. Awaiting final sensitivities. HIDA scan negative source is unlikely to be gallbladder possibly per perforated diverticulitis Repeat blood cultures from 01/14/2021 + for gram-positive cocci given persisting gram-positive bacteremia CLEMENTE is indicated in the near future to r/o vegetation. Sepsis from Gram-positive bacteremia. January 12, Streptococcus gallolyticus bacteremia January 12,2/4 bottles present on admission, source GI. Micrococcus luteus bacteremia January 14 3 out of 4 bottles Procedure Result BLOOD CULTURE LC Preliminary Preliminary FINAL ID= [MICROCOCCUS LUTEUS] MICROCOCCUS LUTEUS Unless otherwise specified, Testing Performed by: [address] [id number] For Inquires, the Physician may contact the Microbiology department at [phone] JALEN JOLLEY MD, MICHAEL F MD ORDERED: MICHELINE DOE - LC Procedure Result BLOOD CULTURE LC Final Final GRAM POSITIVE COCCI FINAL ID= [MICROCOCCUS LUTEUS] NO FURTHER WORKUP MICROCOCCUS LUTEUS Unless otherwise specified, Testing Performed by: [address] [id number] For Inquires, the Physician may contact the Microbiology department at [phone] colonoscopy as strep gallolyticus bacteremia source could be GI malignancy,can be done as outpt 38 min pt exam, chart review, > 50% of time spent with exam, chart review, pt care coordination 6-04 PICC placed for antibiotics at home. Afebrile overnight. Strep bovis on blood cultures. iv Zosyn per ID., IV DAPTOMYCIN ear pain improved. Abdominal pain improved and she is tolerating p.o. well. No chest pain or shortness of breath. Awaiting final sensitivities. HIDA scan negative source is unlikely to be gallbladder possibly per perforated diverticulitis Repeat blood cultures from 01/14/2021 + for gram-positive cocci given persisting gram-positive bacteremia CLEMENTE is indicated in the near future to r/o vegetation. Sepsis from Gram-positive bacteremia. January 12, Streptococcus gallolyticus bacteremia January 12,2/4 bottles present on admission, source GI. Micrococcus luteus bacteremia January 14 3 out of 4 bottles Procedure Result BLOOD CULTURE LC Preliminary Preliminary FINAL ID= [MICROCOCCUS LUTEUS] MICROCOCCUS LUTEUS Unless otherwise specified, Testing Performed by: [address] [id number] For Inquires, the Physician may contact the Microbiology department at [phone] JALEN JOLLEY MD,KATHARINE Bobo MD ORDERED: MICHELINE CULT - LC Procedure Result BLOOD CULTURE LC Final Final GRAM POSITIVE COCCI FINAL ID= [MICROCOCCUS LUTEUS] NO FURTHER WORKUP MICROCOCCUS LUTEUS Unless otherwise specified, Testing Performed by: [address] [address] For Inquires, the Physician may contact the Microbiology department at [phone] colonoscopy as strep gallolyticus bacteremia source could be GI malignancy,can be done as outpt 38 min pt exam, chart review, > 50% of time spent with exam, chart review, pt care coordination 6-05 D/C FOR OUT PATIENT ANTIBIOTICS DAILY HERE , SEE DR SCHAEFER 2 WEEKS, ID 1 WEEK Susceptibilities for micrococcus 2/4 bottles is not available from [facility] per discussion with micro lab Susceptibilities for staph warneri is pending, 1/4 bottles could be a contaminant 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 Afebrile overnight. Strep bovis on blood cultures. iv ROCEPHIN per ID., IV DAPTOMYCIN ear pain improved. Abdominal pain improved and she is tolerating p.o. well. No chest pain or shortness of breath. Awaiting final sensitivities. HIDA scan negative source is unlikely to be gallbladder possibly per perforated diverticulitis Repeat blood cultures from 01/14/2021 + for gram-positive cocci given persisting gram-positive bacteremia CLEMENTE is indicated in the near future to r/o vegetation. Sepsis from Gram-positive bacteremia. January 12, Streptococcus gallolyticus bacteremia January 12,2/4 bottles present on admission, source GI. Micrococcus luteus bacteremia January 14 3 out of 4 bottles Procedure Result BLOOD CULTURE LC Preliminary Preliminary FINAL ID= [MICROCOCCUS LUTEUS] MICROCOCCUS LUTEUS Unless otherwise specified, Testing Performed by: [address] [address] For Inquires, the Physician may contact the Microbiology department at [phone] JALEN JOLLEY MD,KATHARINE Bobo MD ORDERED: MICHELINE CULT - LC Procedure Result BLOOD CULTURE LC Final Final GRAM POSITIVE COCCI FINAL ID= [MICROCOCCUS LUTEUS] NO FURTHER WORKUP MICROCOCCUS LUTEUS Unless otherwise specified, Testing Performed by: [address] [id number] For Inquires, the Physician may contact the Microbiology department at [phone] colonoscopy as strep gallolyticus bacteremia source could be GI malignancy,can be done as outpt 36 min pt exam, chart review, D/C PLANNING > 50% of time spent with exam, chart review, pt care coordination Vitals Vitals Vital Signs Date Time Temp Pulse Resp B/P (MAP) Pulse Ox O2 Delivery O2 Flow Rate FiO2 01/21/21 11:00 98.9 63 16 133/62 (85) 95 Room Air 98.9 Physical Exam Physical Exam GENERAL: Alert, awake, pleasant female, lying in bed comfortably, in no acute distress.on ra HEENT: Normocephalic, atraumatic. Anicteric. Oral mucosa moist. No O2. NECK: Supple. No JVD. LUNGS: Clear bilaterally. No wheezing. HEART: S1, S2. ABDOMEN: Soft. Mild tenderness present diffusely, more over the epigastric area. No rebound or guarding. EXTREMITIES: No edema, no cyanosis. Left upper extremity injection site without evidence of fluctuance or erythema DERMATOLOGIC: Warm, dry, no generalized rash. NEUROLOGIC: Alert, oriented x 3, grossly nonfocal. PSYCHIATRIC: Calm and cooperative. General: Alert, Oriented X3, Cooperative, No acute distress Heart: Regular rate, Normal S1, No murmurs Lungs: Clear Abdomen: Normal bowel sounds, Soft, No tenderness Extremities: No clubbing, No cyanosis, No edema, Normal pulses Skin: No breakdown, No significant lesion FINAL DIAGNOSIS Problems Medical Problems: (1) Bradycardia on ECG Status: Acute Brief Hospital Course Ms. Leonard is a 70 old [sex] who presented with [ABDOMINAL PAIN, BACTEREMIA ] CONDITION AT DISCHARGE: Improved Discharge Medications Current Medications Iohexol (Omnipaque 300 Mg/ml) 75 ml 1X ONCE IV Last administered on 01/12/21at 14:38; Start 01/12/21 at 14:15; Stop 01/12/21 at 14:16; Status DC Info (CONTRAST GIVEN -- Rx MONITORING) 1 each PRN DAILY PRN MC SEE COMMENTS; Start 01/12/21 at 14:15; Stop 01/14/21 at 14:14; Status DC Ondansetron HCl (Zofran) 4 mg PRN Q8HRS PRN IV NAUSEA/VOMITING; Start 01/12/21 at 15:45; Stop 01/12/21 at 16:51; Status DC Pantoprazole Sodium (PROTONIX VIAL for IV PUSH) 40 mg DAILY08 ONCE IVP Last administered on 01/12/21at 17:40; Start 01/12/21 at 17:00; Stop 01/12/21 at 17:01; Status DC Sodium Chloride (Normal Saline Flush) 3 ml QSHIFT PRN IV AFTER MEDS AND BLOOD DRAWS; Start 01/12/21 at 17:00 Sodium Chloride 1,000 ml @ 100 mls/hr Q10H IV Last administered on 01/13/21at 18:21; Start 01/12/21 at 17:00; Stop 01/14/21 at 08:20; Status DC Dextrose/Sodium Chloride 1,000 ml @ 80 mls/hr [id number] IV ; Start 01/12/21 at 17:00; Status UNV Ondansetron HCl (Zofran) 4 mg PRN Q4HRS PRN IV NAUSEA/VOMITING 1ST CHOICE Last administered on 01/13/21at 20:35; Start 01/12/21 at 17:00 Acetaminophen (Tylenol) 650 mg PRN Q4HRS PRN PO TEMP OVER 100.4F OR MILD PAIN Last administered on 01/20/21at 00:50; Start 01/12/21 at 17:00 Al Hydroxide/Mg Hydroxide (Mylanta Plus Xs) 30 ml PRN DAILY PRN PO HEARTBURN / GAS; Start 01/12/21 at 17:00 Sodium Monofluorophosphate (Fleet Adult) 133 ml PRN DAILY PRN IA CONSTIPATION; Start 01/12/21 at 17:00; Stop 01/15/21 at 14:48; Status DC Docusate Sodium (Colace) 100 mg PRN BID PRN PO HARD STOOLS; Start 01/12/21 at 17:00 Albuterol Sulfate (Ventolin Neb Soln) 2.5 mg PRN Q4HRS PRN NEB SHORTNESS OF BREATH; Start 01/12/21 at 17:00 Guaifenesin (Robitussin) 200 mg PRN Q4HRS PRN PO COUGH; Start 01/12/21 at 17:00 Lorazepam (Ativan) 0.5 mg PRN Q4HRS PRN PO ANXIETY / AGITATION; Start 01/12/21 at 17:00 Enoxaparin Sodium (Lovenox 40mg Syringe) 40 mg Q24H SQ Last administered on 01/21/21at 22:43; Start 01/12/21 at 21:00 Aspirin (Aspirin Chewable) 81 mg DAILY PO Last administered on 01/22/21at 09:38; Start 01/13/21 at 09:00 Clopidogrel Bisulfate (Plavix) 75 mg DAILY PO Last administered on 01/22/21at 09:39; Start 01/13/21 at 09:00 Fluoxetine HCl (PROzac) 10 mg DAILY PO Last administered on 01/22/21at 09:39; Start 01/13/21 at 09:00 Hydrochlorothiazide (Hydrodiuril) 25 mg DAILY PO Last administered on 01/13/21at 11:56; Start 01/13/21 at 09:00; Stop 01/14/21 at 08:20; Status DC Pentoxifylline (TRENtal) 400 mg DAILY PO Last administered on 01/22/21at 09:37; Start 01/13/21 at 09:00 Vitamin B Complex (Hang B) 1 tab DAILY PO Last administered on 01/22/21 09:37; Start 01/13/21 at 09:00 Fish Oil (Fish Oil) 1,000 mg DAILY PO Last administered on 01/22/21 09:38; Start 01/13/21 at 09:00 Ondansetron HCl (Zofran Odt) 4 mg PRN Q8HRS PRN PO NAUSEA/VOMITING Last administered on 01/16/21 04:16; Start 01/12/21 at 17:00 Atorvastatin Calcium (Lipitor) 5 mg QHS PO Last administered on 01/21/21 22:39; Start 01/12/21 at 21:00 Hydralazine HCl (Apresoline Inj) 10 mg PRN Q4HRS PRN IVP ELEVATED BP, SEE COMMENTS Last administered on 01/19/21at 10:59; Start 01/12/21 at 20:30 Piperacillin Sod/ Tazobactam Sod 2.25 gm/Sodium Chloride 50 ml @ 100 mls/hr 1X ONCE IV ; Start 01/13/21 at 09:15; Stop 01/13/21 at 09:44; Status UNV Piperacillin Sod/ Tazobactam Sod 3.375 gm/Sodium Chloride 50 ml @ 100 mls/hr Q6HRS IV Last administered on 01/16/21 05:52; Start 01/13/21 at 10:00; Stop 01/16/21 at 08:21; Status DC Magnesium Sulfate 50 ml @ 25 mls/hr 1X ONCE IV Last administered on 01/13/21 11:21; Start 01/13/21 at 11:00; Stop 01/13/21 at 12:59; Status DC Pantoprazole Sodium (Protonix) 40 mg DAILYAC PO Last administered on 01/22/21 09:37; Start 01/13/21 at 12:30 Daptomycin 350 mg/ Sodium Chloride 50 ml @ 100 mls/hr Q24H IV Last administered on 01/14/21 14:09; Start 01/13/21 at 14:00; Stop 01/15/21 at 09:31; Status DC Lactobacillus Rhamnosus (Culturelle) 1 cap BID PO Last administered on 01/22/21 09:38; Start 01/13/21 at 21:00 Losartan Potassium (Cozaar) 100 mg DAILY PO Last administered on 01/22/21 09:39; Start 01/13/21 at 17:00 Potassium Chloride/Dextrose/ Sod Cl 1,000 ml @ 80 mls/hr [id number] ONCE IV Last administered on 01/14/21at 09:58; Start 01/14/21 at 09:00; Stop 01/14/21 at 21:29; Status DC Potassium Bicarbonate (Potassium Effervescent Tablet) 40 meq 1X ONCE PO Last administered on 01/14/21at 09:04; Start 01/14/21 at 08:15; Stop 01/14/21 at 08:28; Status DC Magnesium Sulfate 50 ml @ 25 mls/hr 1X ONCE IV Last administered on 01/14/21at 09:57; Start 01/14/21 at 08:15; Stop 01/14/21 at 10:14; Status DC Sodium Chloride ([place] Saline Nasal) 1 wagner PRN DAILY PRN NS NASAL CONGESTION; St art 01/14/21 at 12:00 Fluticasone Propionate (Flonase) 2 spray DAILY NS Last administered on 01/22/21at 09:44; Start 01/14/21 at 13:00 Fluticasone Propionate (Flonase) 2 spray DAILY NS ; Start 01/14/21 at 12:00; Status UNV Sodium Chloride ([place] Saline Nasal) 1 wagner PRN DAILY PRN NS NASAL CONGESTION; Start 01/14/21 at 12:00; Status UNV Latanoprost (Xalatan) 1 drop QHS OU Last administered on 01/21/21at 22:39; Start 01/16/21 at 21:00 Linagliptin (Tradjenta) 5 mg DAILY PO Last administered on 01/22/21at 09:37; S tart 01/16/21 at 09:00 Amlodipine Besylate (Norvasc) 5 mg DAILY PO Last administered on 01/16/21at 08:08; Start 01/16/21 at 09:00; Stop 01/16/21 at 10:51; Status DC Ceftriaxone Sodium (Rocephin) 2 gm Q24H IVP Last administered on 01/22/21 09:40; Start 01/16/21 at 09:00 Daptomycin 350 mg/ Sodium Chloride 50 ml @ 100 mls/hr Q24H IV Last administered on 01/22/21at 09:43; Start 01/16/21 at 10:00 Prochlorperazine Edisylate (Compazine) 10 mg PRN Q6HRS PRN IV Headache/NAUSEA/VOMITING-2nd Last administered on 01/16/21at 11:22; Start 01/16/21 at 10:45 Nifedipine (Procardia Xl) 30 mg DAILY PO Last administered on 01/22/21at 09:39; Start 01/17/21 at 09:00 Potassium Chloride (Klor-Con) 40 meq 1X ONCE PO Last administered on 01/17/21at 14:21; Start 01/17/21 at 14:30; Stop 01/17/21 at 14:31; Status DC Potassium Chloride (Klor-Con) 20 meq DAILYWBKFT PO Last administered on 01/22/21at 09:38; Start 01/18/21 at 08:00 Ringer's Solution 1,000 ml @ 50 mls/hr Q20H IV ; Start 01/19/21 at 07:00; Stop 01/19/21 at 18:59; Status DC Sodium Chloride (Normal Saline Flush) 10 ml QSHIFT PRN IV AFTER MEDS AND BLOOD DRAWS; Start 01/18/21 at 17:15 Lidocaine HCl (Xylocaine 2% Topical 5gm Tube) 1 wagner 1X ONCE TP ; Start 01/18/21 at 17:15; Stop 01/18/21 at 17:19; Status DC Lidocaine HCl (Viscous Lidocaine) 15 ml 1X ONCE MM ; Start 01/18/21 at 17:15; Stop 01/18/21 at 17:19; Status DC Benzocaine (Hurricaine One) 2 spray 1X ONCE MM ; Start 01/18/21 at 17:15; Stop 01/18/21 at 17:19; Status DC Lidocaine HCl (Viscous Lidocaine) 15 ml 1X ONCE SWSW Last administered on 01/19/21at 11:54; Start 01/19/21 at 08:30; Stop 01/19/21 at 08:47; Status DC Lidocaine HCl (Xylocaine 2% Topical 30gm Tube) 1 wagner 1X ONCE TP Last administered on 01/19/21at 11:53; Start 01/19/21 at 08:30; Stop 01/19/21 at 08:47; Status DC Benzocaine (Hurricaine One) 2 spray 1X ONCE MM Last administered on 01/19/21at 11:54; Start 01/19/21 at 08:30; Stop 01/19/21 at 08:47; Status DC Lidocaine HCl (Xylocaine 2% Topical 30gm Tube) 30 wagner STK-MED ONCE TP ; Start 01/19/21 at 10:54; Stop 01/19/21 at 10:54; Status DC Propofol (Diprivan) 200 mg STK-MED ONCE IV ; Start 01/19/21 at 11:14; Stop 01/19/21 at 11:15; Status DC Lidocaine HCl (Lidocaine Pf 2% Vial) 5 ml STK-MED ONCE .ROUTE ; Start 01/19/21 at 11:14; Stop 01/19/21 at 11:15; Status DC Ketamine HCl (Ketamine) 50 mg STK-MED ONCE .ROUTE ; Start 01/19/21 at 11:14; Stop 01/19/21 at 11:15; Status DC Sodium Chloride 1,000 ml @ 0 mls/hr Q0M IV ; Start 01/19/21 at 12:00 Active Scripts Active Nifedipine Er (Nifedipine) 30 Mg Tab.er.24 30 Mg PO DAILY 30 Days Reported Xalatan (Latanoprost) 2.5 Ml Drops 1 Drop OU QHS Losartan-Hctz 100-25 Mg Tab (Losartan/Hydrochlorothiazide) 1 Each Tablet 1 Each PO DAILY Januvia (Sitagliptin Phosphate) 100 Mg Tablet 100 Mg PO DAILY Pentoxifylline 400 Mg Tablet.er 400 Mg PO DAILY Pravastatin Sodium 20 Mg Tablet 20 Mg PO HS Vital Signs Vital Signs Date Time Temp Pulse Resp B/P (MAP) Pulse Ox O2 Delivery O2 Flow Rate FiO2 01/22/21 10:29 98.0 67 18 131/66 (87) 96 Room Air 98.0 Labs Laboratory Tests Test 01/20/21 17:23 01/20/21 20:30 01/21/21 07:39 01/21/21 11:47 Glucose (Fingerstick) 144 mg/dL (70-99) 129 mg/dL (70-99) 115 mg/dL (70-99) 106 mg/dL (70-99) Test 01/21/21 17:05 01/21/21 20:35 01/22/21 07:23 01/22/21 11:41 Glucose (Fingerstick) 122 mg/dL (70-99) 124 mg/dL (70-99) 111 mg/dL (70-99) 124 mg/dL (70-99) Laboratory Tests Test 01/21/21 17:05 01/21/21 20:35 01/22/21 07:23 01/22/21 11:41 Glucose (Fingerstick) 122 mg/dL (70-99) 124 mg/dL (70-99) 111 mg/dL (70-99) 124 mg/dL (70-99) Allergies Allergies Coded Allergies Type Severity Reaction Last Updated Verified No Known Drug Allergies 12/28/17 No Disposition/Orders: D/C to Home Justicifation of Admission Dx: Justifications for Admission: Justification of Admission Dx: Yes Sepsis: Bacteremia BARRY OROZCO MD Jan 22, 2021 12:09
[2021-01-22] MEDS ORDERED: POTA20TA4 PO (12:17)
[2021-01-22] MEDS ORDERED: LACT1CAP19 PO (12:17)
[2021-01-22] MEDS ORDERED: CEFTRIAXONE SODIUM IVP (12:17)
[2021-01-22] MEDS ORDERED: FLUO10CA15 PO (12:17)
[2021-01-22] MEDS ORDERED: ALBU2.5V8 NEB (12:17)
[2021-01-22] MEDS ORDERED: ASPI-630 PO (12:17)
[2021-01-22] MEDS ORDERED: VITA1TAB3 PO (12:17)
[2021-01-22] MEDS ORDERED: DAPT350V IV (12:17)
[2021-01-22] MEDS ORDERED: ACET325T21 PO (12:17)
[2021-01-22] MEDS ORDERED: 0.92DISP2 IV (12:17)
[2021-01-22] MEDS ORDERED: MAG30ORA2 PO (12:17)
[2021-01-22] MEDS ORDERED: FLUT16SP NS (12:17)
[2021-01-22] MEDS ORDERED: OMEG1CAP6 PO (12:17)
[2021-01-22] MEDS ORDERED: ONDA4TAB12 PO (12:17)
[2021-01-22] MEDS ORDERED: SODI14.1 NS (12:17)
[2021-01-22] MEDS ORDERED: CLOP75TA PO (12:17)
[2021-01-22] MEDS ORDERED: PANT40TA77 PO (12:17)
[2021-01-22] MEDS ORDERED: DOCU-153 PO (12:17)
--- NOTE | 2021-01-22 12:20 | SNU/HH DC ---
DISCHARGE WITH HOME HEALTH DISCHARGE INFORMATION: Discharge Date: Jan 22, 2021 Final Diagnosis: Problems Medical Problems: (1) Bradycardia on ECG Status: Acute Condition on Discharge: Stable CODE STATUS: Code Status: Full HOME HEALTH: Face to Face: I certify this patient is under my care and that I, or a nurse practitioner or physician's housekeeping assistant working with me, had a face to face encounter that meets the physician face to face encounter requirements with this patient on []. Medical Complications: Other (SEPSIS) Fpc For: Admin/Educate Injections, Assess Cardiopulm Status, Assess & Educate Safety, Assess/Skilled Observatio, Medication Management, Pain Management RN For Eval/Treatment: Yes Physical Therapy For: Evalulation/Treatment Occupational Therapy For: Evaluation/Treatment Speech Language Pathology For: Evaluation/Treatment Home Health Aide For: Self-care AGRICULTURAL PURCHASING AGENT For: Community Resources Pt Meets Homebound Status: Fatigue w/ amb., Psychological condition, Unable to negotiate home POST DISCHARGE ORDERS: Activity Instructions for Disc: Activity as tolerated DIET AFTER DISCHARGE: Cardiac CHECKS AFTER DISCHARGE: Checks after discharge: Check blood press - daily FOLLOW-UP: PCP to follow Home Health: SEE DR MCGRAW 7-10 DAYS,, SEE DR SCHAEFER 2 WEEKS,, PCP ESA Follow up with: LABS TWICE A WEEK, CBC DIFF, COMPRE,, CRP, ESR TREATMENT/EQUIPMENT ORDERS: Adaptive Equipment Issued: None Discharge Respiratory Equipmen: Nebulizer CERTIFICATION STATEMENT: Certification Statement: Certification Statement: Based on the above finding, I certify that this patient is confined to the home and needs intermittent intermediate care, physical therapy and/or speech therapy, or continues to need occupational therapy.~ This patient is under my care, and I have initiated the establishment of the plan of care.~ This patient will be followed by myself or a community physician who will periodically review the plan of care. Home Meds Active Scripts Vitamin B Complex (VITAMIN B COMPLEX) 1 Each Tablet, 1 TAB PO DAILY for SUPPLEMENT for 30 Days, #30 TAB Prov:BARRY OROZCO MD 01/22/21 Lactobacillus Rhamnosus Gg (CULTURELLE) 1 Each Cap.sprink, 1 CAP PO BID for SUPPLEMENT for 45 Days, #90 CAP Prov:BARRY OROZCO MD 01/22/21 Pantoprazole Sodium (PANTOPRAZOLE SODIUM ) 40 Mg Tablet., 40 MG PO DAILYAC for GERD for 30 Days, #30 TAB.SR Prov:BARRY OROZCO MD 01/22/21 Ondansetron (ONDANSETRON ODT) 4 Mg Tab.rapdis, 4 MG PO PRN Q8HRS PRN for NAUSEA/VOMITING for 14 Days, #60 TAB Prov:BARRY OROZCO MD 01/22/21 Docusate Sodium (DOK) 100 Mg Capsule, 100 MG PO PRN BID PRN for HARD STOOLS for 30 Days, #60 CAP Prov:BARRY OROZCO MD 01/22/21 Mag Hydrox/Al Hydrox/Simeth (MAG-AL PLUS XS SUSPENSION) 30 Ml Oral.susp, 30 ML PO PRN DAILY PRN for HEARTBURN / GAS for 30 Days, #120 MISC Prov:BARRY OROZCO MD 01/22/21 Sodium Chloride/Aloe Vera (AYR SALINE NASAL GEL) 14.1 Gm Gel..gram., 1 EDWARD NS PRN DAILY PRN for NASAL CONGESTION for 14 Days, #1 EACH Prov:BARRY OROZCO MD 01/22/21 Fluticasone Propionate (FLUTICASONE PROPIONATE NASAL SPRAY) 16 Gm Chardon.susp, 2 SPRAY NS DAILY for ALLERGIES for 30 Days, #1 SPRAY Prov:BRARY OROZCO MD 01/22/21 Potassium Chloride (KLOR-CON M20) 20 Meq Tab.er.prt, 20 MEQ PO DAILYWBKFT for SUPPLEMENT for 14 Days, #14 TAB.SR Prov:BARRY OROZCO MD 01/22/21 0.9 % Sodium Chloride (NORMAL SALINE FLUSH) 2 Ml Disp.syrin, 10 ML IV QSHIFT PRN for AFTER MEDS AND BLOOD DRAWS for 30 Days, #90 DIS.SYR Prov:BARRY OROZCO MD 01/22/21 Fluoxetine Hcl (FLUOXETINE HCL) 10 Mg Capsule, 10 MG PO DAILY for MOOD for 30 Days, #30 CAP Prov:BARRY OROZCO MD 01/22/21 Acetaminophen (ACETAMINOPHEN) 325 Mg Tablet, 650 MG PO PRN Q4HRS PRN for TEMP OVER 100.4F OR MILD PAIN for 30 Days, #100 TAB Prov:BARRY OROZCO MD 01/22/21 Aspirin (ASPIRIN) 81 Mg Tab.chew, 81 MG PO DAILY for HEART for 30 Days, #30 TAB.CHEW Prov:BARRY OROZCO MD 01/22/21 Rohwer-3 Fatty Acids/Fish Oil (FISH OIL 1,000 MG CAPSULE) 1 Each Capsule, 1000 MG PO DAILY for SUPPLEMENT for 30 Days, #30 CAP Prov:BARRY OROZCO MD 01/22/21 Albuterol Sulfate (Proair Hfa) 8.5 Gm Hfa.aer.ad, 2.5 MG NEB PRN Q4HRS PRN for SHORTNESS OF BREATH for 14 Days, #1 INHALER Prov:BARRY OROZCO MD 01/22/21 Clopidogrel Bisulfate (CLOPIDOGREL) 75 Mg Tablet, 75 MG PO DAILY for HEART for 30 Days, #30 TAB Prov:BARRY OROZCO MD 01/22/21 Daptomycin (Daptomycin) 350 Mg Vial, 500 MG IV DAILY08 for BACTEREMIA for 14 Days, #20 EACH Prov:BARRY OROZCO MD 01/22/21 [cefTRIAXone IV Push] 2 GM VIAL No Conflict Check, 2 GM IVP Q24H for INFECTION for 14 Days, #14 EACH Prov:BARRY OROZCO MD 01/22/21 Nifedipine (NIFEDIPINE ER) 30 Mg Tab.er.24, 30 MG PO DAILY for 30 Days, #30 TAB.SR Prov:MONICA MOISE MD 12/28/17 Reported Medications Latanoprost (XALATAN) 2.5 Ml Drops, 1 DROP OU QHS for GLAUCOMA, ML 01/13/21 Losartan/Hydrochlorothiazide (LOSARTAN-HCTZ 100-25 MG TAB) 1 Each Tablet, 1 EACH PO DAILY for htn, TAB 01/13/21 Sitagliptin Phosphate (JANUVIA) 100 Mg Tablet, 100 MG PO DAILY 12/25/17 Pentoxifylline (PENTOXIFYLLINE) 400 Mg Tablet.er, 400 MG PO DAILY 12/25/17 Pravastatin Sodium (PRAVASTATIN SODIUM) 20 Mg Tablet, 20 MG PO HS 12/25/17 BARRY OROZCO MD Jan 22, 2021 12:20
[2021-01-22 14:17] LABS: BASO # 0.1 x10^3/uL (0.0-0.2); BASO % 1 % (0-3); EOS # 0.1 x10^3/uL (0.0-0.7); EOS % 1 % (0-3); HEMATOCRIT 37.8 % (36.0-47.0); HEMOGLOBIN 12.6 g/dL (12.0-15.5); LYMPH # 1.3 x10^3/uL (1.0-4.8); LYMPH % 17 % (24-48); MEAN CORPUSCULAR HEMOGLOBIN 32 pg (25-35); MEAN CORPUSCULAR HGB CONC 33 g/dL (31-37); MEAN CORPUSCULAR VOLUME 97 fL (79-100); MONO # 0.6 x10^3/uL (0.0-1.1); MONO % 8 % (0-9); NEUT # 5.6 x10^3/uL (1.8-7.7); NEUT % 73 % (31-73); PLATELET COUNT 250 x10^3/uL (140-400); RED CELL DISTRIBUTION WIDTH 13.4 % (11.5-14.5); WHITE BLOOD COUNT 7.8 x10^3/uL (4.0-11.0)
[2021-01-22 14:32] LABS: ALBUMIN 3.4 g/dL (3.4-5.0); ALBUMIN/GLOBULIN RATIO 0.8 (1.0-1.7); CREATININE 0.9 mg/dL (0.6-1.0); GFR 61.5; POTASSIUM 4.2 mmol/L (3.5-5.1); TOTAL BILIRUBIN 0.5 mg/dL (0.2-1.0); TOTAL PROTEIN 7.5 g/dL (6.4-8.2)
[2021-01-22 15:11] VITALS: BP 146/70
[2021-01-22] MEDS: ACETAMINOPHEN 325 MG TABLET. PO PRN (17:50)
[2021-01-22 19:54] VITALS: BP 143/65
[2021-01-22] MEDS: ATORVASTATIN CALCIUM 10 MG TABLET. PO SCH (22:01)
[2021-01-22] MEDS: LATANOPROST 0.005% OPHTH SOLUTION 2.5ML BOTTLE. OU SCH (22:02)
[2021-01-22] MEDS: ENOXAPARIN 40 MG/0.4 ML SYRINGE. SQ SCH (22:05)
[2021-01-22 22:53] VITALS: BP 154/73
[2021-01-23 03:06] VITALS: BP 178/79
[2021-01-23 07:00] VITALS: BP 144/62
--- NOTE | 2021-01-23 08:24 | PDOC ---
Infectious Disease Note Subjective: Subjective Patient states she feels the same Abdominal pain and bloating comes and goes Tolerating p.o. intake well Continues to have intermittent diarrhea On room air No fever, nausea vomiting shortness of breath or chest pain Vital Signs: Vital Signs Vital Signs Date Time Temp Pulse Resp B/P (MAP) Pulse Ox O2 Delivery O2 Flow Rate FiO2 01/23/21 07:00 98.1 58 16 144/62 (89) 98 Room Air 98.1 Physical Exam: PHYSICAL EXAM GENERAL: Alert, awake, pleasant female, lying in bed comfortably, in no acute distress.on ra HEENT: Normocephalic, atraumatic. Anicteric. Oral mucosa moist. No O2. NECK: Supple. No JVD. LUNGS: Clear bilaterally. No wheezing. HEART: S1, S2. ABDOMEN: Soft. Mild tenderness present diffusely, more over the epigastric area. No rebound or guarding. EXTREMITIES: No edema, no cyanosis. Left upper extremity injection site without evidence of fluctuance or erythema DERMATOLOGIC: Warm, dry, no generalized rash. NEUROLOGIC: Alert, oriented x 3, grossly nonfocal. PSYCHIATRIC: Calm and cooperative. Medications: Inpatient Meds: Medications reviewed. Labs: Lab Laboratory Tests Test 01/22/21 11:41 01/22/21 14:00 01/22/21 16:26 01/22/21 21:11 Glucose (Fingerstick) 124 mg/dL (70-99) 168 mg/dL (70-99) 100 mg/dL (70-99) White Blood Count 7.8 x10^3/uL (4.0-11.0) Red Blood Count 3.90 x10^6/uL (3.50-5.40) Hemoglobin 12.6 g/dL (12.0-15.5) Hematocrit 37.8 % (36.0-47.0) Mean Corpuscular Volume 97 fL (79-100) Mean Corpuscular Hemoglobin 32 pg (25-35) Mean Corpuscular Hemoglobin Concent 33 g/dL (31-37) Red Cell Distribution Width 13.4 % (11.5-14.5) Platelet Count 250 x10^3/uL (140-400) Neutrophils (%) (Auto) 73 % (31-73) Lymphocytes (%) (Auto) 17 % (24-48) Monocytes (%) (Auto) 8 % (0-9) Eosinophils (%) (Auto) 1 % (0-3) Basophils (%) (Auto) 1 % (0-3) Neutrophils # (Auto) 5.6 x10^3/uL (1.8-7.7) Lymphocytes # (Auto) 1.3 x10^3/uL (1.0-4.8) Monocytes # (Auto) 0.6 x10^3/uL (0.0-1.1) Eosinophils # (Auto) 0.1 x10^3/uL (0.0-0.7) Basophils # (Auto) 0.1 x10^3/uL (0.0-0.2) Sodium Level 141 mmol/L (136-145) Potassium Level 4.2 mmol/L (3.5-5.1) Chloride Level 106 mmol/L (98-107) Carbon Dioxide Level 27 mmol/L (21-32) Anion Gap 8 (6-14) Blood Urea Nitrogen 15 mg/dL (7-20) Creatinine 0.9 mg/dL (0.6-1.0) Estimated GFR (Cockcroft-Gault) 61.5 BUN/Creatinine Ratio 17 (6-20) Glucose Level 144 mg/dL (70-99) Calcium Level 9.0 mg/dL (8.5-10.1) Total Bilirubin 0.5 mg/dL (0.2-1.0) Aspartate Amino Transf (AST/SGOT) 16 U/L (15-37) Alanine Aminotransferase (ALT/SGPT) 44 U/L (14-59) Alkaline Phosphatase 95 U/L (46-116) Total Protein 7.5 g/dL (6.4-8.2) Albumin 3.4 g/dL (3.4-5.0) Albumin/Globulin Ratio 0.8 (1.0-1.7) Test 01/23/21 06:55 Glucose (Fingerstick) 101 mg/dL (70-99) Micro ECHO The left ventricular systolic function is normal and the ejection fraction is within normal range. Estimated ejection fraction 55%. There is normal LV segmental wall motion. Doppler and Color Flow revealed moderate aortic regurgitation. Doppler and Color Flow revealed mild tricuspid regurgitation. Estimated PAP 55 mmHg. The ascending aorta is mildly dilated at 3.[address] abdomen and pelvis IMPRESSION: 1. Colonic diverticulosis. There is no evidence of diverticulitis. 2. 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 Follow-up is not routinely performed for simple cysts. 3. Ectatic or mildly aneurysmal ascending aorta, partially included on the [id number]-crul. 4. Cardiomegaly. CLEMENTE 01/19 <Conclusion> The left ventricle is normal size. The left ventricular systolic function is normal and the ejection fraction is within normal range. The Ejection Fraction is 50-55%. There is borderline concentric left ventricular hypertrophy. Doppler and Color Flow revealed mild to moderate aortic regurgitation. There is no aortic valvular stenosis. There is no aortic valvular vegetation. The mitral valve is normal in structure and function. There is mild mitral valve regurgitation noted. Doppler and Color Flow revealed mild tricuspid regurgitation. The pulmonary valve is normal in structure and function. There is no evidence of vegetations on this study. POA 09/23 bottles streptococcal bovis RUN DATE: 01/20/21 [facility] LAB *LIVE* PAGE 1 RUN TIME: 935 Specimen Inquiry PATIENT: SANTOSH PIPER ACCT: [id number] LOC: [address] [place] [address] U: [id number] AGE/SX: 70/F ROOM: 246 RE01/12/[address]: BARRY OROZCO MD : 1950 BED: 1 DIS: STATUS: ADM IN TLOC: SPEC #: [id number] JOSE: 01/12/21 STATUS: COMP REQ #: [id number] RECD: 01/12/[address]: BARRY OROZCO MD SOURCE: BLOOD ENTR: 01/13/[address] [facility] [address]: ELIDA ESPINAL DO [facility]: FÁTIMA GALEANO MD,JALEN SCHAEFER,KATHARINE Bobo MD ORDERED: BLD CULT - LC Procedure Result BLOOD CULTURE LC Final Final GRAM POSITIVE COCCI FINAL ID= [STREP (BOVIS) GALLOLYTICUS] Growth of organism in only one of multiple sets; isolation does not necessarily indicate infection. Contact Microbiology Lab if further testing is clinically warranted. SENSITIVTY REQUESTED 01/18/21 STREP (BOVIS) GALLOLYTICUS * This is a corrected result. * A prior result that was reported as final has been changed. ANTIMICROBIAL SUSCEPTIBILITY Final Comment MICROSTREP PANEL 2 STREP (BOVIS) GALLOLYTICUS ANTIBIOTIC RESULT INTERPRETATION AMPICILLIN <=0.06 S AZITHROMYCIN 1 I CEFTRIAXONE <=0.25 S CEFOTAXIME <=0.25 S CLARITHROMYCIN 0.5 I CEFEPIME <=0.25 S ERYTHROMYCIN <=0.06 S LINEZOLID 1 S LEVOFLOXACIN <=0.25 S MEROPENEM <=0.06 S MOXIFLOXACIN <=0.25 S PENICILLIN 0.06 S TETRACYCLINE <=0.5 S VANCOMYCIN 0.5 S Unless otherwise specified, Testing Performed by: [address] [address] For Inquires, the Physician may contact the Microbiology department at [phone] --- RUN DATE: 01/18/21 [facility] LAB *LIVE* PAGE 1 RUN TIME: 823 Specimen Inquiry --- --------- PATIENT: SANTOSH PIPER ACCT: [id number] LOC: [facility] U: [id number] AGE/SX: 70/F ROOM: 246 RE01/12/[address]: BARRY OROZCO MD : 1950 BED: 1 DIS: STATUS: ADM IN TLOC: SPEC #: [id number] JOSE: 01/14/21 STATUS: COMP REQ #: [id number] RECD: 01/14/[address] [facility] [address]: PAULETTE MCGRAW MD SOURCE: BLOOD ENTR: 01/16/[address] [facility] [address]: B[facility] OROZOC [facility] F[facility]TIM[facility] MD,JALEN SCHAEFER,KATHARINE Bobo MD ORDERED: MICHELINE CULT - LC Procedure Result BLOOD CULTURE LC Final Final GRAM POSITIVE COCCI FINAL ID= [MICROCOCCUS LUTEUS] NO FURTHER WORKUP MICROCOCCUS LUTEUS Unless otherwise specified, Testing Performed by: [address] [place] [address] For Inquires, the Physician may contact the Microbiology department at [phone] --------- - RUN DATE: 01/19/21 [facility] LAB *LIVE* PAGE 1 RUN TIME: 1153 Specimen Inquiry PATIENT: SANTOSH PIPER ACCT: [id number] LOC: [address] [place] [address] U: [id number] AGE/SX: 70/F ROOM: 246 RE01/12/[address]: BARRY OROZCO MD : 1950 BED: 1 DIS: STATUS: ADM IN TLOC: SPEC #: [id number] JOSE: 01/14/21 STATUS: COMP REQ #: [id number] RECD: 01/16/[address] [facility] [address]: BARRY OROZCO MD SOURCE: BLOOD ENTR: 01/16/[address] [facility] [address]: PAULETTE [facility]CGRAW [facility] F[facility]TIMA GALE[facility] MD,JALEN SCHAEFER,KATHARINE Bobo MD ORDERED: MICHELINE CULT - LC COMMENTS: SECOND OF SET Procedure Result BLOOD CULTURE LC Final Final GRAM POSITIVE COCCI FINAL ID= [STAPHYLOCOCCUS WARNERI] FINAL ID= [LATEX (COAG) NEG STAPH] Growth of organism in only one of multiple sets; isolation does not necessarily indicate infection. Contact Microbiology Lab if further testing is clinically warranted. STAPHYLOCOCCUS WARNERI LATEX (COAG) NEG STAPH Unless otherwise specified, Testing Performed by: [address] [address] For Inquires, the Physician may contact the Microbiology department at [phone] Objective: Assessment: Patient with polymicrobial bacteremia, source appears GI, 1. Fever. pattern improved 2. Sepsis from Gram-positive bacteremia. January 12, 3. Streptococcus gallolyticus bacteremia January 12,2/4 bottles present on admission, source GI. Micrococcus luteus bacteremia 2/4 and now staph warneri bacteremia 1/4 bottles reported January 14 total bc positive 3 out of 4 bottles Source unclear CLEMENTE January 19, 2021 4. Abdominal pain. 5. Nausea and vomiting. Diarrhea C diff and enteric panel negative 6. CT showing 4.5 cm ascending thoracic aortic aneurysm. 7. Chronic back pain with compression fracture on CT. 8. Colonic diverticulosis on CT. 9. 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 10. Cardiomegaly. 12. Diabetes. 13. Anxiety and depression. 14. Poorly controlled Hypertension 15. Hyperlipidemia; statin 16. Bradycardia 17. PAD; reports tingling in LE as HS. no wounds 18. S/P COVID Vaccine 19. 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
[2021-01-23] MEDS: FLUTICASONE 50MCG/NASAL SPRAY 16GM BOTTLE. NS SCH (09:44)
[2021-01-23] MEDS: LOSARTAN POTASSIUM 50 MG TABLET. PO SCH (09:45)
[2021-01-23] MEDS: LACTOBACILLUS RHAMNOSUS GG 1 CAPSULE. PO SCH ×2 (09:46→23:28)
[2021-01-23] MEDS: PANTOPRAZOLE 40 MG TABLET.DR. PO SCH (09:46)
[2021-01-23] MEDS: VITAMIN B COMPLEX TABLET. PO SCH (09:46)
[2021-01-23] MEDS: PENTOXIFYLLINE ER 400 MG TABLET.ER. PO SCH (09:47)
[2021-01-23] MEDS: FLUoxetine HCL 10 MG CAPSULE PO SCH (09:48)
[2021-01-23] MEDS: OMEGA-3 FATTY ACIDS/FISH OIL 1,000 MG CAPSULE. PO SCH (09:48)
[2021-01-23] MEDS: LINAGLIPTIN 5 MG TABLET PO SCH (09:48)
[2021-01-23] MEDS: CLOPIDOGREL BISULFATE 75 MG TABLET PO SCH (09:48)
[2021-01-23] MEDS: POTASSIUM CHLORIDE 20 MEQ TABLET.ER. PO SCH (09:48)
[2021-01-23] MEDS: ASPIRIN CHEWABLE 81 MG TABLET. PO SCH (09:48)
[2021-01-23] MEDS: cefTRIAXone IV Push 2 GM VIAL. IVP SCH (09:49)
[2021-01-23] MEDS: DAPTOmycin (GENERIC) IVPB 350 MG in IV NORMAL SALINE 50ML 50 ML IV SCH (10:18)
[2021-01-23 10:47] VITALS: BP 137/73
--- NOTE | 2021-01-23 11:14 | PDOC ---
PROGRESS NOTES Date of Service: DATE: 01/23/21 TIME: 11:14 Chief Complaint Chief Complaint A/P: ABDOMINAL PAIN, possible gastritis vs PUD Bradycardia, held calcium channel blockers , however, did not improve with this given she is on dihydropyridine, will attempt restarting given her HTN obesity ascending thoracic aorta appears enlarged measuring 4.5 cm // measurement is limited by motion artifact and noncontrast exam. moderate to severe compression fracture of T9 post vertebroplasty Sepsis from Gram-positive bacteremia. Gram-positive bacteremia - ID consulted - Streptococcus bovis bacteremia,2/4 bottles present on admission, source likely GI. Nausea. Chronic back pain with compression fracture on CT. Colonic diverticulosis on CT. 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 Cardiomegaly. Diabetes. Anxiety and depression. FEN - Cardiac diet PPX - iv protonix CODE - FULL Dispo - inpatient History of Present Illness History of Present Illness Ms Luo is a 70 Yr old slovak speaking female w/ PMHx HTN, HLD, GERD, PUD, anxiety with depression, DM2 who comes to ED with grandson c/o epigastric pain x [address] chest ascending thoracic aorta appears enlarged measuring 4.5 cm // measurement is limited by motion artifact and noncontrast exam. moderate to severe compression fracture of T9 post vertebroplasty ABDOMINAL PAIN, possible gastritis vs PUD Bradycardia, hold calcium channel blockers plan ADMIT CVC BED Cardiology consult iv protonix 40 mg q 24 hrs GI CONSULT npo hold calcium channel blockers now temp noted blood cult pos - ID consulted 01/14: Vomited x1 overnight. Febrile to 101.7 F overnight. Nasal congestion and right ear and bilateral maxillary sinus pain today. K 2.9. Still with abdominal cramping and nausea. 01/17 : Afebrile overnight. Strep bovis on blood cultures. iv Zosyn per ID., IV DAPTOMYCIN ear pain improved. Abdominal pain improved and she is tolerating p.o. well. No chest pain or shortness of breath. Awaiting final sensitivities. HIDA scan negative source is unlikely to be gallbladder possibly per perforated diverticulitis Repeat blood cultures from 01/14/2021 + for gram-positive cocci given persisting gram-positive bacteremia CLEMENTE is indicated in the near future to r/o vegetation. Sepsis from Gram-positive bacteremia. January 12, Streptococcus gallolyticus bacteremia January 12,2/4 bottles present on admission, source GI. Micrococcus luteus bacteremia January 14 3 out of 4 bottles Procedure Result BLOOD CULTURE LC Preliminary Preliminary FINAL ID= [MICROCOCCUS LUTEUS] MICROCOCCUS LUTEUS Unless otherwise specified, Testing Performed by: [address] [address] For Inquires, the Physician may contact the Microbiology department at [phone] 37 MIN pt exam, chart review, > 50% of time spent with exam, chart review, pt care coordination 01-18 : CLEMENTE - Afebrile overnight. Strep bovis on blood cultures. iv Zosyn per ID., IV DAPTOMYCIN ear pain improved. Abdominal pain improved and she is tolerating p.o. well. No chest pain or shortness of breath. Awaiting final sensitivities. HIDA scan negative source is unlikely to be gallbladder possibly per perforated diverticulitis Repeat blood cultures from 01/14/2021 + for gram-positive cocci given persisting gram-positive bacteremia CLEMENTE is indicated in the near future to r/o vegetation. Sepsis from Gram-positive bacteremia. January 12, Streptococcus gallolyticus bacteremia January 12,2/4 bottles present on admission, source GI. Micrococcus luteus bacteremia January 14 3 out of 4 bottles Procedure Result BLOOD CULTURE LC Preliminary Preliminary FINAL ID= [MICROCOCCUS LUTEUS] MICROCOCCUS LUTEUS Unless otherwise specified, Testing Performed by: [address] [address] For Inquires, the Physician may contact the Microbiology department at [phone] 01/19/2021 No acute events overnight. Patient seen and examined next recliner. Complains of reflux symptoms some headaches. Currently n.p.o. for CLEMENTE today. Patient's chart, labs, images were reviewed and discussed with RN 01-20 PICC placed for antibiotics at home. Afebrile overnight. Strep bovis on blood cultures. iv Zosyn per ID., IV DAPTOMYCIN ear pain improved. Abdominal pain improved and she is tolerating p.o. well. No chest pain or shortness of breath. Awaiting final sensitivities. HIDA scan negative source is unlikely to be gallbladder possibly per perforated diverticulitis Repeat blood cultures from 01/14/2021 + for gram-positive cocci given persisting gram-positive bacteremia CLEMENTE is indicated in the near future to r/o vegetation. Sepsis from Gram-positive bacteremia. January 12, Streptococcus gallolyticus bacteremia January 12,2/4 bottles present on admission, source GI. Micrococcus luteus bacteremia January 14 3 out of 4 bottles Procedure Result BLOOD CULTURE LC Preliminary Preliminary FINAL ID= [MICROCOCCUS LUTEUS] MICROCOCCUS LUTEUS Unless otherwise specified, Testing Performed by: [address] [address] For Inquires, the Physician may contact the Microbiology department at [phone] JALEN JOLLEY MD, MICHAEL F MD ORDERED: MICHELINE DOE - LC Procedure Result BLOOD CULTURE LC Final Final GRAM POSITIVE COCCI FINAL ID= [MICROCOCCUS LUTEUS] NO FURTHER WORKUP MICROCOCCUS LUTEUS Unless otherwise specified, Testing Performed by: [address] [address] For Inquires, the Physician may contact the Microbiology department at [phone] colonoscopy as strep gallolyticus bacteremia source could be GI malignancy,can be done as outpt 38 min pt exam, chart review, > 50% of time spent with exam, chart review, pt care coordination 6 PICC placed for antibiotics at home. Afebrile overnight. Strep bovis on blood cultures. iv Zosyn per ID., IV DAPTOMYCIN ear pain improved. Abdominal pain improved and she is tolerating p.o. well. No chest pain or shortness of breath. Awaiting final sensitivities. HIDA scan negative source is unlikely to be gallbladder possibly per perforated diverticulitis Repeat blood cultures from 01/14/2021 + for gram-positive cocci given persisting gram-positive bacteremia CLEMENTE is indicated in the near future to r/o vegetation. Sepsis from Gram-positive bacteremia. January 12, Streptococcus gallolyticus bacteremia January 12,2/4 bottles present on admission, source GI. Micrococcus luteus bacteremia January 14 3 out of 4 bottles Procedure Result BLOOD CULTURE LC Preliminary Preliminary FINAL ID= [MICROCOCCUS LUTEUS] MICROCOCCUS LUTEUS Unless otherwise specified, Testing Performed by: [address] [address] For Inquires, the Physician may contact the Microbiology department at [phone] -- JALEN JOLLEY MD,KATHARINE Bobo MD ORDERED: MICHELINE CULT - LC Procedure Result BLOOD CULTURE LC Final Final GRAM POSITIVE COCCI FINAL ID= [MICROCOCCUS LUTEUS] NO FURTHER WORKUP MICROCOCCUS LUTEUS Unless otherwise specified, Testing Performed by: [address] [address] For Inquires, the Physician may contact the Microbiology department at [phone] colonoscopy as strep gallolyticus bacteremia source could be GI malignancy,can be done as outpt 38 min pt exam, chart review, > 50% of time spent with exam, chart review, pt care coordination 6 Susceptibilities for micrococcus 2/4 bottles is not available from [facility] per discussion with micro lab Susceptibilities for staph warneri is pending, 1/4 bottles could be a cont aminant 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 Afebrile overnight. Strep bovis on blood cultures. iv ROCEPHIN per ID., IV DAPTOMYCIN ear pain improved. Abdominal pain improved and she is tolerating p.o. well. No chest pain or shortness of breath. Awaiting final sensitivities. HIDA scan negative source is unlikely to be gallbladder possibly per perforated diverticulitis Repeat blood cultures from 01/14/2021 + for gram-positive cocci given persisting gram-positive bacteremia CLEMENTE is indicated in the near future to r/o vegetation. Sepsis from Gram-positive bacteremia. January 12, Streptococcus gallolyticus bacteremia January 12,2/4 bottles present on admission, source GI. Micrococcus luteus bacteremia January 14 3 out of 4 bottles Procedure Result BLOOD CULTURE LC Preliminary Preliminary FINAL ID= [MICROCOCCUS LUTEUS] MICROCOCCUS LUTEUS Unless otherwise specified, Testing Performed by: [address] [address] For Inquires, the Physician may contact the Microbiology department at [phone] JALEN JOLLEY MD, MICHAEL F MD ORDERED: MICHELINE DOE - LC Procedure Result --- --------- BLOOD CULTURE LC Final Final GRAM POSITIVE COCCI FINAL ID= [MICROCOCCUS LUTEUS] NO FURTHER WORKUP MICROCOCCUS LUTEUS Unless otherwise specified, Testing Performed by: [facility] [address] [place] [address] For Inquires, the Physician may contact the Microbiology department at [phone] ----- ------- colonoscopy as strep gallolyticus bacteremia source could be GI malignancy,can be done as outpt 36 min pt exam, chart review, D/C PLANNING > 50% of time spent with exam, chart review, pt care coordination 01-23 Susceptibilities for micrococcus 2/4 bottles is not available from [facility] per discussion with micro lab Susceptibilities for staph warneri is pending, 1/4 bottles could be a conta minant 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 Afebrile overnight. Strep bovis on blood cultures. iv ROCEPHIN per ID., IV DAPTOMYCIN ear pain improved. Abdominal pain improved and she is tolerating p.o. well. No chest pain or shortness of breath. Awaiting final sensitivities. HIDA scan negative source is unlikely to be gallbladder possibly per perforated diverticulitis Repeat blood cultures from 01/14/2021 + for gram-positive cocci given persisting gram-positive bacteremia CLEMENTE is indicated in the near future to r/o vegetation. Sepsis from Gram-positive bacteremia. January 12, Streptococcus gallolyticus bacteremia January 12,2/4 bottles present on admission, source GI. Micrococcus luteus bacteremia January 14 3 out of 4 bottles Procedure Result BLOOD CULTURE LC Preliminary Preliminary FINAL ID= [MICROCOCCUS LUTEUS] MICROCOCCUS LUTEUS Unless otherwise specified, Testing Performed by: [address] [address] For Inquires, the Physician may contact the Microbiology department at [phone] JALEN JOLLEY MD,KATHARINE Bobo MD ORDERED: MICHELINE CULT - LC Procedure Result ---- -------- BLOOD CULTURE LC Final Final GRAM POSITIVE COCCI FINAL ID= [MICROCOCCUS LUTEUS] NO FURTHER WORKUP MICROCOCCUS LUTEUS Unless otherwise specified, Testing Performed by: [address] [address] For Inquires, the Physician may contact the Microbiology department at [phone] ------ ------ colonoscopy as strep gallolyticus bacteremia source could be GI malignancy,can be done as outpt 26 min pt exam, chart review, D/C PLANNING > 50% of time spent with exam, chart review, pt care coordination Vitals Vitals Vital Signs Date Time Temp Pulse Resp B/P (MAP) Pulse Ox O2 Delivery O2 Flow Rate FiO2 01/23/21 10:47 98.6 70 18 137/73 (94) 94 Room Air 98.6 Physical Exam Physical Exam GENERAL: Alert, awake, pleasant female, lying in bed comfortably, in no acute distress.on ra HEENT: Normocephalic, atraumatic. Anicteric. Oral mucosa moist. No O2. NECK: Supple. No JVD. LUNGS: Clear bilaterally. No wheezing. HEART: S1, S2. ABDOMEN: Soft. Mild tenderness present diffusely, more over the epigastric area. No rebound or guarding. EXTREMITIES: No edema, no cyanosis. Left upper extremity injection site without evidence of fluctuance or erythema DERMATOLOGIC: Warm, dry, no generalized rash. NEUROLOGIC: Alert, oriented x 3, grossly nonfocal. PSYCHIATRIC: Calm and cooperative. General: Alert, Oriented X3, Cooperative, No acute distress Heart: Regular rate, Normal S1, Normal S2, No murmurs Lungs: Clear Abdomen: Normal bowel sounds, Soft, No tenderness Extremities: No clubbing, No cyanosis, No edema, Normal pulses Skin: No breakdown, No significant lesion Labs LABS SOURCE: BLOOD ENTR: 01/17/21-[address]: BARRY OROZCO MD [facility]: FÁTIMA GALEANO MD,JALEN SCHAEFER,KATHARINE Bobo MD ORDERED: BCULT Procedure Result -- BLOOD CULTURE Final NO GROWTH AFTER 5 DAYS Laboratory Tests Test 01/22/21 11:41 01/22/21 14:00 01/22/21 16:26 01/22/21 21:11 Glucose (Fingerstick) 124 mg/dL (70-99) 168 mg/dL (70-99) 100 mg/dL (70-99) White Blood Count 7.8 x10^3/uL (4.0-11.0) Red Blood Count 3.90 x10^6/uL (3.50-5.40) Hemoglobin 12.6 g/dL (12.0-15.5) Hematocrit 37.8 % (36.0-47.0) Mean Corpuscular Volume 97 fL (79-100) Mean Corpuscular Hemoglobin 32 pg (25-35) Mean Corpuscular Hemoglobin Concent 33 g/dL (31-37) Red Cell Distribution Width 13.4 % (11.5-14.5) Platelet Count 250 x10^3/uL (140-400) Neutrophils (%) (Auto) 73 % (31-73) Lymphocytes (%) (Auto) 17 % (24-48) Monocytes (%) (Auto) 8 % (0-9) Eosinophils (%) (Auto) 1 % (0-3) Basophils (%) (Auto) 1 % (0-3) Neutrophils # (Auto) 5.6 x10^3/uL (1.8-7.7) Lymphocytes # (Auto) 1.3 x10^3/uL (1.0-4.8) Monocytes # (Auto) 0.6 x10^3/uL (0.0-1.1) Eosinophils # (Auto) 0.1 x10^3/uL (0.0-0.7) Basophils # (Auto) 0.1 x10^3/uL (0.0-0.2) Sodium Level 141 mmol/L (136-145) Potassium Level 4.2 mmol/L (3.5-5.1) Chloride Level 106 mmol/L (98-107) Carbon Dioxide Level 27 mmol/L (21-32) Anion Gap 8 (6-14) Blood Urea Nitrogen 15 mg/dL (7-20) Creatinine 0.9 mg/dL (0.6-1.0) Estimated GFR (Cockcroft-Gault) 61.5 BUN/Creatinine Ratio 17 (6-20) Glucose Level 144 mg/dL (70-99) Calcium Level 9.0 mg/dL (8.5-10.1) Total Bilirubin 0.5 mg/dL (0.2-1.0) Aspartate Amino Transf (AST/SGOT) 16 U/L (15-37) Alanine Aminotransferase (ALT/SGPT) 44 U/L (14-59) Alkaline Phosphatase 95 U/L (46-116) Total Protein 7.5 g/dL (6.4-8.2) Albumin 3.4 g/dL (3.4-5.0) Albumin/Globulin Ratio 0.8 (1.0-1.7) Test 01/23/21 06:55 01/23/21 11:00 Glucose (Fingerstick) 101 mg/dL (70-99) 125 mg/dL (70-99) Assessment and Plan Assessmemt and Plan Problems Medical Problems: (1) Bradycardia on ECG Status: Acute Comment Review of Relevant I have reviewed the following items homero (where applicable) has been applied. Labs Laboratory Tests Test 01/21/21 11:47 01/21/21 17:05 01/21/21 20:35 01/22/21 07:23 Glucose (Fingerstick) 106 mg/dL (70-99) 122 mg/dL (70-99) 124 mg/dL (70-99) 111 mg/dL (70-99) Test 01/22/21 11:41 01/22/21 14:00 01/22/21 16:26 01/22/21 21:11 Glucose (Fingerstick) 124 mg/dL (70-99) 168 mg/dL (70-99) 100 mg/dL (70-99) White Blood Count 7.8 x10^3/uL (4.0-11.0) Red Blood Count 3.90 x10^6/uL (3.50-5.40) Hemoglobin 12.6 g/dL (12.0-15.5) Hematocrit 37.8 % (36.0-47.0) Mean Corpuscular Volume 97 fL (79-100) Mean Corpuscular Hemoglobin 32 pg (25-35) Mean Corpuscular Hemoglobin Concent 33 g/dL (31-37) Red Cell Distribution Width 13.4 % (11.5-14.5) Platelet Count 250 x10^3/uL (140-400) Neutrophils (%) (Auto) 73 % (31-73) Lymphocytes (%) (Auto) 17 % (24-48) Monocytes (%) (Auto) 8 % (0-9) Eosinophils (%) (Auto) 1 % (0-3) Basophils (%) (Auto) 1 % (0-3) Neutrophils # (Auto) 5.6 x10^3/uL (1.8-7.7) Lymphocytes # (Auto) 1.3 x10^3/uL (1.0-4.8) Monocytes # (Auto) 0.6 x10^3/uL (0.0-1.1) Eosinophils # (Auto) 0.1 x10^3/uL (0.0-0.7) Basophils # (Auto) 0.1 x10^3/uL (0.0-0.2) Sodium Level 141 mmol/L (136-145) Potassium Level 4.2 mmol/L (3.5-5.1) Chloride Level 106 mmol/L (98-107) Carbon Dioxide Level 27 mmol/L (21-32) Anion Gap 8 (6-14) Blood Urea Nitrogen 15 mg/dL (7-20) Creatinine 0.9 mg/dL (0.6-1.0) Estimated GFR (Cockcroft-Gault) 61.5 BUN/Creatinine Ratio 17 (6-20) Glucose Level 144 mg/dL (70-99) Calcium Level 9.0 mg/dL (8.5-10.1) Total Bilirubin 0.5 mg/dL (0.2-1.0) Aspartate Amino Transf (AST/SGOT) 16 U/L (15-37) Alanine Aminotransferase (ALT/SGPT) 44 U/L (14-59) Alkaline Phosphatase 95 U/L (46-116) Total Protein 7.5 g/dL (6.4-8.2) Albumin 3.4 g/dL (3.4-5.0) Albumin/Globulin Ratio 0.8 (1.0-1.7) Test 01/23/21 06:55 01/23/21 11:00 Glucose (Fingerstick) 101 mg/dL (70-99) 125 mg/dL (70-99) Laboratory Tests Test 01/22/21 11:41 01/22/21 14:00 01/22/21 16:26 01/22/21 21:11 Glucose (Fingerstick) 124 mg/dL (70-99) 168 mg/dL (70-99) 100 mg/dL (70-99) White Blood Count 7.8 x10^3/uL (4.0-11.0) Red Blood Count 3.90 x10^6/uL (3.50-5.40) Hemoglobin 12.6 g/dL (12.0-15.5) Hematocrit 37.8 % (36.0-47.0) Mean Corpuscular Volume 97 fL (79-100) Mean Corpuscular Hemoglobin 32 pg (25-35) Mean Corpuscular Hemoglobin Concent 33 g/dL (31-37) Red Cell Distribution Width 13.4 % (11.5-14.5) Platelet Count 250 x10^3/uL (140-400) Neutrophils (%) (Auto) 73 % (31-73) Lymphocytes (%) (Auto) 17 % (24-48) Monocytes (%) (Auto) 8 % (0-9) Eosinophils (%) (Auto) 1 % (0-3) Basophils (%) (Auto) 1 % (0-3) Neutrophils # (Auto) 5.6 x10^3/uL (1.8-7.7) Lymphocytes # (Auto) 1.3 x10^3/uL (1.0-4.8) Monocytes # (Auto) 0.6 x10^3/uL (0.0-1.1) Eosinophils # (Auto) 0.1 x10^3/uL (0.0-0.7) Basophils # (Auto) 0.1 x10^3/uL (0.0-0.2) Sodium Level 141 mmol/L (136-145) Potassium Level 4.2 mmol/L (3.5-5.1) Chloride Level 106 mmol/L (98-107) Carbon Dioxide Level 27 mmol/L (21-32) Anion Gap 8 (6-14) Blood Urea Nitrogen 15 mg/dL (7-20) Creatinine 0.9 mg/dL (0.6-1.0) Estimated GFR (Cockcroft-Gault) 61.5 BUN/Creatinine Ratio 17 (6-20) Glucose Level 144 mg/dL (70-99) Calcium Level 9.0 mg/dL (8.5-10.1) Total Bilirubin 0.5 mg/dL (0.2-1.0) Aspartate Amino Transf (AST/SGOT) 16 U/L (15-37) Alanine Aminotransferase (ALT/SGPT) 44 U/L (14-59) Alkaline Phosphatase 95 U/L (46-116) Total Protein 7.5 g/dL (6.4-8.2) Albumin 3.4 g/dL (3.4-5.0) Albumin/Globulin Ratio 0.8 (1.0-1.7) Test 01/23/21 06:55 01/23/21 11:00 Glucose (Fingerstick) 101 mg/dL (70-99) 125 mg/dL (70-99) Microbiology 01/17/21 Blood Culture - Final, Complete NO GROWTH AFTER 5 DAYS Medications Current Medications Iohexol (Omnipaque 300 Mg/ml) 75 ml 1X ONCE IV Last administered on 01/12/21at 14:38; Start 01/12/21 at 14:15; Stop 01/12/21 at 14:16; Status DC Info (CONTRAST GIVEN -- Rx MONITORING) 1 each PRN DAILY PRN MC SEE COMMENTS; Start 01/12/21 at 14:15; Stop 01/14/21 at 14:14; Status DC Ondansetron HCl (Zofran) 4 mg PRN Q8HRS PRN IV NAUSEA/VOMITING; Start 01/12/21 at 15:45; Stop 01/12/21 at 16:51; Status DC Pantoprazole Sodium (PROTONIX VIAL for IV PUSH) 40 mg DAILY08 ONCE IVP Last administered on 01/12/21at 17:40; Start 01/12/21 at 17:00; Stop 01/12/21 at 17:01; Status DC Sodium Chloride (Normal Saline Flush) 3 ml QSHIFT PRN IV AFTER MEDS AND BLOOD DRAWS; Start 01/12/21 at 17:00 Sodium Chloride 1,000 ml @ 100 mls/hr Q10H IV Last administered on 01/13/21at 18:21; Start 01/12/21 at 17:00; Stop 01/14/21 at 08:20; Status DC Dextrose/Sodium Chloride 1,000 ml @ 80 mls/hr [id number] IV ; Start 01/12/21 at 17:00; Status UNV Ondansetron HCl (Zofran) 4 mg PRN Q4HRS PRN IV NAUSEA/VOMITING 1ST CHOICE Last administered on 01/13/21at 20:35; Start 01/12/21 at 17:00 Acetaminophen (Tylenol) 650 mg PRN Q4HRS PRN PO TEMP OVER 100.4F OR MILD PAIN Last administered on 01/22/21at 17:50; Start 01/12/21 at 17:00 Al Hydroxide/Mg Hydroxide (Mylanta Plus Xs) 30 ml PRN DAILY PRN PO HEARTBURN / GAS; Start 01/12/21 at 17:00 Sodium Monofluorophosphate (Fleet Adult) 133 ml PRN DAILY PRN MA CONSTIPATION; Start 01/12/21 at 17:00; Stop 01/15/21 at 14:48; Status DC Docusate Sodium (Colace) 100 mg PRN BID PRN PO HARD STOOLS; Start 01/12/21 at 17:00 Albuterol Sulfate (Ventolin Neb Soln) 2.5 mg PRN Q4HRS PRN NEB SHORTNESS OF BREATH; Start 01/12/21 at 17:00 Guaifenesin (Robitussin) 200 mg PRN Q4HRS PRN PO COUGH; Start 01/12/21 at 17:00 Lorazepam (Ativan) 0.5 mg PRN Q4HRS PRN PO ANXIETY / AGITATION; Start 01/12/21 at 17:00 Enoxaparin Sodium (Lovenox 40mg Syringe) 40 mg Q24H SQ Last administered on 01/22/21at 22:05; Start 01/12/21 at 21:00 Aspirin (Aspirin Chewable) 81 mg DAILY PO Last administered on 01/23/21 09:48; Start 01/13/21 at 09:00 Clopidogrel Bisulfate (Plavix) 75 mg DAILY PO Last administered on 01/23/21 09:48; Start 01/13/21 at 09:00 Fluoxetine HCl (PROzac) 10 mg DAILY PO Last administered on 01/23/21 09:48; Start 01/13/21 at 09:00 Hydrochlorothiazide (Hydrodiuril) 25 mg DAILY PO Last administered on 01/13/21 11:56; Start 01/13/21 at 09:00; Stop 01/14/21 at 08:20; Status DC Pentoxifylline (TRENtal) 400 mg DAILY PO Last administered on 01/23/21 09:47; Start 01/13/21 at 09:00 Vitamin B Complex (Hang B) 1 tab DAILY PO Last administered on 01/23/21 09:46; Start 01/13/21 at 09:00 Fish Oil (Fish Oil) 1,000 mg DAILY PO Last administered on 01/23/21 09:48; Start 01/13/21 at 09:00 Ondansetron HCl (Zofran Odt) 4 mg PRN Q8HRS PRN PO NAUSEA/VOMITING Last administered on 01/16/21at 04:16; Start 01/12/21 at 17:00 Atorvastatin Calcium (Lipitor) 5 mg QHS PO Last administered on 01/22/21at 22:01; Start 01/12/21 at 21:00 Hydralazine HCl (Apresoline Inj) 10 mg PRN Q4HRS PRN IVP ELEVATED BP, SEE COMMENTS Last administered on 01/19/21at 10:59; Start 01/12/21 at 20:30 Piperacillin Sod/ Tazobactam Sod 2.25 gm/Sodium Chloride 50 ml @ 100 mls/hr 1X ONCE IV ; Start 01/13/21 at 09:15; Stop 01/13/21 at 09:44; Status UNV Piperacillin Sod/ Tazobactam Sod 3.375 gm/Sodium Chloride 50 ml @ 100 mls/hr Q6HRS IV Last administered on 01/16/21at 05:52; Start 01/13/21 at 10:00; Stop 01/16/21 at 08:21; Status DC Magnesium Sulfate 50 ml @ 25 mls/hr 1X ONCE IV Last administered on 01/13/21at 11:21; Start 01/13/21 at 11:00; Stop 01/13/21 at 12:59; Status DC Pantoprazole Sodium (Protonix) 40 mg DAILYAC PO Last administered on 01/23/21at 09:46; Start 01/13/21 at 12:30 Daptomycin 350 mg/ Sodium Chloride 50 ml @ 100 mls/hr Q24H IV Last administered on 01/14/21at 14:09; Start 01/13/21 at 14:00; Stop 01/15/21 at 09:31; Status DC Lactobacillus Rhamnosus (Culturelle) 1 cap BID PO Last administered on 01/23/21 09:46; Start 01/13/21 at 21:00 Losartan Potassium (Cozaar) 100 mg DAILY PO Last administered on 01/23/21at 09:45; Start 01/13/21 at 17:00 Potassium Chloride/Dextrose/ Sod Cl 1,000 ml @ 80 mls/hr [id number] ONCE IV Last administered on 01/14/21at 09:58; Start 01/14/21 at 09:00; Stop 01/14/21 at 21:29; Status DC Potassium Bicarbonate (Potassium Effervescent Tablet) 40 meq 1X ONCE PO Last administered on 01/14/21at 09:04; Start 01/14/21 at 08:15; Stop 01/14/21 at 08:28; Status DC Magnesium Sulfate 50 ml @ 25 mls/hr 1X ONCE IV Last administered on 01/14/21 09:57; Start 01/14/21 at 08:15; Stop 01/14/21 at 10:14; Status DC Sodium Chloride (Alexander Saline Nasal) 1 inga PRN DAILY PRN NS NASAL CONGESTION; Start 01/14/21 at 12:00 Fluticasone Propionate (Flonase) 2 spray DAILY NS Last administered on 01/23/21 09:44; Start 01/14/21 at 13:00 Fluticasone Propionate (Flonase) 2 spray DAILY NS ; Start 01/14/21 at 12:00; Status UNV Sodium Chloride (Alexander Saline Nasal) 1 inga PRN DAILY PRN NS NASAL CONGESTION; Start 01/14/21 at 12:00; Status UNV Latanoprost (Xalatan) 1 drop QHS OU Last administered on 01/22/21 22:02; Start 01/16/21 at 21:00 Linagliptin (Tradjenta) 5 mg DAILY PO Last administered on 01/23/21 09:48; Start 01/16/21 at 09:00 Amlodipine Besylate (Norvasc) 5 mg DAILY PO Last administered on 01/16/21 08:08; Start 01/16/21 at 09:00; Stop 01/16/21 at 10:51; Status DC Ceftriaxone Sodium (Rocephin) 2 gm Q24H IVP Last administered on 01/23/21 09:49; Start 01/16/21 at 09:00 Daptomycin 350 mg/ Sodium Chloride 50 ml @ 100 mls/hr Q24H IV Last administered on 01/23/21 10:18; Start 01/16/21 at 10:00 Prochlorperazine Edisylate (Compazine) 10 mg PRN Q6HRS PRN IV Headache/NAUSEA/VOMITING-2nd Last administered on 01/16/21 11:22; Start 01/16/21 at 10:45 Nifedipine (Procardia Xl) 30 mg DAILY PO Last administered on 6/6/21at 09:46; Start 01/17/21 at 09:00 Potassium Chloride (Klor-Con) 40 meq 1X ONCE PO Last administered on 01/17/21at 14:21; Start 01/17/21 at 14:30; Stop 01/17/21 at 14:31; Status DC Potassium Chloride (Klor-Con) 20 meq DAILYWBKFT PO Last administered on 01/23/21at 09:48; Start 01/18/21 at 08:00 Ringer's Solution 1,000 ml @ 50 mls/hr Q20H IV ; Start 01/19/21 at 07:00; Stop 01/19/21 at 18:59; Status DC Sodium Chloride (Normal Saline Flush) 10 ml QSHIFT PRN IV AFTER MEDS AND BLOOD DRAWS; Start 01/18/21 at 17:15 Lidocaine HCl (Xylocaine 2% Topical 5gm Tube) 1 inga 1X ONCE TP ; Start 01/18/21 at 17:15; Stop 01/18/21 at 17:19; Status DC Lidocaine HCl (Viscous Lidocaine) 15 ml 1X ONCE MM ; Start 01/18/21 at 17:15; Stop 01/18/21 at 17:19; Status DC Benzocaine (Hurricaine One) 2 spray 1X ONCE MM ; Start 01/18/21 at 17:15; Stop 01/18/21 at 17:19; Status DC Lidocaine HCl (Viscous Lidocaine) 15 ml 1X ONCE SWSW Last administered on 01/19/21at 11:54; Start 01/19/21 at 08:30; Stop 01/19/21 at 08:47; Status DC Lidocaine HCl (Xylocaine 2% Topical 30gm Tube) 1 inga 1X ONCE TP Last administered on 01/19/21at 11:53; Start 01/19/21 at 08:30; Stop 01/19/21 at 08:47; Status DC Benzocaine (Hurricaine One) 2 spray 1X ONCE MM Last administered on 01/19/21at 11:54; Start 01/19/21 at 08:30; Stop 01/19/21 at 08:47; Status DC Lidocaine HCl (Xylocaine 2% Topical 30gm Tube) 30 inga STK-MED ONCE TP ; Start 01/19/21 at 10:54; Stop 01/19/21 at 10:54; Status DC Propofol (Diprivan) 200 mg STK-MED ONCE IV ; Start 01/19/21 at 11:14; Stop 01/19/21 at 11:15; Status DC Lidocaine HCl (Lidocaine Pf 2% Vial) 5 ml STK-MED ONCE .ROUTE ; Start 01/19/21 at 11:14; Stop 01/19/21 at 11:15; Status DC Ketamine HCl (Ketamine) 50 mg STK-MED ONCE .ROUTE ; Start 01/19/21 at 11:14; Stop 01/19/21 at 11:15; Status DC Sodium Chloride 1,000 ml @ 0 mls/hr Q0M IV ; Start 01/19/21 at 12:00 Active Scripts Active Vitamin B Complex 1 Each Tablet 1 Tab PO DAILY 30 Days Culturelle (Lactobacillus Rhamnosus Gg) 1 Each Cap.sprink 1 Cap PO BID 45 Days Pantoprazole Sodium (Pantoprazole Sodium) 40 Mg Tablet.dr 40 Mg PO DAILYAC 30 Days Ondansetron Odt (Ondansetron) 4 Mg Tab.rapdis 4 Mg PO PRN Q8HRS PRN 14 Days Dok (Docusate Sodium) 100 Mg Capsule 100 Mg PO PRN BID PRN 30 Days Mag-Al Plus Xs Suspension (Mag Hydrox/Al Hydrox/Simeth) 30 Ml Oral.susp 30 Ml PO PRN DAILY PRN 30 Days Alexander Saline Nasal Gel (Sodium Chloride/Aloe Vera) 14.1 Gm Gel..gram. 1 Inga NS PRN DAILY PRN 14 Days Fluticasone Propionate Nasal [place] (Fluticasone Propionate) 16 Gm [place].susp 2 [place] NS DAILY 30 Days Klor-Con M20 (Potassium Chloride) 20 Meq Tab.er.prt 20 Meq PO DAILYWBKFT 14 Days Normal Saline Flush (0.9 % Sodium Chloride) 2 Ml Disp.syrin 10 Ml IV QSHIFT PRN 30 Days Fluoxetine Hcl 10 Mg Capsule 10 Mg PO DAILY 30 Days Acetaminophen 325 Mg Tablet 650 Mg PO PRN Q4HRS PRN 30 Days Aspirin 81 Mg Tab.chew 81 Mg PO DAILY 30 Days Fish Oil 1,000 Mg Capsule (Marsteller-3 Fatty Acids/Fish Oil) 1 Each Capsule 1,000 Mg PO DAILY 30 Days Proair Hfa (Albuterol Sulfate) 8.5 Gm Hfa.aer.ad 2.5 Mg NEB PRN Q4HRS PRN 14 Days Clopidogrel (Clopidogrel Bisulfate) 75 Mg Tablet 75 Mg PO DAILY 30 Days Daptomycin 350 Mg Vial 500 Mg IV DAILY08 14 Days [Ceftriaxone Sodium] 2 GM Vial 2 Gm IVP Q24H 14 Days Nifedipine Er (Nifedipine) 30 Mg Tab.er.24 30 Mg PO DAILY 30 Days Reported Xalatan (Latanoprost) 2.5 Ml Drops 1 Drop OU QHS Losartan-Hctz 100-25 Mg Tab (Losartan/Hydrochlorothiazide) 1 Each Tablet 1 Each PO DAILY Januvia (Sitagliptin Phosphate) 100 Mg Tablet 100 Mg PO DAILY Pentoxifylline 400 Mg Tablet.er 400 Mg PO DAILY Pravastatin Sodium 20 Mg Tablet 20 Mg PO HS Vitals/I & O Vital Sign - Last 24 Hours 01/22/21 01/22/21 01/22/21 01/22/21 15:11 19:54 20:00 22:53 Temp 98.4 98.4 98.5 98.4 98.4 98.5 Pulse 65 72 58 Resp 18 18 20 B/P (MAP) 146/70 (95) 143/65 (91) 154/73 (100) Pulse Ox 97 96 94 O2 Delivery Room Air Room Air Room Air Room Air 01/23/21 01/23/21 01/23/21 01/23/21 03:06 07:00 09:45 09:46 Temp 98.5 98.1 98.5 98.1 Pulse 60 58 58 58 Resp 16 16 B/P (MAP) 178/79 (112) 144/62 (89) 144/62 144/62 Pulse Ox 97 98 O2 Delivery Room Air Room Air 01/23/21 10:47 Temp 98.6 98.6 Pulse 70 Resp 18 B/P (MAP) 137/73 (94) Pulse Ox 94 O2 Delivery Room Air Intake and Output 01/22/21 01/22/21 01/23/21 15:00 23:00 07:00 Intake Total 600 ml 850 ml 0 ml Output Total 200 ml 150 ml Balance 400 ml 700 ml 0 ml Justicifation of Admission Dx: Justifications for Admission: Justification of Admission Dx: Yes Sepsis: Bacteremia BARRY OROZCO MD Jan 23, 2021 11:14
--- NOTE | 2021-01-23 13:39 | NUR ---
Spoke with daughter at bedside who inquired if we could provide/arrange transportation for the outpatient infusions that are ordered. This RN was unsure and advised that social work could discuss and answer on Sunday since prior auth is still pending.
[2021-01-23 14:25] VITALS: BP 98/59
[2021-01-23 19:05] VITALS: BP 120/59
[2021-01-23 22:35] VITALS: BP 144/63
[2021-01-23] MEDS: LATANOPROST 0.005% OPHTH SOLUTION 2.5ML BOTTLE. OU SCH (23:28)
[2021-01-23] MEDS: ATORVASTATIN CALCIUM 10 MG TABLET. PO SCH (23:28)
[2021-01-23] MEDS: ENOXAPARIN 40 MG/0.4 ML SYRINGE. SQ SCH (23:29)
[2021-01-23] MEDS: ACETAMINOPHEN 325 MG TABLET. PO PRN (23:31)
[2021-01-24 02:50] VITALS: BP 134/62
[2021-01-24 07:39] VITALS: BP 128/62
--- NOTE | 2021-01-24 08:01 | PDOC ---
Infectious Disease Note Subjective Subjective Patient states she feels the same Abdominal pain and bloating comes and goes Tolerating p.o. intake well Continues to have intermittent diarrhea On room air No fever, nausea vomiting shortness of breath or chest pain Vital Sign Vital Signs Vital Signs Date Time Temp Pulse Resp B/P (MAP) Pulse Ox O2 Delivery O2 Flow Rate FiO2 01/24/21 07:39 98.7 56 18 128/62 (84) 96 Room Air 98.7 Physical Exam PHYSICAL EXAM GENERAL: Alert, awake, pleasant female, lying in bed comfortably, in no acute distress.on ra HEENT: Normocephalic, atraumatic. Anicteric. Oral mucosa moist. No O2. NECK: Supple. No JVD. LUNGS: Clear bilaterally. No wheezing. HEART: S1, S2. ABDOMEN: Soft. Mild tenderness present diffusely, more over the epigastric area. No rebound or guarding. EXTREMITIES: No edema, no cyanosis. Left upper extremity injection site without evidence of fluctuance or erythema DERMATOLOGIC: Warm, dry, no generalized rash. NEUROLOGIC: Alert, oriented x 3, grossly nonfocal. PSYCHIATRIC: Calm and cooperative. Labs Lab Laboratory Tests Test 01/23/21 11:00 01/23/21 16:35 01/23/21 21:05 01/24/21 07:39 Glucose (Fingerstick) 125 mg/dL (70-99) 116 mg/dL (70-99) 122 mg/dL (70-99) 111 mg/dL (70-99) Micro Microbiology 01/17/21 Blood Culture - Final, Complete NO GROWTH AFTER 5 DAYS Objective Assessment Patient with polymicrobial bacteremia, source appears GI, 1. Fever. pattern improved 2. Sepsis from Gram-positive bacteremia. January 12, 3. Streptococcus gallolyticus bacteremia January 12,2/4 bottles present on admission, source GI. Micrococcus luteus bacteremia 2/4 and now staph warneri bacteremia 1/4 bottles reported January 14 total bc positive 3 out of 4 bottles Source unclear CLEMENTE January 19, 2021 4. Abdominal pain. 5. Nausea and vomiting. Diarrhea C diff and enteric panel negative 6. CT showing 4.5 cm ascending thoracic aortic aneurysm. 7. Chronic back pain with compression fracture on CT. 8. Colonic diverticulosis on CT. 9. 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 10. Cardiomegaly. 12. Diabetes. 13. Anxiety and depression. 14. Poorly controlled Hypertension 15. Hyperlipidemia; statin 16. Bradycardia 17. PAD; reports tingling in LE as HS. no wounds 18. S/P COVID Vaccine 19. 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 difficile PCR reported negative Last CPK 45 on 01/20 F/U Repeat BC on 01/17 negative so far Monitor Labs Weekly labs while on antibiotics Patient follow-up in ID clinic in 2 weeks Patient is awaiting insurance approval for discharge Discussed with nursing staff KATHY MCGRAW MD Jan 24, 2021 08:00
[2021-01-24] MEDS: LACTOBACILLUS RHAMNOSUS GG 1 CAPSULE. PO SCH (09:15)
[2021-01-24] MEDS: CLOPIDOGREL BISULFATE 75 MG TABLET PO SCH (09:15)
[2021-01-24] MEDS: VITAMIN B COMPLEX TABLET. PO SCH (09:15)
[2021-01-24] MEDS: POTASSIUM CHLORIDE 20 MEQ TABLET.ER. PO SCH (09:15)
[2021-01-24] MEDS: FLUoxetine HCL 10 MG CAPSULE PO SCH (09:15)
[2021-01-24] MEDS: PENTOXIFYLLINE ER 400 MG TABLET.ER. PO SCH (09:15)
[2021-01-24] MEDS: PANTOPRAZOLE 40 MG TABLET.DR. PO SCH (09:15)
[2021-01-24] MEDS: ASPIRIN CHEWABLE 81 MG TABLET. PO SCH (09:15)
[2021-01-24] MEDS: LINAGLIPTIN 5 MG TABLET PO SCH (09:15)
[2021-01-24] MEDS: OMEGA-3 FATTY ACIDS/FISH OIL 1,000 MG CAPSULE. PO SCH (09:16)
[2021-01-24] MEDS: LOSARTAN POTASSIUM 50 MG TABLET. PO SCH (09:16)
[2021-01-24] MEDS: FLUTICASONE 50MCG/NASAL SPRAY 16GM BOTTLE. NS SCH (09:16)
[2021-01-24] MEDS: cefTRIAXone IV Push 2 GM VIAL. IVP SCH (09:16)
[2021-01-24] MEDS: DAPTOmycin (GENERIC) IVPB 350 MG in IV NORMAL SALINE 50ML 50 ML IV SCH (09:17)
[2021-01-24 10:38] VITALS: BP 137/68
--- NOTE | 2021-01-24 11:03 | NUR ---
SS following up with discharge planning. SS reviewed pt chart and discussed with pt RN. Pt is currently on room air. Pt on IV Rocephin and IV Daptomycin and needing outpatient IV antibiotics. PICC in place. Pt scheduled with [facility] outpatient, [phone]; fax [phone], on 01/25/2021, at 0900, and 01/26/2021, at 1300. SS discussed with pt's daughter, Sheila, and was notified that family will transport pt to and from appointments. Pt's RN notified. Pt's niece to transport to home.
--- NOTE | 2021-01-24 13:49 | PDOC ---
[employer] PROGRESS NOTE Date of Service DOS: DATE: 01/24/21 TIME: 13:44 Chief Complaint Chief Complaint A/P: ABDOMINAL PAIN, possible gastritis vs PUD Bradycardia, held calcium channel blockers , however, did not improve with this given she is on dihydropyridine, will attempt restarting given her HTN obesity ascending thoracic aorta appears enlarged measuring 4.5 cm // measurement is limited by motion artifact and noncontrast exam. moderate to severe compression fracture of T9 post vertebroplasty Sepsis from Gram-positive bacteremia. Gram-positive bacteremia - ID consulted - Streptococcus bovis bacteremia,2/4 bottles present on admission, source likely GI. Nausea. Chronic back pain with compression fracture on CT. Colonic diverticulosis on CT. 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 Cardiomegaly. Diabetes. Anxiety and depression. FEN - Cardiac diet PPX - iv protonix CODE - FULL Dispo - inpatient History of Present Illness History of Present Illness Ms Luo is a 70 Yr old tajik speaking female w/ PMHx HTN, HLD, GERD, PUD, anxiety with depression, DM2 who comes to ED with grandson c/o epigastric pain x [address] chest ascending thoracic aorta appears enlarged measuring 4.5 cm // measurement is limited by motion artifact and noncontrast exam. moderate to severe compression fracture of T9 post vertebroplasty ABDOMINAL PAIN, possible gastritis vs PUD Bradycardia, hold calcium channel blockers plan ADMIT CVC BED Cardiology consult iv protonix 40 mg q 24 hrs GI CONSULT npo hold calcium channel blockers now temp noted blood cult pos - ID consulted 01/14: Vomited x1 overnight. Febrile to 101.7 F overnight. Nasal congestion and right ear and bilateral maxillary sinus pain today. K 2.9. Still with abdominal cramping and nausea. 01/17 : Afebrile overnight. Strep bovis on blood cultures. iv Zosyn per ID., IV DAPTOMYCIN ear pain improved. Abdominal pain improved and she is tolerating p.o. well. No chest pain or shortness of breath. Awaiting final sensitivities. HIDA scan negative source is unlikely to be gallbladder possibly per perforated diverticulitis Repeat blood cultures from 01/14/2021 + for gram-positive cocci given persisting gram-positive bacteremia CLEMENTE is indicated in the near future to r/o vegetation. Sepsis from Gram-positive bacteremia. January 12, Streptococcus gallolyticus bacteremia January 12,2/4 bottles present on admission, source GI. Micrococcus luteus bacteremia January 14 3 out of 4 bottles Procedure Result BLOOD CULTURE LC Preliminary Preliminary FINAL ID= [MICROCOCCUS LUTEUS] MICROCOCCUS LUTEUS Unless otherwise specified, Testing Performed by: [address] [address] For Inquires, the Physician may contact the Microbiology department at [phone] 37 MIN pt exam, chart review, > 50% of time spent with exam, chart review, pt care coordination 01-18 : CLEMENTE 6- Afebrile overnight. Strep bovis on blood cultures. iv Zosyn per ID., IV DAPTOMYCIN ear pain improved. Abdominal pain improved and she is tolerating p.o. well. No chest pain or shortness of breath. Awaiting final sensitivities. HIDA scan negative source is unlikely to be gallbladder possibly per perforated diverticulitis Repeat blood cultures from 01/14/2021 + for gram-positive cocci given persisting gram-positive bacteremia CLEMENTE is indicated in the near future to r/o vegetation. Sepsis from Gram-positive bacteremia. January 12, Streptococcus gallolyticus bacteremia January 12,2/4 bottles present on admission, source GI. Micrococcus luteus bacteremia January 14 3 out of 4 bottles Procedure Result BLOOD CULTURE LC Preliminary Preliminary FINAL ID= [MICROCOCCUS LUTEUS] MICROCOCCUS LUTEUS Unless otherwise specified, Testing Performed by: [address] [id number] For Inquires, the Physician may contact the Microbiology department at [phone] 01/19/2021 No acute events overnight. Patient seen and examined next recliner. Complains of reflux symptoms some headaches. Currently n.p.o. for CLEMENTE today. Patient's chart, labs, images were reviewed and discussed with RN 01-20 PICC placed for antibiotics at home. Afebrile overnight. Strep bovis on blood cultures. iv Zosyn per ID., IV DAPTOMYCIN ear pain improved. Abdominal pain improved and she is tolerating p.o. well. No chest pain or shortness of breath. Awaiting final sensitivities. HIDA scan negative source is unlikely to be gallbladder possibly per perforated diverticulitis Repeat blood cultures from 01/14/2021 + for gram-positive cocci given persisting gram-positive bacteremia CLEMENTE is indicated in the near future to r/o vegetation. Sepsis from Gram-positive bacteremia. January 12, Streptococcus gallolyticus bacteremia January 12,2/4 bottles present on admission, source GI. Micrococcus luteus bacteremia January 14 3 out of 4 bottles Procedure Result BLOOD CULTURE LC Preliminary Preliminary FINAL ID= [MICROCOCCUS LUTEUS] MICROCOCCUS LUTEUS Unless otherwise specified, Testing Performed by: [address] [id number] For Inquires, the Physician may contact the Microbiology department at [phone] JALEN JOLLEY MD,KATHARINE Bobo MD ORDERED: MICHELINE DOE - LC Procedure Result BLOOD CULTURE LC Final Final GRAM POSITIVE COCCI FINAL ID= [MICROCOCCUS LUTEUS] NO FURTHER WORKUP MICROCOCCUS LUTEUS Unless otherwise specified, Testing Performed by: [address] [id number] For Inquires, the Physician may contact the Microbiology department at [phone] colonoscopy as strep gallolyticus bacteremia source could be GI malignancy,can be done as outpt 38 min pt exam, chart review, > 50% of time spent with exam, chart review, pt care coordination 6- PICC placed for antibiotics at home. Afebrile overnight. Strep bovis on blood cultures. iv Zosyn per ID., IV DAPTOMYCIN ear pain improved. Abdominal pain improved and she is tolerating p.o. well. No chest pain or shortness of breath. Awaiting final sensitivities. HIDA scan negative source is unlikely to be gallbladder possibly per perforated diverticulitis Repeat blood cultures from 01/14/2021 + for gram-positive cocci given persisting gram-positive bacteremia CLEMENTE is indicated in the near future to r/o vegetation. Sepsis from Gram-positive bacteremia. January 12, Streptococcus gallolyticus bacteremia January 12,2/4 bottles present on admission, source GI. Micrococcus luteus bacteremia January 14 3 out of 4 bottles Procedure Result BLOOD CULTURE LC Preliminary Preliminary FINAL ID= [MICROCOCCUS LUTEUS] MICROCOCCUS LUTEUS Unless otherwise specified, Testing Performed by: [address] [address] For Inquires, the Physician may contact the Microbiology department at [phone] JALEN JOLLEY MD,KATHARINE Bobo MD ORDERED: MICHELINE CULT - LC Procedure Result BLOOD CULTURE LC Final Final GRAM POSITIVE COCCI FINAL ID= [MICROCOCCUS LUTEUS] NO FURTHER WORKUP MICROCOCCUS LUTEUS Unless otherwise specified, Testing Performed by: [address] [address] For Inquires, the Physician may contact the Microbiology department at [phone] colonoscopy as strep gallolyticus bacteremia source could be GI malignancy,can be done as outpt 38 min pt exam, chart review, > 50% of time spent with exam, chart review, pt care coordination 6 Susceptibilities for micrococcus 2/4 bottles is not available from [facility] per discussion with micro lab Susceptibilities for staph warneri is pending, 1/4 bottles could be a contaminant 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 Afebrile overnight. Strep bovis on blood cultures. iv ROCEPHIN per ID., IV DAPTOMYCIN ear pain improved. Abdominal pain improved and she is tolerating p.o. well. No chest pain or shortness of breath. Awaiting final sensitivities. HIDA scan negative source is unlikely to be gallbladder possibly per perforated diverticulitis Repeat blood cultures from 01/14/2021 + for gram-positive cocci given persisting gram-positive bacteremia CLEMENTE is indicated in the near future to r/o vegetation. Sepsis from Gram-positive bacteremia. January 12, Streptococcus gallolyticus bacteremia January 12,2/4 bottles present on admission, source GI. Micrococcus luteus bacteremia January 14 3 out of 4 bottles Procedure Result BLOOD CULTURE LC Preliminary Preliminary FINAL ID= [MICROCOCCUS LUTEUS] MICROCOCCUS LUTEUS Unless otherwise specified, Testing Performed by: [address] [address] For Inquires, the Physician may contact the Microbiology department at [phone] JALEN JOLLEY MD, MICHAEL F MD ORDERED: MICHELINE DOE - LC Procedure Result BLOOD CULTURE LC Final Final GRAM POSITIVE COCCI FINAL ID= [MICROCOCCUS LUTEUS] NO FURTHER WORKUP MICROCOCCUS LUTEUS Unless otherwise specified, Testing Performed by: [facility] [address] [place] [address] For Inquires, the Physician may contact the Microbiology department at [phone] colonoscopy as strep gallolyticus bacteremia source could be GI malignancy,can be done as outpt 36 min pt exam, chart review, D/C PLANNING > 50% of time spent with exam, chart review, pt care coordination 01-23 Susceptibilities for micrococcus 2/4 bottles is not available from [facility] per discussion with micro lab Susceptibilities for staph warneri is pending, 1/4 bottles could be a contaminant 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 Afebrile overnight. Strep bovis on blood cultures. iv ROCEPHIN per ID., IV DAPTOMYCIN ear pain improved. Abdominal pain improved and she is tolerating p.o. well. No chest pain or shortness of breath. Awaiting final sensitivities. HIDA scan negative source is unlikely to be gallbladder possibly per perforated diverticulitis Repeat blood cultures from 01/14/2021 + for gram-positive cocci given persisting gram-positive bacteremia CLEMENTE is indicated in the near future to r/o vegetation. Sepsis from Gram-positive bacteremia. January 12, Streptococcus gallolyticus bacteremia January 12,2/4 bottles present on admission, source GI. Micrococcus luteus bacteremia January 14 3 out of 4 bottles Procedure Result BLOOD CULTURE LC Preliminary Preliminary FINAL ID= [MICROCOCCUS LUTEUS] MICROCOCCUS LUTEUS Unless otherwise specified, Testing Performed by: [address] [id number] For Inquires, the Physician may contact the Microbiology department at [phone] - JALEN JOLLEY MD,KATHARINE Bobo MD ORDERED: MICHELINE CULT - LC Procedure Result BLOOD CULTURE LC Final Final GRAM POSITIVE COCCI FINAL ID= [MICROCOCCUS LUTEUS] NO FURTHER WORKUP MICROCOCCUS LUTEUS Unless otherwise specified, Testing Performed by: [address] [id number] For Inquires, the Physician may contact the Microbiology department at [phone] colonoscopy as strep gallolyticus bacteremia source could be GI malignancy,can be done as outpt 26 min pt exam, chart review, D/C PLANNING > 50% of time spent with exam, chart review, pt care coordination 01/24/2021: Afebrile, no acute vents overnight. Discharge was held over the weekend secondary to insurance issues. Patient will discharge home today with family care. She will follow up at [facility] to continue IV infusions as outpatient. Vitals/I&O Vitals/I&O: Vital Signs Date Time Temp Pulse Resp B/P (MAP) Pulse Ox O2 Delivery O2 Flow Rate FiO2 01/24/21 10:38 98.3 68 20 137/68 (91) 97 Room Air 98.3 I & O 01/23/21 01/23/21 01/24/21 15:00 23:00 07:00 Intake Total 600 ml 600 ml 200 ml Output Total 100 ml 200 ml Balance 600 ml 500 ml 0 ml Physical Exam Physical Exam: GENERAL: Alert, awake, pleasant female, lying in bed comfortably, in no acute distress.on ra HEENT: Normocephalic, atraumatic. Anicteric. Oral mucosa moist. No O2. NECK: Supple. No JVD. LUNGS: Clear bilaterally. No wheezing. HEART: S1, S2. ABDOMEN: Soft. Mild tenderness present diffusely, more over the epigastric area. No rebound or guarding. EXTREMITIES: No edema, no cyanosis. Left upper extremity injection site without evidence of fluctuance or erythema DERMATOLOGIC: Warm, dry, no generalized rash. NEUROLOGIC: Alert, oriented x 3, grossly nonfocal. PSYCHIATRIC: Calm and cooperative. General: Alert, Oriented X3, Cooperative, No acute distress Heart: Regular rate, Normal S1, Normal S2, No murmurs Lungs: Clear Abdomen: Normal bowel sounds, Soft, No tenderness Extremities: No clubbing, No cyanosis Skin: No breakdown, No significant lesion Labs Labs: Laboratory Tests Test 01/23/21 16:35 01/23/21 21:05 01/24/21 07:39 01/24/21 12:47 Glucose (Fingerstick) 116 mg/dL (70-99) 122 mg/dL (70-99) 111 mg/dL (70-99) 105 mg/dL (70-99) Assessment and Plan Assessmemt and Plan Problems Medical Problems: (1) Bradycardia on ECG Status: Acute Comment Review of Relevant I have reviewed the following items homero (where applicable) has been applied. Justifications for Admission Other Justification ABDOMINAL PAIN CARLOS DAMON MD Jan 24, 2021 13:48
[2021-01-24 14:19] VITALS: BP 147/74
--- NOTE | 2021-01-24 15:13 | PDOC ---
G I PROGRESS NOTE Subjective Continues with minor GI complaints. Upper and lower abdominal discomfort. Physical Exam Lungs clear. RRR Abdomen tender mildly in epigastrium, RLQ (near Lovenox injection sites), LLQ. No mass, etc. Review of Relevant I have reviewed the following items homero (where applicable) has been applied. Labs Laboratory Tests Test 01/22/21 16:26 01/22/21 21:11 01/23/21 06:55 01/23/21 11:00 Glucose (Fingerstick) 168 mg/dL (70-99) 100 mg/dL (70-99) 101 mg/dL (70-99) 125 mg/dL (70-99) Test 01/23/21 16:35 01/23/21 21:05 01/24/21 07:39 01/24/21 12:47 Glucose (Fingerstick) 116 mg/dL (70-99) 122 mg/dL (70-99) 111 mg/dL (70-99) 105 mg/dL (70-99) Laboratory Tests Test 01/23/21 16:35 01/23/21 21:05 01/24/21 07:39 01/24/21 12:47 Glucose (Fingerstick) 116 mg/dL (70-99) 122 mg/dL (70-99) 111 mg/dL (70-99) 105 mg/dL (70-99) Microbiology 01/17/21 Blood Culture - Final, Complete NO GROWTH AFTER 5 DAYS Vitals/I & O Vital Sign - Last 24 Hours 01/23/21 01/23/21 01/23/21 01/24/21 19:05 20:00 22:35 02:50 Temp 98.0 98.7 98.6 98.0 98.7 98.6 Pulse 66 60 57 Resp 18 18 18 B/P (MAP) 120/59 (79) 144/63 (90) 134/62 (86) Pulse Ox 95 94 94 O2 Delivery Room Air Room Air Room Air Room Air 01/24/21 01/24/21 01/24/21 01/24/21 07:39 08:00 09:15 09:16 Temp 98.7 98.7 Pulse 56 56 56 Resp 18 B/P (MAP) 128/62 (84) 128/62 128/62 Pulse Ox 96 O2 Delivery Room Air Room Air 01/24/21 01/24/21 10:38 14:19 Temp 98.3 98.0 98.3 98.0 Pulse 68 58 Resp 20 18 B/P (MAP) 137/68 (91) 147/74 (98) Pulse Ox 97 96 O2 Delivery Room Air Room Air Intake and Output 01/23/21 01/23/21 01/24/21 15:00 23:00 07:00 Intake Total 600 ml 600 ml 200 ml Output Total 100 ml 200 ml Balance 600 ml 500 ml 0 ml Problem List Problems Medical Problems: (1) Bradycardia on ECG Status: Acute Assessment Strep bovis/micrococcus bacteremia, presumed GI origin. GERD--may be the upper complaints. Note discharge plans once cleared;/arranged through insurance. Plan of Care Note Dismiss on PPI. My office has been informed of need for endoscopy and will try to arrange in 3-4 weeks. Justicifation of Admission Dx: Justifications for Admission: Justification of Admission Dx: Yes Sepsis: Bacteremia KATHARINE SCHAEFER MD Jan 24, 2021 15:13
--- NOTE | 2021-01-24 17:39 | NUR ---
Discharge Note: KYARA PIPER [facility] Discharge instructions and discharge home medications reviewed with Patient and a copy given. All questions have been answered and understanding verbalized. The following instructions and handouts were given: daptomycin, ceftriaxone, potassium, acetaminophen, aspirin, clopidogrel,fluoxetine, lactobacillus, ondansetron, fish oil, and pantoprazole. Patient discharged to home with self care via wheelchair. Discharge instructions gone over with professor of environmental science.
== END 2021-01-24 17:55 | disposition home or self-care (01) | DRG 872 ==
LOC: ER 11:07 → ED HOLD 15:30 → MERGE 16:50 → OBSVTOIN 16:50 → CVICU 19:33 → 2 SOUTH 01-13 19:00
PROVIDERS: ADMIT Family Medicine; ATTEND Family Medicine
PROC: B24BZZ4 Ultrasonography of Heart with Aorta, Transesophageal (ICD-10-PCS; principal; 2021-01-19 12:00)
PROC: 05HY33Z Insertion of Infusion Device into Upper Vein, Percutaneous Approach (ICD-10-PCS; 2021-01-20)
DX: A41.89 Other specified sepsis (principal); M48.54XA Collapsed vertebra, not elsewhere classified, thoracic region, initial encounter for fracture; B95.4 Other streptococcus as the cause of diseases classified elsewhere; B96.89 Other specified bacterial agents as the cause of diseases classified elsewhere; E11.42 Type 2 diabetes mellitus with diabetic polyneuropathy; E11.51 Type 2 diabetes mellitus with diabetic peripheral angiopathy without gangrene; E66.9 Obesity, unspecified; Z68.32 Body mass index [BMI] 32.0-32.9, adult; E78.5 Hyperlipidemia, unspecified; E83.42 Hypomagnesemia; E87.6 Hypokalemia; F32.9 Major depressive disorder, single episode, unspecified; F41.9 Anxiety disorder, unspecified; G89.29 Other chronic pain; I10 Essential (primary) hypertension; I35.1 Nonrheumatic aortic (valve) insufficiency; K21.00 Gastro-esophageal reflux disease with esophagitis, without bleeding; K57.30 Diverticulosis of large intestine without perforation or abscess without bleeding; Z20.822 Contact with and (suspected) exposure to COVID-19; M19.90 Unspecified osteoarthritis, unspecified site; I71.2 Thoracic aortic aneurysm, without rupture; R79.89 Other specified abnormal findings of blood chemistry; K29.70 Gastritis, unspecified, without bleeding; K27.9 Peptic ulcer, site unspecified, unspecified as acute or chronic, without hemorrhage or perforation; Z79.82 Long term (current) use of aspirin; Z79.84 Long term (current) use of oral hypoglycemic drugs; Z79.899 Other long term (current) drug therapy; Z82.3 Family history of stroke; Z82.49 Family history of ischemic heart disease and other diseases of the circulatory system; Z83.3 Family history of diabetes mellitus; Z87.11 Personal history of peptic ulcer disease
CPT/HCPCS: 36415; 36569; 71045; 71250; 74177; 76705; 78226; 80048; 80053; 80076; 81001; 82150; 82550; 82962; 83690; 83735; 84100; 84145; 84443; 84484; 85025; 85610; 86140; 87040; 87077; 87205; 87426; 87493; 87505; 93005; 93306; 93312; 93923; 96361; 96365; 96374; A9537; C9113; G0379; J0360; J0696; J0780; J0878; J1650; J2405; J2543; J2704; J3475; J3480; J7030; Q9967; U0003; 97110-GP; 97116-GP; 97530-GO; 97530-GP; 97535-GO; 99285-25; G0378

== ENCOUNTER → 2021-02-22 | Outpatient (CLI) | payer OTHER ==
[2021-02-15 10:29] VITALS: BP 124/72
[~2021-02-22] MED LIST changes: +0.92DISP2 IV; +ACET325T21 PO; +ALBU2.5V8 NEB; +CEFTRIAXONE SODIUM IVP; +DAPT350V IV; +DOCU-153 PO; +FLUT16SP NS; +LACT1CAP19 PO; +LATA2.5D2 OU; +LOSA1TAB22 PO; +MAG30ORA2 PO; +OMEG1CAP6 PO; +ONDA4TAB12 PO; +PANT40TA77 PO; +POTA20TA4 PO; +SODI14.1 NS; +VITA1TAB3 PO
== END ==
LOC: LAB 10:53
PROVIDERS: ATTEND Internal Medicine Infectious Disease
DX: R78.81 Bacteremia (principal)
CPT/HCPCS: 36415; 87040